=== PATIENT | female | born 2000 | race Caucasian/White ===

== ENCOUNTER 2021-07-02 09:37 | Emergency (ER) | payer SELFPAY ==
[2021-07-02] MEDS ORDERED: DIPHENHYDRAMINE 50 MG/ML VIAL ONE (10:10)
[2021-07-02] MEDS ORDERED: METHYLPREDNISOLONE 125 MG INJ ONE (10:10)
[2021-07-02] MEDS ORDERED: FAMOTIDINE 20 MG/2 ML VIAL IV ONE (10:10)
[2021-07-02] MEDS ORDERED: FOLIC ACID 5 MG/ML VIAL ONE (10:11)
[2021-07-02] MEDS ORDERED: NA CHLORIDE 0.9% 1,000 ML ONE (10:11)
[2021-07-02 10:12] LABS: Absolute Lymphocytes (CBC) 1.3 K/uL (0.7-4.9); Basophils % 0.6 % (0-1.3); Hematocrit 39.5 % (36.0-45.0); Lymphocytes % 31.2 % (15.3-44.8); MPV 8.9 fL (7.6-11.3); RBC Red Blood Cell Count 4.63 M/uL (3.86-4.86)
[2021-07-02 10:17] LABS: Protime INR 1.08
[2021-07-02 10:30] LABS: ALT/SGPT 16 U/L (12-78); AST/SGOT 14 U/L (15-37); Albumin 3.8 g/dL (3.4-5.0); Alkaline Phosphatase 57 U/L (45-117); BUN Blood Urea Nitrogen 6 mg/dL (7-18); Bicarbonate 24 mmol/L (21-32); Bilirubin Direct 0.2 mg/dL (0-0.2); Bilirubin Total 0.6 mg/dL (0.2-1.0); Glucose Level 93 mg/dL (74-106); Magnesium 2.4 mg/dL (1.8-2.4); NT PRO-BNP 55 pg/mL (<125); Potassium 3.5 mmol/L (3.5-5.1); Protein, Total 6.9 g/dL (6.4-8.2); Sodium Level 141 mmol/L (136-145); Troponin (Emerg Dept Use Only) < 0.02 ng/mL (0.0-0.045)
[2021-07-02 10:31] LABS: Urine Blood Negative (Negative); Urine Glucose Negative (Negative); Urine Protein Negative (Negative); Urine pH 6.5 (5.0-7.0)
[2021-07-02 10:32] LABS: C-Reactive Protein < 2.90 mg/L (<3.00)
[2021-07-02 10:47] LABS: Barbiturates NEGATIVE (NEGATIVE); Benzodiazepines NEGATIVE (NEGATIVE); Cocaine NEGATIVE (NEGATIVE); METHAMPHETAM NEGATIVE (NEGATIVE); Methadone NEGATIVE (NEGATIVE); Opiates NEGATIVE (NEGATIVE); Phencyclidine NEGATIVE (NEGATIVE); THC Cannibis NEGATIVE (NEGATIVE)
--- NOTE | 2021-07-02 10:50 | RAD REPORT ---
EXAM DESCRIPTION: CT - Head angio - 07/02/2021 10:42 am CLINICAL HISTORY: Numbness;Visual disturbances TECHNIQUE: During dynamic enhancement using nonionic IV contrast, axial 1 millimeter thick images of the head were obtained. Sagittal and axial reconstruction images were generated using MIP technique and reviewed. All CT scans are performed using dose optimization technique as appropriate and may include automated exposure control or mA/KV adjustment according to patient size. FINDINGS: No aneurysm or vascular malformation identified. Major venous sinuses are patent. No stenosis, named branch occlusion, vasculitis or other significant vascular finding identifiable. IMPRESSION: Negative CT angio head examination.
--- NOTE | 2021-07-02 10:51 | RAD REPORT ---
EXAM DESCRIPTION: CT - Ct Stroke Brain Wo Cont - 07/02/2021 10:43 am CLINICAL HISTORY: Headache;Visual disturbances;Weakness;Numbness COMPARISON: No comparisons TECHNIQUE: Axial 5 millimeter thick images of the head were obtained without IV contrast. All CT scans are performed using dose optimization technique as appropriate and may include automated exposure control or mA/KV adjustment according to patient size. FINDINGS: No intracranial hemorrhage, mass, or cerebral edema. No acute infarction identifiable. No extra-axial fluid collections. Snell matter-white matter differentiation is preserved.No globe or orb ital content abnormality seen. No abnormality of the sella suspected. Visualized portions of the mastoid air cells, paranasal sinuses, and orbits are unremarkable. Findings telephoned to Dr Garntet at 10:47 a.m.. IMPRESSION: No CT evidence of acute intracranial process.
[2021-07-02] MEDS ORDERED: ASPIRIN 81 MG CHEWABLE TABLET ONE (10:52)
--- NOTE | 2021-07-02 10:53 | RAD REPORT ---
EXAM DESCRIPTION: CT - Neck Angio - 07/02/2021 10:43 am CLINICAL HISTORY: HEADACHE TECHNIQUE: During dynamic enhancement using nonionic IV contrast, axial 2 mm thick images of the nec k were obtained. Sagittal and axial reconstruction images were generated using MIP technique and revi ewed. All CT scans are performed using dose optimization technique as appropriate and may include automated exposure control or mA/KV adjustment according to patient size. COMPARISON: CT head same date, CT angio head same date FINDINGS: No aneurysm or vascular malformation identified. No carotid or vertebral dissection. Aortic arch was not fully visualized. Patient appears to be typical 3 vessel origin arch. Vertebral a rtery origins unremarkable. No stenosis, vasculitis or other significant carotid artery finding. No f ocal abnormality of either vertebral artery. Basilar artery is normal. IMPRESSION: Negative CT angio neck examination.
--- NOTE | 2021-07-02 10:56 | ER ---
Nurse's Notes [facility] Name: Aleyda Mac Age: 21 yrs Sex: Female : 2000 Arrival Date: 07/02/2021 Time: 09:39 Bed 18 Private MD: Diagnosis: Other visual disturbances;Weakness Presentation: 07/02 09:46 Chief complaint: Patient states: Vision loss in L eye with L side of body going numb ll1 off/on for 1.5 months. After the symptoms resolve, she has pain to entire L side of body. Coronavirus screen: Vaccine status: Patient reports being unvaccinated. Client denies travel out of the [place] in the last 14 days. At this time, the client does not indicate any symptoms associated with coronavirus-19. Ebola Screen: Patient denies travel to an Ebola-affected area in the 21 days before illness onset. Initial Sepsis Screen: Does the patient meet any 2 criteria? No. Patient's initial sepsis screen is negative. Does the patient have a suspected source of infection? No. Patient's initial sepsis screen is negative. Risk Assessment: Do you want to hurt yourself or someone else? Patient reports no desire to harm self or others. Onset of symptoms was May 20, 2021. 09:46 Method Of Arrival: Ambulatory ll1 09:46 Acuity: GERONIMO 3 ll1 Triage Assessment: 09:48 General: Appears in no apparent distress. Behavior is calm, cooperative, appropriate ll1 for age. Pain: Complains of pain in L side of body Pain currently is 7 out of 10 on a pain scale. Quality of pain is described as aching, Pain began 1 hour ago. Neuro: Level of Consciousness is awake, alert, obeys commands, Oriented to person, place, time, situation, Appropriate for age Moves all extremities. Full function Speech is normal, Facial symmetry appears normal, Reports blurred vision numbness paresthesias. Cardiovascular: No deficits noted. Respiratory: No deficits noted. 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 Flu vaccine is not up to date. - Social history:: Smoking status: Patient denies any tobacco usage or history of. - Family history:: not pertinent. Screenin:48 Abuse screen: Denies threats or abuse. Abuse screen: Denies threats or abuse. ll1 Nutritional screening: No deficits noted. Tuberculosis screening: No symptoms or risk factors identified. 11:39 Fall Risk IV access (20 points). Total Abad Fall Scale indicates No Risk (0-24 pts). ll1 Assessment: 10:45 Reassessment: No changes from previously documented assessment. Patient and/or family ll1 updated on plan of care and expected duration. Pain level reassessed. Patient is alert, oriented x 3, equal unlabored respirations, skin warm/dry/pink. 11:38 Reassessment: No changes from previously documented assessment. Patient and/or family ll1 updated on plan of care and expected duration. Pain level reassessed. Patient is alert, oriented x 3, equal unlabored respirations, skin warm/dry/pink. Patient states feeling better. Vital Signs: 09:46 BP 137 / 80; Pulse 82; Resp 16; Temp 98.5; Pulse Ox 100% ; Weight 54.43 kg; Height 5 ll1 ft. 3 in. (160.02 cm); Pain 7/10; 10:57 BP 143 / 73; Pulse 60; Resp 15; Pulse Ox 100% on R/A; ll1 11:38 BP 121 / 60; Pulse 60; Resp 15; Pulse Ox 100% ; Pain 0/10; ll1 09:46 Body Mass Index 21.26 (54.43 kg, 160.02 cm) 1 ED Course: 09:39 Patient arrived in ED. as 09:41 Jhonny Garnett MD is Attending Physician. sukhwinder 09:42 Khalif Mallory, DERRELL is Primary Nurse. ll1 09:43 Arm band placed on Patient placed in an exam room, on a stretcher. ll1 09:48 Triage completed. ll1 09:48 Patient has correct armband on for positive identification. Bed in low position. Call 1 light in reach. Side rails up X 1. Pulse ox on. NIBP on. 10:00 EKG done, by ED staff, reviewed by Jhonny Garnett MD. 3 10:42 CT Head Angio In Process Unspecified. EDMS 10:43 CT Neck Angio In Process Unspecified. EDMS 10:43 CT Stroke Brain w/o Contrast In Process Unspecified. EDMS 10:54 Daniel Bo MD is Referral Physician. [facility] 11:04 XRAY Chest (1 view) In Process Unspecified. EDMS 11:38 No provider procedures requiring assistance completed. IV discontinued, intact, ll1 bleeding controlled, No redness/swelling at site. Pressure dressing applied. Administered Medications: 02:50 Drug: Pepcid (famotidine) 20 mg Route: IVP; Site: left antecubital; ll1 10:56 Follow up: Response: No adverse reaction ll1 10:25 Drug: NS 0.9% 1000 ml Route: IV; Rate: 1 bolus; Site: left antecubital; ll1 11:30 Follow up: Response: No adverse reaction; IV Status: Completed infusion; IV Intake: ll1 1000ml 10:25 Drug: foLIC Acid 1 mg Route: IVPB; Site: left antecubital; ll1 10:57 Follow up: Response: No adverse reaction; IV Status: Completed infusion; IV Intake: ll1 0.2ml 10:25 Drug: Benadryl (diphenhydrAMINE) 25 mg Route: IVP; Site: left antecubital; ll1 10:56 Follow up: Response: No adverse reaction ll1 10:25 Drug: SOLU-Medrol (methylPrednisoLONE) 125 mg Route: IVP; Site: left antecubital; ll1 10:56 Follow up: Response: No adverse reaction ll1 10:57 Drug: Aspirin Chewable Tablet 324 mg Route: PO; ll1 11:39 Follow up: Response: No adverse reaction ll1 Intake: 10:57 IV: 0ml; Total: 0ml. ll1 11:30 IV: 1000ml; Total: 1000ml. ll1 Outcome: 10:56 Discharge ordered by . sukhwinder 11:38 Discharged to home ambulatory. ll1 11:38 Condition: stable 11:38 Discharge instructions given to patient, family, Instructed on discharge instructions, follow up and referral plans. medication usage, Demonstrated understanding of instructions, follow-up care, medications, Prescriptions given X 1. 11:39 Patient left the ED. ll1 Signatures: Dispatcher [employer] Jhonny Barboza MD MD cha Martinez, Amelia as Herrera Jacqui dh3 Khalif Mallory, RN RN ll1
--- NOTE | 2021-07-02 10:57 | EDPHYS ---
Physician Documentation [facility] Name: Aleyda Mac Age: 21 yrs Sex: Female : 2000 Arrival Date: 07/02/2021 Time: 09:39 Bed 18 Private MD: MAXIMINO Physician Jhonny Garnett HPI: 07/02 09:55 This 21 yrs old Female presents to ER via Ambulatory with complaints of Loss sukhwinder Of Vision, Numbness. 09:55 The patient's problem is reported as paresthesias, in left upper extremity, in left sukhwinder lower extremity, in left side of face, an apparent seizure, with the patient having visual difficulty, blurred vision, scotomata. Onset: The symptoms/episode began/occurred just prior to arrival. Duration: The episodes are intermittent, lasting a few minutes. Context: the episode(s) was witnessed, by a significant other, boyfriend. The symptoms are alleviated by nothing. The symptoms are aggravated by nothing. Associated signs and symptoms: The patient has no apparent associated signs or symptoms. Severity of symptoms: At their worst the symptoms were moderate in the emergency department the symptoms have improved markedly. The patient has not experienced similar symptoms in the past. 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 Flu vaccine is not up to date. - Social history:: Smoking status: Patient denies any tobacco usage or history of. - Family history:: not pertinent. ROS: 09:55 Constitutional: Negative for fever, chills, and weight loss, ENT: Negative for injury, sukhwinder pain, and discharge, Neck: Negative for injury, pain, and swelling, Cardiovascular: Negative for chest pain, palpitations, and edema, Respiratory: Negative for shortness of breath, cough, wheezing, and pleuritic chest pain, Abdomen/GI: Negative for abdominal pain, nausea, vomiting, diarrhea, and constipation, Back: Negative for injury and pain, : Negative for injury, bleeding, discharge, and swelling, MS/Extremity: Negative for injury and deformity, Skin: Negative for injury, rash, and discoloration, Psych: Negative for depression, anxiety, suicide ideation, homicidal ideation, and hallucinations, Allergy/Immunology: Negative for hives, rash, and allergies, Endocrine: Negative for neck swelling, polydipsia, polyuria, polyphagia, and marked weight changes, Hematologic/Lymphatic: Negative for swollen nodes, abnormal bleeding, and unusual bruising. 09:55 Eyes: Positive for blurry vision, visual disturbance, of the iris of left eye. Exam: 09:55 Constitutional: This is a well developed, well nourished patient who is awake, alert, sukhwinder and in no acute distress. Head/Face: Normocephalic, atraumatic. Eyes: Pupils equal round and reactive to light, extra-ocular motions intact. Lids and lashes normal. Conjunctiva and sclera are non-icteric and not injected. Cornea within normal limits. Periorbital areas with no swelling, redness, or edema. ENT: Nares patent. No nasal discharge, no septal abnormalities noted. Tympanic membranes are normal and external auditory canals are clear. Oropharynx with no redness, swelling, or masses, exudates, or evidence of obstruction, uvula midline. Mucous membranes moist. Neck: Trachea midline, no thyromegaly or masses palpated, and no cervical lymphadenopathy. Supple, full range of motion without nuchal rigidity, or vertebral point tenderness. No Meningismus. Chest/axilla: Normal chest wall appearance and motion. Nontender with no deformity. No lesions are appreciated. Cardiovascular: Regular rate and rhythm with a normal S1 and S2. No gallops, murmurs, or rubs. Normal PMI, no JVD. No pulse deficits. Respiratory: Lungs have equal breath sounds bilaterally, clear to auscultation and percussion. No rales, rhonchi or wheezes noted. No increased work of breathing, no retractions or nasal flaring. Abdomen/GI: Soft, non-tender, with normal bowel sounds. No distension or tympany. No guarding or rebound. No evidence of tenderness throughout. Back: No spinal tenderness. No costovertebral tenderness. Full range of motion. Pelvic Exam: Normal external genitalia. Speculum exam with closed cervical os, no discharge or bleeding noted. Bimanual exam with normal adnexa, no adnexal or cervical motion tenderness. Normal uterus. Skin: Warm, dry with normal turgor. Normal color with no rashes, no lesions, and no evidence of cellulitis. MS/ Extremity: Pulses equal, no cyanosis. Neurovascular intact. Full, normal range of motion. Neuro: Awake and alert, GCS 15, oriented to person, place, time, and situation. Cranial nerves II-XII grossly intact. Motor strength 5/5 in all extremities. Sensory grossly intact. Cerebellar exam normal. Normal gait. Psych: Awake, alert, with orientation to person, place and time. Behavior, mood, and affect are within normal limits. 10:30 ECG was reviewed by the Attending Physician. sukhwinder 10:52 Radiologist reports: negative, cta head and neck neg sukhwinder Vital Signs: 09:46 BP 137 / 80; Pulse 82; Resp 16; Temp 98.5; Pulse Ox 100% ; Weight 54.43 kg; Height 5 ll1 ft. 3 in. (160.02 cm); Pain 7/10; 10:57 BP 143 / 73; Pulse 60; Resp 15; Pulse Ox 100% on R/A; ll1 11:38 BP 121 / 60; Pulse 60; Resp 15; Pulse Ox 100% ; Pain 0/10; ll1 09:46 Body Mass Index 21.26 (54.43 kg, 160.02 cm) ll1 MDM: 09:[address] [facility] 10:01 Differential diagnosis: CVA, TIA, paralysis, metabolic disorder, drug effects. Data sukhwinder reviewed: vital signs, nurses notes, lab test result(s), EKG, radiologic studies, CT scan, plain films. 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 Test interpretation: by ED physician or midlevel provider: ECG, plain radiologic studies. Counseling: I had a detailed discussion with the patient and/or guardian regarding: the historical points, exam findings, and any diagnostic results supporting the discharge/admit diagnosis, lab results, radiology results. 07/02 09:55 Order name: Basic Metabolic Panel [facility] 07/02 09:55 Order name: CBC with Diff [facility] 07/02 09:55 Order name: LFT's; Complete Time: 10:50 [facility] 07/02 09:55 Order name: Magnesium; Complete Time: 10:50 [facility] 07/02 09:55 Order name: NT PRO-BNP; Complete Time: 10:50 [facility] 07/02 09:55 Order name: PT-INR; Complete Time: 10:50 [facility] 07/02 09:55 Order name: Troponin (emerg Dept Use Only); Complete Time: 10:50 [facility] 07/02 09:55 Order name: CRP; Complete Time: 10:50 [facility] 07/02 09:55 Order name: Sed Rate; Complete Time: 10:50 [facility] 07/02 09:55 Order name: UDS; Complete Time: 10:50 [facility] 07/02 09:55 Order name: Basic Metabolic Panel; Complete Time: 10:50 [facility] 07/02 09:55 Order name: CBC with Automated Diff; Complete Time: 10:50 [facility] 07/02 10:31 Order name: Urine Dipstick-Ancillary [facility] 07/02 10:34 Order name: Urine --Ancillary (enter results) 07/02 09:55 Order name: XRAY Chest (1 view) [facility] 07/02 09:55 Order name: EKG; Complete Time: 09:56 [facility] 07/02 09:55 Order name: Cardiac monitoring; Complete Time: 10:06 [facility] 07/02 09:55 Order name: EKG - Nurse/Tech; Complete Time: 10:06 [facility] 07/02 09:55 Order name: IV Saline Lock; Complete Time: 09:56 [facility] 07/02 09:55 Order name: Labs collected and sent; Complete Time: 09:56 [facility] 07/02 09:55 Order name: O2 Per Protocol; Complete Time: 09:56 [facility] 07/02 09:55 Order name: CT Head Angio [facility] 07/02 09:55 Order name: CT Neck Angio [facility] 07/02 09:55 Order name: CT Stroke Brain w/o Contrast [facility] 07/02 09:55 Order name: O2 Sat Monitoring; Complete Time: 09:56 [facility] 07/02 09:55 Order name: Urine Dipstick-Ancillary (obtain specimen); Complete Time: 10:56 [facility] 07/02 09:55 Order name: Urine Test (obtain specimen); Complete Time: 10:56 [facility] EC:30 Rate is 82 beats/min. Rhythm is regular. QRS [place] is Normal. NV interval is normal. QRS sukhwinder interval is normal. QT interval is normal. No Q waves. T waves are Normal. No ST changes noted. Clinical impression: Normal ECG and No evidence of ischemia. Interpreted by me. Reviewed by me. Administered Medications: 02:50 Drug: Pepcid (famotidine) 20 mg Route: IVP; Site: left antecubital; ll1 10:56 Follow up: Response: No adverse reaction ll1 10:25 Drug: NS 0.9% 1000 ml Route: IV; Rate: 1 bolus; Site: left antecubital; ll1 11:30 Follow up: Response: No adverse reaction; IV Status: Completed infusion; IV Intake: ll1 1000ml 10:25 Drug: foLIC Acid 1 mg Route: IVPB; Site: left antecubital; ll1 10:57 Follow up: Response: No adverse reaction; IV Status: Completed infusion; IV Intake: ll1 0.2ml 10:25 Drug: Benadryl (diphenhydrAMINE) 25 mg Route: IVP; Site: left antecubital; ll1 10:56 Follow up: Response: No adverse reaction ll1 10:25 Drug: SOLU-Medrol (methylPrednisoLONE) 125 mg Route: IVP; Site: left antecubital; ll1 10:56 Follow up: Response: No adverse reaction ll1 10:57 Drug: Aspirin Chewable Tablet 324 mg Route: PO; ll1 11:39 Follow up: Response: No adverse reaction ll1 Disposition Summary: 07/02/21 10:56 Discharge Ordered Location: Home sukhwinder Problem: new sukhwinder Symptoms: have improved sukhwinder Condition: Stable sukhwinder Diagnosis - Other visual disturbances sukhwinder - Weakness sukhwinder Followup: sukhwinder - With: Private Physician - When: 2 - 3 days - Reason: Recheck today's complaints, Continuance of care, Re-evaluation by your physician Followup: sukhwinder - With: Daniel Bo MD - When: 2 - 3 days - Reason: Recheck today's complaints, Continuance of care, Re-evaluation by your physician Discharge Instructions: - Discharge Summary Sheet sukhwinder - Blurred Vision, Adult sukhwinder - Weakness sukhwinder - Weakness, [id number]-en-[id number] sukhwinder - Aspirin and Your Heart sukhwinder Forms: - Medication Reconciliation Form sukhwinder - Thank You Letter sukhwinder - Antibiotic Education sukhwinder - Prescription Opioid Use sukhwinder - Work release form eb Prescriptions: - Folic Acid 1 mg Oral Tablet - take 1 tablet by ORAL route once daily; 30 tablet; Refills: 0, Product sukhwinder Selection Permitted Signatures: Dispatcher [employer] Jhonny Barboza MD MD cha Lewis, Lynsay, RN RN ll1
--- NOTE | 2021-07-02 11:32 | RAD REPORT ---
EXAM DESCRIPTION: RAD - Chest Single View - 07/02/2021 11:04 am CLINICAL HISTORY: COUGH, Stroke protocol chest film COMPARISON: None TECHNIQUE: AP portable chest image was obtained 07/02/2021 11:04 am . FINDINGS: Lungs are clear. Heart and vasculature are normal. No measurable pleural effusion and no p neumothorax. No acute bony abnormality seen. No acute aortic findings suspected. IMPRESSION: No acute cardiopulmonary process.
[2021-07-02 11:45] VITALS: TEMP 98.5; O2SAT 100
[2021-07-02 11:48] VITALS: BP 121/60
--- OUTSIDE RECORDS SUMMARY | 2021-07-02 23:31 | XMS REPORT | Continuity of Care Document ---
:2000 Author Organization [facility] t Address [address] [place] [address] Dr. Gonzalez. [address] [place] [address] Care Team Providers Name Role Phone Ashlyn MICHEL Primary Care Physician Ting KENNEYP, C Attending Clinician Naren ACOSTA Attending Clinician Unavailable Stefano MENDOZA Attending Clinician Unavailable TYREE Attending Clinician Unavailable Carmen DUNAWAY Attending Clinician Unavailable VANE Attending Clinician Unavailable ASHLYN Attending Clinician Unavailable UNKNOWN Attending Clinician Unavailable Malcolm CERON Attending Clinician Unavailable ERIC Attending Clinician Unavailable LIBERTY Attending Clinician Unavailable CHIARA JIM Attending Clinician Unavailable Poli SNYDER Attending Clinician Unavailable Nurse, Urgent Attending Clinician Unavailable Baldo MAYA Y Attending Clinician Malcolm CERON Admitting Clinician Unavailable ERIC Admitting Clinician Unavailable CHIARA JIM Admitting Clinician Unavailable Payers Payer Name Policy Type Policy Number Effective Date Expiration Date S becky SANCHEZ PRIMARY [id number] 2019 CARE 00:00:00 BROOK [id number] 9004-04-17 00:00:00 [place]. I H [id number] 2019 C 00:00:00 [facility] [id number] 2019 2019 00:00:00 00:00:00 Problems Condition Condition Condition Status Onset Resolution Last Treating Co mments Source Name Details Category Date Date Treatment Clinician Date Encounter Encounter Disease Active Uni vers for for 6-30 ity of surve[place] ce of 00 Medical contracept contracept Br anch gonzales pills gonzales pills Initiation Initiation Disease Active U nivers of OCP of OCP 6-30 ity of (BCP) (BCP) 00:00: [place] 00 Medical Branch History of History of Disease Active U nivers pulmonary pulmonary 6-30 ity of embolism embolism 00:00: [place] 00 Medical Branch Chest pain Chest pain Disease Active 2018-08 U nivers 0-29 ity of 00:00: [place] 00 Medical Branch Syncope Syncope Disease Active 2018-08 Univers 0-27 ity of 00:00: [place] 00 Medical Branch Pulmonary Pulmonary Disease Active 2018-08 Uni vers embolism embolism 0-27 ity of 00:00: [place] 00 Medical Branch Non-intrac Non-intrac Disease Active U nivers table table 5-06 ity of vomiting vomiting 00:00: [place] with with 00 Medical nausea, nausea, Branch unspecifie unspecifie d vomiting d vomiting type type Epistaxis Epistaxis Disease Active Uni vers 5-06 ity of 00:00: [place] 00 Medical Branch Seasonal Seasonal Disease Active Unive rs allergic allergic 5-06 ity of rhinitis rhinitis 00:00: [place] due to due to 00 Medical pollen pollen Branch Allergies, Adverse Reactions, Alerts Allergy Allergy Status Severity Reaction(s) Onset Inactive Treating Comm ents Source Name Type Date Date Clinician Animal Drug Active Other - See 2018-08 Allergic Uni vers Dander Allergy comments 0-27 from cats ity of 00:00: and [place] 00 dogs-stuf Medical fy nose Branch Shellfis Drug Active Rash 2018-08 Univers h Allergy 0-27 ity of Derived 00:00: [place] 00 [facility] Branch ANIMAL DRUG Active Other-Cmnt 2018-08 Univer s DANDER INGREDI 0-27 ity of 00:00: [place] [facility] SHELLFIS DRUG Active Rash 2018-08 Univers H INGREDI 0-27 ity of DERIVED 00:00: [place] [facility] No Known DA Active U [facility] Allergie 7-08 Clear s 00:00: [place] 00 [facility] No Known DA Active U 2014-08 [facility] Allergie 1-17 Clear s 00:00: [place] 00 [facility] Social History Social Habit Start Date Stop Date Quantity Comments Source Exposure to Not sure [place] of SARS-CoV-2 [place] [facility] (event) Branch History SDOH University o f Alcohol Frequency [place] [facility] ed[facility] History SDOH University o f Alcohol Std [place] [facility] Drinks Branch History SDOH University o f Alcohol Binge [place] [facility] Alcohol intake 2021-05-18 2021-05-18 Current drinker Unive rsity of 00:00:00 00:00:00 of alcohol [place] [facility] (finding) Branch Alcohol Comment 2021-02-16 2021-02-16 socially Universit y of 00:00:00 00:00:00 [facility] Tobacco use and 2019-12-10 2019-12-10 Never used Universit y of exposure 00:00:00 00:00:00 [facility] Tobacco Comment 2019-12-10 2019-12-10 vape before Universi ty of 00:00:00 00:00:00 04/2019 [facility] Sex Assigned At 2000 2000 Universit y of 00:00:00 00:00:00 [facility] Smoking Status Start Date Stop Date Source Never smoker [facility] Medications Ordered Filled Start Stop Current Ordering Indication Dosage Frequency Signature Comments Components Source Medication Medication Date Date Medication? Clinician (SIG) Name Name lauraro Yes [id number] 1{tbl} Take 1 Univers ne 0.35 mg 9-29 tablet by ity of tablet 00:00: mouth 00 daily. Medical Branch norethindro Yes [id number] 1{tbl} Take 1 Univers ne 0.35 mg 9-29 tablet by ity of tablet 00:00: mouth 00 daily. Medical Branch norethindro 2020- No [id number] 1{tbl} Take 1 Univers ne 0.35 mg 6-30 05-18 tablet by ity of tablet 00:00: 00:00 mouth [place] 00 :00 daily. Medical Branch norethindro 2020- No [id number] 1{tbl} Take 1 Univers ne 0.35 mg 6-30 05-18 tablet by ity of tablet 00:00: 00:00 mouth [place] 00 :00 daily. Medical Branch MONTELUKAST Yes [id number] TAKE 1 Univers 10 mg 7-31 TABLET BY ity of tablet 00:00: MOUTH [place] 00 EVERY DAY Medical Branch MONTELUKAST Yes [id number] TAKE 1 Univers 10 mg 7-31 TABLET BY ity of tablet 00:00: MOUTH [place] 00 EVERY DAY Medical [place] Immunizations Ordered Filled Immunization Date Status Comments Sour e Immunization Name Name Influenza Virus 2019-06-23 Completed Universit y of Vaccine Quad .5 mL 00:00:00 [place] [facility] IM 6+ MO Branch Influenza Virus 2019-06-23 Completed Universit y of Vaccine Quad .5 mL 00:00:00 [facility] IM 6+ MO Branch Vital Signs Vital Name Observation Time Observation Value Comments Source Systolic blood 2021-05-18 18:25:00 118 mm[Hg] Univer sity of pressure [facility] Diastolic blood 2021-05-18 18:25:00 81 mm[Hg] Unive rsity of [facility] Heart rate 2021-05-18 18:25:00 78 /min [facility] Body temperature 2021-05-18 18:25:00 36.11 [facility] Respiratory rate 2021-05-18 18:25:00 18 /min [facility] Body height 2021-05-18 18:25:00 160 cm [facility] Body weight 2021-05-18 18:25:00 56.564 kg [facility] BMI 2021-05-18 18:25:00 22.09 kg/m2 [facility] Procedures This patient has no known procedures. 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 [id number] ity [facility] [id number] Eugenio as MATERNAL [id number] [facility] [address] [place] [address] 2021-05-18 2021-05-18 Outpatient R AKINSIPE, [facility] [id number] Univers 13:30:00 13:30:00 SARAH rubioy o [facility] 2021-05-18 2021-05-18 Outpatient R AKINSIPE, [facility] [id number] Univers 09:15:00 09:15:00 SARAH ity o [facility] 2021-05-18 2021-05-18 Outpatient R MENDOZA, [facility] [id number] Univers 09:00:00 09:00:00 HEATH [id number] ity o [facility] 2021-05-18 2021-05-18 Outpatient R MENDOZA, [facility] [id number] Univers 09:00:00 09:00:00 HEATH rubioy o [facility] 2021-05-17 2021-05-17 Outpatient R AKINSIPE, [facility] [id number] Univers 09:15:00 09:15:00 SARAH [id number] ity o [facility] 2021-05-17 2021-05-17 Outpatient R AKINSIPE, [facility] [id number] Univers 09:15:00 09:15:00 SARAH ity o [facility] 2021-02-16 2021-02-16 Outpatient MENDOZA, [facility] [id number] Univers 07:30:00 07:30:00 HEATH [id number] ity o [facility] 2021-02-16 2021-02-16 Outpatient R REJI [facility] [id number] Univers 07:30:00 07:30:00 HEATH ity o f [facility] 2021-02-15 2021-02-15 Outpatient R REJI [facility] [id number] Univers 07:45:00 07:45:00 HEATH [id number] ity o f [facility] 2020-11-11 2020-11-11 Outpatient R TYREE, [facility] [id number] Univers 11:15:00 11:15:00 EWELINA [id number] [facility] 2020-11-11 2020-11-11 Outpatient R ROSEANNAADELINE, [facility] [id number] Univers 11:15:00 11:15:00 EWELINA [facility] 2020-02-26 2020-02-26 Outpatient R DUNAWAY, [facility] [id number] Univers 14:00:00 14:00:00 AVERY [id number] [facility] 2020-02-26 2020-02-26 Outpatient R DUNAWAY, [facility] [id number] Univers 14:00:00 14:00:00 VAERY [facility] 2019-12-10 2019-12-10 Outpatient R VANE [facility] [id number] Univers 14:20:00 14:20:00 SHAREE [id number] [facility] 2019-12-10 2019-12-10 Outpatient R VANE [facility] [id number] Univers 14:20:00 14:20:00 MARISELALAURENT [facility] 2019-12-10 2019-12-10 Outpatient R VANE [facility] [id number] Univers 14:20:00 14:20:00 SHAREE [facility] 2019-11-14 2019-11-14 Outpatient R [facility] [id number] Univers 11:30:00 11:30:00 [id number] [facility] 2019-11-14 2019-11-14 Outpatient R ASHLYN [facility] [id number] Univers 11:30:00 11:30:00 [facility] 2019-11-01 2019-11-01 Outpatient R [facility] [id number] Univers 12:15:00 12:15:00 [id number] [facility] 2019-11-01 2019-11-01 Outpatient R UNKNOWN, [facility] [id number] Univers 12:15:00 12:15:00 ATTENDING [facility] 2019-09-30 2019-10-01 Emergency X OSMANY [facility] ERT [id number] Univers 23:56:38 02:38:00 MOHAMMED ity o f [facility] 2019-09-02 2019-09-02 Outpatient R EWELINA GOLDBERG [facility] [id number] Univers 10:30:00 11:50:00 [facility] 2019-06-17 2019-06-23 Inpatient X ALFRED REYES [facility] DOMINGA [id number] Univers 11:52:53 11:25:00 [facility] 2019-06-15 2019-06-15 Outpatient R LIBERTY, [facility] [id number] Univers 11:30:00 12:17:49 TREVA [facility] 2019-05-24 2019-05-24 Emergency X EVI JIM [facility] ERT [id number] Univers 14:22:08 16:55:00 [facility] 2019-04-19 2019-04-19 Emergency E MHSE MHSE [id number] [facility] 16:35[facility]-04-19 2019-04-19 Outpatient R LILLIAN, [facility] [id number] Univers 16:00:00 16:05:46 VAZQUEZ [facility] 2019-04-19 2019-04-19 Nurse NurseAbi [id number] 15:58:49 16:05:46 Visit Urgent Pediatric [id number] s and [id number] Adult [id number] Primary [facility] 2019-03-18 2019-03-18 Don Cornell [id number] 00:00:00 00:00:00 Y Pediatric [id number] s and [id number] Adult [id number] Primary [facility] Results Test Description Test Time Test Comments Results Result Comments Source DRUGS OF ABUSE SCREEN UR 2019-05-10 01:36:00 Test Item Value Reference Range Interpretation Comme nts URN COCAINE (test code = COCAURN) NEGATIVE NEGATIVE URN CANNABINOIDS (test code = NEGATIVE NEGATIVE CANNABURN) URN AMPHETAMINE (test code = NEGATIVE NEGATIVE AMPHETURN) URN BARBITURATE (test code = NEGATIVE NEGATIVE BARBITURN) URN BENZODIAZEPINE (test code = NEGATIVE NEGATIVE Cut-off value:200 ng/mL BENZOURN) URN OPIATES (test code = NEGATIVE NEGATIVE Cut -off value:2000 ng/mL OPIATURN) URN PHENCYCLIDINE (PCP) (test NEGATIVE NEGATIVE Cutoffs:Barbiturates code = PHENCURN) 200 ng/mLB enzodiazepines 200 ng/mLTHC Cannabinoids 50 ng/mLO piates(Morphine) 2000 ng/m LAmphetamine 1000 ng /mLCocaine 300 ng/mLPCP phencyclidine 25 ng/mL Unconfirmed scr eening results shouldnot be us ed for non-medical pur poses. UR HCG [id number] 01:26:00 Test Item Value Reference Range Interpretation Comments UR HCG QUAL (test code = HCGQLU) NEGATIVE NEGATIVE URINALYSIS [id number] 01:26:00 Test Item Value Reference Range Interpretation Comments UA COLOR (test code = COLU) YELLOW YEL/STRAW UA APPEARANCE (test code = APPU) SL CLOUDY CLEAR UA GLUCOSE DIPSTICK (test code = NEGATIVE NEGATIVE DGLUU) UA BILIRUBIN DIPSTICK (test code NEGATIVE NEGATIVE = BILU) UA KETONE DIPSTICK (test code = 2+ NEGATIVE A KETU) UA SPECIFIC GRAVITY (test code = 1.021 1.005-1.030 N SGU) UA BLOOD DIPSTICK (test code = NEGATIVE NEGATIVE SARAH) UA PH DIPSTICK (test code = JEAN) 5.0 5.0-7.0 N UA PROTEIN DIPSTICK (test code = NEGATIVE NEGATIVE PROU) UA UROBILINIOGEN DIPSTICK (test 0.2 mg/dL 0.2-1.0 code = URO) UA NITRITE DIPSTICK (test code = NEGATIVE NEGATIVE ANDREW) UA LEUKOCYTE ESTERASE DIPSTICK 2+ NEGATIVE A (test code = LEUU) UA RBC (test code = RBCU) 0-3 RBC/HPF 0-3 UA WBC NO REFLEX (test code = 4-9 WBC/HPF 0-3 A WBCUCL) UA BACTERIA (test code = BACU) TRACE /HPF NONE SEEN UA SQUAMOUS CELLS (test code = 11-25 /HPF NONE SEEN A SQU) UA MUCUS (test code = MUCU) 3+ /LPF NONE SEEN A HEPATIC FUNCTION [id number] 00:54:00 Test Item Value Reference Range Interpretation Comments TOTAL PROTEIN (test code = PROT) 7.8 g/dL 6.4-8.2 N ALBUMIN (test code = ALB) 4.70 g/dL 3.4-5.0 N BILIRUBIN TOTAL (test code = BILT) 0.8 MG/DL <1.5 N BILIRUBIN DIRECT (test code = 0.10 MG/DL 0.0-0.30 N BILD) BILIRUBIN INDIRECT (test code = 0.70 MG/DL BILIND) SGOT/AST (test code = AST) 18 IUnit/L 15-37 N SGPT/ALT (test code = ALT) 15 IUnit/L 15-65 N ALKALINE PHOSPHATASE TOTAL (test 70 IUnit/L 60-350 N code = ALKP) [id number] 00:54:00 Test Item Value Reference Range Interpretation Comments ALCOHOL (test code < 0.003 G/dL <0.003 Ethyl Alc ohol = ALC) Interpretation: 0.100 gm/dL - Legally Intoxic ated 0.300-0.40 0 gm/dL - Severely Into xicated >0.400 gm/dL - Potentially LethalResults a re for Medical purpose s only, and not for Leg al orEmployment ev aluation purposes. CBC W/AUTO [id number] 00:35:00 Test Item Value Reference Range Interpretation Comments WHITE BLOOD CELL (test code = 11.70 x10 3/uL 4.5-11.0 H WBC) RED BLOOD CELL (test code = 5.19 x10 6/uL 3.54-5.02 H RBC) HEMOGLOBIN (test code = HGB) 14.6 g/dL 11.0-15.0 N HEMATOCRIT (test code = HCT) 43.8 % 33.0-45.0 N MEAN CELL VOLUME (test code = 84.4 fL 81.0-99.0 N MCV) MEAN CELL HGB (test code = 28.1 pg 27.0-33.0 N MCH) MEAN CELL HGB CONCETRATION 33.3 g/dL 33.0-37.0 N (test code = MCHC) RED CELL DISTRIBUTION WIDTH CV 11.5 % 11.5-14.5 N (test code = RDW) RED CELL DISTRIBUTION WIDTH SD 35.3 fL 37.0-54.0 L (test code = RDW-SD) PLATELET COUNT (test code = 291 x10 3/uL 150-400 N PLT) MEAN PLATELET VOLUME (test 11.2 fL 7.0-9.0 H code = MPV) NEUTROPHIL % (test code = NT%) 73.4 % 56.0-77.0 N IMMATURE GRANULOCYTE % (test 0.5 % 0.0-2.0 N code = IG%) LYMPHOCYTE % (test code = LY%) 17.4 % 14.0-32.0 N MONOCYTE % (test code = MO%) 7.3 % 4.8-9.0 N EOSINOPHIL % (test code = EO%) 1.0 % 0.3-3.7 N BASOPHIL % (test code = BA%) 0.4 % 0.0-2.0 N NUCLEATED RBC % (test code = 0.0 % 0-0 N NRBC%) NEUTROPHIL # (test code = NT#) 8.58 x10 3/uL 2.0-7.6 H IMMATURE GRANULOCYTE # (test 0.06 x10 3/uL 0.00-0.03 H code = IG#) LYMPHOCYTE # (test code = LY#) 2.04 x10 3/uL 1.0-3.8 N MONOCYTE # (test code = MO#) 0.85 x10 3/uL 0.1-0.8 H EOSINOPHIL # (test code = EO#) 0.12 x10 3/uL 0.0-0.2 N BASOPHIL # (test code = BA#) 0.05 x10 3/uL 0.0-0.2 N NUCLEATED RBC # (test code = 0.00 x10 3/uL 0.0-0.1 N NRBC#) MANUAL DIFF REQUIRED (test NO code = MDIFF) - CT ABD PELVIS [id number] 23:38:00 Name: KAMRYN TELLEZ : 2000 Age/S: 18 / F [address] [facility] Unit #: [id number] Loc: [place] [id number] Phys: Jermaine Vora [employer] Acct: [id number] Dis Date: Status: REG ER PHONE #: [phone] Exam Date: 02/24/20192312 FAX #: [phone] Reason: L sidedabd pain EXAMS: CPTCODE: [id number] CT ABD PELVIS W/CONT 21126 CT ABDOMEN AND PELVIS WITH CONTRAST CLINICAL HISTORY: Left-sided abdominal pain. COMPARISON:None. TECHNIQUE: Multiple axial images of the abdomen and pelvis were performed after the administration of IV contrast. This exam was performed according to our departmental dose optimization program which includes automated exposure control, adjustment of the mA and/or kV according to patient size and/or use of iterative reconstruction technique. DLP 211.85 FINDINGS: Lower chest: A 2 mm subpleural nodular density within the left lower lobe likely represents focal subsegmental atelectasis. 12 month follow-up can be obtained if patient is high risk. Liver: The liver is slightly prominent in size. Gallbladder and biliary tree: The gallbladder is partially distended, nonspecific. No associated gallbladder inflammatory changes by CT. No biliary dilatation. Spleen: No significant findings. Adrenal Glands: No significant findings. Pancreas: No significant findings. Kidneys and ureters: The kidneys demonstrate symmetric enhancement without evidence of hydronephrosis. No obstructing urolithiasis. Bowel: No obstructing pattern. No overt bowel wall thickening. A small to moderate fecal load is noted. Appendix: Normal. Bladder: No significant findings. Major vascular structures: No significant findings. Pelvis: No pelvicmass is identified. PAGE 1 Signed Report (CONTINUED)Name: KAMRYN TELLEZ : 2000 Age/S: 18 / F [address] [place] [address] Unit #: [id number] Loc: [place] ELIF [address]58 Phys: VielkaJermaine [employer] WORK[employer] Acct: [id number] Dis Date: Status: REG ER PHONE #: [phone] Exam Date: 02/24/20192312 FAX #: [phone] Reason: L sided abd pain EXAMS: CPT CODE: [id number] CT ABD PELVIS W/CONT 85077 <Continued> Other: No free air or adenopathy.No free fluid in noted. Skeleton: No acute bony abnormality. IMPRESSION: No overt acute abnormality to explain given complain. A small to moderate fecal load is noted, nonspecific. Additional findings as above. at 2338 Reported and signed by: Quang Schreiber M.D. CC: Jermaine Vora [employer] WORK[employer] Technologist:Ev Frausto RT(R) CTDI: DLP: Trnscb Date/Time: 02/24/2019 (5445) [email or web address] Orig Print D/T: S: 02/24/2019 (1482) PAGE 2 Signed ReportBASIC METABOLIC [id number] 22:46:00 Test Item Value Reference Range Interpretation Comments SODIUM (test code = NA) 139 mEq/L 134-147 N POTASSIUM (test code = 3.8 mEq/L 3.4-5.0 N K) CHLORIDE (test code = 106 mEq/L 100-108 N CL) CARBON DIOXIDE (test 24 mEq/L 21-33 N code = CO2) ANION GAP (test code = 13 0-20 N GAP) GLUCOSE (test code = 78 mg/dL 70-110 N GLU) BLOOD UREA NITROGEN 8 mg/dL 7-18 N (test code = BUN) GLOMERULAR FILTRATION 93.4 110-120 L Units of measure = RATE (test code = GFR) ml/mi n/1.73 m2 CREATININE (test code = 0.8 mg/dL 0.6-1.3 N CREAT) CALCIUM (test code = 9.3 mg/dL 8.0-10.5 N CA) HEPATIC FUNCTION [id number] 22:46:00 Test Item Value Reference Range Interpretation Comments TOTAL PROTEIN (test code = PROT) 7.4 g/dL 6.4-8.2 N ALBUMIN (test code = ALB) 3.80 g/dL 3.4-5.0 N BILIRUBIN TOTAL (test code = BILT) 0.50 mg/dL 0.0-1.0 N BILIRUBIN DIRECT (test code = 0.10 MG/DL 0.0-0.30 N BILD) BILIRUBIN INDIRECT (test code = 0.40 MG/DL BILIND) SGOT/AST (test code = AST) 15 IUnit/L 15-37 N SGPT/ALT (test code = ALT) 25 IUnit/L 15-65 N ALKALINE PHOSPHATASE TOTAL (test 81 IUnit/L 60-350 N code = ALKP) [id number] 22:46:00 Test Item Value Reference Range Interpretation Comments LIPASE (test code = LIP) 166 IUnit/L 73-393 N HCG SERUM [id number] 22:46:00 Test Item Value Reference Range Interpretation Comments HCG SERUM QUAL (test code = SERUM NEGATIVE NEGATIVE HCGQL) BASIC METABOLIC [id number] 22:43:00 Test Item Value Reference Range Interpretation Comments SODIUM (test code = NA) 139 mEq/L 134-147 N POTASSIUM (test code = 3.8 mEq/L 3.4-5.0 N K) CHLORIDE (test code = 106 mEq/L 100-108 N CL) CARBON DIOXIDE (test 24 mEq/L 21-33 N code = CO2) ANION GAP (test code = 13 0-20 N GAP) GLUCOSE (test code = 78 mg/dL 70-110 N GLU) BLOOD UREA NITROGEN 8 mg/dL 7-18 N (test code = BUN) GLOMERULAR FILTRATION 93.4 110-120 L Units of measure = RATE (test code = GFR) ml/mi n/1.73 m2 CREATININE (test code = 0.8 mg/dL 0.6-1.3 N CREAT) CALCIUM (test code = 9.3 mg/dL 8.0-10.5 N CA) HEPATIC FUNCTION [id number] 22:43:00 Test Item Value Reference Range Interpretation Comments TOTAL PROTEIN (test code = PROT) g/dL 6.4-8.2 ALBUMIN (test code = ALB) 3.80 g/dL 3.4-5.0 N BILIRUBIN TOTAL (test code = BILT) mg/dL 0.0-1.0 BILIRUBIN DIRECT (test code = 0.10 MG/DL 0.0-0.30 N BILD) SGOT/AST (test code = AST) 15 IUnit/L 15-37 N SGPT/ALT (test code = ALT) 25 IUnit/L 15-65 N ALKALINE PHOSPHATASE TOTAL (test IUnit/L 60-350 code = ALKP) [id number] 22:43:00 Test Item Value Reference Range Interpretation Comments LIPASE (test code = LIP) 166 IUnit/L 73-393 N HCG SERUM [id number] 22:43:00 Test Item Value Reference Range Interpretation Comments HCG SERUM QUAL (test code = SERUM NEGATIVE NEGATIVE HCGQL) BASIC METABOLIC [id number] 22:37:00 Test Item Value Reference Range Interpretation Comments SODIUM (test code = NA) mEq/L 134-147 POTASSIUM (test code = K) mEq/L 3.4-5.0 CHLORIDE (test code = CL) mEq/L 100-108 CARBON DIOXIDE (test code = CO2) mEq/L 21-33 ANION GAP (test code = GAP) 0-20 GLUCOSE (test code = GLU) mg/dL 70-110 BLOOD UREA NITROGEN (test code = BUN) mg/dL 7-18 GLOMERULAR FILTRATION RATE (test code 110-120 = GFR) CREATININE (test code = CREAT) mg/dL 0.6-1.3 CALCIUM (test code = CA) mg/dL 8.0-10.5 HEPATIC FUNCTION [id number] 22:37:00 Test Item Value Reference Range Interpretation Comments TOTAL PROTEIN (test code = PROT) g/dL 6.4-8.2 ALBUMIN (test code = ALB) g/dL 3.4-5.0 BILIRUBIN TOTAL (test code = BILT) mg/dL 0.0-1.0 BILIRUBIN DIRECT (test code = BILD) MG/DL 0.0-0.30 SGOT/AST (test code = AST) IUnit/L 15-37 SGPT/ALT (test code = ALT) IUnit/L 15-65 ALKALINE PHOSPHATASE TOTAL (test IUnit/L 60-350 code = ALKP) [id number] 22:37:00 Test Item Value Reference Range Interpretation Comments LIPASE (test code = LIP) IUnit/L 73-393 HCG SERUM [id number] 22:37:00 Test Item Value Reference Range Interpretation Comments HCG SERUM QUAL (test code = SERUM NEGATIVE NEGATIVE HCGQL) CBC W/AUTO [id number] 22:28:00 Test Item Value Reference Range Interpretation Comments WHITE BLOOD CELL (test code = 6.70 x10 3/uL 4.5-11.0 N WBC) RED BLOOD CELL (test code = 4.88 x10 6/uL 3.54-5.02 N RBC) HEMOGLOBIN (test code = HGB) 13.4 g/dL 11.0-15.0 N HEMATOCRIT (test code = HCT) 41.0 % 33.0-45.0 N MEAN CELL VOLUME (test code = 84.0 fL 81.0-99.0 N MCV) MEAN CELL HGB (test code = MCH) 27.5 pg 27.0-33.0 N MEAN CELL HGB CONCETRATION 32.7 g/dL 33.0-37.0 L (test code = MCHC) RED CELL DISTRIBUTION WIDTH CV 11.9 % 11.5-14.5 N (test code = RDW) RED CELL DISTRIBUTION WIDTH SD 36.5 fL 37.0-54.0 L (test code = RDW-SD) PLATELET COUNT (test code = 252 x10 3/uL 150-400 N PLT) MEAN PLATELET VOLUME (test code 10.4 fL 7.0-9.0 H = MPV) NEUTROPHIL % (test code = NT%) 59.5 % 56.0-77.0 N IMMATURE GRANULOCYTE % (test 0.3 % 0.0-2.0 N code = IG%) LYMPHOCYTE % (test code = LY%) 27.9 % 14.0-32.0 N MONOCYTE % (test code = MO%) 6.9 % 4.8-9.0 N EOSINOPHIL % (test code = EO%) 5.1 % 0.3-3.7 H BASOPHIL % (test code = BA%) 0.3 % 0.0-2.0 N NUCLEATED RBC % (test code = 0.0 % 0-0 N NRBC%) NEUTROPHIL # (test code = NT#) 3.99 x10 3/uL 2.0-7.6 N IMMATURE GRANULOCYTE # (test 0.02 x10 3/uL 0.00-0.03 N code = IG#) LYMPHOCYTE # (test code = LY#) 1.87 x10 3/uL 1.0-3.8 N MONOCYTE # (test code = MO#) 0.46 x10 3/uL 0.1-0.8 N EOSINOPHIL # (test code = EO#) 0.34 x10 3/uL 0.0-0.2 H BASOPHIL # (test code = BA#) 0.02 x10 3/uL 0.0-0.2 N NUCLEATED RBC # (test code = 0.00 x10 3/uL 0.0-0.1 N NRBC#) MANUAL DIFF REQUIRED (test code NO = MDIFF) URINALYSIS [id number] 21:07:00 Test Item Value Reference Range Interpretation Comments UA COLOR (test code = COLU) YELLOW YEL/STRAW UA APPEARANCE (test code = CLEAR CLEAR APPU) UA GLUCOSE DIPSTICK (test code NEGATIVE NEGATIVE = DGLUU) UA BILIRUBIN DIPSTICK (test NEGATIVE NEGATIVE code = BILU) UA KETONE DIPSTICK (test code 1+ NEGATIVE A = KETU) UA SPECIFIC GRAVITY (test code 1.021 1.005-1.030 N = SGU) UA BLOOD DIPSTICK (test code = NEGATIVE NEGATIVE SARAH) UA PH DIPSTICK (test code = 5.0 5.0-7.0 N JEAN) UA PROTEIN DIPSTICK (test code NEGATIVE NEGATIVE = PROU) UA UROBILINIOGEN DIPSTICK 0.2 mg/dL 0.2-1.0 (test code = URO) UA NITRITE DIPSTICK (test code NEGATIVE NEGATIVE = ANDREW) UA LEUKOCYTE ESTERASE DIPSTICK NEGATIVE NEGATIVE (test code = LEUU) UA WBC (test code = WBCU) 4-9 WBC/HPF 0-3 A UA RBC (test code = RBCU) 0-3 RBC/HPF 0-3 UA BACTERIA (test code = BACU) NONE SEEN /HPF NONE SEEN UA SQUAMOUS CELLS (test code = 0-5 /HPF NONE SEEN SQU) UA MUCUS (test code = MUCU) 3+ /LPF NONE SEEN A
== END 2021-07-02 11:39 | disposition home or self-care (01) ==
LOC: ER 09:37
DX: R53.1 Weakness (principal); J30.81 Allergic rhinitis due to animal (cat) (dog) hair and dander; Z91.013 Allergy to seafood
CPT/HCPCS: 36415; 70450; 70496; 70498; 71045; 80048; 80076; 80307; 81003; 81025; 82565; 83735; 83880; 84484; 85025; 85610; 85652; 86140; 93005; 96361; 96365; 96375; 99284; J1200; J2930; J7030; Q9967

== ENCOUNTER 2021-11-24 11:29 | Emergency (ER) | payer OTHER, SELFPAY ==
--- OUTSIDE RECORDS SUMMARY | 2021-11-24 11:33 | XMS REPORT | Continuity of Care Document ---
:2000 Author Organization [facility] t Address [address] [place] [address] Care Team Providers Name Role Phone Stefano Garsia Primary Care Physician Stefano SARMIENTO Attending Clinician Unavailable Stefano Garsia Attending Clinician Ultrasound Attending Clinician Unavailable Alexey Lane MD Attending Clinician ALEXEY LANE Attending Clinician Unavailable CUONG Attending Clinician Unavailable Nurse, Urgent Attending Clinician Unavailable Baldo MAYA, Y Attending Clinician Payers Payer Name Policy Type Policy Number Effective Date Expiration Date [facility] [id number] 2021 CHOICE MEDICAID 00:00:00 Problems Condition Condition Condition Status Onset Resolution Last Treating Co mments Source Name Details Category Date Date Treatment Clinician Date Maternal Maternal Disease Active Overview: Un donnie varicella, varicella, 09-17 Formattin ity of non-immune non-immune 00:00: g of this [place] 00 note Medical might be Branch different from the original. Address in PP Rubella Rubella Disease Active Overview: Univ ers non-immune non-immune 09-17 Formattin ity of status, status, 00:00: g of this [place] antepartum antepartum 00 note Me dical might be Branch different from the original. Address in PP Supervisio Supervisio Disease Active U nivers n of high n of high 09-16 ity of risk risk 00:00: [place] , , 00 Me dical antepartum antepartum Br anch Primigravi Primigravi Disease Active U nivers da in da in 09-16 ity of first first 00:00: [place] trimester trimester 00 [facility] Branch Encounter Encounter Disease Active Uni vers for for 6-30 ity of surveillan [place] ce of 00 Medical contracept contracept Br anch gonzales pills gonzales pills Initiation Initiation Disease Active U nivers of OCP of OCP 6-30 ity of (BCP) (BCP) 00:00: [place] Medical Branch History of History of Disease Active U nivers pulmonary pulmonary 6-30 ity of embolus embolus 00:00: [place] (PE) (PE) 00 Medical Branch Chest pain Chest pain Disease Active 2018-08 U nivers 0-29 ity of 00:00: [place] 00 Medical Branch Syncope Syncope Disease Active 2018-08 Univers 0-27 ity of 00:00: [place] 00 Medical Branch Pulmonary Pulmonary Disease Active 2018-08 Uni vers embolism embolism 0-27 ity of 00:00: [place] 00 Medical Branch Non-intrac Non-intrac Disease Active U nivers table table 5-06 ity of vomiting vomiting 00:00: [place] with with 00 Medical nausea, nausea, Branch unspecifie unspecifie d vomiting d vomiting type type Epistaxis Epistaxis Disease Active Uni vers 5-06 ity of 00:00: [place] 00 Medical Branch Seasonal Seasonal Disease Active [...] h Allergy 0-27 ity of Derived 00:00: [place] 00 Medical Branch ANIMAL DRUG Active Other-Cmnt 2018-08 Univer s DANDER INGREDI 0-27 ity of 00:00: [place] 00 Medical Branch SHELLFIS DRUG Active Rash 2018-08 Univers H INGREDI 0-27 ity of DERIVED 00:00: [place] [address] [facility] [place] No Known DA Active U [facility] Allergie 7-08 Clear s 00:00: [place] 00 [facility] No Known DA Active U 2014-08 [facility] Allergie 1-17 Clear s 00:00: [place] 00 [facility] Social History Social Habit Start Date Stop Date Quantity Comments Source ASSERTION 2021-08-08 University of 00:00:00 [facility] Exposure to Not sure [place] of SARS-CoV-2 [place] Medical (event) Branch History SDOH University o f Alcohol Frequency [facility] edical Branch History SDOH University o f Alcohol Std [place] Medical Drinks Branch History SDOH University o f Alcohol Binge [place] Medic al Branch Alcohol intake 2021-11-11 2021-11-11 Ex-drinker University of 00:00:00 00:00:00 (finding) [facility] Alcohol Comment 2021-02-16 2021-02-16 socially Universit y of 00:00:00 00:00:00 [facility] Tobacco use and 2019-12-10 2019-12-10 Never used Universit y of exposure 00:00:00 00:00:00 [facility] Tobacco Comment 2019-12-10 2019-12-10 vape before Universi ty of 00:00:00 00:00:00 04/2019 [facility] Sex Assigned At 2000 2000 Universit y of 00:00:00 00:00:00 [facility] Smoking Status Start Date Stop Date Source [facility]ations Ordered Filled Start Stop Current Ordering Indication Dosage Frequency Signature Comments Components Source Medication Medication Date Date Medication? Clinician (SIG) Name Name terconazole Yes [id number] 1{appli Insert 1 Univers 0.8 % 3-25 cator} Applicator ity of vaginal 00:00: into [place] cream 00 vagina at Medical bedtime. Branch terconazole Yes [id number] 1{appli Insert 1 Univers 0.8 % 3-25 cator} Applicator ity of vaginal 00:00: into [place] cream 00 vagina at Medical bedtime. Branch Yes [id number] 1{packe Take 1 Univers vit 2-25 t} Packet by ity of 33-iron-fol 00:00: mouth [place] ic-dha 00 daily. Medical ([facility] + DHA) 29 mg iron-1 mg -250 mg combo pack Yes [id number] 1{packe Take 1 Univers vit 2-25 t} Packet by ity of 33-iron-fol 00:00: mouth [place] ic-dha 00 daily. Medical ([facility] + DHA) 29 mg iron-1 mg -250 mg combo pack Yes [id number] 1{packe Take 1 Univers vit 2-25 t} Packet by ity of 33-iron-fol 00:00: mouth [place] ic-dha 00 daily. Medical ([facility] + DHA) 29 mg iron-1 mg -250 mg combo pack Yes [id number] 1{packe Take 1 Univers vit 2-25 t} Packet by ity of 33-iron-fol 00:00: mouth [place] ic-dha 00 daily. Medical ([facility] + DHA) 29 mg iron-1 mg -250 mg combo pack Yes [id number] 1{packe Take 1 Univers vit 2-25 t} Packet by ity of 33-iron-fol 00:00: mouth [place] ic-dha 00 daily. Medical ([facility] + DHA) 29 mg iron-1 mg -250 mg combo pack enoxaparin Yes [id number] 40mg inject 0.4 Univers (LOVENOX) 2-14 mL under ity of 30 mg/0.3 00:00: [place] mL 00 daily. Medical injection Continue Branch until 6 weeks after delivery. enoxaparin 2021-0 Yes [id number] 40mg inject 0.4 Univers (LOVENOX) 2-14 mL under ity of 30 mg/0.3 00:00: [place] mL 00 daily. Medical injection Continue Branch until 6 weeks after delivery. enoxaparin 2021-0 Yes [id number] 40mg inject 0.4 Univers (LOVENOX) 2-14 mL under ity of 30 mg/0.3 00:00: [place] mL 00 daily. Medical injection Continue Branch until 6 weeks after delivery. enoxaparin 2021-0 Yes [id number] 40mg inject 0.4 Univers (LOVENOX) 2-14 mL under ity of 30 mg/0.3 00:00: [place] mL 00 daily. Medical injection Continue Branch until 6 weeks after delivery. enoxaparin 2021-0 Yes [id number] 40mg inject 0.4 Univers (LOVENOX) 2-14 mL under ity of 30 mg/0.3 00:00: [place] mL 00 daily. Medical injection Continue Branch until 6 weeks after delivery. enoxaparin 2021-0 Yes [id number] 40mg inject 0.4 Univers (LOVENOX) 2-14 mL under ity of 30 mg/0.3 00:00: [place] mL 00 daily. Medical injection Continue Branch until 6 weeks after delivery. proMETHazin 2021-0 Yes [id number] 25mg Take 1 Univers e 25 mg 2-09 tablet by ity of tablet 00:00: mouth [place] 00 every 4 Medical (four) Branch hours as needed for Nausea and Vomiting (N/V). proMETHazin 2-0 Yes [id number] 25mg Take 1 Univers e 25 mg 2-09 tablet by ity of tablet 00:00: mouth [place] 00 every 4 Medical (four) Branch hours as needed for Nausea and Vomiting (N/V). proMETHazin 2022-0 Yes [id number] 25mg Take 1 Univers e 25 mg 2-09 tablet by ity of tablet 00:00: mouth [place] 00 every 4 Medical (four) Branch hours as needed for Nausea and Vomiting (N/V). proMETHazin 2-0 Yes [id number] 25mg Take 1 Univers e 25 mg 2-09 tablet by ity of tablet 00:00: mouth [place] 00 every 4 Medical (four) Branch hours as needed for Nausea and Vomiting (N/V). proMETHazin Yes [id number] 25mg Take 1 Univers e 25 mg 2-09 tablet by ity of tablet 00:00: mouth [place] 00 every 4 Medical (four) Branch hours as needed for Nausea and Vomiting (N/V). proMETHazin Yes [id number] 25mg Take 1 Univers e 25 mg 2-09 tablet by ity of tablet 00:00: mouth [place] 00 every 4 Medical (four) Branch hours as needed for Nausea and Vomiting (N/V). Yes Take by Unive rs vit 1-28 mouth. ity of no.124/iron 09:14: [place] /folic 04 Medical ( Branch VITAMIN ORAL) Yes Take by Unive rs vit 1-28 mouth. ity of no.124/iron 09:14: [place] /folic 04 Medical ( Branch VITAMIN ORAL) Yes Take by Unive rs vit 1-28 mouth. ity of no.124/iron 09:14: [place] /folic 04 Medical ( Branch VITAMIN ORAL) Yes Take by Unive rs vit 1-28 mouth. ity of no.124/iron 09:14: [place] /folic 04 Medical ( Branch VITAMIN ORAL) Yes Take by Unive rs vit 1-28 mouth. ity of no.124/iron 09:14: [place] /folic 04 Medical ( Branch VITAMIN ORAL) Yes Take by Unive rs vit 1-28 mouth. ity of no.124/iron 09:14: [place] /folic 04 Medical ( Branch VITAMIN ORAL) [facility] Yes [id number] TAKE 1 Univers 10 mg 7-31 TABLET BY ity of tablet 00:00: MOUTH [place] 00 EVERY DAY Medical Branch MONTELUKAST 2019-0 Yes [id number] TAKE 1 Univers 10 mg 7-31 TABLET BY ity of tablet 00:00: MOUTH [place] 00 EVERY DAY Medical Branch MONTELUKAST 2019-0 Yes [id number] TAKE 1 Univers 10 mg 7-31 TABLET BY ity of tablet 00:00: MOUTH [place] 00 EVERY DAY Medical Branch MONTELUKAST 20190 Yes [id number] TAKE 1 Univers 10 mg 7-31 TABLET BY ity of tablet 00:00: MOUTH 00 EVERY DAY Medical Branch MONTELUKAST 2019-0 Yes [id number] TAKE 1 Univers 10 mg 7-31 TABLET BY ity of tablet 00:00: MOUTH EVERY DAY Medical Branch MONTELUKAST 2019-0 Yes [id number] TAKE 1 Univers 10 mg 7-31 TABLET BY ity of tablet 00:00: MOUTH [place] 00 EVERY DAY Medical Branch Immunizations Ordered Filled Immunization Date Status Comments Sour e Immunization Name Name Influenza Virus 2019-06-23 Completed Universit y of Vaccine Quad .5 mL 00:00:00 [place] Medical IM 6+ MO Branch Influenza Virus 2019-06-23 Completed Universit y of Vaccine Quad .5 mL 00:00:00 [place] Medical IM 6+ MO Branch Influenza Virus 2019-06-23 Completed Universit y of Vaccine Quad .5 mL 00:00:00 [facility] IM 6+ MO Branch Influenza Virus 2019-06-23 Completed Universit y of Vaccine Quad .5 mL 00:00:00 [facility] IM 6+ MO Branch Influenza Virus 2019-06-23 Completed Universit y of Vaccine Quad .5 mL 00:00:00 [facility] IM 6+ MO Branch Influenza Virus 2019-06-23 Completed Universit y of Vaccine Quad .5 mL 00:00:00 [facility] IM 6+ MO Branch Vital Signs Vital Name Observation Time Observation Value Comments Source BMI 2021-11-11 14:11:00 21.47 kg/m2 [facility] Systolic blood 2021-11-11 14:11:00 115 mm[Hg] Univer sity of pressure [facility] Diastolic blood 2021-11-11 14:11:00 75 mm[Hg] Unive rsity of pressure [facility] Heart rate 2021-11-11 14:11:00 100 /min [facility] Body temperature 2021-11-11 14:11:00 36.5 Irasema [facility] Respiratory rate 2021-11-11 14:11:00 16 /min Univ ersity [facility] Body height 2021-11-11 14:11:00 160 cm [facility] Body weight 2021-11-11 14:11:00 54.976 kg [facility] Systolic blood 2021-10-14 17:20:00 136 mm[Hg] Univer sity of pressure [facility] Diastolic blood 2021-10-14 17:20:00 66 mm[Hg] Unive rsity of [facility] Heart rate 2021-10-14 17:20:00 86 /min [facility] Body temperature 2021-10-14 17:20:00 36.22 Irasema [facility] Respiratory rate 2021-10-14 17:20:00 16 /min [facility] Body height 2021-10-14 17:20:00 160 cm [facility] Body weight 2021-10-14 17:20:00 54.386 kg [facility] BMI 2021-10-14 17:20:00 21.24 kg/m2 [facility] Procedures Procedure Date / Time Performed Performing Clinician Sourc e POCT URINALYSIS 2021-11-11 15:15:00 Augie Sarmiento [facility] POCT URINALYSIS 2021-10-14 17:21:00 Augie Sarmiento [facility] Encounters Start End Encounter Admission Attending Care Care Encounter Source Date/Time Date/Time Type Type Clinicians Facility Department ID 2021-12-09 2021-12-09 Outpatient P [facility] [id number] Univers 13:00:00 13:00:00 AUGIE [id number] ity o f [facility] 2021-12-09 2021-12-09 Outpatient P [facility] [id number] Univers 13:00:00 13:00:00 AUGIE ity o f [facility] 2021-12-08 2021-12-08 Outpatient P [facility] [id number] Univers 08:00:00 08:00:[address] [facility] 2021-12-08 2021-12-08 Outpatient P [facility] [id number] Univers 08:00:00 08:00[id number] 2021-11-24 2021-11-24 Telephone RANDY Sarmiento [id number] Univers 00:00:00 00:00:00 Roshunda R [employer] DEVELOPER [id number] ity of REGIONAL 4.2.7.2.686 Eugenio as MATERNAL [id number] [facility] [address] [place] [address] 2021-11-11 2021-11-11 Outpatient R [facility] [id number] Univers 11:00:00 11:00:00 ROSHUNDA ity o f [facility] 2021-11-11 2021-11-11 [facility] [id number] Univers 09:00:00 09:50:28 ROSHUNDA ity o f [facility] 2021-11-11 2021-11-11 Routine [facility] [id number] Univers 09:00:00 09:50:28 Roshunda R [employer]OL SYSTEMS DEVELOPER 350.1.13.10 ity of Visit REGIONAL 4.2.7.2.686 Eugenio as MATERNAL [id number] [facility] ical & CHILD [address] [place] [address] 2021-11-11 2021-11-11 Outpatient R [facility] [id number] Univers 09:00:00 09:00:00 AUGIE [id number] ity o f [facility] 2021-10-31 2021-10-31 [facility], [facility] [id number] Univers 09:00:00 09:30:00 Visit Divina Stephens [employer] DEVELOPER 350.1. 13.10 ity of REGIONAL 4.2.7.2.686 Eugenio as MATERNAL [id number] [facility] [address] [facility] 2021-10-31 2021-10-31 Outpatient R [facility] [id number] Univers 09:00:00 09:00:00 [id number] ity of [facility] 2021-10-31 2021-10-31 Outpatient P BLACKBURN [facility] [id number] Univers 09:00:00 09:00:00 PATRIA rubio y of S, DIVINA [facility] 2021-10-31 2021-10-31 Abstract [facility] [id number] Univers 00:00:00 00:00:00 Roshunda R [employer] SYSTEM[employer] DEVELOPER 350.1.13.10 ity of REGIONAL 4.2.7.2.686 Eugenio as MATERNAL [id number] [facility] & [address] 2021-10-14 2021-10-14 Outpatient R [facility] [id number] Univers 11:00:00 11:43:18 ROSHUNDA ity o f [facility] 2021-10-14 2021-10-14 Routine [facility] [id number] Univers 11:00:00 11:43:18 Roshunda R [employer] SYSTEMS DEVELOPER 350.1.13.10 ity of Visit REGIONAL 4.2.7.2.686 Eugenio as MATERNAL [id number] [facility] & [address] 2021-10-06 2021-10-06 Telephone [facility] [id number] Univers 00:00:00 00:00:00 Raudelnda R [employer] SYSTEMS DEVELOPER 350.1.13.10 ity of REGIONAL 4.2.7.2.686 Eugenio as MATERNAL [id number] [address] 2021-10-03 2021-10-03 Outpatient R CUONG [facility] [id number] Univers 09:30:00 15:01:03 ANDREA ity of [facility] 2019-04-19 2019-04-19 Emergency E MHSE MHSE [id number] 16:35:00 16:35:00 [facility] 2019-04-19 2019-04-19 Nurse NurseAbi [id number] 15:58:49 16:05:46 Visit Urgent Pediatric 350.1.13.10 s and 4.2.7.2.686 Adult [id number] Primary [address] [place] [address] 2019-03-18 2019-03-18 Don Cornell [id number] 00:00:00 00:00:00 Y Pediatric 350.1.13.10 s and 4.2.7.2.686 Adult [id number] Primary [facility] Results Test Description Test Time Test Comments Results Result Comments Source POCT URINALYSIS W SPECIFIC GRAVITY 2021-11-11 15:15:00 Test Item Value Reference Range Interpretation Comme nts POCT U SP GRAV (test code = 3255) . 1.005-1.025 POCT PH U (test code = 3254) . 5-8 POCT U LEUK EST (test code = 3263) . Negative - Negative POCT U NIT (test code = 3262) . Negative - Negative POCT U PROT (test code = 3259) trace Negative - Negative POCT U GLU (test code = 3256) neg Negative - Negative POCT U KETONE (test code = 3258) . Negative - Negative POCT U UROBILI (test code = 3260) . 0.2-1 POCT U BILI (test code = 3261) . Negative - Negative POCT U BLD (test code = 3257) . Negative - Negative POCT U COLOR (test code = 3266) POCT U APPEAR (test code = 3267) [facility] [id number] 17:21:00 Test Item Value Reference Range Interpretation Comments POCT U SP GRAV (test code = 3255) . 1.005-1.025 POCT PH U (test code = 3254) . 5-8 POCT U LEUK EST (test code = 3263) . Negative - Negative POCT U NIT (test code = 3262) . Negative - Negative POCT U PROT (test code = 3259) trace Negative - Negative POCT U GLU (test code = 3256) neg Negative - Negative POCT U KETONE (test code = 3258) . Negative - Negative POCT U UROBILI (test code = 3260) . 0.2-1 POCT U BILI (test code = 3261) . Negative - Negative POCT U BLD (test code = 3257) . Negative - Negative POCT U COLOR (test code = 3266) POCT U APPEAR (test code = 3267) [facility] SCREEN [id number] 01:36:00 Test Item Value Reference Range Interpretation Comments URN COCAINE (test code NEGATIVE NEGATIVE = COCAURN) URN CANNABINOIDS (test NEGATIVE NEGATIVE code = CANNABURN) URN AMPHETAMINE (test NEGATIVE NEGATIVE code = AMPHETURN) URN BARBITURATE (test NEGATIVE NEGATIVE code = BARBITURN) URN BENZODIAZEPINE NEGATIVE NEGATIVE Cut-off v alue:200 (test code = BENZOURN) ng/mL URN OPIATES (test code NEGATIVE NEGATIVE Cut-o ff value:2000 = OPIATURN) ng/mL URN PHENCYCLIDINE (PCP) NEGATIVE NEGATIVE Cuto ffs:Barbiturates (test code = PHENCURN) 200 ng/mLBenzodiaze pines 200 ng/ mLTHC Cannabinoids 50 ng/mLOpiates(Mo rphine) 2000 ng/mLAmphetamin e 1000 ng/mLCocaine 300 ng/ mLPCP phencyclidine 25 ng/mL Unconf irmed screening resul ts shouldnot be us ed for non-medical pur poses. UR HCG [id number] 01:26:00 Test Item Value Reference Range Interpretation Comments UR HCG QUAL (test code = HCGQLU) NEGATIVE NEGATIVE URINALYSIS [id number] 01:26:00 Test Item Value Reference Range Interpretation [...] 3+ /LPF NONE SEEN A HEPATIC FUNCTION [id number] 00:54:00 Test Item Value Reference Range Interpretation [...] 70 IUnit/L 60-350 N code = ALKP) [id number] 00:54:00 Test Item Value Reference Range Interpretation Comments ALCOHOL (test code < 0.003 G/dL <0.003 Ethyl Alc ohol = ALC) Interpretation: 0.100 gm/dL - Legally Intoxic ated 0.300-0.40 0 gm/dL - Severely Into xicated >0.400 gm/dL - Potentially LethalResults a re for Medical purpose s only, and not for Leg al orEmployment ev aluation purposes. CBC W/AUTO [id number] 00:35:00 Test Item Value Reference Range Interpretation [...] code = MDIFF) - CT ABD PELVIS [id number] 23:38:00 Name: KAMRYN TELLEZ [facility] : 2000 Age/S: 18 / F [address] [place] [address] Unit #: [id number] Loc: Fer[place] [id number] Phys: Jermaine Vora PEANUT SHAKER Acct: [id number] Dis Date: Status: REG ER PHONE #: [phone] Exam Date: 02/24/20192312 FAX #: [phone] Reason: L sidedabd pain EXAMS: CPTCODE: [id number] CT ABD PELVIS W/CONT 51683 CT ABDOMEN AND PELVIS WITH CONTRAST CLINICAL [...] PAGE 1 Signed Report (CONTINUED)Name: KAMRYN TELLEZ [facility] : 2000 Age/S: 18 / F [address] [place] [address] Unit #: [id number] Loc: ELIF [place] [address] Phys: VielkaJermaine PEANUT SHAKER Acct: [id number] Dis Date: Status: REG ER PHONE #: [phone] Exam Date: 02/24/20192312 FAX #: [phone] Reason: L sided abd pain EXAMS: CPT CODE: [id number] CT ABD PELVIS W/CONT 37324 <Continued> Other: No free air or adenopathy.No free fluid in noted. Skeleton: No acute bony abnormality. IMPRESSION: No overt acute abnormality to explain given complain. A small to moderate fecal load is noted, nonspecific. Additional findings as above. at 2338 Reported and signed by: Quang Schreiber M.D. CC: Jermaine Vora NP Technologist:RT Roland(R) CTDI: DLP: Trnscb Date/Time: 02/24/2019 (1700) [email or web address] Orig Print D/T: S: 02/24/2019 (1058) PAGE 2 Signed ReportBASIC METABOLIC [id number] 22:46:00 Test Item Value Reference Range Interpretation [...] 9.3 mg/dL 8.0-10.5 N CA) HEPATIC FUNCTION [id number] 22:46:00 Test Item Value Reference Range Interpretation [...] 81 IUnit/L 60-350 N code = ALKP) [id number] 22:46:00 Test Item Value Reference Range Interpretation Comments LIPASE (test code = LIP) 166 IUnit/L 73-393 N HCG SERUM [id number] 22:46:00 Test Item Value Reference Range Interpretation Comments HCG SERUM QUAL (test code = SERUM NEGATIVE NEGATIVE HCGQL) BASIC METABOLIC [id number] 22:43:00 Test Item Value Reference Range Interpretation [...] 9.3 mg/dL 8.0-10.5 N CA) HEPATIC FUNCTION [id number] 22:43:00 Test Item Value Reference Range Interpretation [...] TOTAL (test IUnit/L 60-350 code = ALKP) [id number] 22:43:00 Test Item Value Reference Range Interpretation Comments LIPASE (test code = LIP) 166 IUnit/L 73-393 N HCG SERUM [id number] 22:43:00 Test Item Value Reference Range Interpretation Comments HCG SERUM QUAL (test code = SERUM NEGATIVE NEGATIVE HCGQL) BASIC METABOLIC [id number] 22:37:00 Test Item Value Reference Range Interpretation [...] code = CA) mg/dL 8.0-10.5 HEPATIC FUNCTION [id number] 22:37:00 Test Item Value Reference Range Interpretation Comments TOTAL PROTEIN (test code = PROT) g/dL 6.4-8.2 ALBUMIN (test code = ALB) g/dL 3.4-5.0 BILIRUBIN TOTAL (test code = BILT) mg/dL 0.0-1.0 BILIRUBIN DIRECT (test code = BILD) MG/DL 0.0-0.30 SGOT/AST (test code = AST) IUnit/L 15-37 SGPT/ALT (test code = ALT) IUnit/L 15-65 ALKALINE PHOSPHATASE TOTAL (test IUnit/L 60-350 code = ALKP) [id number] 22:37:00 Test Item Value Reference Range Interpretation Comments LIPASE (test code = LIP) IUnit/L 73-393 HCG SERUM [id number] 22:37:00 Test Item Value Reference Range Interpretation Comments HCG SERUM QUAL (test code = SERUM NEGATIVE NEGATIVE HCGQL) CBC W/AUTO [id number] 22:28:00 Test Item Value Reference Range Interpretation [...] REQUIRED (test code NO = MDIFF) URINALYSIS [id number] 21:07:00 Test Item Value Reference Range Interpretation [...]
[2021-11-24 12:01] LABS: Urine Blood Negative (Negative); Urine Glucose Negative (Negative); Urine Protein Negative (Negative); Urine Specific Gravity 1.025 (1.005-1.030)
[2021-11-24] MEDS ORDERED: ONDANSETRON 4 MG (ODT) TAB ONE (12:39)
[2021-11-24 12:51] LABS: Urine Specific Gravity/Preg 1.025 (1.005-1.030)
[2021-11-24 13:53] LABS: SARS-COV-2 RT PCR NEGATIVE (NEGATIVE)
--- NOTE | 2021-11-24 14:03 | ER ---
Nurse's Notes [facility] Name: Aelyda Mac Age: 21 yrs Sex: Female : 2000 Arrival Date: 11/24/2021 Time: 11:31 Bed 24 Private MD: Zita Sarmiento Diagnosis: Vomiting of , unspecified Presentation: 11/24 11:38 Chief complaint: Patient states: "The last few days I have been dealing with my ab2 allergies. Yesterday, I began vomiting and this morning I started throwing up blood. Im 17 weeks so I wanted to come get checked out." Pt c/o n/v. Coronavirus screen: Vaccine status: Patient reports being unvaccinated. Client denies travel out of the [place] in the last 14 days. At this time, the client does not indicate any symptoms associated with coronavirus-19. Ebola Screen: Patient negative for fever greater than or equal to 101.5 degrees Fahrenheit, and additional compatible Ebola Virus Disease symptoms Patient denies exposure to infectious person. Patient denies travel to an Ebola-affected area in the 21 days before illness onset. No symptoms or risks identified at this time. Initial Sepsis Screen: Does the patient meet any 2 criteria? No. Patient's initial sepsis screen is negative. Does the patient have a suspected source of infection? No. Patient's initial sepsis screen is negative. Risk Assessment: Do you want to hurt yourself or someone else? Patient reports no desire to harm self or others. Onset of symptoms is unknown. 11:38 Method Of Arrival: Ambulatory ab2 11:38 Acuity: GERONIMO 3 ab2 Triage Assessment: 11:41 General: Appears in no apparent distress. uncomfortable, Behavior is calm, cooperative, ab2 appropriate for age. Pain: Complains of pain in throat. Neuro: Level of Consciousness is awake, alert, obeys commands, Oriented to person, place, time, situation, Appropriate for age Master Control Technician are equal bilaterally Moves all extremities. Gait is steady, Speech is normal. Cardiovascular: Denies chest pain, shortness of breath, Heart tones S1 S2 present Patient's skin is warm and dry. Respiratory: No deficits noted. Airway is patent Respiratory effort is even, unlabored, Respiratory pattern is regular, symmetrical. GI: Reports nausea, vomiting. Historical: - Allergies: 11:40 SHELLFISH; ab2 - PMHx: 11:40 blood clot lung; ab2 - PSHx: 11:40 Adenoid excision; Tonsillectomy; ab2 - Immunization history:: Adult Immunizations up to date. - Social history:: Smoking status: Patient denies any tobacco usage or history of. Screenin:53 Abuse screen: Denies threats or abuse. Denies injuries from another. Nutritional ld1 screening: No deficits noted. Tuberculosis screening: No symptoms or risk factors identified. Fall Risk None identified. Assessment: 12:53 General: Appears in no apparent distress. comfortable, Behavior is calm, cooperative, ld1 appropriate for age. Pain: Denies pain. Neuro: Level of Consciousness is awake, alert, obeys commands, Oriented to person, place, time, situation. Cardiovascular: Capillary refill < 3 seconds Patient's skin is warm and dry. Respiratory: Airway is patent Respiratory effort is even, unlabored, Respiratory pattern is regular, symmetrical. GI: Abdomen is flat, non-distended, Reports nausea, vomiting. : No signs and/or symptoms were reported regarding the genitourinary system. EENT: No signs and/or symptoms were reported regarding the EENT system. Derm: No signs and/or symptoms reported regarding the dermatologic system. Musculoskeletal: No signs and/or symptoms reported regarding the musculoskeletal system. 14:00 Reassessment: Patient appears in no apparent distress at this time. Patient and/or ld1 family updated on plan of care and expected duration. Pain level reassessed. Patient is alert, oriented x 3, equal unlabored respirations, skin warm/dry/pink. Vital Signs: 11:38 BP 138 / 82; Pulse 97; Resp 18; Temp 98; Pulse Ox 100% on R/A; Weight 55.79 kg; Height ab2 5 ft. 3 in. (160.02 cm); Pain 0/10; 12:53 BP 115 / 67; Pulse 83; Resp 18; Pulse Ox 100% on R/A; ld1 14:00 BP 110 / 66; Pulse 86; Resp 18; Pulse Ox 100% on R/A; ld1 11:38 Body Mass Index 21.79 (55.79 kg, 160.02 cm) ab2 ED Course: 11:31 Patient arrived in ED. am2 11:31 Zita Sarmiento is Private Physician. am2 11:40 Triage completed. ab2 11:41 Arm band placed on left wrist. ab2 12:01 Camilla Hood, RN is Primary Nurse. ld1 12:16 Jhonny Almeida PA is PHCP. cp 12:16 Abhijit Pritchard MD is Attending Physician. cp 12:41 Strep Sent. ld1 12:41 COVID-19/FLU A+B (Document "Date of Onset" if Symptomatic) Sent. ld1 12:53 Patient has correct armband on for positive identification. Placed in gown. Bed in low ld1 position. Call light in reach. Side rails up X2. group director on. Pulse ox on. NIBP on. Door closed. Noise minimized. Warm blanket given. 12:53 No provider procedures requiring assistance completed. ld1 14:17 Patient did not have IV access during this emergency room visit. ld1 Administered Medications: 12:41 Drug: Zofran (Ondansetron) 4 mg Route: PO; ld1 Outcome: 14:02 Discharge ordered by MD. cp 14:17 Discharged to home ambulatory, with family. ld1 14:17 Condition: stable 14:17 Discharge instructions given to patient, Instructed on discharge instructions, follow up and referral plans. medication usage, Demonstrated understanding of instructions, follow-up care, medications, Prescriptions given X 1. 14:17 Patient left the ED. ld1 Signatures: Jhonny Almeida PA PA cp Marlene Jeffrey am2 Camilla Hood, RN RN ld1 Michael Hernandez ab2
--- NOTE | 2021-11-24 14:03 | EDPHYS ---
Physician Documentation [facility] Name: Aleyda Mac Age: 21 yrs Sex: Female : 2000 Arrival Date: 11/24/2021 Time: 11:31 Bed 24 Private MD: Zita Sarmiento ED Physician Abhijit Pritchard HPI: 11/24 12:25 This 21 yrs old Female presents to ER via Ambulatory with complaints of Vomiting - cp blood, 17 wks preg, Nasal Congestion. 12:25 The patient presents to the emergency department with nausea, that is mild, vomiting, cp that is intermittent, described as bilious, bright red blood. Onset: The symptoms/episode began/occurred this morning. Possible causes: . Associated signs and symptoms: Pertinent positives: sore throat, rhinorrhea. Historical: - Allergies: 11:40 SHELLFISH; ab2 - PMHx: 11:40 blood clot lung; ab2 - PSHx: 11:40 Adenoid excision; Tonsillectomy; ab2 - Immunization history:: Adult Immunizations up to date. - Social history:: Smoking status: Patient denies any tobacco usage or history of. ROS: 12:30 Constitutional: Negative for body aches, chills, fever, poor PO intake. cp 12:30 Eyes: Negative for injury, pain, redness, and discharge. cp 12:30 ENT: Positive for rhinorrhea, sore throat, Negative for drainage from ear(s), ear pain, difficulty swallowing, difficulty handling secretions. 12:30 Cardiovascular: Negative for chest pain. 12:30 Respiratory: Negative for cough, shortness of breath, wheezing. 12:30 Abdomen/GI: Positive for nausea, vomiting, Negative for abdominal pain, diarrhea, constipation. 12:30 : Negative for urinary symptoms, vaginal bleeding, vaginal discharge. 12:30 Neuro: Negative for altered mental status, headache, weakness. Exam: 12:35 Constitutional: The patient appears in no acute distress, alert, awake, comfortable, cp non-toxic, well developed, well nourished. 12:35 Head/Face: Normocephalic, atraumatic. cp 12:35 Eyes: Periorbital structures: appear normal, Conjunctiva: normal, no exudate, no injection, Sclera: no appreciated abnormality, Lids and lashes: appear normal, bilaterally. 12:35 ENT: External ear(s): are unremarkable, Ear canal(s): are normal, clear, TM's: dullness, bilaterally, Nose: is normal, Mouth: Lips: moist, Oral mucosa: pink and intact, moist, Posterior pharynx: Airway: no evidence of obstruction, patent, Tonsils: no enlargement, no erythema, no exudate, erythema, is not appreciated, exudate, is not appreciated. 12:35 Neck: ROM/movement: is normal, is supple, without pain, no range of motions limitations, Lymph nodes: no appreciated lymphadenopathy. 12:35 Chest/axilla: Inspection: normal. 12:35 Cardiovascular: Rate: normal, Rhythm: regular. 12:35 Respiratory: the patient does not display signs of respiratory distress, Respirations: normal, no use of accessory muscles, no retractions, labored breathing, is not present, Breath sounds: are clear throughout, no decreased breath sounds, no stridor, no wheezing. 12:35 Abdomen/GI: Inspection: abdomen appears normal, Bowel sounds: active, all quadrants, Palpation: abdomen is soft and non-tender, in all quadrants. Vital Signs: 11:38 BP 138 / 82; Pulse 97; Resp 18; Temp 98; Pulse Ox 100% on R/A; Weight 55.79 kg; Height ab2 5 ft. 3 in. (160.02 cm); Pain 0/10; 12:53 BP 115 / 67; Pulse 83; Resp 18; Pulse Ox 100% on R/A; ld1 14:00 BP 110 / 66; Pulse 86; Resp 18; Pulse Ox 100% on R/A; ld1 11:38 Body Mass Index 21.79 (55.79 kg, 160.02 cm) ab2 MDM: 12:19 Patient medically screened. cp 13:00 Differential diagnosis: gastritis, cholecystitis, pancreatitis, viral gastroenteritis, cp gastroenteritis. 14:01 Data reviewed: vital signs, nurses notes, lab test result(s). cp 14:01 Counseling: I had a detailed discussion with the patient and/or guardian regarding: the cp historical points, exam findings, and any diagnostic results supporting the discharge/admit diagnosis, lab results, to return to the emergency department if symptoms worsen or persist or if there are any questions or concerns that arise at home. Response to treatment: the patient's symptoms have markedly improved after treatment, VSS. Nausea improved and vomiting resolved. Will discharge to home for continued monitoring. 11/24 12:01 Order name: Urine --Ancillary (enter results); Complete Time: 13:34 em1 11/24 12:01 Order name: Urine Dipstick-Ancillary; Complete Time: 12:19 EDMS 11/24 12:32 Order name: COVID-19/FLU A+B (Document "Date of Onset" if Symptomatic); Complete Time: cp 13:59 11/24 13:59 Interpretation: Reviewed. cp 11/24 12:32 Order name: Strep; Complete Time: 13:34 cp 11/24 13:15 Order name: Throat Culture EDMS 11/24 13:34 Order name: PO challenge; Complete Time: 14:00 cp Administered Medications: 12:41 Drug: Zofran (Ondansetron) 4 mg Route: PO; ld1 Disposition: 17:12 Co-signature as Attending Physician, Abhijit Pritchard MD I agree with the assessment and kdr plan of care. Disposition Summary: 11/24/21 14:02 Discharge Ordered Location: Home cp Problem: new cp Symptoms: have improved cp Condition: Stable cp Diagnosis - Vomiting of , unspecified cp Followup: cp - With: Private Physician - When: 2 - 3 days - Reason: Worsening of condition Discharge Instructions: - Discharge Summary Sheet cp - Nausea and Vomiting, Adult cp Forms: - Medication Reconciliation Form cp - Thank You Letter cp - Antibiotic Education cp - Prescription Opioid Use cp Prescriptions: - Zofran 4 mg Oral Tablet - take 1 tablet by ORAL route every 12 hours As needed; 20 tablet; Refills: 0, cp Product Selection Permitted Signatures: Dispatcher [employer] EDDC Abhijit Pritchard MD MD kdr Jhonny Almeida PA PA cp Camilla Hood, DERRELL RN ld1 Michael Hernandez2 Corrections: (The following items were deleted from the chart) 12:33 12:32 COVID-19/FLU A+B+[email or web address] ordered. EDDC EDMS
[2021-11-24 17:51] VITALS: TEMP 98; O2SAT 100
[2021-11-24 17:54] VITALS: BP 110/66
== END 2021-11-24 14:17 | disposition home or self-care (01) ==
LOC: ER 11:29
DX: O21.9 Vomiting of pregnancy, unspecified (principal); Z3A.17 17 weeks gestation of pregnancy; Z91.013 Allergy to seafood; Z20.822 Contact with and (suspected) exposure to COVID-19
CPT/HCPCS: 87070; 81025; 87081; 81003; 0240U; 99284

== ENCOUNTER 2023-01-29 17:25 | Emergency (ER) | payer BC, OTHER ==
--- OUTSIDE RECORDS SUMMARY | 2023-01-29 17:32 | XMS REPORT | Continuity of Care Document ---
:2000 Author Organization [facility] t Address [address] [place] [address] Care Team Providers Name Role Phone Sarmad Pabon Primary Care Physician [phone] SARMAD MAGUIRE Attending Clinician Unavailable Sarmad Pabon Attending Clinician [phone] Beto DOVE, Emma Fowler Attending Clinician Unavailable VANITA GARCIA Attending Clinician Unavailable Vanita Garcia CNM Attending Clinician Doctor Unassigned, [place] Attending Clinician Unavailable AUGIE MENDOZA Attending Clinician Unavailable Mendoza CASINO CASHIER MANAGER, Roshunda R Attending Clinician Nurse, Declan Rmchp Exp Cprit Obgyn Attending Clinician Unavail able Provider, Ang-Rmchp Temp Attending Clinician Unavailable CALE ORTIZ Attending Clinician Unavailable Alayna MAYA, Cale Attending Clinician Amos MAYA, Josee Attending Clinician Kirby MAYA, Nikko Attending Clinician Brenda Perea RN Attending Clinician Unavailable CHIDI PRESCOTT Attending Clinician Unavailable Darrel MAYA, Chidi Salazar Attending Clinician Amos MAYA, Fabiola Campa Attending Clinician [phone] FABIOLA TRINIDAD Attending Clinician Unavailable Kriss Bone RN Attending Clinician Ultrasound, Ang-Mfm Attending Clinician Unavailable Alexey Lane MD, Divina Attending Clinician [phone] DIVINA SHEIKH Attending Clinician Unavailable Paulie Pinto DO Attending Clinician Rachell DOVE, Priyanka Fowler Attending Clinician Unavailable KARTHIK NARANJO Attending Clinician Unavailable Jose A MAYA, Karthik Roche Attending Clinician Bo DOVE, Jhonny Attending Clinician Unavailable SISSY MCKEON Attending Clinician Unavailable SISSY MCKEON Attending Clinician Unavailable Sonido Geronimo MD Attending Clinician 1, [facility] Room Attending Clinician Unavailable Jhonny Palacios DO Attending Clinician Faculty, Ang Rmchp Mfm Attending Clinician Unavailable Ewelina Clements PA-C Attending Clinician EWELINA CLEMENTS Attending Clinician Unavailable Roberta SOLOMONP, Abhijit T Attending Clinician Trung MAYA, Delroy Medina Attending Clinician AVERY DUNAWAY Attending Clinician Unavailable Sharee Dior MD Attending Clinician [facility] Attending Clinician Unavailable SHAREE DIOR Attending Clinician Unavailable Beto CASINO CASHIER MANAGER, Ewelina Attending Clinician EWELINA GOLDBERG Attending Clinician Unavailable Care, Abi Primary Attending Clinician Unavailable Nurse, Abi Urgent Attending Clinician Unavailable Unknown, Attending Attending Clinician Unavailable Matilde Holm Attending Clinician Gallito CASINO CASHIER MANAGER, Nan Attending Clinician UNKNOWN, ATTENDING Attending Clinician Unavailable Evi Jim MD Attending Clinician EVI JIM Attending Clinician Unavailable CORINA LAU Attending Clinician Unavailable Corina Lau DO T Attending Clinician ALFRED REYES Attending Clinician Unavailable TREVA KOENIG Attending Clinician Unavailable VAZQUEZ VALERO Attending Clinician Unavailable Vazquez Valero MD Attending Clinician Don Bland MD Attending Clinician KARTHIK NARANJO Admitting Clinician Unavailable Cale Ortiz MD Admitting Clinician CHIDI PRECSOTT Admitting Clinician Unavailable Darrel MAYA, Chidi Salazar Admitting Clinician FABIOLA TRINIDAD Admitting Clinician Unavailable Amos MAYA, Fabiola Campa Admitting Clinician [phone] Karthik Naranjo MD Admitting Clinician EVI JIM Admitting Clinician Unavailable CORINA LAU Admitting Clinician Unavailable ALFRED REYES Admitting Clinician Unavailable Payers Payer Name Policy Type Policy Number Effective Date Expiration Date S becky [employer] [id number] 2019 CARE 00:00:00 [place] [id number] 00:00:00 [place] [employer] [place] [id number] 2019 C 00:00:00 FORMERLY [facility] [id number] 2021 JAIMIE ASENCIO STAR 00:00:00 MEDICAID PENDING PENDING 2021 00:00:00 [facility] [id number] 2020 00:00:00 [facility] [id number] 2019 2019 00:00:00 00:00:00 Problems Condition Condition Condition Status Onset Resolution Last Treating Co mments Source Name Details Category Date Date Treatment Clinician Date Other Other Disease Active 2021-08 Univers general general 2-01 ity of counseling [place] and advice and advice 00 Me dical for for Branch contracept contracept gonzales gonzales management management 38 weeks 38 weeks Disease Active Unive rs gestation gestation 9-05 ity of of of 00:00: [place] 00 [facility] BMI BMI Disease Active Univers 30.0-30.9, 30.0-30.9, 8-30 it y of adult adult 00:00: Medical Branch Obesity in Obesity in Disease Active U nivers 8-30 ity of 00:00: [place] 00 Medical Branch Acute Acute Disease Active Univers headache headache 7-23 ity of 00:00: Medical Branch Left arm Left arm Disease Active Unive rs numbness numbness 7-23 ity of 00:00: Medical Branch Numbness Numbness Disease Active Unive rs and and 7-23 ity of tingling tingling 00:00: [place] of left of left 00 Medical side of side of Branch face face Acute Acute Disease Active Univers left-sided left-sided 7-23 it y of weakness weakness 00:00: 00 Medical Branch 31 weeks 31 weeks Disease Active Unive rs gestation gestation 7-20 ity of of of 00:00: [place] 00 [facility] Decreased Decreased Disease Active Uni vers 7-20 [place] of movements movements 00:[place] in third in third 00 Medica l trimester trimester Bran ch BMI BMI Disease Active Univers 29.0-29.9, 29.0-29.9, 6-30 it y of adult adult 00:00: [place] 00 Medical Branch BMI BMI Disease Active 2021-0 Univers 29.0-29.9, 29.0-29.9, 6-30 it y of adult adult 00:00: [place] Medical Branch Screening, Screening, Disease Active U nivers 6-09 ity of for for 00:00: Margie s growth growth 00 Medical retardatio retardatio Br anch n with n with ultrasound ultrasound Maternal Maternal Disease Active Overview: Un donnie varicella, varicella, 09-17 Formattin ity of non-immune non-immune 00:00: g of this [place] 00 note Medical might be Branch different from the original. Address in PP Rubella Rubella Disease Active Overview: Univ ers non-immune non-immune 09-17 Formattin ity of status, status, 00:00: g of this [place] antepartum antepartum 00 note Me dical might be Branch different from the original. Address in PP Supervisio Supervisio Disease Active U nivers n of high n of high 09-16 ity of risk risk 00:00: [place] 00 Medi lissa in third in third Branch trimester trimester Primigravi Primigravi Disease Active U nivers da in da in 09-16 ity of third third 00:00: [place] trimester trimester 00 Medi lissa Branch Encounter Encounter Disease Active Uni vers [...] pulmonary 6-30 ity of embolus embolus 00:00: [place] (PE) (PE) 00 Medical Branch Chest pain Chest pain Disease Active 2018-08 U nivers 0-29 ity of 00:00: [place] 00 Medical Branch Syncope Syncope Disease Active 2018-08 Univers 0-27 ity of 00:00: [place] Medical Branch Pulmonary Pulmonary Disease Active 2018-08 Uni vers embolism embolism 0-27 ity of 00:00: [place] Medical Branch Non-intrac Non-intrac Disease Active U [...] due to 00 Medical pollen pollen Branch Uncomplica Problem Active 2017-01-03 Araceli turk Uncomplica 02:45:39 l asthma, burke Ambrose unspecifie asthma, d asthma unspecifie severity d asthma severity Active Problem 01/03/2017 [facility] Screen for Screen Diagnosis Active 2016-12-11 Memoria STD for STD 02:45:58 l (sexually (sexually Herm nikki transmitte transmitte d disease) d disease) Active Diagnosis 12/11/2016 [facility] Encounter Diagnosis Active 2016-12-11 Memoria for Encounter 02:45:58 l initial for [place] prescripti initial on of prescripti contracept on of gonzales pills contracept gonzales pills Active Diagnosis 12/11/2016 [facility] Allergies, Adverse Reactions, Alerts Allergy Allergy Status Severity Reaction(s) Onset Inactive Treating Comm ents Source Name Type Date Date Clinician ANIMAL DRUG Active Other-Cmnt 2018-08 Univer s DANDER INGREDI 0-27 ity of 00:00: [place] 00 Medical [place] SHELLFIS DRUG Active Rash 2018-08 Univers H INGREDI 0-27 ity of DERIVED 00:00: [address] Animal Drug Active Other - See 2018-08 Allergic Uni vers Dander Allergy comments 0-27 from cats ity of 00:00: and [place] 00 dogs-st Medical fy nose Branch Shellfis Drug Active Rash 2018-08 Univers h Allergy 0-27 ity of Derived 00:00: [place] Medical [place] No Known DA Active U [facility] Allergie 7-08 Clear s 00:00: [place] 00 [facility] N.K.D.A. N.K.D.A. Active Info Not Ethan vira Available 4-19 l 00:00: [place] 00 No Known DA Active U 2014-08 [facility] Allergie 1-17 Clear s 00:00: [place] 00 [facility] Social History Social Habit Start Date Stop Date Quantity Comments Source ASSERTION 2021-08-15 University of 00:00:00 [facility] History of Passive smoker University of tobacco use [place] [facility] [place] History SDOH University o f Alcohol Frequency [place] M edical Branch History SDOH University o f Alcohol Std [place] Medical Drinks Branch History SDOH University o f Alcohol Binge [facility] al Branch Alcohol intake 2023-01-19 2023-01-19 Ex-drinker [facility] 00:00:00 00:00:00 (finding) [facility] Exposure to 2022-08-27 2022-09-06 Not sure [facility] SARS-CoV-2 00:00:00 14:11:00 [facility] (event) [place] Tobacco use and 2022-03-11 2022-03-11 Smokeless tobacco Un iversity of exposure 00:00:00 00:00:00 non-user [facility] Tobacco Comment 2022-03-01 2022-03-01 vape before Universi ty of 00:00:00 00:00:00 04/2019 [facility] Alcohol Comment 2021-02-16 2021-02-16 socially Universit y of 00:00:00 00:00:00 [facility] Sex Assigned At 2000 2000 Universit y of 00:00:00 00:00:00 [facility] Smoking Status Start Date Stop Date Source Never smoked tobacco [facility] Medications Ordered Filled Start Stop Current Ordering Indication Dosage Frequency Signature Comments Components Source Medication Medication Date Date Medication? Clinician (SIG) Name Name diana Yes [id number] 1{tbl} Take 1 Univers ne 0.35 mg 1-18 tablet by ity of tablet 00:00: mouth in [place] the Medical morning. Branch diana Yes [id number] 1{tbl} Take 1 Univers ne 0.35 mg 1-18 tablet by ity of tablet 00:00: mouth in [place] the Medical morning. Branch lauraro Yes [id number] 1{tbl} Take 1 Univers ne 0.35 mg 1-18 tablet by ity of tablet 00:00: mouth in [place] the Medical morning. Branch lauraro Yes [id number] 1{tbl} Take 1 Univers ne 0.35 mg 1-18 tablet by ity of tablet 00:00: mouth in [place] the Medical morning. Branch diana Yes [id number] 1{tbl} Take 1 Univers ne 0.35 mg 1-18 tablet by ity of tablet 00:00: mouth in [place] 00 the Medical morning. Branch norethindro Yes [id number] 1{tbl} Take 1 Univers ne 0.35 mg 1-18 tablet by ity of tablet 00:00: mouth in [place] 00 the Medical morning. Branch norethindro Yes [id number] 1{tbl} Take 1 Univers ne 0.35 mg 1-18 tablet by ity of tablet 00:00: mouth in [place] 00 the Medical morning. Branch norethindro 2022- No [id number] 1{tbl} Take 1 Univers ne 0.35 mg 1-18 01-18 tablet by ity of tablet 00:00: 00:00 mouth in [place] 00 :00 the Medical morning. Branch noremalvinndro 2022- No [id number] 1{tbl} Take 1 Univers ne 0.35 mg 1-18 01-18 tablet by ity of tablet 00:00: 00:00 mouth in [place] 00 :00 the Medical morning. [place] amoxicillin 2021-08- No [id number] 1{tbl} Take 1 Univers -clavulanat 2-01 12-12 tablet by it y of e 00:00: 05:59 mouth in [place] (AUGMENTIN) 00 :00 the Medical 875-125 mg morning Branch per tablet and 1 tablet in the evening. Do all this for 10 days. amoxicillin 2021-08- No [id number] 1{tbl} Take 1 Univers -clavulanat 2-01 12-12 tablet by it y of e 00:00: 05:59 mouth in [place] (AUGMENTIN) 00 :00 the Medical 875-125 mg morning Branch per tablet and 1 tablet in the evening. Do all this for 10 days. norethindro 2021-08 Yes [id number] 1{tbl} Take 1 Univers ne 0.35 mg 0-18 tablet by ity of tablet 00:00: mouth in [place] 00 the Medical morning. Branch norethindro 2021-08 Yes [id number] 1{tbl} Take 1 Univers ne 0.35 mg 0-18 tablet by ity of tablet 00:00: mouth in [place] 00 the Medical morning. Branch norethindro 2021-08 Yes [id number] 1{tbl} Take 1 Univers ne 0.35 mg 0-18 tablet by ity of tablet 00:00: mouth in [place] 00 the Medical morning. Branch norethindro 2021-08 Yes [id number] 1{tbl} Take 1 Univers ne 0.35 mg 0-18 tablet by ity of tablet 00:00: mouth in [place] 00 the Medical morning. Branch norethindro 2021-08 Yes [id number] 1{tbl} Take 1 Univers ne 0.35 mg 0-18 tablet by ity of tablet 00:00: mouth in [place] the Medical morning. Branch norethindro 2021-08 Yes [id number] 1{tbl} Take 1 Univers ne 0.35 mg 0-18 tablet by ity of tablet 00:00: mouth in [place] 00 the Medical morning. Branch norethindro 2021-08 Yes [id number] 1{tbl} Take 1 Univers ne 0.35 mg 0-18 tablet by ity of tablet 00:00: mouth in [place] the Medical morning. Branch norethindro 2021-08 Yes [id number] 1{tbl} Take 1 Univers ne 0.35 mg 0-18 tablet by ity of tablet 00:00: mouth in [place] the Medical morning. Branch norethindro 2021-08 Yes [id number] 1{tbl} Take 1 Univers ne 0.35 mg 0-18 tablet by ity of tablet 00:00: mouth in [place] the Medical morning. Branch norethindro 2021-08 Yes [id number] 1{tbl} Take 1 Univers ne 0.35 mg 0-18 tablet by ity of tablet 00:00: mouth in [place] 00 the Medical morning. Branch norethindro 2021-08 Yes [id number] 1{tbl} Take 1 Univers ne 0.35 mg 0-18 tablet by ity of tablet 00:00: mouth in [place] 00 the Medical morning. Branch norethindro 2021-08 Yes [id number] 1{tbl} Take 1 Univers ne 0.35 mg 0-18 tablet by ity of tablet 00:00: mouth in [place] 00 the Medical morning. Branch norethindro 2021-08 Yes [id number] 1{tbl} Take 1 Univers ne 0.35 mg 0-18 tablet by ity of tablet 00:00: mouth in [place] 00 the Medical morning. Branch norethindro 2021-08 Yes [id number] 1{tbl} Take 1 Univers ne 0.35 mg 0-18 tablet by ity of tablet 00:00: mouth in [place] 00 the Medical morning. Branch norethindro 2021-08 Yes [id number] 1{tbl} Take 1 Univers ne 0.35 mg 0-18 tablet by ity of tablet 00:00: mouth in [place] 00 the Medical morning. Branch cephALEXin 2021-08- No [id number] 500mg Take 1 Univers (KEFLEX) 0-18 10-29 capsule by ity of 500 mg 00:00: 04:59 mouth 4 [place] capsule 00 :00 (four) Medical times [place] daily for 10 days. cephALEXin 2021-08- No [id number] 500mg Take 1 Univers (KEFLEX) 0-18 10-29 capsule by ity of 500 mg 00:00: 04:59 mouth 4 [place] capsule 00 :00 (four) Medical times [place] daily for 10 days. cephALEXin 2021-08- No [id number] 500mg Take 1 Univers (KEFLEX) 0-18 10-29 capsule by ity of 500 mg 00:00: 04:59 mouth 4 [place] capsule 00 :00 (four) Medical times [place] daily for 10 days. cephALEXin 2021-08- No [id number] 500mg Take 1 Univers (KEFLEX) 0-18 10-29 capsule by ity of 500 mg 00:00: 04:59 mouth 4 [place] capsule 00 :00 (four) Medical times [place] daily for 10 days. terconazole Yes [id number] 1{appli Insert 1 Univers 0.8 % 9-22 cator} Applicator ity of vaginal 00:00: into [place] cream 00 vagina at Medical bedtime. Branch terconazole Yes [id number] 1{appli Insert 1 Univers 0.8 % 9-22 cator} Applicator ity of vaginal 00:00: into [place] cream 00 vagina at Medical bedtime. Branch terconazole Yes [id number] 1{appli Insert 1 Univers 0.8 % 9-22 cator} Applicator ity of vaginal 00:00: into [place] cream 00 vagina at Medical bedtime. Branch terconazole Yes [id number] 1{appli Insert 1 Univers 0.8 % 9-22 cator} Applicator ity of vaginal 00:00: into [place] cream 00 vagina at Medical bedtime. Branch terconazole Yes [id number] 1{appli Insert 1 Univers 0.8 % 9-22 cator} Applicator ity of vaginal 00:00: into [place] cream 00 vagina at Medical bedtime. Branch terconazole Yes [id number] 1{appli Insert 1 Univers 0.8 % 9-22 cator} Applicator ity of vaginal 00:00: into [place] cream 00 vagina at Medical bedtime. Branch terconazole Yes [id number] 1{appli Insert 1 Univers 0.8 % 9-22 cator} Applicator ity of vaginal 00:00: into [place] cream 00 vagina at Medical bedtime. [place] terconazole Yes [id number] 1{appli Insert 1 Univers 0.8 % 9-22 cator} Applicator ity of vaginal 00:00: into [place] cream 00 vagina at Medical bedtime. [place] terconazole Yes [id number] 1{appli Insert 1 Univers 0.8 % 9-22 cator} Applicator ity of vaginal 00:00: into [place] cream 00 vagina at Medical bedtime. [place] terconazole Yes [id number] 1{appli Insert 1 Univers 0.8 % 9-22 cator} Applicator ity of vaginal 00:00: into [place] cream 00 vagina at Medical bedtime. [place] terconazole Yes [id number] 1{appli Insert 1 Univers 0.8 % 9-22 cator} Applicator ity of vaginal 00:00: into [place] cream 00 vagina at Medical bedtime. Branch terconazole Yes [id number] 1{appli Insert 1 Univers 0.8 % 9-22 cator} Applicator ity of vaginal 00:00: into [place] cream 00 vagina at Medical bedtime. Branch terconazole Yes [id number] 1{appli Insert 1 Univers 0.8 % 9-22 cator} Applicator ity of vaginal 00:00: into [place] cream 00 vagina at Medical bedtime. Branch terconazole Yes [id number] 1{appli Insert 1 Univers 0.8 % 05-11 cator} Applicator ity of vaginal 00:00: into [place] cream 00 vagina at Medical bedtime. Branch terconazole 2022- No [id number] 1{appli Insert 1 Univers 0.8 % 05-11 cator} Applicator ity o f vaginal 00:00: 00:00 into [place] cream 00 :00 vagina at Medical bedtime. Branch terconazole 2022- No [id number] 1{appli Insert 1 Univers 0.8 % 05-11 cator} Applicator ity o f vaginal 00:00: 00:00 into [place] cream 00 :00 vagina at Medical bedtime. [place] enoxaparin Yes 40mg 40 mg, Unive rs (LOVENOX) 04-26 Subcutaneo ity of injection 14:00: [place], [place]ILY, [place] 40 mg 00 First dose Medical on Sun04/26/22 at 0900, Until Discontinu ed, Routine 2021- No Take by Unive rs vit 04-26 mouth. ity of no.124/iron 06:48: 00:00 [place] /folic 45 :00 Medical ( Branch VITAMIN ORAL) rho(D) Yes 300ug 300 mcg, Univer s immune 04-26 Intramuscu ity of globulin 00:23: lar, ONCE, [place] as (RHOGAM) 54 For 1 Medical syringe 300 dose, Branch mcg Conditiona l, Routine ibuprofen Yes 600mg 600 mg, Univ ers (IBU) 04-26 Oral, ity of tablet 600 00:23: Q6HPRN, [place] mg 50 Starting Medical on Sun [place] 04/25/22 at 1923, Until Discontinu ed, Routine, Pain (scale 4-6) acetaminoph Yes 650mg 650 mg, Un donnie en 04-26 Oral, ity of (TYLENOL) 00:23: Q6HPRN, [place] tablet 650 50 Starting Medic al mg on Sun [place] 04/25/22 at 1923, Until Discontinu ed, Routine, Pain (scale 1-3) diphenhydrA Yes 25mg 25 mg, Univ ers MINE 04-26 Oral, ity of (BENADRYL) 00:23: Q6HPRN, [place] tablet 25 50 Starting Medica l mg on [facility] Branch 04/25/22 at 1923, Until Discontinu ed, Routine, Sleep, Itching ondansetron Yes 4mg 4 mg, Slow Univers (ZOFRAN 04-26 IV Push, ity of (PF)) 00:23: Q8HPRN, [place] injection 4 50 Starting Medi lissa mg on [facility] Branch 04/25/22 at 1923, Until Discontinu ed, Routine, Nausea and Vomiting (N/V) simethicone Yes 160mg 160 mg, Un donnie (GAS RELIEF 04-26 Oral, ity of (SIMETHICON 00:23: PC+HSPRN, [place] E)) 50 Starting Medical chewable on [facility] tablet 160 04/25/22 at mg 3, Until Discontinu ed, Routine, Gas docusate Yes 200mg 200 mg, Unive rs (COLACE) 04-26 Oral, ity of capsule 200 00:23: QDAILYPRN, [place] mg 50 Starting Medical on [facility] Branch 04/25/22 at 1923, Until Discontinu ed, Routine, Constipati on magnesium Yes 30mL 30 mL, Univer s hydroxide 04-26 Oral, ity of (MILK OF 00:23: QDAILYPRN, [place] as MAGNESIA) 50 Starting Medica l 400 mg/5 mL on [facility] suspension 04/25/22 at 30 mL 1922, Until Discontinu ed, Routine, Constipati on benzocaine- Yes Topical, Un donnie menthol 04-26 PRN, ity of (DERMOPLAST 00:23: Starting [place] ) 20-0.5 % 50 on [facility] Medical topical 04/25/22 at Branch spray 1922, Until Discontinu ed, Routine, Perineum discomfort Yes [id number] 1{tbl} Take 1 Univers vitamin 04-26 tablet by ity of w/FA tablet 00:00: mouth in [place] 00 the Medical morning. Branch docusate Yes [id number] 200mg Take 2 U nivers 100 mg 9-07 capsules ity of capsule 00:00: by mouth [place] 00 once daily Medical as needed Branch for Constipati on. ferrous 2021-0 Yes [id number] 325mg Take 1 Un donnie sulfate 325 9-07 tablet by ity of mg (65 mg 00:00: [place] iron) 00 the Medical tablet morning Branch and 1 tablet in the evening. ibuprofen 2021-0 Yes [id number] 600mg Take 1 Univers 600 mg 9-07 tablet by ity of tablet 00:00: mouth [place] 00 every 6 Medical (six) Branch hours as needed (Pain). Take with food or milk. 2021-0 Yes [id number] 1{tbl} Take 1 Univers vitamin 9-07 tablet by ity of w/FA tablet 00:00: mouth in [place] 00 the Medical morning. Branch docusate 2021-0 Yes [id number] 200mg Take 2 U nivers 100 mg 9-07 capsules ity of capsule 00:00: by mouth [place] 00 once daily Medical as needed Branch for Constipati on. ferrous 2021-0 Yes [id number] 325mg Take 1 Un donnie sulfate 325 9-07 tablet by ity of mg (65 mg 00:00: mouth in [place] iron) 00 the Medical tablet morning Branch and 1 tablet in the evening. ibuprofen 2021-0 Yes [id number] 600mg Take 1 Univers 600 mg 9-07 tablet by ity of tablet 00:00: mouth [place] 00 every 6 Medical (six) Branch hours as needed (Pain). Take with food or milk. 2021-0 Yes [id number] 1{tbl} Take 1 Univers vitamin 9-07 tablet by ity of w/FA tablet 00:00: mouth in [place] 00 the Medical morning. Branch docusate 2021-0 Yes [id number] 200mg Take 2 U nivers 100 mg 9-07 capsules ity of capsule 00:00: by mouth [place] 00 once daily Medical as needed Branch for Constipati on. ferrous 2021-0 Yes [id number] 325mg Take 1 Un donnie sulfate 325 9-07 tablet by ity of mg (65 mg 00:00: [place] iron) 00 the Medical tablet morning Branch and 1 tablet in the evening. ibuprofen 2021-0 Yes [id number] 600mg Take 1 Univers 600 mg 9-07 tablet by ity of tablet 00:00: mouth [place] 00 every 6 Medical (six) Branch hours as needed (Pain). Take with food or milk. 2021-0 Yes [id number] 1{tbl} Take 1 Univers vitamin 9-07 tablet by ity of w/FA tablet 00:00: mouth in [place] 00 the Medical morning. Branch docusate 0 Yes [id number] 200mg Take 2 U nivers 100 mg 9-07 capsules ity of capsule 00:00: by mouth [place] 00 once daily Medical as needed Branch for Constipati on. ferrous 2021-0 Yes [id number] 325mg Take 1 Un donnie sulfate 325 9-07 tablet by ity of mg (65 mg 00:00: [place] iron) 00 the Medical tablet morning Branch and 1 tablet in the evening. ibuprofen 2021-0 Yes [id number] 600mg Take 1 Univers 600 mg 9-07 tablet by ity of tablet 00:00: mouth [place] 00 every 6 Medical (six) Branch hours as needed (Pain). Take with food or milk. 2021-0 Yes [id number] 1{tbl} Take 1 Univers vitamin 9-07 tablet by ity of w/FA tablet 00:00: mouth in [place] 00 the Medical morning. Branch docusate 0 Yes [id number] 200mg Take 2 U nivers 100 mg 9-07 capsules ity of capsule 00:00: by mouth [place] 00 once daily Medical as needed Branch for Constipati on. ferrous 2021-0 Yes [id number] 325mg Take 1 Un donnie sulfate 325 9-07 tablet by ity of mg (65 mg 00:00: [place] iron) 00 the Medical tablet morning Branch and 1 tablet in the evening. ibuprofen 2021-0 Yes [id number] 600mg Take 1 Univers 600 mg 9-07 tablet by ity of tablet 00:00: mouth [place] 00 every 6 Medical (six) Branch hours as needed (Pain). Take with food or milk. 2021-0 Yes [id number] 1{tbl} Take 1 Univers vitamin 9-07 tablet by ity of w/FA tablet 00:00: mouth in [place] 00 the Medical morning. Branch docusate 0 Yes [id number] 200mg Take 2 U nivers 100 mg 9-07 capsules ity of capsule 00:00: by mouth [place] 00 once daily Medical as needed Branch for Constipati on. ferrous 2021-0 Yes [id number] 325mg Take 1 Un donnie sulfate 325 9-07 tablet by ity of mg (65 mg 00:00: [place] iron) 00 the Medical tablet morning Branch and 1 tablet in the evening. ibuprofen 2021-0 Yes [id number] 600mg Take 1 Univers 600 mg 9-07 tablet by ity of tablet 00:00: mouth [place] 00 every 6 Medical (six) Branch hours as needed (Pain). Take with food or milk. 2021-0 Yes [id number] 1{tbl} Take 1 [facility] vitamin 9-07 tablet by ity of w/FA tablet 00:00: mouth in [place] 00 the Medical morning. Branch docusate 2021-0 Yes [id number] 200mg Take 2 [facility] 100 mg 9-07 capsules ity of capsule 00:00: by mouth [place] 00 once daily Medical as needed Branch for Constipati on. ferrous 2021-0 Yes [id number] 325mg Take 1 [facility] sulfate 325 9-07 tablet by ity of mg (65 mg 00:00: [place] iron[place] 00 the Medical tablet morning Branch and 1 tablet in the evening. ibuprofen 2021-0 Yes [id number] 600mg Take 1 [facility] 600 mg 9-07 tablet by ity of tablet 00:00: mouth [place] 00 every 6 Medical (six) Branch hours as needed (Pain). Take with food or milk. 2021-0 Yes [id number] 1{tbl} Take 1 [facility] vitamin 9-07 tablet by ity of w/FA tablet 00:00: mouth in [place] 00 the Medical morning. Branch docusate 2021-0 Yes [id number] 200mg Take 2 [facility] 100 mg 9-07 capsules ity of capsule 00:00: by mouth [place] 00 once daily Medical as needed Branch for Constipati on. ferrous 2021-0 Yes [id number] 325mg Take 1 [facility] sulfate 325 9-07 tablet by ity of mg (65 mg 00:00: [place] iron[place] 00 the Medical tablet morning Branch and 1 tablet in the evening. ibuprofen 2022-0 Yes [id number] 600mg Take 1 [facility] 600 mg 9-07 tablet by ity of tablet 00:00: mouth [place] 00 every 6 Medical (six) Branch hours as needed (Pain). Take with food or milk. 2021-0 Yes [id number] 1{tbl} Take 1 [facility] vitamin 9-07 tablet by ity of w/FA tablet 00:00: mouth in [place] 00 the Medical morning. Branch docusate 2021-0 Yes [id number] 200mg Take 2 [facility] 100 mg 9-07 capsules ity of capsule 00:00: by mouth [place] 00 once daily Medical as needed Branch for Constipati on. ferrous 2021-0 Yes [id number] 325mg Take 1 [facility] sulfate 325 9-07 tablet by ity of mg (65 mg 00:00: [place] iron[place] 00 the Medical tablet morning Branch and 1 tablet in the evening. ibuprofen 2021-0 Yes [id number] 600mg Take 1 [facility] 600 mg 9-07 tablet by ity of tablet 00:00: mouth [place] 00 every 6 Medical (six) Branch hours as needed (Pain). Take with food or milk. 2021-0 Yes [id number] 1{tbl} Take 1 [facility] vitamin 9-07 tablet by ity of w/FA tablet 00:00: mouth in [place] 00 the Medical morning. Branch docusate 0 Yes [id number] 200mg Take 2 [facility] 100 mg 9-07 capsules ity of capsule 00:00: by mouth [place] 00 once daily Medical as needed Branch for Constipati on. ferrous 2021-0 Yes [id number] 325mg Take 1 [facility] sulfate 325 9-07 tablet by ity of mg (65 mg 00:00: [place] iron[place] 00 the Medical tablet morning Branch and 1 tablet in the evening. ibuprofen 2021-0 Yes [id number] 600mg Take 1 [facility] 600 mg 9-07 tablet by ity of tablet 00:00: mouth [place] 00 every 6 Medical (six) Branch hours as needed (Pain). Take with food or milk. 2021-0 Yes [id number] 1{tbl} Take 1 [facility] vitamin 9-07 tablet by ity of w/FA tablet 00:00: mouth in [place] 00 the Medical morning. Branch docusate 2021-0 Yes [id number] 200mg Take 2 [facility] 100 mg 9-07 capsules ity of capsule 00:00: by mouth [place] 00 once daily Medical as needed Branch for Constipati on. ferrous 2021-0 Yes [id number] 325mg Take 1 [facility] sulfate 325 9-07 tablet by ity of mg (65 mg 00:00: [place] iron[place] 00 the Medical tablet morning Branch and 1 tablet in the evening. ibuprofen 2021-0 Yes [id number] 600mg Take 1 [facility] 600 mg 9-07 tablet by ity of tablet 00:00: mouth [place] 00 every 6 Medical (six) Branch hours as needed (Pain). Take with food or milk. 2021-0 Yes [id number] 1{tbl} Take 1 [facility] vitamin 9-07 tablet by ity of w/FA tablet 00:00: mouth in [place] 00 the Medical morning. Branch docusate 0 Yes [id number] 200mg Take 2 [facility] 100 mg 9-07 capsules ity of capsule 00:00: by mouth [place] 00 once daily Medical as needed Branch for Constipati on. ferrous 2021-0 Yes [id number] 325mg Take 1 [facility] sulfate 325 9-07 tablet by ity of mg (65 mg 00:00: [place] iron[place] 00 the Medical tablet morning Branch and 1 tablet in the evening. ibuprofen 2021-0 Yes [id number] 600mg Take 1 [facility] 600 mg 9-07 tablet by ity of tablet 00:00: mouth [place] 00 every 6 Medical (six) Branch hours as needed (Pain). Take with food or milk. 2021-0 Yes [id number] 1{tbl} Take 1 [facility] vitamin 9-07 tablet by ity of w/FA tablet 00:00: mouth in [place] 00 the Medical morning. Branch docusate 0 Yes [id number] 200mg Take 2 [facility] 100 mg 9-07 capsules ity of capsule 00:00: by mouth [place] 00 once daily Medical as needed Branch for Constipati on. ferrous 2021-0 Yes [id number] 325mg Take 1 [facility] sulfate 325 9-07 tablet by ity of mg (65 mg 00:00: [place] iron[place] 00 the Medical tablet morning Branch and 1 tablet in the evening. ibuprofen 2021-0 Yes [id number] 600mg Take 1 [facility] 600 mg 9-07 tablet by ity of tablet 00:00: mouth [place] 00 every 6 Medical (six) Branch hours as needed (Pain). Take with food or milk. 2021-0 Yes [id number] 1{tbl} Take 1 [facility] vitamin 9-07 tablet by ity of w/FA tablet 00:00: mouth in [place] 00 the Medical morning. Branch docusate 0 Yes [id number] 200mg Take 2 [facility] 100 mg 9-07 capsules ity of capsule 00:00: by mouth [place] 00 once daily Medical as needed Branch for Constipati on. ferrous 2021-0 Yes [id number] 325mg Take 1 [facility] sulfate 325 9-07 tablet by ity of mg (65 mg 00:00: [place] iron[place] 00 the Medical tablet morning Branch and 1 tablet in the evening. ibuprofen 2021-0 Yes [id number] 600mg Take 1 [facility] 600 mg 9-07 tablet by ity of tablet 00:00: mouth [place] 00 every 6 Medical (six) Branch hours as needed (Pain). Take with food or milk. 2021-0 Yes [id number] 1{tbl} Take 1 [facility] vitamin 9-07 tablet by ity of w/FA tablet 00:00: mouth in [place] 00 the Medical morning. Branch docusate 0 Yes [id number] 200mg Take 2 [facility] 100 mg 9-07 capsules ity of capsule 00:00: by mouth [place] 00 once daily Medical as needed Branch for Constipati on. ferrous 2021-0 Yes [id number] 325mg Take 1 [facility] sulfate 325 9-07 tablet by ity of mg (65 mg 00:00: [place] iron[place] 00 the Medical tablet morning Branch and 1 tablet in the evening. ibuprofen 2021-0 Yes [id number] 600mg Take 1 [facility] 600 mg 9-07 tablet by ity of tablet 00:00: mouth [place] 00 every 6 Medical (six) Branch hours as needed (Pain). Take with food or milk. 2021-0 Yes [id number] 1{tbl} Take 1 [facility] vitamin 9-07 tablet by ity of w/FA tablet 00:00: mouth in [place] 00 the Medical morning. Branch docusate 0 Yes [id number] 200mg Take 2 [facility] 100 mg 9-07 capsules ity of capsule 00:00: by mouth [place] 00 once daily Medical as needed Branch for Constipati on. ferrous 2021-0 Yes [id number] 325mg Take 1 [facility] sulfate 325 9-07 tablet by ity of mg (65 mg 00:00: [place] iron[place] 00 the Medical tablet morning Branch and 1 tablet in the evening. ibuprofen Yes [id number] 600mg Take 1 [facility] 600 mg 9-07 tablet by ity of tablet 00:00: mouth [place] 00 every 6 Medical (six) Branch hours as needed (Pain). Take with food or milk. 2022- No [id number] 1{tbl} Take 1 [facility] vitamin 04-26-02 tablet by ity of w/FA tablet 00:00: 00:00 mouth in [place] 00 :00 the Medical morning. Branch docusate 2022- No [id number] 200mg Take 2 [facility] 100 mg 04-26- capsules ity of capsule 00:00: 00:00 by mouth [place] 00 :00 once daily Medical as needed Branch for Constipati on. ferrous 2022- No [id number] 325mg Take 1 [facility] n[facility] sulfate 325 04-26- tablet by it y of mg (65 mg 00:00: 00:00 mouth in [place] iron) 00 :00 the Medical tablet morning Branch and 1 tablet in the evening. ibuprofen 2022- No [id number] 600mg Take 1 [facility] 600 mg 04-26- tablet by ity of tablet 00:00: 00:00 mouth [place] 00 :00 every 6 Medical (six) Branch hours as needed (Pain). Take with food or milk. 2022- No [id number] 1{tbl} Take 1 [facility] vitamin 04-26- tablet by ity of w/FA tablet 00:00: 00:00 mouth in [place] 00 :00 the Medical morning. Branch docusate 2022- No [id number] 200mg Take 2 [facility] 100 mg 04-26- capsules ity of capsule 00:00: 00:00 by mouth [place] 00 :00 once daily Medical as needed Branch for Constipati on. ferrous 2022- No [id number] 325mg Take 1 [facility] sulfate 325 04-26- tablet by it y of mg (65 mg 00:00: 00:00 mouth in [place] iron) 00 :00 the Medical tablet morning Branch and 1 tablet in the evening. ibuprofen 2022- No [id number] 600mg Take 1 [facility] 600 mg 04-26 tablet by ity of tablet 00:00: 00:00 mouth [place] 00 :00 every 6 Medical (six) Branch hours as needed (Pain). Take with food or milk. enoxaparin 2021- No [id number] 40mg inject 0.4 [facility] 40 mg/0.4 -06-11 mL under ity o f mL 00:00: 04:59 the skin [place] injection 00 :00 in the Medical morning Branch for 45 days. norethindro 2021- No [id number] .35mg Take 1 [facility] ne 0.35 mg 04-26 tablet by ity of tablet 00:00: 04:59 mouth in [place] 00 :00 the Medical morning Branch for 45 days. enoxaparin 2021- No [id number] 40mg inject 0.4 [facility] 40 mg/0.4 04-26 mL under ity o f mL 00:00: 04:59 the skin [place] injection 00 :00 in the Medical morning Branch for 45 days. norethindro 2021- No [id number] .35mg Take 1 [facility] ne 0.35 mg 04-26 tablet by ity of tablet 00:00: 04:59 mouth in [place] 00 :00 the Medical morning Branch for 45 days. enoxaparin 2021- No [id number] 40mg inject 0.4 [facility] 40 mg/0.4 04-26 mL under ity o f mL 00:00: 04:59 the skin [place] injection 00 :00 in the Medical [facility] Branch for 45 days. norethindro 2021- No [id number] .35mg Take 1 [facility] ne 0.35 mg 04-26 tablet by ity of tablet 00:00: 04:59 mouth in [place] 00 :00 the Medical morning Branch for 45 days. enoxaparin 2021- No [id number] 40mg inject 0.4 [facility] 40 mg/0.4 -02 26-23 mL under ity o f mL 00:00: 04:59 the skin [place] injection 00 :00 in the Medical morning Branch for 45 days. norethindro 2021-0 2021- No [id number] .35mg Take 1 [facility] ne 0.35 mg 9- 10-23 tablet by ity of tablet 00:00: 04:59 mouth in [place] 00 :00 the [facility] for 45 days. enoxaparin 2021- No [id number] 40mg inject 0.4 [facility] 40 mg/0.4 9- 10-23 mL under ity o f mL 00:00: 04:59 the skin [place] injection 00 :00 in the [facility] for 45 days. norethindro 2021-2021- No [id number] .35mg Take 1 [facility] ne 0.35 mg 9-02 26-23 tablet by ity of tablet 00:00: 04:59 mouth in [place] 00 :00 the [facility] for 45 days. enoxaparin 2021-2021- No [id number] 40mg inject 0.4 [facility] 40 mg/0.4 9- 10-23 mL under ity o f mL 00:00: 04:59 the skin [place] injection 00 :00 in the [facility] for 45 days. enoxaparin 2021-2021- No [id number] 40mg inject 0.4 [facility] 40 mg/0.4 - 10-23 mL under ity o f mL 00:00: 04:59 the skin [place] injection 00 :00 in the [facility] for 45 days. enoxaparin 2021- No [id number] 40mg inject 0.4 [facility] 40 mg/0.4 9- 10-23 mL under ity o f mL 00:00: 04:59 the skin [place] injection 00 :00 in the [facility] for 45 days. enoxaparin 2021-2021- No [id number] 40mg inject 0.4 [facility] 40 mg/0.4 9- 10-23 mL under ity o f mL 00:00: 04:59 the skin [place] injection 00 :00 in the [facility] for 45 days. norethindro 2021-2021- No [id number] .35mg Take 1 [facility] ne 0.35 mg 9- 10-18 tablet by ity of tablet 00:00: 00:00 mouth in [place] 00 :00 the [facility] for 45 days. norethindro 2021- No [id number] .35mg Take 1 [facility] ne 0.35 mg 04-2618 tablet by ity of tablet 00:00: 00:00 mouth in [place] 00 :00 the [facility] for 45 days. norethindro 2021- No [id number] .35mg Take 1 [facility] ne 0.35 mg -02 26-18 tablet by ity of tablet 00:00: 00:00 mouth in [place] 00 :00 the [facility] for 45 days. oxytocin 2021- No 2mU/min at 2-40 [facility] (PITOCIN) 04-25 mL/hr, IV ity of 30 units in 11:31: 00:23 Infusion, [place] NS 500 mL 52 :52 TITRATE, Medica l IV infusion Starting Bran ch on Sun04/25/22 at 0631, Until Sun04/25/22 at 1923, [facility] ondansetron 2021- No 4mg 4 mg, Slow [facility] (ZOFRAN 04-25 IV Push, ity of (PF)) 10:31: 10:47 ONCE, On [place] injection 4 00 :00 Sun04/25/22 Me dical mg at 0545, Branch For 1 dose
Do ses of ondansetro n 16 mg and above need to be administer ed via IV piggyback. For Dose >=24mg ECG monitoring is advisable.
ondansetron 2021- No 4mg 4 mg, Slow [facility] (ZOFRAN 04-25 IV Push, ity of (PF)) 05:06: 05:42 ONCE, On [place] injection 4 00 :00 Sun04/25/22 Me dical mg at 0015, Branch For 1 dose
Do ses of ondansetro n 16 mg and above need to be administer ed via IV piggyback. For Dose >=24mg ECG monitoring is advisable.
lactated 2021- No 500mL at 999 Unive rs ringers IV 04-25 mL/hr, 500 it y of infusion 04:30: 03:56 mL, IV [place] 500 mL 00 :00 Infusion, Medical ONCE, 1 Branch dose, On Sun04/24/22 at 2330, Routine ropivacaine No Epidural, Univers 0.2 % 04-25 CONTINUOUS ity of (NAROPIN 04:10: 16:56 PRN, [place] (PF)) 00 :24 Starting Medical epidural on Sun Branch infusion 04/24/22 at 2310, Until 04/25/22 at 1156, Routine, Intra-op lidocaine-e No Epidural, Univers pinephrine 04-25 ONCE INTRA it y of (XYLOCAINE 04:10: 16:56 PROCEDURE, [place] W/EPINEPHRI 00 :24 Starting Medi lissa NE) 1.5 on Sun Branch %-1:200,000 04/24/22 at injection 2310, Until 04/25/22 at 1156, Routine, Intra-op sodium 2021- No 30mL 30 mL, Univers citrate-cit 04-25 Oral, ity of olivia acid 03:40: 03:55 PRE-PROCED [place] (BICITRA) 05 :00 URE ONCE, Medic al 500-334 1 dose, Branch mg/5 mL Starting solution 30 on Sun mL 04/24/22 at 2240, Until Sun04/24/22 at 2255, Routine, Surgery/Pr ocedure acetaminoph 2021- No 1000mg 1,000 mg, Univers en 04-25 Oral, ity of (TYLENOL) 02:52: 03:07 ONCE, 1 [place] tablet 00 :00 dose, On Medical 1,000 mg 04/24/22 Branc h at 2200, [place] proMETHazin 2021- No 25mg 25 mg, IV Univers e 04-25 Piggyback, ity of (PHENERGAN) 00:15: 00:30 at 200 [place] as 25 mg in [place] 00 :00 mL/hr Medical 50 mL IV Administer Branc h piggyback over 15 (CNR) Minutes, ONCE, 1 dose, On 04/24/22 at 1915, Routine butorphanol 2021- No 1mg 1 mg, IV U nivers (STADOL) 04-25 Push, ity of injection 1 00:15: 23:22 ONCE, 1 [place] mg 00 :00 dose, On Medical Sun04/24/22 Branch at 1915, Routine lactated 2021- No 500mL at 999 Unive rs ringers IV 04-24 mL/hr, 500 it y of infusion 21:29: 00:23 mL, IV [place] 500 mL 31 :52 Infusion, Medical PRN - SEE Branch INSTRUCTIO NS, Starting on Sun04/24/22 at 1629, Until Sun04/25/22 at 1923, Routine D5W-LR IV 2021- No 1000mL at 1-125 U nivers infusion 04-24 mL/hr, IV ity o f 1,000 mL 21:29: 00:23 Infusion, [place] as 30 :52 TITRATE, Medical Starting Branch on Sun04/24/22 at 1629, Until Sun04/25/22 at 1923, Routine Yes Take by [employer] [facility] vit 9-05 mouth. ity of no.124/iron 16:31: [place] /folic 21 Medical ( Branch VITAMIN ORAL) Yes Take by [facility] vit 8-28 mouth. ity of no.124/iron 02:18: [place] /folic 09 Medical ( Branch VITAMIN ORAL) Yes Take by [facility] vit 8-28 mouth. ity of no.124/iron 02:18: [place] /folic 09 Medical ( Branch VITAMIN ORAL) Yes Take by [employer] vit 8-28 mouth. ity of no.124/iron 02:18: [place] /folic 09 Medical ( Branch VITAMIN ORAL) Yes Take by [employer] vit 8-28 mouth. ity of no.124/iron 02:18: [place] /folic 09 Medical ( Branch VITAMIN ORAL) Yes Take by [facility] vit 7-24 mouth. ity of no.124/iron 18:29: [place] /folic 56 Medical ( Branch VITAMIN ORAL) Yes Take by [employer] [facility] vit 7-24 mouth. ity of no.124/iron 18:29: [place] /folic 56 Medical ( Branch VITAMIN ORAL) Yes Take by [facility] vit 7-24 mouth. ity of no.124/iron 18:29: [place] /folic 56 Medical ( Branch VITAMIN ORAL) Yes Take by [facility] vit 7-24 mouth. ity of no.124/iron 18:29: [place] /folic 56 Medical ( Branch VITAMIN ORAL) Yes Take by [facility] vit 7-24 mouth. ity of no.124/iron 18:29: [place] /folic 56 Medical ( Branch VITAMIN ORAL) Yes Take by [facility] vit 7-24 mouth. ity of no.124/iron 18:29: [place] /folic 56 Medical ( Branch VITAMIN ORAL) Yes Take by [facility] vit 7-24 mouth. ity of no.124/iron 18:29: [place] /folic 56 Medical ( Branch VITAMIN ORAL) Yes Take by [facility] vit 7-24 mouth. ity of no.124/iron 18:29: [place] /folic 56 Medical ( Branch VITAMIN ORAL) Yes Take by [facility] vit 7-24 mouth. ity of no.124/iron 18:29: [place] /folic 56 Medical ( Branch VITAMIN ORAL) aspirin 2021- No 81mg 81 mg, Univers chewable 03-12 Oral, ity of tablet 81 14:00: 23:51 DAILY, [place] mg 00 :31 First dose Medical on Count Includes [facility] 03/12/22 at 0900, Until Discontinu ed, Routine acetaminoph Yes 650mg 650 mg, [facility] en 03-12 Oral, ity of (TYLENOL) 00:30: Q6HPRN, [place] tablet 650 28 Starting Medic al mg on [facility] 03/11/22 at 1930, Until Discontinu ed, Routine, Pain (scale 1-3), Pain (scale 4-6) enoxaparin Yes 40mg 40 mg, Unive rs (LOVENOX) 03-12 Subcutaneo ity of injection 00:15: us, DAILY, [place] 40 mg 00 First dose Medical (after Branch last modificati on) on [facility] 03/11/22 at 1915, Until Discontinu ed, Routine proMETHazin Yes 25mg 25 mg, Univ ers e 03-11 Oral, ity of (PHENERGAN) 23:38: Q4HPRN, [place] as tablet 25 16 Starting Medica l mg on Sat Branch 03/11/22 at 1838, Until Discontinu ed, Routine, Nausea and Vomiting (N/V) NaCl 0.9% Yes 5mL 5 mL, Slow [facility] (NS) 03-11 IV Push, ity of injection 5 18:00: PRN - SEE [place] mL 43 INSTRUCTIO Medical NS, Branch Starting on 03/11/22 at 1300, Until Discontinu ed, 10 mL Yes Take by [facility] vit 7-20 mouth. ity of no.124/iron 17:24: [place] /folic 23 Medical ( Branch VITAMIN ORAL) Yes Take by [employer] [facility] vit 7-20 mouth. ity of no.124/iron 17:24: [place] /folic 23 Medical ( Branch VITAMIN ORAL) Yes Take by [employer] [facility] vit 7-20 mouth. ity of no.124/iron 14:22: [place] /folic 15 Medical ( Branch VITAMIN ORAL) enoxaparin Yes [id number] 40mg inject 0.4 [facility] (LOVENOX) 7-14 mL under ity of 30 mg/0.3 00:00: the [place] mL 00 in the Medical injection morning. Branch Continue until 6 weeks after delivery. enoxaparin Yes [id number] 40mg inject 0.4 [facility] (LOVENOX) 7-14 mL under ity of 30 mg/0.3 00:00: the [place] mL 00 in the Medical injection morning. Branch Continue until 6 weeks after delivery. enoxaparin 0 Yes [id number] 40mg inject 0.4 [facility] (LOVENOX) 7-14 mL under ity of 30 mg/0.3 00:00: the [place] mL 00 in the Medical injection morning. Branch Continue until 6 weeks after delivery. enoxaparin Yes [id number] 40mg inject 0.4 [facility] (LOVENOX) 7-14 mL under ity of 30 mg/0.3 00:00: the [place] mL 00 in the Medical injection morning. Branch Continue until 6 weeks after delivery. enoxaparin 2021-0 Yes [id number] 40mg inject 0.4 [facility] (LOVENOX) 7-14 mL under ity of 30 mg/0.3 00:00: the [place] mL 00 in the Medical injection morning. Branch Continue until 6 weeks after delivery. enoxaparin 2021-0 Yes [id number] 40mg inject 0.4 [facility] (LOVENOX) 7-14 mL under ity of 30 mg/0.3 00:00: the [place] mL 00 in the Medical injection morning. Branch Continue until 6 weeks after delivery. enoxaparin 2021-0 Yes [id number] 40mg inject 0.4 [facility] (LOVENOX) 7-14 mL under ity of 30 mg/0.3 00:00: the [place] mL 00 in the Medical injection morning. Branch Continue until 6 weeks after delivery. enoxaparin 2021-0 Yes [id number] 40mg inject 0.4 [facility] (LOVENOX) 7-14 mL under ity of 30 mg/0.3 00:00: the [place] mL 00 in the Medical injection morning. Branch Continue until 6 weeks after delivery. enoxaparin 2021-0 Yes [id number] 40mg inject 0.4 [facility] (LOVENOX) 7-14 mL under ity of 30 mg/0.3 00:00: the [place] mL 00 in the Medical injection morning. Branch Continue until 6 weeks after delivery. enoxaparin 2021-0 Yes [id number] 40mg inject 0.4 [facility] (LOVENOX) 7-14 mL under ity of 30 mg/0.3 00:00: the [place] mL 00 in the Medical injection morning. Branch Continue until 6 weeks after delivery. enoxaparin 2021-0 Yes [id number] 40mg inject 0.4 [facility] (LOVENOX) 7-14 mL under ity of 30 mg/0.3 00:00: the [place] mL 00 in the Medical injection morning. Branch Continue until 6 weeks after delivery. enoxaparin 2021-0 Yes [id number] 40mg inject 0.4 [facility] (LOVENOX) 7-14 mL under ity of 30 mg/0.3 00:00: the [place] mL 00 in the Medical injection morning. Branch Continue until 6 weeks after delivery. enoxaparin Yes [id number] 40mg inject 0.4 [facility] (LOVENOX) 7-14 mL under ity of 30 mg/0.3 00:00: the [place] mL 00 in the Medical injection morning. Branch Continue until 6 weeks after delivery. enoxaparin Yes [id number] 40mg inject 0.4 [facility] (LOVENOX) 7-14 mL under ity of 30 mg/0.3 00:00: the [place] mL 00 in the Medical injection morning. Branch Continue until 6 weeks after delivery. enoxaparin Yes [id number] 40mg inject 0.4 [facility] (LOVENOX) 7-14 mL under ity of 30 mg/0.3 00:00: the [place] mL 00 in the Medical injection morning. Branch Continue until 6 weeks after delivery. enoxaparin Yes [id number] 40mg inject 0.4 [facility] (LOVENOX) 7-14 mL under ity of 30 mg/0.3 00:00: the [place] mL 00 in the Medical injection morning. Branch Continue until 6 weeks after delivery. enoxaparin Yes [id number] 40mg inject 0.4 [facility] (LOVENOX) 7-14 mL under ity of 30 mg/0.3 00:00: the [place] mL 00 in the Medical injection morning. Branch Continue until 6 weeks after delivery. enoxaparin 2021- No [id number] 40mg inject 0.4 [facility] (LOVENOX) 7-14 09-07 mL under ity o f 30 mg/0.3 00:00: 00:00 the skin [place] mL 00 :00 in the Medical injection morning. Branch Continue until 6 weeks after delivery. terconazole Yes [id number] 1{appli Insert 1 Univers 0.8 % 3-25 cator} Applicator ity of vaginal 00:00: into [place] cream 00 vagina at Medical bedtime. Branch terconazole Yes [id number] 1{appli Insert 1 [facility] 0.8 % 3-25 cator} Applicator ity of vaginal 00:00: into [place] cream 00 vagina at Medical bedtime. Branch terconazole Yes [id number] 1{appli Insert 1 [facility] 0.8 % 3-25 cator} Applicator ity of vaginal 00:00: into [place] cream 00 vagina at Medical bedtime. Branch terconazole Yes [id number] 1{appli Insert 1 Univers 0.8 % 3-25 cator} Applicator ity of vaginal 00:00: into [place] cream 00 vagina at Medical bedtime. Branch terconazole Yes [id number] 1{appli Insert 1 Univers 0.8 % 3-25 cator} Applicator ity of vaginal 00:00: into [place] cream 00 vagina at Medical bedtime. Branch terconazole Yes [id number] 1{appli Insert 1 Univers 0.8 % 3-25 cator} Applicator ity of vaginal 00:00: into [place] cream 00 vagina at Medical bedtime. [place] terconazole Yes [id number] 1{appli Insert 1 Univers 0.8 % 3-25 cator} Applicator ity of vaginal 00:00: into [place] cream 00 vagina at Medical bedtime. [place] terconazole Yes [id number] 1{appli Insert 1 Univers 0.8 % 3-25 cator} Applicator ity of vaginal 00:00: into [place] cream 00 vagina at Medical bedtime. [place] terconazole Yes [id number] 1{appli Insert 1 Univers 0.8 % 3-25 cator} Applicator ity of vaginal 00:00: into [place] cream 00 vagina at Medical bedtime. [place] terconazole Yes [id number] 1{appli Insert 1 Univers 0.8 % 3-25 cator} Applicator ity of vaginal 00:00: into [place] cream 00 vagina at Medical bedtime. Branch terconazole Yes [id number] 1{appli Insert 1 Univers 0.8 % 3-25 cator} Applicator ity of vaginal 00:00: into [place] cream 00 vagina at Medical bedtime. Branch terconazole Yes [id number] 1{appli Insert 1 Univers 0.8 % 3-25 cator} Applicator ity of vaginal 00:00: into [place] cream 00 vagina at Medical bedtime. Branch terconazole Yes [id number] 1{appli Insert 1 Univers 0.8 % 3-25 cator} Applicator ity of vaginal 00:00: into [place] cream 00 vagina at Medical bedtime. Branch terconazole Yes [id number] 1{appli Insert 1 Univers 0.8 % 3-25 cator} Applicator ity of vaginal 00:00: into [place] cream 00 vagina at Medical bedtime. Branch terconazole Yes [id number] 1{appli Insert 1 Univers 0.8 % 3-25 cator} Applicator ity of vaginal 00:00: into [place] cream 00 vagina at Medical bedtime. Branch terconazole Yes [id number] 1{appli Insert 1 Univers 0.8 % 3-25 cator} Applicator ity of vaginal 00:00: into [place] cream 00 vagina at Medical bedtime. Branch terconazole Yes [id number] 1{appli Insert 1 Univers 0.8 % 3-25 cator} Applicator ity of vaginal 00:00: into [place] cream 00 vagina at Medical bedtime. Branch terconazole 2021- No [id number] 1{appli Insert 1 Univers 0.8 % 3-25 09-07 cator} Applicator ity o f vaginal 00:00: 00:00 into [place] cream 00 :00 vagina at Medical bedtime. Branch Yes [id number] 1{packe Take 1 [facility] vit 2-25 t} Packet by ity of 33-iron-fol 00:00: mouth [place] ic-dha 00 daily. Medical (SELECT-OB Branch + DHA) 29 mg iron-1 mg -250 mg combo pack Yes [id number] 1{packe Take 1 [facility] vit 2-25 t} Packet by ity of 33-iron-fol 00:00: mouth [place] ic-dha 00 daily. [facility] ([facility] + DHA) 29 mg iron-1 mg -250 mg combo pack Yes [id number] 1{packe Take 1 [facility] vit 2-25 t} Packet by [facility]y of 33-iron-fol 00:00: mouth [place] ic-dha 00 daily. [facility] ([facility] + DHA) 29 mg iron-1 mg -250 mg combo pack Yes [id number] 1{packe Take 1 [facility] vit 2-25 t} Packet by [facility] of 33-iron-fol 00:00: mouth [place] ic-dha 00 daily. [facility] ([facility] + DHA) 29 mg iron-1 mg -250 mg combo pack Yes [id number] 1{packe Take 1 [facility] vit 2-25 t} Packet by [facility]y of 33-iron-fol 00:00: mouth [place] ic-dha 00 daily. [facility] ([facility] + DHA) 29 mg iron-1 mg -250 mg combo pack Yes [id number] 1{packe Take 1 [facility] vit 2-25 t} Packet by [facility]y of 33-iron-fol 00:00: mouth [place] ic-dha 00 daily. [facility] ([facility] + D[facility]) 29 mg iron-1 mg -250 mg combo pack Yes [id number] 1{packe Take 1 [facility] vit 2-25 t} Packet by [facility] of 33-iron-fol 00:00: mouth [place] ic-dha 00 daily. [facility] ([facility] + D[facility]) 29 mg iron-1 mg -250 mg combo pack Yes [id number] 1{packe Take 1 [facility] vit 2-25 t} Packet by [facility] of 33-iron-fol 00:00: mouth [place] ic-dha 00 daily. [facility] ([facility] + DHA) 29 mg iron-1 mg -250 mg combo pack Yes [id number] 1{packe Take 1 [facility] vit 2-25 t} Packet by [facility] of 33-iron-fol 00:00: mouth [place] ic-dha 00 daily. [facility] ([facility] + DHA) 29 mg iron-1 mg -250 mg combo pack Yes [id number] 1{packe Take 1 [facility] vit 2-25 t} Packet by [facility] 33-iron-fol 00:00: mouth [place] ic-dha 00 daily. [facility] ([facility] + D[facility]) 29 mg iron-1 mg -250 mg combo pack Yes [id number] 1{packe Take 1 [facility] vit 2-25 t} Packet by [facility] of 33-iron-fol 00:00: mouth [place] ic-dha 00 daily. [facility] ([facility] + D[facility]) 29 mg iron-1 mg -250 mg combo pack Yes [id number] 1{packe Take 1 [facility] vit 2-25 t} Packet by [facility] of 33-iron-fol 00:00: mouth [place] ic-dha 00 daily. [facility] ([facility] + D[facility]) 29 mg iron-1 mg -250 mg combo pack Yes [id number] 1{packe Take 1 [facility] vit 2-25 t} Packet by [facility] of 33-iron-fol 00:00: mouth [place] ic-dha 00 daily. [facility] ([facility] + D[facility]) 29 mg iron-1 mg -250 mg combo pack Yes [id number] 1{packe Take 1 [facility] vit 2-25 t} Packet by [facility] 33-iron-fol 00:00: mouth [place] ic-dha 00 daily. [facility] ([facility] + D[facility]) 29 mg iron-1 mg -250 mg combo pack Yes [id number] 1{packe Take 1 [facility] vit 2-25 t} Packet by [facility] 33-iron-fol 00:00: mouth [place] ic-dha 00 daily. Medical ([facility] + DHA) 29 mg iron-1 mg -250 mg combo pack Yes [id number] 1{packe Take 1 [facility] vit 2-25 t} Packet by [facility] of 33-iron-fol 00:00: mouth [place] ic-dha 00 daily. Medical ([facility] + DHA) 29 mg iron-1 mg -250 mg combo pack Yes [id number] 1{packe Take 1 [facility] vit 2-25 t} Packet by [facility] of 33-iron-fol 00:00: mouth [place] ic-dha 00 daily. Medical ([facility] + DHA) 29 mg iron-1 mg -250 mg combo pack 2021- No [id number] 1{packe Take 1 [facility] vit 2-25 09-07 t} Packet by [facility] 00:[facility] [facility] [place] :00 daily. [facility] ([facility] + DHA) 29 mg iron-1 mg -250 mg combo pack proMETHazin 2021-0 Yes [id number] 25mg Take 1 Univers e 25 mg 2-09 tablet by ity of tablet 00:00: mouth [place] 00 every 4 Medical (four) Branch hours as needed for Nausea and Vomiting (N/V). proMETHazin 2021-0 Yes [id number] 25mg Take 1 [facility] e 25 mg 2-09 tablet by ity of tablet 00:00: mouth [place] 00 every 4 Medical (four) Branch hours as needed for Nausea and Vomiting (N/V). proMETHazin 2021-0 Yes [id number] 25mg Take 1 [facility] e 25 mg 2-09 tablet by ity of tablet 00:00: mouth [place] 00 every 4 Medical (four) Branch hours as needed for Nausea and Vomiting (N/V). proMETHazin 2021-0 Yes [id number] 25mg Take 1 [facility] e 25 mg 2-09 tablet by ity of tablet 00:00: mouth [place] 00 every 4 Medical (four) Branch hours as needed for Nausea and Vomiting (N/V). proMETHazin 2021-0 Yes [id number] 25mg Take 1 Univers e 25 mg 2-09 tablet by ity of tablet 00:00: mouth [place] 00 every 4 Medical (four) Branch hours as needed for Nausea and Vomiting (N/V). proMETHazin 2-0 Yes [id number] 25mg Take 1 [facility] e 25 mg 2-09 tablet by ity of tablet 00:00: mouth [place] 00 every 4 Medical (four) Branch hours as needed for Nausea and Vomiting (N/V). proMETHazin 2021-0 Yes [id number] 25mg Take 1 [facility] e 25 mg 2-09 tablet by ity of tablet 00:00: mouth [place] 00 every 4 Medical (four) Branch hours as needed for Nausea and Vomiting (N/V). proMETHazin 2022-0 Yes [id number] 25mg Take 1 Univers e 25 mg 2-09 tablet by ity of tablet 00:00: mouth [place] 00 every 4 Medical (four) Branch hours as needed for Nausea and Vomiting (N/V). proMETHazin 2022-0 Yes [id number] 25mg Take 1 Univers e 25 mg 2-09 tablet by ity of tablet 00:00: mouth [place] 00 every 4 Medical (four) Branch hours as needed for Nausea and Vomiting (N/V). proMETHazin 2-0 Yes [id number] 25mg Take 1 Univers e 25 mg 2-09 tablet by ity of tablet 00:00: mouth [place] 00 every 4 Medical (four) Branch hours as needed for Nausea and Vomiting (N/V). proMETHazin 2021-0 Yes [id number] 25mg Take 1 Univers e 25 mg 2-09 tablet by ity of tablet 00:00: mouth [place] 00 every 4 Medical (four) Branch hours as needed for Nausea and Vomiting (N/V). proMETHazin 2021-0 Yes [id number] 25mg Take 1 Univers e 25 mg 2-09 tablet by ity of tablet 00:00: mouth [place] 00 every 4 Medical (four) Branch hours as needed for Nausea and Vomiting (N/V). proMETHazin 2021-0 Yes [id number] 25mg Take 1 Univers e 25 mg 2-09 tablet by ity of tablet 00:00: mouth [place] 00 every 4 Medical (four) Branch hours as needed for Nausea and Vomiting (N/V). proMETHazin 2021-0 Yes [id number] 25mg Take 1 Univers e 25 mg 2-09 tablet by ity of tablet 00:00: mouth [place] 00 every 4 Medical (four) Branch hours as needed for Nausea and Vomiting (N/V). proMETHazin 2021-0 Yes [id number] 25mg Take 1 Univers e 25 mg 2-09 tablet by ity of tablet 00:00: mouth [place] 00 every 4 Medical (four) Branch hours as needed for Nausea and Vomiting (N/V). proMETHazin 2-0 Yes [id number] 25mg Take 1 Univers e 25 mg 2-09 tablet by ity of tablet 00:00: mouth [place] 00 every 4 Medical (four) Branch hours as needed for Nausea and Vomiting (N/V). proMETHazin 2022-0 Yes [id number] 25mg Take 1 Univers e 25 mg 2-09 tablet by ity of tablet 00:00: mouth [place] 00 every 4 Medical (four) Branch hours as needed for Nausea and Vomiting (N/V). proMETHazin 2022-0 2022- No [id number] 25mg Take 1 Univers e 25 mg 2-09 09-07 tablet by ity of tablet 00:00: 00:00 mouth [place] 00 :00 every 4 Medical (four) Branch hours as needed for Nausea and Vomiting (N/V). Nasonex 2017-0 Yes [place] 2 sprays Mem oria 4-24 [place] in each l 02:45: nostril [place] 58 Albuterol 2016-0 Yes [place] 1 puff as Memoria Sulfate 4-24 [place] needed l 02:45: [place] 58 ZyrTEC 2016-0 Yes [place] 1 tablet Ethan vira 4-24 [place] l 02:45: [place] 58 Qvar 2016-0 Yes [place] 1 puff Memoria 4-24 [place] l 02:45: [place] 58 Ortho Evra 2016-0 Yes [place] 1 patch to Memoria 4-19 [place] skin l 00:00: [place] 00 Immunizations Ordered Filled Immunization Date Status Comments Sour e Immunization Name Name HPV9 2022-06-26 Completed University of 00:00:00 [facility] 2022-06-26 Completed University of 00:00:00 [facility] HPV9 2022-06-26 Completed University of 00:00:00 [facility] HPV9 2022-06-26 Completed University of 00:00:00 [facility] HPV9 2022-06-26 Completed University of 00:00:00 [facility] HPV9 2022-06-26 Completed University of 00:00:00 [facility] HPV9 2022-06-26 Completed University of 00:00:00 [facility] 2022-06-26 Completed University of 00:00:00 [facility] HPV9 2022-06-26 Completed University of 00:00:00 [facility] HPV9 2022-06-26 Completed University of 00:00:00 [facility] HPV9 2022-06-26 Completed University of 00:00:00 [facility] HPV9 2022-04-26 Completed University of 00:00:00 [facility] HPV9 2022-04-26 Completed University of 00:00:00 [facility] 2022-04-26 Completed University of 00:00:00 [facility] 2022-04-26 Completed University of 00:00:00 [facility] HPV9 2022-04-26 Completed University of 00:00:00 [facility] HPV9 2022-04-26 Completed University of 00:00:00 [facility] HPV9 2022-04-26 Completed University of 00:00:00 [facility] HPV9 2022-04-26 Completed University of 00:00:00 [facility] HPV9 2022-04-26 Completed University of 00:00:00 [facility] HPV9 2022-04-26 Completed University of 00:00:00 [facility] HPV9 2022-04-26 Completed University of 00:00:00 [facility] HPV9 2022-04-26 Completed University of 00:00:00 [facility] HPV9 2022-04-26 Completed University of 00:00:00 [facility] HPV9 2022-04-26 Completed University of 00:00:00 [facility] HPV9 2022-04-26 Completed University of 00:00:00 [facility] HPV9 2022-04-26 Completed University of 00:00:00 [facility]9 2022-04-26 Completed University of 00:00:00 [facility] 2022-04-26 Completed University of 00:00:00 [facility] HPV9 2022-04-26 Completed University of 00:00:00 [facility] TDAP 2022-02-16 Completed University of 00:00:00 [facility] TDAP 2022-02-16 Completed University of 00:00:00 [facility] TDAP 2022-02-16 Completed University of 00:00:00 [facility] TDAP 2022-02-16 Completed University of 00:00:00 [facility] TDAP 2022-02-16 Completed University of 00:00:00 [facility] TDAP 2022-02-16 Completed University of 00:00:00 [facility] TDAP 2022-02-16 Completed University of 00:00:00 [facility] TDAP 2022-02-16 Completed University of 00:00:00 [facility] TDAP 2022-02-16 Completed University of 00:00:00 [facility] TDAP 2022-02-16 Completed University of 00:00:00 [facility] TDAP 2022-02-16 Completed University of 00:00:00 [facility] TDAP 2022-02-16 Completed University of 00:00:00 [facility] TDAP 2022-02-16 Completed University of 00:00:00 [facility] 2022-02-16 Completed University of 00:00:00 [facility] 2022-02-16 Completed University of 00:00:00 [facility] 2022-02-16 Completed University of 00:00:00 [facility] 2022-02-16 Completed University of 00:00:00 [facility] 2022-02-16 Completed University of 00:00:00 [facility] 2022-02-16 Completed University of 00:00:00 [facility] 2022-02-16 Completed University of 00:00:00 [facility] 2022-02-16 Completed University of 00:00:00 [facility] 2022-02-16 Completed University of 00:00:00 [facility] 2022-02-16 Completed University of 00:00:00 [facility] 2022-02-16 Completed University of 00:00:00 [facility] 2022-02-16 Completed University of 00:00:00 [facility] 2022-02-16 Completed University of 00:00:00 [facility] 2022-02-16 Completed University of 00:00:00 [facility] 2022-02-16 Completed University of 00:00:00 [facility] 2022-02-16 Completed University of 00:00:00 [facility] 2022-02-16 Completed University of 00:00:00 [facility] 2022-02-16 Completed University of 00:00:00 [facility] 2022-02-16 Completed University of 00:00:00 [facility] 2022-02-16 Completed University of 00:00:00 [facility] 2022-02-16 Completed University of 00:00:00 [facility] 2022-02-16 Completed University of 00:00:00 [facility] 2022-02-16 Completed University of 00:00:00 [facility] 2022-02-16 Completed University of 00:00:00 [facility] Influenza Virus 2019-06-23 Completed Universit y of [facility] .5 mL 00:00:00 [facility] [place] [facility]+ [facility] Influenza Virus 2019-06-23 Completed Universit y of [facility] .5 mL 00:00:00 [place] [facility] 6+ [facility] Influenza Virus 2019-06-23 Completed Universit y of [facility] .5 mL 00:00:00 [place] [facility] IM 6+ [facility] Influenza Virus 2019-06-23 Completed Universit y of [facility] .5 mL 00:00:00 [place] [facility] IM 6+ MO [facility] Influenza Virus 2019-06-23 Completed Universit y of [facility] .5 mL 00:00:00 [place] [facility] IM 6+ MO [facility] Influenza Virus 2019-06-23 Completed Universit y of [facility] .5 mL 00:00:00 [place] [facility] IM 6+ MO [facility] Influenza Virus 2019-06-23 Completed Universit y of [facility] .5 mL 00:00:00 [place] [facility] IM 6+ MO [facility] Influenza Virus 2019-06-23 Completed Universit y of [facility] .5 mL 00:00:00 [place] [facility] IM 6+ [facility] Influenza Virus 2019-06-23 Completed Universit y of [facility] .5 mL 00:00:00 [place] [facility] IM 6+ [facility] Influenza Virus 2019-06-23 Completed Universit y of [facility] .5 mL 00:00:00 [place] [facility] IM 6+ MO [facility] Influenza Virus 2019-06-23 Completed Universit y of [facility] .5 mL 00:00:00 [place] [facility] 6+ [facility] Influenza Virus 2019-06-23 Completed Universit y of [facility] .5 mL 00:00:00 [place] [facility] IM 6+ [facility] Influenza Virus 2019-06-23 Completed Universit y of [facility] .5 mL 00:00:00 [place] [facility] IM 6+ MO [facility] Influenza Virus 2019-06-23 Completed Universit y of [facility] .5 mL 00:00:00 [place] [facility] IM 6+ MO [facility] Influenza Virus 2019-06-23 Completed Universit y of [facility] .5 mL 00:00:00 [place] [facility] IM 6+ MO [facility] Influenza Virus 2019-06-23 Completed Universit y of [facility] .5 mL 00:00:00 [place] [facility] IM 6+ MO [facility] Influenza Virus 2019-06-23 Completed Universit y of [facility] .5 mL 00:00:00 [place] [facility] IM 6+ MO [facility] Influenza Virus 2019-06-23 Completed Universit y of [facility] .5 mL 00:00:00 [place] [facility] IM 6+ MO [facility] Influenza Virus 2019-06-23 Completed Universit y of [facility] .5 mL 00:00:00 [place] [facility] IM 6+ MO [facility] Influenza Virus 2019-06-23 Completed Universit y of [facility] .5 mL 00:00:00 [place] [facility] IM 6+ MO [facility] Influenza Virus 2019-06-23 Completed Universit y of [facility] .5 mL 00:00:00 [place] [facility] IM 6+ MO [facility] Influenza Virus 2019-06-23 Completed Universit y of [facility] .5 mL 00:00:00 [place] [facility] IM 6+ MO [facility] Influenza Virus 2019-06-23 Completed Universit y of [facility] .5 mL 00:00:00 [place] [facility] IM 6+ MO [facility] Influenza Virus 2019-06-23 Completed Universit y of [facility] .5 mL 00:00:00 [place] [facility] IM 6+ MO [facility] Influenza Virus 2019-06-23 Completed Universit y of [facility] .5 mL 00:00:00 [place] [facility] IM 6+ MO [facility] Influenza Virus 2019-06-23 Completed Universit y of [facility] .5 mL 00:00:00 [place] [facility] IM 6+ MO [facility] Influenza Virus 2019-06-23 Completed [facility]it y of [facility] .5 mL 00:00:00 [place] [facility] IM 6+ MO [facility] Influenza Virus 2019-06-23 Completed Universit y of [facility] .5 mL 00:00:00 [place] [facility] IM 6+ MO [facility] Influenza Virus 2019-06-23 Completed [facility]it y of [facility] .5 mL 00:00:00 [place] [facility] IM 6+ MO [facility] Influenza Virus 2019-06-23 Completed Universit y of [facility] .5 mL 00:00:00 [place] [facility] IM 6+ MO [facility] Influenza Virus 2019-06-23 Completed [facility]it y of [facility] .5 mL 00:00:00 [place] [facility] IM 6+ MO [facility] Influenza Virus 2019-06-23 Completed [facility]it y of [facility] .5 mL 00:00:00 [place] [facility] IM 6+ MO [facility] Influenza Virus 2019-06-23 Completed Universit y of [facility] .5 mL 00:00:00 [place] [facility] IM 6+ MO [facility] Influenza Virus 2019-06-23 Completed Universit y of [facility] .5 mL 00:00:00 [place] [facility] IM 6+ MO [facility] Influenza Virus 2019-06-23 Completed Universit y of [facility] .5 mL 00:00:00 [place] [facility] IM 6+ MO [facility] Influenza Virus 2019-06-23 Completed Universit y of [facility] .5 mL 00:00:00 [place] [facility] IM 6+ MO [facility] Influenza Virus 2019-06-23 Completed Universit y of [facility] .5 mL 00:00:00 [facility] IM 6+ MO Branch Vital Signs Vital Name Observation Time Observation Value Comments Source Systolic blood 2023-01-19 18:45:00 127 mm[Hg] Univer sity of pressure [place] [facility] Diastolic blood 2023-01-19 18:45:00 73 mm[Hg] Unive rsity of pressure [place] [facility] [place] Heart rate 2023-01-19 18:45:00 87 /min [facility]i ty of [place] [facility] [place] Body temperature 2023-01-19 18:45:00 36.33 [place] Univ ersity of [place] [facility] Respiratory rate 2023-01-19 18:45:00 18 /min Univ ersity of [place] [facility] Body height 2023-01-19 18:45:00 160 cm [facility] [place] [facility] [place] Body weight 2023-01-19 18:45:00 62.143 kg [facility] [place] [facility] BMI 2023-01-19 18:45:00 24.27 kg/m2 [facility] [place] [facility] Systolic blood 2022-09-06 20:11:00 116 mm[Hg] Univer sity of pressure [place] [facility] Diastolic blood 2022-09-06 20:11:00 68 mm[Hg] Unive rsity of pressure [facility] Heart rate 2022-09-06 20:11:00 81 /min [facility] [place] [facility] Body temperature 2022-09-06 20:11:00 36.44 [place] [facility] [place] [facility] [place] Respiratory rate 2022-09-06 20:11:00 18 /min Univ ersity of [place] [facility] Body height 2022-09-06 20:11:00 160 cm [facility] [place] [facility] Body weight 2022-09-06 20:11:00 60.045 kg [facility] [place] [facility] BMI 2022-09-06 20:11:00 23.45 kg/m2 [facility] [place] [facility] Systolic blood 2022-07-20 19:23:00 116 mm[Hg] Univer sity of pressure [facility] Diastolic blood 2022-07-20 19:23:00 72 mm[Hg] Unive rsity of pressure [facility] Heart rate 2022-07-20 19:23:00 76 /min [facility] [place] [facility] Body temperature 2022-07-20 19:23:00 36.33 [place] [facility] [place] [facility] Respiratory rate 2022-07-20 19:23:00 18 /min [facility] [place] [facility] Body height 2022-07-20 19:23:00 160 cm [facility] [place] [facility] Body weight 2022-07-20 19:23:00 63.107 kg [facility] [place] [facility] BMI 2022-07-20 19:23:00 24.64 kg/m2 [facility] [place] [facility] Systolic blood 2022-06-26 16:59:00 106 mm[Hg] Univer sity of pressure [facility] Diastolic blood 2022-06-26 16:59:00 65 mm[Hg] Unive rsity of pressure [facility] Heart rate 2022-06-26 16:59:00 75 /min [facility] [place] [facility] Body temperature 2022-06-26 16:59:00 37.06 [place] [facility] [place] [facility] Respiratory rate 2022-06-26 16:59:00 20 /min [facility] [place] [facility] Body height 2022-06-26 16:59:00 160 cm [facility] [place] [facility] Body weight 2022-06-26 16:59:00 63.73 kg [facility] [place] [facility] BMI 2022-06-26 16:59:00 24.89 kg/m2 [facility] [place] [facility] Systolic blood 2022-06-06 18:12:00 106 mm[Hg] Univer sity of pressure [facility] Diastolic blood 2022-06-06 18:12:00 67 mm[Hg] Unive rsity of pressure [facility] Heart rate 2022-06-06 18:12:00 99 /min [facility] [place] [facility] Body temperature 2022-06-06 18:12:00 37.11 [place] [facility] [place] [facility] Respiratory rate 2022-06-06 18:12:00 18 /min [facility] [place] [facility] Body weight 2022-06-06 18:12:00 65.545 kg [facility] BMI 2022-06-06 18:12:00 25.60 kg/m2 [facility] Systolic blood 2022-05-16 15:27:00 107 mm[Hg] Univer sity of pressure [place] [facility] Diastolic blood 2022-05-16 15:27:00 66 mm[Hg] Unive rsity of pressure [place] [facility] Heart rate 2022-05-16 15:27:00 86 /min [facility] Body temperature 2022-05-16 15:27:00 37.11 [place] [facility] [place] [facility] Respiratory rate 2022-05-16 15:27:00 18 /min Univ ers[facility] [place] [facility] Body height 2022-05-16 15:27:00 160 cm [facility] [place] [facility] Body weight 2022-05-16 15:27:00 68.181 kg [facility] [place] [facility] BMI 2022-05-16 15:27:00 26.63 kg/m2 [facility] Systolic blood 2022-05-11 15:31:00 116 mm[Hg] Univer sity of pressure [place] [facility] Diastolic blood 2022-05-11 15:31:00 78 mm[Hg] Unive rsity of pressure [place] [facility] Heart rate 2022-05-11 15:31:00 115 /min [facility] [place] [facility] Body temperature 2022-05-11 15:31:00 36.33 [place] [facility] [place] [facility] Respiratory rate 2022-05-11 15:31:00 18 /min [facility] Body weight 2022-05-11 15:31:00 68.085 kg [facility] [place] [facility] BMI 2022-05-11 15:31:00 26.59 kg/m2 [facility] [place] [facility] Systolic blood 2022-04-26 13:18:00 122 mm[Hg] Univer sity of pressure [place] [facility] Diastolic blood 2022-04-26 13:18:00 76 mm[Hg] Unive rsity of pressure [place] [facility] Heart rate 2022-04-26 13:18:00 74 /min [facility] Body temperature 2022-04-26 13:18:00 36.28 [place] [facility] [place] [facility] Respiratory rate 2022-04-26 13:18:00 18 /min [facility] Oxygen saturation in 2022-04-26 13:18:00 98 /min University of Arterial blood by [facility] Pulse oximetry Branch Body height 2022-04-24 20:40:00 160 cm [facility] [place] [facility] Body weight 2022-04-24 20:40:00 78.2 kg [facility] [place] [facility] BMI 2022-04-24 20:40:00 30.54 kg/m2 [facility] [place] [facility] Systolic blood 2022-04-18 15:59:00 122 mm[Hg] Univer sity of pressure [facility] Diastolic blood 2022-04-18 15:59:00 71 mm[Hg] Unive rsity of pressure [facility] Heart rate 2022-04-18 15:59:00 86 /min [facility] [place] [facility] Body temperature 2022-04-18 15:59:00 36.89 [place] [facility] [place] [facility] Respiratory rate 2022-04-18 15:59:00 18 /min [facility] [place] [facility] Body weight 2022-04-18 15:59:00 76.885 kg [facility] [place] [facility] BMI 2022-04-18 15:59:00 30.03 kg/m2 [facility] Heart rate 2022-04-16 07:00:00 94 /min [facility] [place] [facility] Oxygen saturation in 2022-04-16 07:00:00 99 /min University of Arterial blood by [facility] Pulse oximetry Branch Systolic blood 2022-04-16 06:15:00 122 mm[Hg] Univer sity of pressure [facility] Diastolic blood 2022-04-16 06:15:00 73 mm[Hg] Unive rsity of pressure [facility] Body temperature 2022-04-16 06:15:00 36.61 [place] [facility] [place] [facility] Respiratory rate 2022-04-16 06:15:00 16 /min [facility] [place] [facility] Systolic blood 2022-04-12 16:07:00 124 mm[Hg] Univer sity of pressure [facility] Diastolic blood 2022-04-12 16:07:00 72 mm[Hg] Unive rsity of pressure [facility] Heart rate 2022-04-12 16:07:00 85 /min [facility] Body temperature 2022-04-12 16:07:00 36.28 [place] [facility] [place] [facility] Respiratory rate 2022-04-12 16:07:00 18 /min [facility] [place] [facility] Body weight 2022-04-12 16:07:00 75.705 kg [facility] [place] [facility] BMI 2022-04-12 16:07:00 29.57 kg/m2 [facility] Systolic blood 2022-03-29 14:01:00 120 mm[Hg] Univer sity of pressure [facility] Diastolic blood 2022-03-29 14:01:00 69 mm[Hg] Unive rsity of pressure [facility] Heart rate 2022-03-29 14:01:00 87 /min [facility] Body temperature 2022-03-29 14:01:00 36.44 Irasema [facility] Respiratory rate 2022-03-29 14:01:00 16 /min [facility] Body height 2022-03-29 14:01:00 160 cm [facility] Body weight 2022-03-29 14:01:00 73.982 kg [facility] BMI 2022-03-29 14:01:00 28.89 kg/m2 [facility] Systolic blood 2022-03-15 13:02:00 109 mm[Hg] [facility] Diastolic blood 2022-03-15 13:02:00 68 mm[Hg] [facility] Heart rate 2022-03-15 13:02:00 86 /min [facility] Body temperature 2022-03-15 13:02:00 36.61 Irasema [facility] Respiratory rate 2022-03-15 13:02:00 20 /min [facility] Body height 2022-03-15 13:02:00 160 cm [facility] Body weight 2022-03-15 13:02:00 71.442 kg [facility] BMI 2022-03-15 13:02:00 27.90 kg/m2 [facility] Systolic blood 2022-03-12 21:00:00 121 mm[Hg] [facility] Diastolic blood 2022-03-12 21:00:00 54 mm[Hg] [facility] Heart rate 2022-03-12 21:00:00 79 /min [facility] Body temperature 2022-03-12 21:00:00 36.5 Irasema [facility] Respiratory rate 2022-03-12 21:00:00 18 /min [facility] Oxygen saturation in 2022-03-12 21:00:00 100 /min [facility] Arterial blood by [employer] Pulse oximetry Branch Body height 2022-03-11 22:38:00 160 cm [facility] Body weight 2022-03-11 17:56:00 70.761 kg [facility] BMI 2022-03-11 17:56:00 27.63 kg/m2 [facility] Systolic blood 2022-03-08 19:49:00 126 mm[Hg] [facility] Diastolic blood 2022-03-08 19:49:00 65 mm[Hg] [facility] Heart rate 2022-03-08 19:49:00 98 /min [facility] Body temperature 2022-03-08 19:49:00 36.56 Irasema [facility] Respiratory rate 2022-03-08 19:49:00 18 /min [facility] Body height 2022-03-08 19:49:00 160 cm [facility] Body weight 2022-03-08 19:49:00 70.897 kg [facility] BMI 2022-03-08 19:49:00 27.69 kg/m2 [facility] Oxygen saturation in 2022-03-08 19:49:00 100 /min [facility] Arterial blood by tok tok tok lissa Pulse oxim[facility] Branch Weight 2016-12-06 18:30:00 [facility] Height 2016-12-06 18:30:00 [facility] Temperature Oral (F) 2016-12-06 18:30:00 98.6 F [facility] Heart Rate 2016-12-06 18:30:00 [facility] Diastolic (mm Hg) 2016-12-06 18:30:00 [facility] [place] Systolic (mm Hg) 2016-12-06 18:30:00 Ethan eleni [facility] Procedures Procedure Date / Time Performing Clinician Source Performed [facility] PATIENT FINANCIAL 2023-01-19 18:03:22 Doctor Unassigned, Un [facility] POLICY [facility] [facility] POCT TEST 2023-01-19 00:00:00 Vanita [facility] GARDASIL 9 (HPV 9V) 2022-06-26 17:28:16 Sarmad Maguire [facility] VACCINE [facility] CBC WITH DIFF 2022-06-06 20:11:00 Sissy Mckeon [facility] DISCLOSURE AND CONSENT, 2022-06-06 05:01:00 Doctor Unassigned, U [facility] MEDICAL AND SURGICAL [place] [facility] PROCEDURES POCT TEST 2022-06-06 00:00:00 Sissy Mckeon [facility] CBC WITH DIFF 2022-04-26 06:01:00 Milind Daley [facility] VENOUS CORD GAS 2022-04-25 14:53:00 Milind Daley [facility] CENTRAL NEURAXIAL BLOCK 2022-04-25 04:26:46 Josee Trinidad [facility] CBC WITH DIFF 2022-04-24 23:07:00 Milind Daley [facility] RUBELLA SCREEN IGG 2022-04-24 23:07:00 Milind Daley [facility] HEPATITIS B SURFACE 2022-04-24 23:07:00 Milind Daley [facility] ANTIGEN [facility] HIV 1/2 AG-AB WITH REFLEX 2022-04-24 23:07:00 Milind Daley in [facility] GALV ONLY - SYPHILIS 2022-04-24 23:07:00 Milind Daley [facility] IGG/IGM [facility] HB ABO GROUPING 2022-04-24 22:11:00 Milind Daley [facility] RHO (D) IMMUNE GLOBULIN 2022-04-24 22:11:00 Milind Daley [facility] COVID-19 (ID NOW RAPID 2022-04-24 20:32:00 Cale Ortiz [facility] TESTING) Medical Branch LAB ONLY COVID 2022-04-24 20:32:00 Cale Ortiz [place] [facility] [place] INTERPRETATION [facility] HOSPITAL ADMISSION 2022-04-24 05:01:00 Doctor Unasssai, [facility] [place] [facility] [place] POCT URINALYSIS 2022-04-18 15:59:00 Augei Mendoza [facility] ASSIGNMENT OF BENEFITS 2022-04-16 06:21:04 Doctor Unassigned, [facility] Name [facility] CONSENT/REFUSAL FOR 2022-04-16 06:12:35 Doctor Ricardo, [facility] DIAGNOSIS AND TREATMENT [place] [facility] POCT URINALYSIS 2022-04-12 16:10:00 Augie Mendoza [facility] POCT URINALYSIS 2022-03-29 14:02:00 Augie Mendoza [facility] POCT URINALYSIS 2022-03-15 00:00:00 Augie Mendoza [facility] POCT TEST 2022-03-11 18:56:00 Paulie Pinto [facility] COVID-19 (ID NOW RAPID 2022-03-11 18:42:00 Anna Antony [facility] TESTING) Medical [place] CT STROKE ANGIOGRAM HEAD 2022-03-11 18:41:45 Paulie Pinto [facility] CT STROKE ANGIOGRAM NECK 2022-03-11 18:41:45 Paulie Pinto [facility] URINALYSIS 2022-03-11 18:38:00 Paulie Pinto [place] [facility] URINE DRUG (IMMUNOASSAY) 2022-03-11 18:38:00 Paulie Pinto [facility] Medical [facility] SCREEN W/O REFLEX CT STROKE HEAD WO 2022-03-11 18:15:30 [facility] TROPONIN I 2022-03-11 18:05:00 Blair [facility] o f [facility] THYROID STIMULATING 2022-03-11 18:05:00 Yusef Dixon [facility] HORMONE Medical Branch BASIC METABOLIC PANEL 2022-03-11 18:05:00 Paulie Pinto [facility] (NA, K, CL, CO2, GLUCOSE, Medica l Branch BUN, CREATININE, CA) LIPID PANEL ([id number])(TOTAL 2022-03-11 18:05:00 [facility] Branch TRIGLYCERIDES, HDL) CBC WITHOUT DIFF 2022-03-11 18:05:00 [facility] GLYCOS[facility] HEMOGLOBIN 2022-03-11 18:05:00 Yusef Dixon [facility] (A1C) Medical Branch PROTHROMBIN TIME / INR 2022-03-11 18:05:00 [facility] ACT[facility] PARTIAL 2022-03-11 18:05:[address] [facility] THRMPLAS JOSE [facility] Branch HB ECG ROUTINE & RHYTHM 2022-03-11 18:03:28 Blair [facility] STRIP Medical Branch NOTICE OF PRIVACY 2022-03-11 17:49:31 Doctor Ricardo, [facility] PRACTICES [place] [facility] CONSENT/REFUSAL FOR 2022-03-11 17:48:43 Doctor Ricardo [facility] DIAGNOSIS AND TREATMENT [place] [facility] COVID-19 (ID NOW RAPID 2022-03-08 19:55:00 Jose A [facility] TESTING) Medical Branch LAB ONLY COVID 2022-03-08 19:55:00 Jose A Karthik [facility] INTERPRETATION [facility] CONSENT/REFUSAL FOR 2022-03-08 05:01:00 Doctor Ricardo [facility] DIAGNOSIS AND TREATMENT [place] [facility] [place] Encounters Start End Encounter Admission Attending Care Care Encounter Source Date/Time Date/Time Type Type Clinicians Facility Department ID 2023-01-29 Outpatient [id number] Memoria 17:28:08 [id number] [facility] [id number] 2021-06-18 Emergency [facility] [id number] Univers 07:59:01 ity [facility] 2021-06-16 Emergency [facility] [id number] Univers 14:22:54 itUT [facility] 2023-01-31 2023-01-31 Outpatient R TING [facility] [id number] Univers 13:45:00 13:45:00 SARMAD brown o f [facility] 2023-01-29 2023-01-29 Telephone [facility] 1.2.840.114 [id number] Univers 00:00:00 00:00:00 Sarmad Sneed COLD STRIP ROLLER 350.1.13.10 ity [facility] 4.2.7.2.686 Eugenio as MATERNAL [id number] [facility] & CHILD [address] [place] [address] 2023-01-29 2023-01-29 Nurse TREVA Goldberg 1.2.840.114 [id number] Univers 00:00:00 00:00:00 Triage Emma [facility]ORRES [facility].13.10 [facility] 42.7.2.686 Eugenio as [id number] [address] 2023-01-19 2023-01-19 Outpatient R RADHA [facility] [id number] Univers 13:45:00 14:16:42 VANITA [facility] 2023-01-19 2023-01-19 Office [facility] 1.2.840.114 [id number] Univers 13:45:00 14:16:42 Visit Vanita Hilario COLD STRIP ROLLER 350.1.13.10 i ty [facility] 42.7.2.686 Eugenio as MATERNAL [id number] [facility] & [address] 2023-01-19 2023-01-19 Ad TILLEY 1.2.840.114 [id number] Univers 00:00:00 00:00:00 Only Unassigned, BRIAN 350.1.13.10 ity of [facility] 4.2.7.2.686 Eugenio as [id number] [address] 2022-11-03 2022-11-03 Outpatient R GALESIELVIS, [facility] [id number] Univers 07:45:00 07:45:00 SARMAD brown o tim [facility] 2022-09-06 2022-09-06 Office [facility] 1.2.126.909 [id number] Univers 13:45:00 14:00:00 Visit [facility] C COLD STRIP ROLLER 350.1.13.10 ity of [facility] 4.2.7.2.686 Eugenio as MATERNAL [id number] [facility] & CHILD [address] [place] [address] 2022-09-06 2022-09-06 Outpatient R TING, [facility] [id number] Univers 13:45:00 13:45:00 SARMADDENA brown o [facility] 2022-09-06 2022-09-06 Outpatient R AKINSIPE, [facility] [id number] Univers 13:00:00 13:00:00 SARMAD brown o [facility] 2022-07-20 2022-07-20 Outpatient R AKINSIPE, [facility] [id number] Univers 09:30:00 13:45:39 SARMAD brown o [facility] 2022-07-20 2022-07-20 Office [facility] [id number] Univers 09:30:00 13:45:39 Visit [facility] Naren COLD STRIP ROLLER 350.1.13.10 ity of [place] [address].2.7.2.686 Eugenio as MATERNAL [id number] [facility] & CHILD [address] [place] [address] 2022-07-20 2022-07-20 [facility] 1.2.292.339 [id number] Univers 00:00:00 00:00:00 Augie R COLD STRIP ROLLER 350.1.13.10 ity of [facility] 4.2.7.2.686 Eugenio as MATERNAL [id number] [facility] & CHILD [address] [place] [address] 2022-06-26 2022-06-26 Nurse Nurse, Declan Bolivarsamreen Exp Cprit Obgyn [facility] 1.2.840.114 [id number] Univers 09:45:00 10:00:00 Visit Sarmad Maguire COLD STRIP ROLLER 350.1.13. 10 ity of [facility] 4.2.7.2.686 Eugenio as MATERNAL [id number] [facility] & CHILD [address] [place] [address] 2022-06-26 2022-06-26 Outpatient R [facility] [id number] Univers 09:45:00 09:45:00 SARMAD schuler [facility] 2022-06-06 2022-06-06 Outpatient R [facility] [id number] Univers 13:15:00 14:46:51 AUGIE schuler [facility] 2022-06-06 2022-06-06 Office Provider, [facility] 1 .2.840.114 [id number] Univers 13:15:00 14:46:51 Visit Augie Mendoza COLD STRIP ROLLER 350.1.13.10 ity of [facility] 4.2.7.2.686 Eugenio as MATERNAL [id number] [address] 2022-06-06 2022-06-06 Orders Doctor TREVA 1.2.840.114 [id number] Univers 00:00:00 00:00:00 Only Unassigned, BRIAN 350.1.13.10 ity of [facility] 4.2.7.2.686 Eugenio as [id number] [address] 2022-05-16 2022-05-16 Outpatient R [facility] [id number] Univers 10:30:00 10:38:00 AUGIE schuler [facility] 2022-05-16 2022-05-16 Routine [facility] 1.2.840.114 [id number] Univers 10:30:00 10:38:00 Rosdaniela Agarwal COLD STRIP ROLLER 350.1.13.10 ity of Visit [facility] 4.2.7.2.686 Eugenio as MATERNAL [id number] Med ical & CHILD [address] [place] [address] 2022-05-11 2022-05-11 Outpatient R [facility] [id number] Univers 10:15:00 10:34:43 AUGIE brown o f [facility] 2022-05-11 2022-05-11 Routine [facility] 1.2.840.114 [id number] Univers 10:15:00 10:34:43 Cordella R COLD STRIP ROLLER 350.1.13.10 ity of Visit [facility] 4.2.7.2.686 Eugenio as MATERNAL [id number] Med ical & CHILD [address] [place] [address] 2022-04-27 2022-04-27 Outpatient R [facility] [id number] Univers 11:00:00 11:00:00 AUGIE brown o f [facility] 2022-04-24 2022-04-26 Inpatient P ORTIZ, [facility] SANGEETA [id number] Univers 15:10:00 16:51:00 CALE brown of [facility] 2022-04-24 2022-04-26 Hospital TREVA Ortiz 1.2.840.114 [id number] Univers 15:10:00 16:51:00 Encounter Cale TORRES 350.1.13.10 ity [facility] 4.2.7.2.686 Eugenio as [id number] [facility] [address] [place] 2022-04-24 2022-04-25 Anesthesia Josee Trinidad 1.2.840.11 [id number] Univers 23:01:00 11:56:00 Event Alejandrovannesa Nikko BRIAN 350.1.13.10 [facility] 4.2.7.2.686 Eugenio as [id number] [facility] [address] 2022-04-24 2022-04-24 Nurse TREVA Perea 1.2.840.114 [id number] Univers 00:00:00 00:00:00 Triage Brenda BRIAN 350.1.13.10 it y of [facility] 4.2.7.2.686 Eugenio as [id number] [facility] [address] 2022-04-24 2022-04-24 Orders Doctor TREVA 1.2.840.114 [id number] Univers 00:00:00 00:00:00 Only Unassigned, BRIAN 350.1.13.10 ity of [facility] 4.2.7.2.686 Eugenio as [id number] [facility] [address] [place] 2022-04-20 2022-04-20 Telephone Reji [facility] 1.2.578.287 [id number] Univers 00:00:00 00:00:00 Roshunda R COLD STRIP ROLLER 350.1.13.10 ity of [facility] 4.2.7.2.686 Eugenio as MATERNAL [id number] Med ical & CHILD [address] [place] [address] 2022-04-18 2022-04-18 Outpatient R REJI [facility] [id number] Univers 10:45:00 11:14:38 ROSHUNDA ity o [facility] 2022-04-18 2022-04-18 Routine [facility] 1.2.840.114 [id number] Univers 10:45:00 11:14:38 Roshunda R COLD STRIP ROLLER 350.1.13.10 ity of Visit [facility] 4.2.7.2.686 Eugenio as MATERNAL [id number] [facility] ica & CHILD [address] [place] [address] 2022-04-16 2022-04-16 Outpatient P CHIDI PRESCOTT [facility] SANGEETA [id number] Univers 01:17:00 02:14:00 ity of [facility] 2022-04-16 2022-04-16 [facility] Chidi Prescott [facility] 1.2.840.114 [id number] Univers 01:17:00 02:14:00 Encounter Martin PINEDA 350.1.13.10 ity of [place] 4.2.7.2.686 [facility] [id number] [facility] [address] [place] 2022-04-12 2022-04-12 Outpatient R REJI [facility] [id number] Univers 11:00:00 11:21:10 ROSHUNDA ity o f [facility] 2022-04-12 2022-04-12 Routine [facility] 1.2.840.114 [id number] Univers 11:00:00 11:21:10 Roshunda R COLD STRIP ROLLER 350.1.13.10 ity of Visit [facility] 4.2.7.2.686 Eugenio as MATERNAL [id number] [facility] & CHILD [address] [place] [address] 2022-03-29 2022-03-[address] [facility] 1.2.840.114 [id number] Univers 08:45:00 09:00:00 Roshunda R COLD STRIP ROLLER 350.1.13.10 ity of Visit [facility] 4.2.7.2.686 Eugenio as MATERNAL [id number] [facility] CHILD [address] [place] [address] 2022-03-29 2022-03-29 Outpatient Stefano [facility] [id number] Univers 08:45:00 08:45:00 ROSHUNDA ity o f [facility] 2022-03-17 2022-03-17 [facility] 1.2.840.114 [id number] Univers 14:47:05 23:59:00 Encounter Fabiola EDWIN 350.1.13.[address] [facility] 4.2.7.2.686 [facility] [id number] [address] 2022-03-17 2022-03-17 Outpatient R AMOS [facility] [id number] Univers 00:00:00 23:59:00 FABIOLA ity [facility] 2022-03-17 2022-03-17 [facility] 1.2.840.114 [id number] Univers 14:45:15 14:46:00 Encounter [facility] 350.1.13.10 ity [facility] 4.2.7.2.686 [facility] [id number] [address] 2022-03-17 2022-03-17 Outpatient [facility] [id number] Univers 00:00:00 00:00:00 FABIOLA ity [facility] 2022-03-15 2022-03-15 Outpatient Stefano [facility] [id number] Univers 07:45:00 08:19:47 ROSHUNDA ity o f [facility] 2022-03-15 2022-03-15 Routine [facility] 1.2.840.114 [id number] Univers 07:45:00 08:19:47 Rosreshmanda R COLD STRIP ROLLER 350.1.13.10 ity of Visit REGIONAL 4.2.7.2.686 Eugenio as MATERNAL [id number] [facility] CHILD [address] [place] [address] 2022-03-15 2022-03-15 Outpatient R REJI [facility] [id number] Univers 07:45:00 07:45:00 ROSHUNDA ity o f [facility] 2022-03-14 2022-03-14 Abstract [facility] 1.2.840.114 [id number] Univers 00:00:00 00:00:00 Augie R COLD STRIP ROLLER 350.1.13.10 ity of REGIONAL 4.2.7.2.686 Eugenio as MATERNAL [id number] [facility] & CHILD [address] [place] [address] 2022-03-14 2022-03-14 Transition VIVIAN Bone 1.2.840.114 [id number] Univers 00:00:00 00:00:00 of Care Kriss DAY 350.1.13.10 i ty of [place]2.7.2.[place] [id number] [address] 2022-03-13 2022-03-13 [employer], [facility] 1.2 .840.114 [id number] Univers 14:00:00 14:30:00 Visit Divina Sheikh COLD STRIP ROLLER 350.1. 13.10 ity of REGIONAL 4.2.7.2.686 Eugenio as MATERNAL [id number] [facility] & CHILD [address] [facility] 2022-03-13 2022-03-13 Outpatient P [facility] [id number] Univers 14:00:00 14:00:00 ity of [facility] 2022-03-13 2022-03-13 Outpatient P BLACKBURN [facility] [id number] Univers 14:00:00 14:00:00 PATRIA it y of SDIVINA [facility] 2022-03-11 2022-03-12 Outpatient X AMOS [facility] SARY [id number] Univers 12:59:00 18:29:00 FABIOLA [facility] 2022-03-11 2022-03-12 [facility] Paulie Pinto 1.2.840.1 [id number] Univers 12:59:00 18:29:00 Encounter Fabiola Trinidad 35 0.1.13.10 ity of [place] [address]..2.686 Eugenio as [id number] [facility] [address] 2022-03-11 2022-03-11 Nurse TREVA Lovett 1.2.840.114 [id number] Univers 00:00:00 00:00:00 Triage Priyanka Fowler BRIAN 350.1.13.10 it y of [place] [address]..7.2.686 Eugenio as [id number] [facility] [address] [place] 2022-03-08 2022-03-08 Outpatient P [facility] S[facility] [id number] Univers 14:22:00 17:24:00 KARTHIK brown [facility] 2022-03-08 2022-03-08 Hospital TREVA Naranjo 1.2.840.114 [id number] Univers 14:22:00 17:24:00 Encounter Karthik THACKERY 350.1.13.10 ity [place] [address]..2.686 Eugenio as [id number] [facility] [address] [place] 2022-03-08 2022-03-08 Outpatient P [facility] [id number] Univers 14:22:00 14:22:00 KARTHIK naresh [facility] 2022-03-08 2022-03-08 Nurse TREVA Soriano 1.2.392.567 [id number] Univers 00:00:00 00:00:00 Triage Jhonny THACKERY 350.1.13.10 it y [place] [address].2.686 Eugenio as [id number] [facility] [address] [place] 2022-03-02 2022-03-02 Refill [facility], [facility] 1.2.600.569 [id number] Univers 00:00:00 00:00:00 Ang-Rmchp COLD STRIP ROLLER 350.1.13.10 ity of Temp [facility]AL 4.2.7.2.686 Eugenio as MATERNAL [id number] [facility] CHILD [address] [place] [address] 2022-03-01 2022-03-01 Outpatient R JALYNARIANADidier SISSY [facility] [id number] Univers 09:15:00 09:54:47 SISSY MCKEON itnaresh [facility] 2022-03-01 2022-03-01 Routine Provider, [facility] 1 .2.840.114 [id number] Univers 09:15:00 09:54:47 Sissy Mckeon COLD STRIP ROLLER 350.1.13.10 ity of Visit REGIONAL 4.2.7.2.686 Eugenio as MATERNAL [id number] [facility] & [address] 2022-03-01 2022-03-01 Caridad [facility] 1.2.840.[id number] [place] [address] 00:00:00 00:00:00 Sonido COLD STRIP ROLLER 350.1.13.10 i ty of REGIONAL 4.2.7.2.686 Eugenio as MATERNAL [id number] [facility] & CHILD [address] [place] [address] 2022-02-16 2022-02-16 Outpatient Stefano MENDOZA [facility] [id number] Univers 07:45:00 08:38:04 ROSHUNDA itnaresh o f [facility] 2022-02-16 2022-02-16 Routine [facility] 1.2.840.114 [id number] Univers 07:45:00 08:38:04 Roshunda R COLD STRIP ROLLER 350.1.13.10 ity of Visit REGIONAL 4.2.7.2.686 Eugenio as MATERNAL [id number] [facility] & CHILD [address] [place] [address] 2022-02-16 2022-02-16 Outpatient Stefano MENDOZA [facility] [id number] Univers 07:45:00 07:45:00 ROSHUNDA ity o f [facility] 2022-01-26 2022-01-26 [facility] 1.2.840.114 [id number] Univers 10:30:00 11:10:10 Roshunda R COLD STRIP ROLLER 350.1.13.10 ity of Visit REGIONAL 4.2.7.2.686 Eugenio as MATERNAL [id number] [facility] CHILD [address] [place] [address] 2022-01-26 2022-01-26 Outpatient R [facility] [id number] Univers 10:30:00 11:10:10 ROSHUNDA ity o f [facility] 2022-01-26 2022-01-26 Outpatient R REJI [facility] [id number] Univers 10:30:00 11:10:10 ROSHUNDA ity o f [facility] 2022-01-20 2022-01-20 Outpatient P [facility] [id number] Univers 14:15:00 14:15:00 ity [facility] 2022-01-10 2022-01-10 [facility] [id number] Univers 00:00:00 00:00:00 Cordella R COLD STRIP ROLLER [id number] ity of REGIONAL [id number] Eugenio as MATERNAL [phone] [facility] & CHILD [address] [place] [address] 2022-01-09 2022-01-09 [employer] 1.2. [id number] Univers 13:30:00 14:45:11 Visit Divina Sheikh COLD STRIP ROLLER 350.1. 13.10 ity of REGIONAL 4.2.7.2.686 Eugenio as MATERNAL [phone] [facility] ical & CHILD [address] [place] [address] 2022-01-09 2022-01-09 Outpatient [facility] [facility] [id number] Univers 13:30:00 13:30:00 PATRIA it y of Carol MURCIA [facility] 2022-01-09 2022-01-09 Outpatient P [facility] [id number] Univers 13:30:00 13:30:00 ity [facility] 2022-01-06 2022-01-06 Outpatient R [facility] [id number] Univers 10:45:00 11:15:07 ROSHUNDA ity o f [facility] 2022-01-06 2022-01-06 [facility]ine [facility] 1.2.840.114 [id number] Univers 10:45:00 11:15:07 Roshunda R COLD STRIP ROLLER 350.1.13.10 ity of Visit REGIONAL 4.2.7.2.686 Eugenio as MATERNAL [id number] [facility] & CHILD [address] [place] [address] 2022-01-06 2022-01-06 Outpatient R REJI [facility] [id number] Univers 10:45:00 10:45:00 ROSHUNDA ity o f [facility] 2021-12-12 2021-12-12 Abstract Reji [facility] 1.2.840.114 [id number] Univers 00:00:00 00:00:00 Roshunda R COLD STRIP ROLLER 350.1.13.10 ity of REGIONAL 4.2.7.2.686 Eugenio as MATERNAL [phone] [facility] & CHILD [address] [place] [address] 2021-12-09 2021-12-09 Manager Wholesale 1, [facility] Room [facility] 1.2. 840.114 [id number] Univers 13:00:00 14:16:28 Visit Jhonny Palacios COLD STRIP ROLLER 350.1.13.10 ity of REGIONAL 4.2.7.2.686 Eugenio as MATERNAL [id number] [facility] ical & CHILD [address] [place] [address] 2021-12-09 2021-12-09 Outpatient P CUONG [facility] [id number] Univers 13:00:00 13:00:00 JHONNY ity of [facility] 2021-12-09 2021-12-09 Routine [facility] 1.2.840.114 [id number] Univers 09:00:00 09:37:37 Roshunda R COLD STRIP ROLLER 350.1.13.10 ity of Visit REGIONAL 4.2.7.2.686 Eugenio as MATERNAL [phone] [facility] & CHILD [address] [place] [address] 2021-12-09 2021-12-09 Outpatient R RJEI [facility] [id number] Univers 09:00:00 09:37:37 ROSRESHMANDA ity o f [facility] 2021-12-08 2021-12-08 Outpatient P [facility] [id number] Univers 08:00:00 08:00:00 ity of [facility] 2021-11-24 2021-11-24 Telephone [facility] 1.2.762.280 [id number] Univers 00:00:00 00:00:00 Rosreshmanda R COLD STRIP ROLLER 350.1.13.10 ity of REGIONAL 4.2.7.2.686 Eugenio as MATERNAL [id number] Med ical & CHILD [address] [place] [address] 2021-11-11 2021-11-11 Outpatient Stefano MENDOZA [facility] [id number] Univers 11:00:00 11:00:00 MICHELLENDA kevin o f [facility] 2021-11-11 2021-11-11 Outpatient R REJI [facility] [id number] Univers 09:00:00 09:50:28 ROSHUNDA ity o f [facility] 2021-11-11 2021-11-11 Routine [facility] 1.2.840.114 [id number] Univers 09:00:00 09:50:28 Cordella R COLD STRIP ROLLER 350.1.13.10 ity of Visit REGIONAL 4.2.7.2.686 Eugenio as MATERNAL [id number] Med ical & CHILD [address] [place] [address] 2021-10-31 2021-10-31 Manager Wholesale [facility]tras[facility] 1.2 .840.114 [id number] Univers 09:00:00 09:30:00 Visit Divina Sheikh COLD STRIP ROLLER 350.1. 13.10 ity of REGIONAL 4.2.7.2.686 Eugenio as MATERNAL [phone] Med ical & CHILD [address] [facility] 2021-10-31 2021-10-31 Outpatient P BLACKBURN [facility] [id number] Univers 09:00:00 09:00:00 PATRIA it y of SDIVINA [facility] 2021-10-31 2021-10-31 Abstract [facility] 1.2.840.114 [id number] Univers 00:00:00 00:00:00 Roshunda R COLD STRIP ROLLER 350.1.13.10 ity of REGIONAL 4.2.7.2.686 Eugenio as MATERNAL [id number] [facility] & CHILD [address] [place] [address] 2021-10-14 2021-10-14 Outpatient R TING [facility] [id number] Univers 12:45:00 12:45:00 SARMAD ity o [facility] 2021-10-14 2021-10-14 Outpatient R REJI [facility] [id number] Univers 11:00:00 11:43:18 ROSRESHMANDA joanney o [facility] 2021-10-14 2021-10-14 Outpatient R REJI [facility] [id number] Univers 11:00:00 11:43:18 MICHELLENDA joanney o [facility] 2021-10-14 2021-10-14 Routine [facility] 1.2.840.114 [id number] Univers 11:00:00 11:43:18 Roshunda R COLD STRIP ROLLER 350.1.13.10 ity of Visit REGIONAL 4.2.7.2.686 Eugenio as MATERNAL [id number] [facility] & [address] 2021-10-14 2021-10-14 Outpatient R REJI [facility] [id number] Univers 11:00:00 11:00:00 ROSRESHMANDA ity o f [facility] 2021-10-14 2021-10-14 Outpatient R [facility] [id number] Univers 11:00:00 11:00:00 ROSHUNDA ity o [facility] 2021-10-06 2021-10-06 Telephone [facility] 1.2.558.138 [id number] Univers 00:00:00 00:00:00 Roshunda R COLD STRIP ROLLER 350.1.13.10 ity of REGIONAL 4.2.7.2.686 Eugenio as MATERNAL [id number] [facility] & CHILD [address] [place] [address] 2021-10-03 2021-10-03 Outpatient R CUONG [facility] [id number] Univers 09:30:00 15:01:03 JHONNY ity [facility] 2021-10-03 2021-10-03 Telemedici Faculty, [facility] 1.2.840.114 [id number] Univers 09:30:00 10:00:00 ne Visit Cuong, Jhonny COLD STRIP ROLLER 350.1.13.10 ity of REGIONAL 4.2.7.2.686 Eugenio as MATERNAL [id number] [facility] & CHILD [address] [place] [address] 2021-10-03 2021-10-03 Outpatient R [facility] [id number] Univers 09:30:00 09:30:00 ity [facility] 2021-10-03 2021-10-03 Outpatient R CUONG [facility] [id number] Univers 09:30:00 09:30:00 JHONNY ity [facility] 2021-09-28 2021-09-28 Telephone Reji [facility] 1.2.329.528 [id number] Univers 00:00:00 00:00:00 Roshunda R COLD STRIP ROLLER 350.1.13.10 ity of REGIONAL 4.2.7.2.686 Eugenio as MATERNAL [phone] [address] 2021-09-26 2021-09-26 Outpatient R [facility] [id number] Univers 10:45:00 10:45:00 ity [facility] 2021-09-16 2021-09-16 Outpatient R REJI [facility] [id number] Univers 08:45:00 10:14:08 ROSHUNDA ity o f [facility] 2021-09-16 2021-09-16 Initial Reji [facility] 1.2.840.114 [id number] Univers 08:45:00 10:14:08 Roshunda R COLD STRIP ROLLER 350.1.13.10 ity of Visit REGIONAL 4.2.7.2.686 Eugenio as MATERNAL [phone] [facility] & CHILD [address] [place] [address] 2021-09-16 2021-09-16 Outpatient R MENDOZA, [facility] [id number] Univers 08:45:00 10:14:08 AUGIE roche [facility] 2021-09-16 2021-09-16 Outpatient R REJI [facility] [id number] Univers 08:15:00 09:47:22 AUGIE roche [facility] 2021-09-16 2021-09-16 Outpatient Stefano MENDOZA [facility] [id number] Univers 08:45:00 08:45:00 AUGIE joannenaresh roche [facility] 2021-09-16 2021-09-16 Outpatient Stefano MENDOZA [facility] [id number] Univers 08:15:00 08:15:00 AUGIE kevin schuler [facility] 2021-09-16 2021-09-16 Orders Doctor TREVA 1.2.840.114 [id number] Univers 00:00:00 00:00:00 Only Unassigned, BRIAN 350.1.13.10 [facility] 4.2.7.2.686 Eugenio as [id number] [address] 2021-05-18 2021-05-18 Office [facility] 1.2.319.400 [id number] Univers 13:16:34 13:52:20 Visit Sarmad Sneed COLD STRIP ROLLER 350.1.13.10 ity [facility] 4.2.7.2.686 Eugenio as MATERNAL [id number] Med ical & CHILD [address] [place] [address] 2021-05-18 2021-05-18 Outpatient R TING [facility] [id number] Univers 13:30:00 13:30:00 SARMAD schuler [facility] 2021-05-18 2021-05-18 Outpatient Stefano MAGUIRE [facility] [id number] Univers 09:15:00 09:15:00 SARMAD schuler [facility] 2021-05-18 2021-05-18 Outpatient Stefano MENDOZA [facility] [id number] Univers 09:00:00 09:00:00 AUGIE schuler [facility] 2021-05-17 2021-05-17 Outpatient R TING [facility] [id number] Univers 09:15:00 09:15:00 SARMAD schuler tim [facility] 2021-02-16 2021-02-16 Office [facility] 1.2.840.114 [id number] Univers 07:34:28 08:30:41 Visit Augie Agarwal COLD STRIP ROLLER 350.1.13.10 ity of [facility] 4.2.7.2.686 Eugenio as MATERNAL [id number] Med ical & CHILD [address] [place] [address] 2021-02-16 2021-02-16 Outpatient R REJI [facility] [id number] Univers 07:30:00 07:30:00 AUGIE kevin schuler tim [facility] 2021-02-16 2021-02-16 Orders Doctor TREVA 1.2.840.114 [id number] Univers 00:00:00 00:00:00 Only Unassigned, BRIAN 350.1.13.10 ity of [facility] 4.2.7.2.686 Eugenio as [phone] [address] 2021-02-07 2021-02-07 Refill [facility] 1.2.524.051 [id number] Univers 00:00:00 00:00:00 Ewelina Pineda 350.1.13.10 i [place] [phone] Dc dical nal [address] [place] [address] 2020-11-22 2020-11-22 Case [facility] 1.2.306.128 [id number] Univers 00:00:00 00:00:00 Management Ewelina Pnieda 350.1.13.10 it[place] [phone] Dc dical nal [address] [place] [address] 2020-11-22 2020-11-22 Telephone [facility] 1.2.840.114 [id number] Univers 00:00:00 00:00:00 Ewelina Pineda 350.1.13.10 i [place] [phone] Dc dical nal [address] [facility] 2020-11-11 2020-11-11 Office Tyree IDMONTSE 1.2.993.713 [id number] Univers 11:08:09 12:09:26 Visit Ewelina Pineda 350.1.13.10 i ty [place]2.[place] [id number] Dc dical nal [address] [facility] 2020-11-11 2020-11-11 Outpatient R TYREE [facility] [id number] Univers 11:15:00 11:15:00 EWELINA brown [facility] 2020-11-11 2020-11-11 Telephone Tyree [facility] 1.2.840.114 [id number] Univers 00:00:00 00:00:00 Ewelina Pineda 350.1.13.10 i [place] [phone] [address] 2020-11-11 2020-11-11 Orders Doctor TREVA 1.2.840.114 [id number] Univers 00:00:00 00:00:00 Only Unassigned, BRIAN 350.1.13.10 ity of [facility] 4.2.7.2.686 Eugenio as [phone] [facility] [address] 2020-07-17 2020-07-17 Emergency Abhijit Granados [facility] 1.2.840.11 [id number] Univers 01:40:00 03:58:00 Delroy Nino 350.1.13.10 it[place] [phone] [facility] [address] 2020-02-26 2020-02-26 Outpatient R EMELYN [facility] [id number] Univers 14:00:00 14:00:00 AVERY brown [facility] 2020-01-05 2020-01-05 Telephone BEAN Dior 1.2.840.114 [id number] Univers 00:00:00 00:00:00 Sharee Rinaldi 350.1.13.10 it y of BUILDING 4.2.7.2.686 Eugenio as [id number] [place] [address] [place] 2019-12-10 2019-12-15 Manager Wholesale [facility] 1.2.840.114 [id number] Univers 15:20:47 14:20:59 Visit EsaalexiSharee cotter [facility] 350.1.13.10 ity of CL[place]ICS [place].2.[place] [id number] [facility] [address] [place] 2019-12-10 2019-12-10 Office BEAN Dior 1.2.840.114 [id number] Univers 13:55:58 15:17:35 Visit Tejo H 350.1.13.10 it y of BUILDING 4.2.7.2.686 Eugenio as [id number] [address] 2019-12-10 2019-12-10 Outpatient [facility] [id number] Univers 14:20:00 14:20:00 TEJO ity [facility] 2019-12-10 2019-12-10 Outpatient R [facility] [id number] Univers 14:20:00 14:20:00 TEJO ity [facility] 2019-12-10 2019-12-10 Orders Doctor TREVA 1.2.840.114 [id number] Univers 00:00:00 00:00:00 Only Unassigned, BRIAN 350.1.13.10 ity of [place] [facility] 4.2.7.2.686 Eugenio as [id number] [facility] [address] [place] 2019-11-27 2019-11-27 Telephone Ewelina Goldberg 1.2.840.114 [id number] Univers 00:00:00 00:00:00 [facility] 350.1.13.10 it y [place] [id number] [facility] 2019-11-26 2019-11-26 Orders Doctor TREVA 1.2.840.114 [id number] Univers 00:00:00 00:00:00 Only Unassigned, BRIAN 350.1.13.10 ity of [place] [facility] 4.2.7.2.686 Eugenio as [id number] [address] 2019-11-25 2019-11-25 Telephone Ewelina Goldberg 1.2.840.114 [id number] Univers 00:00:00 00:00:00 [facility] 350.1.13.10 it y [place] [id number] [address] 2019-11-14 2019-11-14 Outpatient R EWELINA GOLDBERG [facility] [id number] Univers 11:30:00 11:30:00 ity of [facility] 2019-11-14 2019-11-14 Telemedici Care, Abi Primary LAURA 1.2. 840.114 [id number] Univers 08:31:12 08:46:12 ne Visit Ewelina Goldberg [facility] 350.1.13.10 ity [place] [id number] [address] 2019-11-10 2019-11-10 Telephone Ewelina Goldberg 1.2.840.114 [id number] Univers 00:00:00 00:00:00 [facility] 350.1.13.10 it y of HE[place].2.[place] UNIT [id number] [address] 2019-11-01 2019-11-01 Nurse Nurse, Abi Urgent Ronit 1.2.840. 114 [id number] Univers 12:39:51 15:12:49 Visit Unknown, Attending Pediatric 350.1.13. 10 ity of [place], Matilde s and 4.2.7.2.686 [place] Adult [phone] [place] [address] [facility] 2019-11-01 2019-11-01 Emergency [facility] 1.2.976.101 [id number] Univers 13:43:09 15:10:00 [facility] 350.1.13.10 it y of [place] [phone] [address] (CLC) 2019-11-01 2019-11-01 Outpatient R UNKNOWN, [facility] [id number] Univers 12:15:00 12:15:00 ATTENDING ity of [facility] 2019-10-30 2019-10-30 Emergency Jim, Evi [facility] 1.2.840.114 [id number] Univers 00:24:30 03:26:00 [facility] 350.1.13.10 it y of [place] [phone] [place] [address] [address] ([facility]) 2019-10-30 2019-10-30 Emergency X EVI JIM [facility] ERT [id number] Univers 00:24:30 03:26:00 ity of [facility] 2019-09-30 2019-10-01 Emergency X JUDI [facility] ERT [id number] Univers 23:56:38 02:38:00 MOHAMMED ity o f [facility] 2019-09-30 2019-10-01 Emergency [facility] 1.2.015.344 [id number] Univers 23:56:38 02:38:00 [facility] 350.1.13.10 ity of [place] [phone] [address] ([facility]) 2019-09-02 2019-09-02 Office Care, Abi [facility] 1.2.840 .114 [id number] Univers 11:24:45 12:23:49 Visit Ewelina Goldberg [facility] 350.1.13.10 ity of [place].2.[place] [id number] [place] [address] [address] RONIT 2019-09-02 2019-09-02 Outpatient R MARCO A GOLDBERGCY [facility] [id number] Univers 10:30:00 11:50:00 ity of [facility] 2019-09-02 2019-09-02 Orders Doctor TREVA 1.2.840.114 [id number] Univers 00:00:00 00:00:00 Only Unassigned, BRIAN 350.1.13.10 ity of [place] [facility] 4.2.7.2.686 Eugenio as [phone] [place] [address] [address] 2019-06-17 2019-06-23 Inpatient X PERLACORINE ALFRED [facility] DOMINGA [id number] Univers 11:52:53 11:25:00 ity of [facility] 2019-06-15 2019-06-15 Outpatient R LIBERTY [facility] [id number] Univers 11:30:00 12:17:49 TREVA ity [facility] 2019-05-24 2019-05-24 Emergency X EVI JIM [facility] ERT [id number] Univers 14:22:08 16:55:00 ity [facility] 2019-04-19 2019-04-19 Emergency E MHSE MHSE 7500 MH 16:35:00 16:35:[address] [facility] 2019-04-19 2019-04-19 Outpatient R LILLIAN [facility] [id number] Univers 16:00:00 16:05:46 VAZQUEZ ity [facility] 2019-04-19 2019-04-19 Nurse Nurse, Abi Alves 1.2.840. 114 [id number] Univers 15:58:49 16:05:46 Visit Unknown, Attending Pediatric 350.1.13. 10 ity of [place] E s and 4.2.7.2.686 [place] Adult [id number] [facility] [address] Care [facility] 2019-04-19 2019-04-19 Nurse Nurse, Abi Alves 1.2.840.114 [id number] 15:58:49 16:05:46 Visit Urgent Pediatric 350.1.13.10 s and 4.2.7.2.686 Adult [id number] [place] [address] Care Clinic 2019-03-18 2019-03-18 Don Cornell 1.2.840.114 [id number] Univers 00:00:00 00:00:00 Y Pediatric 350.1.13.10 ity of s and [place]2.[place] [id number] [facility] [address] Care [facility] 2019-03-18 2019-03-18 Don Cornell 1.2.840.114 [id number] 00:00:00 00:00:00 Y Pediatric 350.1.13.10 s and 4.2.7.2.686 Adult [id number] Primary [facility] 2017-01-02 2017-01-02 Outpatient [facility] [id number] eClinic 16:39:00 16:39:00 MEDICAL MEDICAL alWork s GROUP PA GROUP PA 2016-12-06 2016-12-06 Outpatient [facility] [id number] eClinic 13:30:00 13:30:00 MEDICAL MEDICAL alWork s GROUP PA GROUP PA Results Test Description Test Time Test Comments Results Result Comments Source POCT TEST 2023-01-19 18:45:00 Test Item Value Reference Range Interpretation Comme nts POCT PREG (test code = 1605) Negative On board controls acceptable with C Line (test code = 3574) Yes POCT PREG LOT # (test code = 3575) POCT PREG TEST DATE (test code = 3576) [id number] 18:45:00 Test Item Value Reference Range Interpretation Comments POCT PREG (test code = 1605) Negative On board controls acceptable with C Yes Line (test code = 3574) POCT PREG LOT # (test code = 3575) POCT PREG TEST DATE (test code = 3576) [facility] [id number] 04:37:37 Test Item Value Reference Range Interpretation Comments WBC (test code = See_Comment [Automated 90-2) message] The sy stem which generated this result transmitted reference range : 4.30 - 11.10 10*3/?L. The reference range was not used to interpret this result as normal/abnormal . RBC (test code = See_Comment [Automated 389-8) message] The sy stem which generated this result transmitted reference range : 3.93 - 5.25 10*6/?L. The reference range was not used to interpret this result as normal/abnormal . HGB (test code = 13.2 g/dL 11.6-15 718-7) HCT (test code = 41.9 % 35.7-45.2 4544-3) MCV (test code = 83.8 fL 80.6-95.5 787-2) MCH (test code = 26.4 pg 25.9-32.8 785-6) MCHC (test code = 31.5 g/dL 31.6-35.1 L 786-4) RDW-SD (test code = 41.5 fL 39-49.9 68739-1) RDW-CV (test code = 13.5 % 12-15.5 788-0) PLT (test code = See_Comment [Automated 177-3) message] The sy stem which generated this result transmitted reference range : 166 - 358 10*3/ ?L. The reference r romain was not used to interpret this result as normal/abnormal . MPV (test code = 10.8 fL 9.5-12.9 31077-6) NRBC/100 WBC (test See_Comment [Automat ed code = 4150130926) message] The system which generated this result transmitted reference range : 0.0 - 10.0 /100 WBCs. The refer ence range was not u sed to interpret th is result as normal/abnormal . NRBC x10^3 (test code See_Comment [Auto mated = 0280786161) message] The s ystem which generated this result transmitted reference range : 10*3/?L. The reference range was not used to interpret this result as normal/abnormal . GRAN MAT (NEUT) % 48.1 % (test code = 770-8) IMM GRAN % (test code 0.30 % = 1834634958) LYMPH % (test code = 23.4 % 736-9) MONO % (test code = 5.9 % 5905-5) EOS % (test code = 21.7 % 713-8) BASO % (test code = 0.6 % 706-2) GRAN MAT x10^3(ANC) 3.41 10*3/uL 1.88-7.09 (test code = 8065053483) IMM GRAN x10^3 (test 0-0.06 code = 7187463421) LYMPH x10^3 (test code 1.66 10*3/uL 1.32-3.29 = 731-0) MONO x10^3 (test code 0.42 10*3/uL 0.33-0.92 = 742-7) EOS x10^3 (test code = 1.54 10*3/uL 0.03-0.39 H 711-2) BASO x10^3 (test code 0.04 10*3/uL 0.01-0.07 = 704-7) Lab Interpretation Abnormal (test code = 05430-9) [facility] [id number] 18:26:00 Test Item Value Reference Range Interpretation Comments POCT PREG (test code = 1605) Negative On board controls acceptable with C Yes Line (test code = 3574) POCT PREG LOT # (test code = 3575) POCT PREG TEST DATE (test code = 3576) [facility] [id number] 18:26:00 Test Item Value Reference Range Interpretation Comments POCT PREG (test code = 1605) Negative On board controls acceptable with C Yes Line (test code = 3574) POCT PREG LOT # (test code = 3575) POCT PREG TEST DATE (test code = 3576) [facility] [id number] 18:26:00 Test Item Value Reference Range Interpretation Comments POCT PREG (test code = 1605) Negative On board controls acceptable with C Yes Line (test code = 3574) POCT PREG LOT # (test code = 3575) POCT PREG TEST DATE (test code = 3576) [facility]D) IMMUNE [id number] 00:40:15 Test Item Value Reference Range Interpretation Comments RHIG CANDIDATE? No- see comment Patient i s not a (test code = candidate for R hIg- 5055) Patient is Rh Positive.Perfor med at [facility] Laboratory Services - [facility] Blood [address] [place], [place] [address]Toll Free: [phone] A No. [id number] [facility]ORD [id number] 15:17:22 Test Item Value Reference Range Interpretation Comments VENOUS BASE EXCESS, mEq/L CORD (test code = 3584254581) VENOUS PH, CORD (test 7.25-7.45 code = 7744504280) VENOUS PC02, CORD See_Comment [Automate d message] The (test code = system which ge nerated [id number]) this result tra nsmitted reference range : 27 - 49 mmHg. The refer ence range was not used to interpret this result as normal/abnormal . VENOUS PO2, CORD (test See_Comment [Aut omated message] The code = [id number]) system [facility] generated this result tra nsmitted reference range : 17 - 41 mmHg. The refer ence range was not used to interpret this result as normal/abnormal . VENOUS BICARBONATE, See_Comment QUES [Au tomated message] CORD (test code = The system which generated [id number]) this result tra nsmitted reference range : 12 - 29 mEq/L. The refe rence range was not used to interpret this result as normal/abnormal . [facility] ([facility]) [id number] 13:53:33 Test Item Value Reference Range Interpretation Comments Rubella screen IgG Negative Negative (test code = 5889702469) MEMO (test code = MEMO) Positive - Indicates the patient was exposed to Rubella through infection or vaccination.Negative - Indicates the patient could be susceptible to Rubella infection.Equivocal - A second specimen should be sent. [facility] - SYPHILIS [id number] 13:48:13 Test Item Value Reference Range Interpretation Comments Syphilis IgG/IgM (test Non-reactive Non-reactive code = 06423-9) MEMO (test code = MEMO) Non-reactive - No serologic evidence of T. pallidum infection. Cannot exclude incubating or early syphilis. Submit a second specimen in 2-4 weeks if syphilis is clinically suspected. Equivocal - Further testing to follow. Reactive - Further testing to follow. Lab Interpretation (test Normal code = 09659-5) [facility] WITH [id number] 01:27:34 Test Item Value Reference Range Interpretation Comments HIV Negative Negative Semi-quantitative (test code = 73064-0) MEMO (test code = Non-reactive for HIV-1 MEMO) antigen and HIV-1/HIV-2 antibodies. ?No laboratory evidence of HIV infection. ?Repeat in 2-4 weeks if acute HIV infection is suspected. [facility] Surface [id number] 00:33:30 Test Item Value Reference Range Interpretation Comments HBsAg Semi-Quantitative (test code = Negative Negative 5195-3) [facility] Screen - ONCE [id number] 23:45:23 Test Item Value Reference Range Interpretation Comments ABO & RH (test code O POSITIVE Performe d at [facility] = 20) Laboratory Serv [facility] [place] [address]Uhcy Free: [phone] A No. [id number] IAT (test code = Negative Performed a t [facility] 1185) Laboratory Serv [facility] [place], [place] [address]ro [facility] [address]Ltnr Free: [phone] A No. [id number] [facility] with [id number] 23:44:26 Test Item Value Reference Range Interpretation Comments WBC (test code = See_Comment [Automated 6690-2) message] The sy stem which generated this result transmitted reference range : 4.30 - 11.10 10*3/?L. The reference range was not used to interpret this result as normal/abnormal . RBC (test code = See_Comment [Automated 789-8) message] The sy stem which generated this result transmitted reference range : 3.93 - 5.25 10*6/?L. The reference range was not used to interpret this result as normal/abnormal . HGB (test code = 11.4 g/dL 11.6-15 L 718-7) HCT (test code = 35.4 % 35.7-45.2 L 4544-3) MCV (test code = 82.7 fL 80.6-95.5 787-2) MCH (test code = 26.6 pg 25.9-32.8 785-6) MCHC (test code = 32.2 g/dL 31.6-35.1 786-4) RDW-SD (test code = 38.5 fL 39-49.9 L 90896-4) RDW-CV (test code = 12.9 % 12-15.5 788-0) PLT (test code = See_Comment [Automated 777-3) message] The sy stem which generated this result transmitted reference range : 166 - 358 10*3/ ?L. The reference r romain was not used to interpret this result as normal/abnormal . MPV (test code = 11.8 fL 9.5-12.9 79275-7) NRBC/100 WBC (test See_Comment [Automat ed code = [id number]) message] The system which generated this result transmitted reference range : 0.0 - 10.0 /100 WBCs. The refer ence range was not u sed to interpret th is result as normal/abnormal . NRBC x10^3 (test code See_Comment [Auto mated = [id number]) message] The s ystem which generated this result transmitted reference range : 10*3/?L. The reference range was not used to interpret this result as normal/abnormal . GRAN MAT (NEUT) % 70.7 % (test code = 770-8) IMM GRAN % (test code 2.80 % = 3559046400) LYMPH % (test code = 14.2 % 736-9) MONO % (test code = 7.5 % 5905-5) EOS % (test code = 4.3 % 713-8) BASO % (test code = 0.5 % 706-2) GRAN MAT x10^3(ANC) 6.74 10*3/uL 1.88-7.09 (test code = 6690406990) IMM GRAN x10^3 (test 0.27 10*3/uL 0-0.06 H code = 8616024921) LYMPH x10^3 (test code 1.35 10*3/uL 1.32-3.29 = 731-0) MONO x10^3 (test code 0.72 10*3/uL 0.33-0.92 = 742-7) EOS x10^3 (test code = 0.41 10*3/uL 0.03-0.39 H 711-2) BASO x10^3 (test code 0.05 10*3/uL 0.01-0.07 = 704-7) Lab Interpretation Abnormal (test code = 53355-9) [facility] URINALYSIS W SPECIFIC [id number] 16:00:00 Test Item Value Reference Range Interpretation Comments POCT U SP GRAV (test code = * 1.005-1.025 3255) POCT PH U (test code = 3254) * 5-8 POCT U LEUK EST (test code = * Negative - Negative 3263) POCT U NIT (test code = 3262) * Negative - Negative POCT U PROT (test code = 3259) trace Negative - Negative POCT U GLU (test code = 3256) negative Negative - Negative POCT U KETONE (test code = 3258) * Negative - Negative POCT U UROBILI (test code = * 0.2-1 3260) POCT U BILI (test code = 3261) * Negative - Negative POCT U BLD (test code = 3257) * Negative - Negative POCT U COLOR (test code = 3266) POCT U APPEAR (test code = 3267) [facility] URINALYSIS W SPECIFIC [id number] 16:10:00 Test Item Value Reference Range Interpretation Comments POCT U SP GRAV (test code = * 1.005-1.025 3255) POCT PH U (test code = 3254) * 5-8 POCT U LEUK EST (test code = * Negative - Negative 3263) POCT U NIT (test code = 3262) * Negative - Negative POCT U PROT (test code = 3259) trace Negative - Negative POCT U GLU (test code = 3256) negative Negative - Negative POCT U KETONE (test code = 3258) * Negative - Negative POCT U UROBILI (test code = * 0.2-1 3260) POCT U BILI (test code = 3261) * Negative - Negative POCT U BLD (test code = 3257) * Negative - Negative POCT U COLOR (test code = 3266) POCT U APPEAR (test code = 3267) [facility] URINALYSIS W SPECIFIC [id number] 14:02:00 Test Item Value Reference Range Interpretation Comments [...] POCT U APPEAR (test code = 3267) [facility] URINALYSIS W SPECIFIC [id number] 13:07:00 Test Item Value Reference Range Interpretation Comments POCT U SP GRAV (test code = . 1.005-1.025 3255) POCT PH U (test code = 3254) . 5-8 POCT U LEUK EST (test code = . Negative - Negative 3263) POCT U NIT (test code = 3262) . Negative - Negative POCT U PROT (test code = 3259) trace Negative - Negative POCT U GLU (test code = 3256) negative Negative - Negative POCT U KETONE (test code = 3258) . Negative - Negative POCT U UROBILI (test code = . 0.2-1 3260) POCT U BILI (test code = 3261) . Negative - Negative POCT U BLD (test code = 3257) . Negative - Negative POCT U COLOR (test code = 3266) . POCT U APPEAR (test code = 3267) . [facility] HospitalPOCT [id number] 18:56:00 Test Item Value Reference Range Interpretation Comments On board controls acceptable with present C Line (test code = 3574) POCT PREG LOT # (test code = 3575) [id number] POCT PREG TEST DATE (test 06/19/2023 code = 3576) POCT PREG (test code = 1605) positive Lab Interpretation (test code = Normal 76161-6) [facility] HospitalDRUGS [facility] ABUSE SCREEN [id number] 01:36:00 Test Item Value Reference Range Interpretation [...] code = PHENCURN) 200 ng/mLBenzodiaze pines 200 ng/mLTHC Cannabinoids 50 ng/mLOpiates(Mo rphine) 2000 ng/mLAmphe tamine 1000 ng/mLCocai ne 300 ng/mLPCP phency clidine 25 ng/mL Unconf irmed screening resul ts shouldnot be us ed for non-medical pur poses. UR HCG [id number] 01:26:00 Test Item Value Reference Range Interpretation Comments UR HCG QUAL (test code = HCGQLU) NEGATIVE NEGATIVE URINALYSIS [id number] 01:26:00 Test Item Value Reference Range Interpretation [...] 3+ /LPF NONE SEEN A HEPATIC FUNCTION [id number] 00:54:00 Test Item Value Reference Range Interpretation [...] 70 IUnit/L 60-350 N code = ALKP) [id number] 00:54:00 Test Item Value Reference Range Interpretation Comments ALCOHOL (test code < 0.003 G/dL <0.003 Ethyl Alc ohol = ALC) Interpretation: 0.100 gm/dL - Legally Intoxicated 0.3 00-0.400 gm/dL - Severel y Intoxicated >0. 400 gm/dL - Potenti ally LethalResults a re for Medical purpose s only, and not for Leg al orEmployment ev aluation purposes. CBC W/AUTO [id number] 00:35:00 Test Item Value Reference Range Interpretation [...] code = MDIFF) - CT ABD PELVIS [id number] 23:38:00 Name: KAMRYN TELLEZ [facility] : 2000 Age/S: 18 / F [address] [place] [address] Unit #: [id number] Loc: [place] [address] Phys: Jermaine Baugh NP Acct: [id number] Dis Date: Status: REG ER PHONE #: [phone] Exam Date: 02/24/2019 2313 FAX #: [phone] Reason: L sided abd pain EXAMS: CPTCODE: [id number] CT ABD PELVIS W/CONT 29009 CT ABDOMEN AND PELVIS WITH CONTRAST CLINICAL [...] pattern. No overt bowel wall thickening. A smallto moderate fecal load is noted. Appendix: Normal. Bladder: No significant findings. Major vascular structures: No significant findings. Pelvis: No pelvic mass is identified. PAGE 1 Signed Report (CONTINUED) Name: KAMRYN TELLEZ [facility] : 2000 Age/S: 18 / F [address] [place] [address] Unit #: [id number] Loc: [place] [address] Phys: Jermaine Baugh NP Acct: [id number] Dis Date: Status: REG ER PHONE #: [phone] Exam Date: 02/24/2019 2313 FAX #: [phone] Reason: L sided abd pain EXAMS: CPT CODE: [id number] CT ABD PELVIS W/CONT 98909 (Continued) Other: No free air or adenopathy.No freefluid in noted. Skeleton: No acute bony abnormality. IMPRESSION: No overt acute abnormality to explain given complain. A small to moderate fecal load is noted, nonspecific. Additional findings as above. at 2338 Reported and signed by: Markos Roque CC: Jermaine Baugh NP Technologist:RT Roland(R) CTDI: DLP: Trnscb Date/Time:02/24/2019 (233) [email or web address] Orig Print D/T: S: 02/24/2019 (8778) PAGE 2 Signed [id number] 22:46:00 Test Item Value Reference Range Interpretation Comments LIPASE (test code = LIP) 166 IUnit/L 73-393 N HCG SERUM [id number] 22:46:00 Test Item Value Reference Range Interpretation Comments HCG SERUM QUAL (test code = SERUM NEGATIVE NEGATIVE HCGQL) BASIC METABOLIC [id number] 22:46:00 Test Item Value Reference Range Interpretation [...] 9.3 mg/dL 8.0-10.5 N CA) HEPATIC FUNCTION [id number] 22:46:00 Test Item Value Reference Range Interpretation [...] 81 IUnit/L 60-350 N code = ALKP) BASIC METABOLIC [id number] 22:43:00 Test Item Value Reference Range Interpretation [...] 9.3 mg/dL 8.0-10.5 N CA) HEPATIC FUNCTION [id number] 22:43:00 Test Item Value Reference Range Interpretation [...] TOTAL (test IUnit/L 60-350 code = ALKP) [id number] 22:43:00 Test Item Value Reference Range Interpretation Comments LIPASE (test code = LIP) 166 IUnit/L 73-393 N HCG SERUM [id number] 22:43:00 Test Item Value Reference Range Interpretation Comments HCG SERUM QUAL (test code = SERUM NEGATIVE NEGATIVE HCGQL) BASIC METABOLIC [id number] 22:37:00 Test Item Value Reference Range Interpretation [...] code = CA) mg/dL 8.0-10.5 HEPATIC FUNCTION [id number] 22:37:00 Test Item Value Reference Range Interpretation Comments TOTAL PROTEIN (test code = PROT) g/dL 6.4-8.2 ALBUMIN (test code = ALB) g/dL 3.4-5.0 BILIRUBIN TOTAL (test code = BILT) mg/dL 0.0-1.0 BILIRUBIN DIRECT (test code = BILD) MG/DL 0.0-0.30 SGOT/AST (test code = AST) IUnit/L 15-37 SGPT/ALT (test code = ALT) IUnit/L 15-65 ALKALINE PHOSPHATASE TOTAL (test IUnit/L 60-350 code = ALKP) [id number] 22:37:00 Test Item Value Reference Range Interpretation Comments LIPASE (test code = LIP) IUnit/L 73-393 HCG SERUM [id number] 22:37:00 Test Item Value Reference Range Interpretation Comments HCG SERUM QUAL (test code = SERUM NEGATIVE NEGATIVE HCGQL) CBC W/AUTO [id number] 22:28:00 Test Item Value Reference Range Interpretation [...] REQUIRED (test code NO = MDIFF) URINALYSIS [id number] 21:07:00 Test Item Value Reference Range Interpretation [...] = MUCU) 3+ /LPF NONE SEEN A Notes Date/Time Note Provider Source 2019-02-24 19:47:00-00:00 [facility] ([facility]) EMERGENCY PROVIDER REPORT REPORT#:[id number] REPORT STATUS: Signed DATE:02/24/19 TIME: 1946 PATIENT: KAMRYN TELLEZ UNIT #: [id number] ROOM/BED: AGE: 18 SEX: F PCP PHYS: No Primary or Family Ph ysician SERVICE AUTHOR: Jermaine Baugh FREIGHT BROKER * ALL edits or amendments must be made on the Chibwe/Anergis document * HPI-Abd Pain F Under 40 General Confirmed Patient Yes Initial Greet Date/Time 02/24/191936 PCP PCP - none Presentation Chief Complaint Abdominal pain Hx Obtained From Patient Onset Occurred Today Symptom Duration Since onset Free Text HPI Notes Free Text HPI Notes 18 y/o F presents to the ED w/ c/o L abd pain onset today. Pt reports N/V, but denies dysuria, flank pain, diarrhea, or any other assoc sxs. Last BM yesterday was NL and nonpainful. Pt took x2 motrin w/o imp rovement. Portions of this section were scribed by Kala Sandoval on 02/25/19 at 0659 Risk-Abd Pain F Under 40 )( Ectopic Risk factors reviewed Portions of this section were scribed by Kala Sandoval on 02/24/19 at 1947 Review of Systems ROS Statements All systems rev neg except as marked. Focused Review of Systems GI Reports: Abdominal pain, Nausea, Vomiting. Denie s: Diarrhea. Female Denies: Dysuria, Flank pain. Portions of this section were scribed by Kala Sandoval on 02/24/19 at 1947 Past Medical History - Adult Stated Complaint ABDOMINAL PAIN Allergies Coded Allergies: No Known Allergies (02/24/19) Home Medications Reported Medications ALBUTEROL (VENTOLIN HFA 90 MCG/ACT) 1 PUFF INH R TQ4H PRN PRN SOB LORATADINE (CLARITIN) 10 MG PO DAILY Past Medical History: Reports: Depression/mood disorder. Denies: Diabe kaz mellitus, Hypertension, Kidney disease/stones. Past Surgical History: Reports: Tonsillectomy. Other Social History Local resident Portions of this section were scribed by Kala Sandoval on 02/24/19 at 2035 Physical Exam Vital Signs Vital Signs First Documented: Result Date Time Pulse Ox 98 02/24 1945 B/P 115/84 02/24 1945 B/P Mean 94 02/24 1945 O2 Delivery Room air 02/24 1945 Temp 36.9 02/24 1945 Pulse 84 02/24 1945 Resp 18 02/24 1945 Last Documented: Result Date Time Pulse Ox 99 / 0044 B/P 109/54 / 0044 B/P Mean 72 / 0044 O2 Delivery Room air / 0044 Temp 36.7 07/ 0044 Pulse 80 07/09 0044 Resp 16 07/ 0044 Review of Vital Signs Reviewed Focused PE General/Const General/Const Awake, Alert, No acute di stress, Well appearing, Well developed , Well hydrated, Well nourished, Cooperative MS Head Head Atraumatic, Normocephalic Eyes Eyes PERRL, EOMI, Conjunctiva NL Ears/Nose/Throat Ears/Nose/Throat Airway patent, Mucous membrane s moist, Pharynx NL Resp/Chest Respiratory/Chest Breath sounds NL, No respirat ory distress, No rales, No rhonchi, No wheezing Cardiovascular Cardiovascular Heart rate NL, Regular rhythm, H eart sounds NL Abdomen/GI Abdomen/GI Soft, No guarding, No rebound, No di stention Tenderness/Guarding/Rebound Tender LUQ, Tender LLQ. MS Back Back Inspection NL, No CVA tenderness Skin Skin Warm, Dry, Intact Neurologic Neurologic Oriented X3, Speech NL Additional PE MS Neck Neck Supple, Full range of motion MS Upper Extrem Upper Extremity/MS Full range of motion MS Lower Extrem Lower Ext/Pelvis/MS Full range of motion Psychiatric Psychiatric Affect NL, Mood NL Portions of this section were scribed by Kala Sandoval on 02/25/19 at 0659 Interpretation Diagnostics Lab Results Interpretation Results Laboratory Tests 02/24/192219: [Embedded Image Not Available] Laboratory Tests: 02/24 Chemistry Sodium (134 - 147 mEq/L) 139 Potassium (3.4 - 5.0 mEq/L) 3.8 Chloride (100 - 108 mEq/L) 106 Carbon Dioxide (21 - 33 mEq/L) 24 Anion Gap (0 - 20) 13 BUN (7 - 18 mg/dL) 8 Creatinine (0.6 - 1.3 mg/dL) 0.8 Glomerular Filtr Rate (110 - 120) 93.4 L Glucose (70 - 110 mg/dL) 78 Calcium (8.0 - 10.5 mg/dL) 9.3 Total Bilirubin (0.0 - 1.0 mg/dL) 0.50 Direct Bilirubin (0.0 - 0.30 MG/DL) 0.10 Indirect Bilirubin (MG/DL) 0.40 AST (15 - 37 IUnit/L) 15 ALT (15 - 65 IUnit/L) 25 Total Alk Phosphatase (60 - 350 IUnit/L) 81 Total Protein (6.4 - 8.2 g/dL) 7.4 Albumin (3.4 - 5.0 g/dL) 3.80 Lipase (73 - 393 IUnit/L) 166 Serum , Qual (NEGATIVE) SERUM NEGATIVE Hematology WBC (4.5 - 11.0 x10 3/uL) 6.70 RBC (3.54 - 5.02 x10 6/uL) 4.88 Hgb (11.0 - 15.0 g/dL) 13.4 Hct (33.0 - 45.0 %) 41.0 MCV (81.0 - 99.0 fL) 84.0 MCH (27.0 - 33.0 pg) 27.5 MCHC (33.0 - 37.0 g/dL) 32.7 L RDW (11.5 - 14.5 %) 11.9 Plt Count (150 - 400 x10 3/uL) 252 MPV (7.0 - 9.0 fL) 10.4 H Neut % (Auto) (56.0 - 77.0 %) 59.5 Lymph % (Auto) (14.0 - 32.0 %) 27.9 [place] % (Auto) (4.8 - 9.0 %) 6.9 Eos % (Auto) (0.3 - 3.7 %) 5.1 H Baso % (Auto) (0.0 - 2.0 %) 0.3 Neut # (Auto) (2.0 - 7.6 x10 3/uL) 3.99 Lymph # (Auto) (1.0 - 3.8 x10 3/uL) 1.87 [place] # (Auto) (0.1 - 0.8 x10 3/uL) 0.46 Eos # (Auto) (0.0 - 0.2 x10 3/uL) 0.34 H Baso # (Auto) (0.0 - 0.2 x10 3/uL) 0.02 Abs Immat Gran (auto) (0.00 - 0.03 x10 3/uL) 0. 02 Add Manual Diff NO Immature Gran % (0.0 - 2.0 %) 0.3 Nucleated RBC % (0 - 0 %) 0.0 Nucleated RBCs # (Man) (0.0 - 0.1 x10 3/uL) 0.0 0 Urines Urine Color (YEL/STRAW) YELLOW Urine Appearance (CLEAR) CLEAR Urine pH (5.0 - 7.0) 5.0 Ur Specific [place] (1.005 - 1.030) 1.021 Urine Protein (NEGATIVE) NEGATIVE Urine Glucose (UA) (NEGATIVE) NEGATIVE Urine Ketones (NEGATIVE) 1+ H Urine Blood (NEGATIVE) NEGATIVE Urine Nitrite (NEGATIVE) NEGATIVE Urine Bilirubin (NEGATIVE) NEGATIVE Urine Urobilinogen (0.2 - 1.0 mg/dL) 0.2 Ur Leukocyte Esterase (NEGATIVE) NEGATIVE Urine RBC (0 - 3 RBC/HPF) 0-3 Urine WBC (0 - 3 WBC/HPF) 4-9 H Ur Squamous Epith Cells (NONE SEEN /HPF) 0-5 Urine Bacteria (NONE SEEN /HPF) NONE SEEN Urine Mucus (NONE SEEN /LPF) 3+ H Recent Impressions: CAT SCAN - CT ABD PELVIS W/CONT 02/24 2793 Report Impression - Status: SIGNED Entered: 02/24/2019 2341 IMPRESSION: No overt acute abnormality to explain given comp carline. A small to moderate fecal load is noted, nonspec ific. Additional findings as above. Impression By: Maxx Schreiber M.D. Lab Imaging Statement Laboratory radiographic studies reviewed and con sidered in the medical decision-making. Point of Care Testing Pulse Oximetry Pulse Ox % 98 On: Room air Interpretation Interpreted by me, Pulse oximetr y normal Time [address] Abdomen/Pelvis Text/Dict Note CAT SCAN - CT ABD PELVIS W/CONT 02/243 Report Impression - Status: SIGNED Entered: 02/24/20192340 IMPRESSION: No overt acute abnormality to explain given comp carline. A small to moderate fecal load is noted, nonspec ific. Additional findings as above. Interpretation/Wet Read by Interpret - Radiolog ist Reviewed by ED FREIGHT BROKER Portions of this section were scribed by Kala Sandoval on 02/25/19 at 0659 Re-Evaluation MDM )( Re-Evaluation/Progress #1 Text/Dict Note Pt is NAD w/ AAOx3. Discussed results, plan to d /c home, and need for f/u w/ PCP. Provided ED return precautions. Pt agrees t o plan. Time of Re-Eval 0010 )( Re-Eval Status Improved ED Course Medication(s) Ordered Medication(s) Ordered: Central Nervous System Agents Sig/Michelle Start time Last Medication Dose Route Stop Time Status Admin Ketorolac 15 MG X1ED STA 02/24 1947 DC 02/24 Tromethamine IV 02/24 Morphine Sulfate 4 MG X1ED STA 02/24 1946 DC IV 02/24 1947 221 Diagnostic Agents Sig/Michelle Start time Last Medication Dose Route Stop Time Status Admin Diatrizoate Meglum/ 10 ML .STK-MED ONE 02/24 DC 02/24 Diatrizoate Sod PO 02/24 Iopamidol 100 ML .STK-MED ONE 02/25 2308 DC IV 02/24 Electrolytic, Caloric, And Merry Sig/Michelle Start time Last Medication Dose Route Stop Time Status Admin Sodium Chloride 1,000 ML X1ED STA 02/24 1947 DC 02/24 IV 02/24 Gastrointestinal Drugs Sig/Michelle Start time Last Medication Dose Route Stop Time Status Admin Ondansetron HCl 8 MG X1ED STA 02/24 1947 DC IV 02/24 Portions of this section were scribed by Kala Sandoval on 02/25/19 at 0009 Patient Discharge Departure Vital Signs/Condition Vital Signs First Documented: Result Date Time Pulse Ox 98 02/24 1945 B/P 115/84 02/24 1945 B/P Mean 94 02/24 1945 O2 Delivery Room air 02/24 1945 Temp 36.9 02/24 1945 Pulse 84 02/24 1945 Resp 18 02/24 1945 Last Documented: Result Date Time Pulse Ox 99 / 0044 B/P 109/54 / 0044 B/P Mean 72 /4 O2 Delivery Room air 02/254 Temp 36.7 07/ 0044 Pulse 80 07/ 0044 Resp 16 / 0044 All vital signs available at the time of this en try have been reviewed. Condition Stable Clinical Impression Clinical Impression Primary Impression: Abdominal pain Secondary Impressions: Constipation Disposition Decision Discharge )( Discharged to Home Yes )( Time 0012 )( Date 02/25/19 Discharge/Care Plan Counseled Regarding Diagnosi s, Lab results, Imaging studies, Prescriptions, Need for follow-up, When to return to ED Prescriptions Zofran and bentyl Prescriptions Reviewed Risks, Benefits, Alternat gonzales treatment Quality Measures Preg Test for Women w/Abd Pa in Female age 14-50, Complaint of abdominal pn, Any preg test ordered Supervising Physician Note Scribe Statement Kala Sandoval, 02/24/191951 , scribing for and in the presence of Jermaine Baugh NP. Signed By: Kala Sandoval, 02/24/191951 Provider Scribed Statement I personally performed the s ervices described in this documentation and reviewed the documentation that was dictated to the scrib e(s) in my presence, and it accurately records my words and actions. Jermaine Baugh, 02/25/19 Portions of this section were scribed by Kala Sandoval on 02/25/19 at 0659 Electronically Signed by Jermaine Baugh FREIGHT BROKER on 05/08 at 1915 RPT #:[id number] END OF REPORT 2019-02-24 19:47:00-00:00 [facility] ([facility] EMERGENCY PROVIDER REPORT REPORT#:[id number] REPORT STATUS: Signed DATE:02/24/19 TIME: 1946 PATIENT: KAMRYN TELLEZ UNIT #: [id number] ROOM/BED: AGE: 18 SEX: F PCP PHYS: No Primary or Family Ph ysician SERVICE AUTHOR: Jermaine Baugh FREIGHT BROKER * ALL edits or amendments must be made on the Chibwe/computer document * Jermaine Baugh 02/24/191946: HPI-Abd Pain F Under 40 General Confirmed Patient Yes PCP PCP - none Presentation Chief Complaint Abdominal pain Hx Obtained From Patient Onset Occurred Today Symptom Duration Since onset Free Text HPI Notes Free Text HPI Notes 18 y/o F presents to the ED w/ c/o L abd pain onset today. Pt reports N/V, but denies dysuria, flank pain, diarrhea, or any other assoc sxs. Last BM yesterday was NL and nonpainful. Pt took x2 motrin w/o imp rovement. Portions of this section were scribed by Kala Sandoval on 02/25/19 at 0659 Risk-Abd Pain F Under 40 )( Ectopic Risk factors reviewed Portions of this section were scribed by Kala Sandoval on 02/24/19 at 1947 Review of Systems ROS Statements All systems rev neg except as marked. Focused Review of Systems GI Reports: Abdominal pain, Nausea, Vomiting. Denie s: Diarrhea. Female Denies: Dysuria, Flank pain. Portions of this section were scribed by Kala Sandoval on 02/24/19 at 1947 Past Medical History - Adult Stated Complaint ABDOMINAL PAIN Allergies Coded Allergies: No Known Allergies (02/24/19) Home Medications Reported Medications ALBUTEROL (VENTOLIN HFA 90 MCG/ACT) 1 PUFF INH R TQ4H PRN PRN SOB LORATADINE (CLARITIN) 10 MG PO DAILY Past Medical History: Reports: Depression/mood disorder. Denies: Diabe kaz mellitus, Hypertension, Kidney disease/stones. Past Surgical History: Reports: Tonsillectomy. Other Social History Local resident Portions of this section were scribed by Kala Sandoval on 02/24/19 at 2035 Physical Exam Vital Signs Vital Signs First Documented: Result Date Time Pulse Ox 98 02/24 1945 B/P 115/84 02/24 1945 B/P Mean 94 02/24 1945 O2 Delivery Room air 02/24 1945 Temp 36.9 02/24 1945 Pulse 84 02/24 1945 Resp 18 02/24 1945 Last Documented: Result Date Time Pulse Ox 99 02/26 44 B/P 109/54 02/26 44 B/P Mean 72 02/26 44 O2 Delivery Room air 02/26 44 Temp 36.7 02/26 44 Pulse 80 02/26 44 Resp 16 02/26 44 Review of Vital Signs Reviewed Focused PE General/Const General/Const Awake, Alert, No acute di stress, Well appearing, Well developed , Well hydrated, Well nourished, Cooperative MS Head Head Atraumatic, Normocephalic Eyes Eyes PERRL, EOMI, Conjunctiva NL Ears/Nose/Throat Ears/Nose/Throat Airway patent, Mucous membrane s moist, Pharynx NL Resp/Chest Respiratory/Chest Breath sounds NL, No respirat ory distress, No rales, No rhonchi, No wheezing Cardiovascular Cardiovascular Heart rate NL, Regular rhythm, H eart sounds NL Abdomen/GI Abdomen/GI Soft, No guarding, No rebound, No di stention Tenderness/Guarding/Rebound Tender LUQ, Tender LLQ. MS Back Back Inspection NL, No CVA tenderness Skin Skin Warm, Dry, Intact Neurologic Neurologic Oriented X3, Speech NL Additional PE MS Neck Neck Supple, Full range of motion MS Upper Extrem Upper Extremity/MS Full range of motion MS Lower Extrem Lower Ext/Pelvis/MS Full range of motion Psychiatric Psychiatric Affect NL, Mood NL Portions of this section were scribed by Kala Sandoval on 02/25/19 at 0659 Interpretation Diagnostics Lab Results Interpretation Results Laboratory Tests 02/24/192219: [Embedded Image Not Available] Laboratory Tests: 02/24 Chemistry Sodium (134 - 147 mEq/L) 139 Potassium (3.4 - 5.0 mEq/L) 3.8 Chloride (100 - 108 mEq/L) 106 Carbon Dioxide (21 - 33 mEq/L) 24 Anion Gap (0 - 20) 13 BUN (7 - 18 mg/dL) 8 Creatinine (0.6 - 1.3 mg/dL) 0.8 Glomerular Filtr Rate (110 - 120) 93.4 L Glucose (70 - 110 mg/dL) 78 Calcium (8.0 - 10.5 mg/dL) 9.3 Total Bilirubin (0.0 - 1.0 mg/dL) 0.50 Direct Bilirubin (0.0 - 0.30 MG/DL) 0.10 Indirect Bilirubin (MG/DL) 0.40 AST (15 - 37 IUnit/L) 15 ALT (15 - 65 IUnit/L) 25 Total Alk Phosphatase (60 - 350 IUnit/L) 81 Total Protein (6.4 - 8.2 g/dL) 7.4 Albumin (3.4 - 5.0 g/dL) 3.80 Lipase (73 - 393 IUnit/L) 166 Serum , Qual (NEGATIVE) SERUM NEGATIVE Hematology WBC (4.5 - 11.0 x10 3/uL) 6.70 RBC (3.54 - 5.02 x10 6/uL) 4.88 Hgb (11.0 - 15.0 g/dL) 13.4 Hct (33.0 - 45.0 %) 41.0 MCV (81.0 - 99.0 fL) 84.0 MCH (27.0 - 33.0 pg) 27.5 MCHC (33.0 - 37.0 g/dL) 32.7 L RDW (11.5 - 14.5 %) 11.9 Plt Count (150 - 400 x10 3/uL) 252 MPV (7.0 - 9.0 fL) 10.4 H Neut % (Auto) (56.0 - 77.0 %) 59.5 Lymph % (Auto) (14.0 - 32.0 %) 27.9 [place] % (Auto) (4.8 - 9.0 %) 6.9 Eos % (Auto) (0.3 - 3.7 %) 5.1 H Baso % (Auto) (0.0 - 2.0 %) 0.3 Neut # (Auto) (2.0 - 7.6 x10 3/uL) 3.99 Lymph # (Auto) (1.0 - 3.8 x10 3/uL) 1.87 [place] # (Auto) (0.1 - 0.8 x10 3/uL) 0.46 Eos # (Auto) (0.0 - 0.2 x10 3/uL) 0.34 H Baso # (Auto) (0.0 - 0.2 x10 3/uL) 0.02 Abs Immat Gran (auto) (0.00 - 0.03 x10 3/uL) 0. 02 Add Manual Diff NO Immature Gran % (0.0 - 2.0 %) 0.3 Nucleated RBC % (0 - 0 %) 0.0 Nucleated RBCs # (Man) (0.0 - 0.1 x10 3/uL) 0.0 0 Urines Urine Color (YEL/STRAW) YELLOW Urine Appearance (CLEAR) CLEAR Urine pH (5.0 - 7.0) 5.0 Ur Specific [place] (1.005 - 1.030) 1.021 Urine Protein (NEGATIVE) NEGATIVE Urine Glucose (UA) (NEGATIVE) NEGATIVE Urine Ketones (NEGATIVE) 1+ H Urine Blood (NEGATIVE) NEGATIVE Urine Nitrite (NEGATIVE) NEGATIVE Urine Bilirubin (NEGATIVE) NEGATIVE Urine Urobilinogen (0.2 - 1.0 mg/dL) 0.2 Ur Leukocyte Esterase (NEGATIVE) NEGATIVE Urine RBC (0 - 3 RBC/HPF) 0-3 Urine WBC (0 - 3 WBC/HPF) 4-9 H Ur Squamous Epith Cells (NONE SEEN /HPF) 0-5 Urine Bacteria (NONE SEEN /HPF) NONE SEEN Urine Mucus (NONE SEEN /LPF) 3+ H Recent Impressions: CAT SCAN - CT ABD PELVIS W/CONT 02/24 2313 Report Impression - Status: SIGNED Entered: 02/24/2019 2341 IMPRESSION: No overt acute abnormality to explain given comp carline. A small to moderate fecal load is noted, nonspec ific. Additional findings as above. Impression By: Maxx - Quang Schrebier M.D. Lab Imaging Statement Laboratory radiographic studies reviewed and con sidered in the medical decision-making. Point of Care Testing Pulse Oximetry Pulse Ox % 98 On: Room air Interpretation Interpreted by me, Pulse oximetr y normal Time [address] Abdomen/Pelvis Text/Dict Note CAT SCAN - CT ABD PELVIS W/CONT 07/08 2313 Report Impression - Status: SIGNED Entered: 02/24/2019 2341 IMPRESSION: No overt acute abnormality to explain given comp carline. A small to moderate fecal load is noted, nonspec ific. Additional findings as above. Interpretation/Wet Read by Interpret - Radiolog ist Reviewed by ED FREIGHT BROKER Portions of this section were scribed by Kala Sandoval on 02/25/19 at 0659 Re-Evaluation MDM )( Re-Evaluation/Progress #1 Text/Dict Note Pt is NAD w/ AAOx3. Discussed results, plan to d /c home, and need for f/u w/ PCP. Provided ED return precautions. Pt agrees t o plan. Time of Re-Eval 0010 )( Re-Eval Status Improved ED Course Medication(s) Ordered Medication(s) Ordered: Diagnostic Agents Sig/Michelle Start time Last Medication Dose Route Stop Time Status Admin Diatrizoate Meglum/ 10 ML .STK-MED ONE 02/24 23 09 DC 02/24 Diatrizoate Sod PO 02/24 2310 2309 Iopamidol 100 ML .STK-MED ONE 02/24 2308 DC IV 02/24 2309 2308 Portions of this section were scribed by Kala Sandoval on 02/25/19 at 0009 Patient Discharge Departure Vital Signs/Condition Vital Signs First Documented: Result Date Time Pulse Ox 98 02/24 1945 B/P 115/84 02/24 1945 B/P Mean 94 02/24 1945 O2 Delivery Room air 02/24 1945 Temp 36.9 02/24 1945 Pulse 84 02/24 1945 Resp 18 02/24 1945 Last Documented: Result Date Time Pulse Ox 99 02/25 0044 B/P 109/54 / 0044 B/P Mean 72 02/254 O2 Delivery Room air 02/254 Temp 36.7 / 0044 Pulse 80 07/ 0044 Resp 16 02/25 0044 All vital signs available at the time of this en try have been reviewed. Condition Stable Clinical Impression Clinical Impression Primary Impression: Abdominal pain Secondary Impressions: Constipation Disposition Decision Discharge )( Discharged to Home Yes )( Time 0012 )( Date 02/25/19 Discharge/Care Plan Counseled Regarding Diagnosi s, Lab results, Imaging studies, Prescriptions, Need for follow-up, When to return to ED Prescriptions Zofran and bentyl Prescriptions Reviewed Risks, Benefits, Alternat gonzales treatment Quality Measures Preg Test for Women w/Abd Pa in Female age 14-50, Complaint of abdominal pn, Any preg test ordered Supervising Physician Note Scribe Statement Kala Sandoval, 02/24/191951 , scribing for and in the presence of Jermaine Baugh NP. Signed By: Kala Sandoval, 02/24/191951 Provider Scribed Statement I personally performed the s ervices described in this documentation and reviewed the documentation that was dictated to the scrib e(s) in my presence, and it accurately records my words and actions. Jermaine Baugh, 02/25/19 Portions of this section were scribed by Kala Sandoval on 02/25/19 at 0659 Diomedes Villareal 02/25/19 2136: HPI-Abd Pain F Under 40 General Initial Greet Date/Time 02/24/191936 Physical Exam Vital Signs Vital Signs Interpretation Diagnostics Lab Results Interpretation Results Re-Evaluation MDM ED Course Medication(s) Ordered Patient Discharge Departure Vital Signs/Condition Vital Signs Supervising Physician Note MidLv Saw Pt Alone I have reviewed the PA/FREIGHT BROKER's note and plan of car e. I was available for consultation as needed at al l times during the patient's visit in the emergency department. I agree with the clinical impression , plan and disposition. Authenticated by Diomedes Villareal MD on 02/25/19 at 1915 Electronically Signed by Jermaine Baugh NP on 05/08 at 191 RPT #:[id number] END OF REPORT 2019-02-24 19:47:00-00:00 [facility] ([facility]) EMERGENCY PROVIDER REPORT REPORT#:[id number] REPORT STATUS: Signed DATE:02/24/19 TIME: 1946 PATIENT: KAMRYN TELLEZ UNIT #: [id number] ROOM/BED: AGE: 18 SEX: F PCP PHYS: No Primary or Family Ph ysician SERVICE AUTHOR: Jermaine Baugh FREIGHT BROKER * ALL edits or amendments must be made on the el [employer]/computer document * Jermaine Baugh 02/24/191946: HPI-Abd Pain F Under 40 General Confirmed Patient Yes PCP PCP - none Presentation Chief Complaint Abdominal pain Hx Obtained From Patient Onset Occurred Today Symptom Duration Since onset Free Text HPI Notes Free Text HPI Notes 18 y/o F presents to the ED w/ c/o L abd pain onset today. Pt reports N/V, but denies dysuria, flank pain, diarrhea, or any other assoc sxs. Last BM yesterday was NL and nonpainful. Pt took x2 motrin w/o imp rovement. Portions of this section were scribed by Kala Sandoval on 02/25/19 at 0659 Risk-Abd Pain F Under 40 )( Ectopic Risk factors reviewed Portions of this section were scribed by Kala Sandoval on 02/24/19 at 194 Review of Systems ROS Statements All systems rev neg except as marked. Focused Review of Systems GI Reports: Abdominal pain, Nausea, Vomiting. Denie s: Diarrhea. Female Denies: Dysuria, Flank pain. Portions of this section were scribed by Kala Sandoval on 02/24/19 at 1947 Past Medical History - Adult Stated Complaint ABDOMINAL PAIN Allergies Coded Allergies: No Known Allergies (02/24/19) Home Medications Reported Medications ALBUTEROL (VENTOLIN HFA 90 MCG/ACT) 1 PUFF INH R TQ4H PRN PRN SOB LORATADINE (CLARITIN) 10 MG PO DAILY Past Medical History: Reports: Depression/mood disorder. Denies: Diabe kaz mellitus, Hypertension, Kidney disease/stones. Past Surgical History: Reports: Tonsillectomy. Other Social History Local resident Portions of this section were scribed by Kala Sandoval on 02/24/19 at 203 Physical Exam Vital Signs Vital Signs First Documented: Result Date Time Pulse Ox 98 02/24 1945 B/P 115/84 02/24 1945 B/P Mean 94 02/24 1945 O2 Delivery Room air 02/24 1945 Temp 36.9 02/24 1945 Pulse 84 02/24 1945 Resp 18 02/24 1945 Last Documented: Result Date Time Pulse Ox 99 02/26 44 B/P 109/54 02/26 44 B/P Mean 72 02/26 44 O2 Delivery Room air 02/26 44 Temp 36.7 02/26 44 Pulse 80 02/25 004 Resp 16 02/26 44 Review of Vital Signs Reviewed Focused PE General/Const General/Const Awake, Alert, No acute di stress, Well appearing, Well developed , Well hydrated, Well nourished, Cooperative MS Head Head Atraumatic, Normocephalic Eyes Eyes PERRL, EOMI, Conjunctiva NL Ears/Nose/Throat Ears/Nose/Throat Airway patent, Mucous membrane s moist, Pharynx NL Resp/Chest Respiratory/Chest Breath sounds NL, No respirat ory distress, No rales, No rhonchi, No wheezing Cardiovascular Cardiovascular Heart rate NL, Regular rhythm, H eart sounds NL Abdomen/GI Abdomen/GI Soft, No guarding, No rebound, No di stention Tenderness/Guarding/Rebound Tender LUQ, Tender LLQ. MS Back Back Inspection NL, No CVA tenderness Skin Skin Warm, Dry, Intact Neurologic Neurologic Oriented X3, Speech NL Additional PE MS Neck Neck Supple, Full range of motion MS Upper Extrem Upper Extremity/MS Full range of motion MS Lower Extrem Lower Ext/Pelvis/MS Full range of motion Psychiatric Psychiatric Affect NL, Mood NL Portions of this section were scribed by Kala Sandoval on 02/25/19 at 0659 Interpretation Diagnostics Lab Results Interpretation Results Laboratory Tests 02/24/192219: [Embedded Image Not Available] Laboratory Tests: 02/24 Chemistry Sodium (134 - 147 mEq/L) 139 Potassium (3.4 - 5.0 mEq/L) 3.8 Chloride (100 - 108 mEq/L) 106 Carbon Dioxide (21 - 33 mEq/L) 24 Anion Gap (0 - 20) 13 BUN (7 - 18 mg/dL) 8 Creatinine (0.6 - 1.3 mg/dL) 0.8 Glomerular Filtr Rate (110 - 120) 93.4 L Glucose (70 - 110 mg/dL) 78 Calcium (8.0 - 10.5 mg/dL) 9.3 Total Bilirubin (0.0 - 1.0 mg/dL) 0.50 Direct Bilirubin (0.0 - 0.30 MG/DL) 0.10 Indirect Bilirubin (MG/DL) 0.40 AST (15 - 37 IUnit/L) 15 ALT (15 - 65 IUnit/L) 25 Total Alk Phosphatase (60 - 350 IUnit/L) 81 Total Protein (6.4 - 8.2 g/dL) 7.4 Albumin (3.4 - 5.0 g/dL) 3.80 Lipase (73 - 393 IUnit/L) 166 Serum , Qual (NEGATIVE) SERUM NEGATIVE Hematology WBC (4.5 - 11.0 x10 3/uL) 6.70 RBC (3.54 - 5.02 x10 6/uL) 4.88 Hgb (11.0 - 15.0 g/dL) 13.4 Hct (33.0 - 45.0 %) 41.0 MCV (81.0 - 99.0 fL) 84.0 MCH (27.0 - 33.0 pg) 27.5 MCHC (33.0 - 37.0 g/dL) 32.7 L RDW (11.5 - 14.5 %) 11.9 Plt Count (150 - 400 x10 3/uL) 252 MPV (7.0 - 9.0 fL) 10.4 H Neut % (Auto) (56.0 - 77.0 %) 59.5 Lymph % (Auto) (14.0 - 32.0 %) 27.9 [place] % (Auto) (4.8 - 9.0 %) 6.9 Eos % (Auto) (0.3 - 3.7 %) 5.1 H Baso % (Auto) (0.0 - 2.0 %) 0.3 Neut # (Auto) (2.0 - 7.6 x10 3/uL) 3.99 Lymph # (Auto) (1.0 - 3.8 x10 3/uL) 1.87 [place] # (Auto) (0.1 - 0.8 x10 3/uL) 0.46 Eos # (Auto) (0.0 - 0.2 x10 3/uL) 0.34 H Baso # (Auto) (0.0 - 0.2 x10 3/uL) 0.02 Abs Immat Gran (auto) (0.00 - 0.03 x10 3/uL) 0. 02 Add Manual Diff NO Immature Gran % (0.0 - 2.0 %) 0.3 Nucleated RBC % (0 - 0 %) 0.0 Nucleated RBCs # (Man) (0.0 - 0.1 x10 3/uL) 0.0 0 Urines Urine Color (YEL/STRAW) YELLOW Urine Appearance (CLEAR) CLEAR Urine pH (5.0 - 7.0) 5.0 Ur Specific [place] (1.005 - 1.030) 1.021 Urine Protein (NEGATIVE) NEGATIVE Urine Glucose (UA) (NEGATIVE) NEGATIVE Urine Ketones (NEGATIVE) 1+ H Urine Blood (NEGATIVE) NEGATIVE Urine Nitrite (NEGATIVE) NEGATIVE Urine Bilirubin (NEGATIVE) NEGATIVE Urine Urobilinogen (0.2 - 1.0 mg/dL) 0.2 Ur Leukocyte Esterase (NEGATIVE) NEGATIVE Urine RBC (0 - 3 RBC/HPF) 0-3 Urine WBC (0 - 3 WBC/HPF) 4-9 H Ur Squamous Epith Cells (NONE SEEN /HPF) 0-5 Urine Bacteria (NONE SEEN /HPF) NONE SEEN Urine Mucus (NONE SEEN /LPF) 3+ H Recent Impressions: CAT SCAN - CT ABD PELVIS W/CONT 02/24 2313 Report Impression - Status: SIGNED Entered: 02/24/2019 234 IMPRESSION: No overt acute abnormality to explain given comp carline. A small to moderate fecal load is noted, nonspec ific. Additional findings as above. Impression By: JulienneDuane - Quang Schreiber M.D. Lab Imaging Statement Laboratory radiographic studies reviewed and con sidered in the medical decision-making. Point of Care Testing Pulse Oximetry Pulse Ox % 98 On: Room air Interpretation Interpreted by me, Pulse oximetr y normal Time [address] Abdomen/Pelvis Text/Dict Note CAT SCAN - CT ABD PELVIS W/CONT 02/24 2313 Report Impression - Status: SIGNED Entered: 02/24/20192340 IMPRESSION: No overt acute abnormality to explain given comp carline. A small to moderate fecal load is noted, nonspec ific. Additional findings as above. Interpretation/Wet Read by Interpret - Radiolog ist Reviewed by ED FREIGHT BROKER Portions of this section were scribed by Kala Sandoval on 02/25/19 at 0659 Re-Evaluation MDM )( Re-Evaluation/Progress #1 Text/Dict Note Pt is NAD w/ AAOx3. Discussed results, plan to d /c home, and need for f/u w/ PCP. Provided ED return precautions. Pt agrees t o plan. Time of Re-Eval 0010 )( Re-Eval Status Improved ED Course Medication(s) Ordered Medication(s) Ordered: Diagnostic Agents Sig/Michelle Start time Last Medication Dose Route Stop Time Status Admin Diatrizoate Meglum/ 10 ML .STK-MED ONE 02/24 23 09 DC 02/24 Diatrizoate Sod PO 02/24 2310 2309 Iopamidol 100 ML .STK-MED ONE 02/25 2308 DC / IV 02/24 230 2308 Portions of this section were scribed by Kala Sandoval on 02/25/19 at 0009 Patient Discharge Departure Vital Signs/Condition Vital Signs First Documented: Result Date Time Pulse Ox 98 02/24 1945 B/P 115/84 02/24 194 B/P Mean 94 02/24 1945 O2 Delivery Room air 02/24 1945 Temp 36.9 02/24 194 Pulse 84 /1944 Resp 18 02/24 1945 Last Documented: Result Date Time Pulse Ox 99 07/ 0044 B/P 109/54 07/ 0044 B/P Mean 72 07/09 0044 O2 Delivery Room air 07/ 0044 Temp 36.7 07/09 0044 Pulse 80 07/09 0044 Resp 16 07/ 0044 All vital signs available at the time of this en try have been reviewed. Condition Stable Clinical Impression Clinical Impression Primary Impression: Abdominal pain Secondary Impressions: Constipation Disposition Decision Discharge )( Discharged to Home Yes )( Time 0012 )( Date 02/25/19 Discharge/Care Plan Counseled Regarding Diagnosi s, Lab results, Imaging studies, Prescriptions, Need for follow-up, When to return to ED Prescriptions Zofran and bentyl Prescriptions Reviewed Risks, Benefits, Alternat gonzales treatment Quality Measures Preg Test for Women w/Abd Pa in Female age 14-50, Complaint of abdominal pn, Any preg test ordered Supervising Physician Note Scribe Statement Kala Sandoval, 02/24/191951 , scribing for and in the presence of Jermaine Baugh NP. Signed By: Kala Sandoval, 02/24/191951 Provider Scribed Statement I personally performed the s ervices described in this documentation and reviewed the documentation that was dictated to the scrib e(s) in my presence, and it accurately records my words and actions. Jermaine Baugh 02/25/19 Portions of this section were scribed by Kala Sandoval on 02/25/19 at 0659 Diomedes Villareal 02/25/192135: HPI-Abd Pain F Under 40 General Initial Greet Date/Time 02/24/191936 Physical Exam Vital Signs Vital Signs Interpretation Diagnostics Lab Results Interpretation Results Re-Evaluation MDM ED Course Medication(s) Ordered Patient Discharge Departure Vital Signs/Condition Vital Signs Supervising Physician Note MidLv Saw Pt Alone I have reviewed the PA/FREIGHT BROKER's note and plan of car e. I was available for consultation as needed at al l times during the patient's visit in the emergency department. I agree with the clinical impression , plan and disposition. Authenticated by Diomedes Villareal MD on 02/25/19 at 191 Electronically Signed by Jermaine Baugh NP on 05/08 at 191 RPT #:[id number] END OF REPORT 2019-02-24 19:47:00-00:00 [facility] REPORT#:[id number] REPORT STATUS: Signed DATE:02/24/19 TIME: 1946 PATIENT: KAMRYN TELLEZ UNIT #: [id number] ROOM/BED: AGE: 18 SEX: F PCP PHYS: No Primary or Family Ph ysician SERVICE AUTHOR: Jermaine Baugh FREIGHT BROKER * ALL edits or amendments must be made on the [employer]/computer document * Jermaine Baugh 02/24/191946: HPI-Abd Pain F Under 40 General Confirmed Patient Yes PCP PCP - none Presentation Chief Complaint Abdominal pain Hx Obtained From Patient Onset Occurred Today Symptom Duration Since onset Free Text HPI Notes Free Text HPI Notes 18 y/o F presents to the ED w/ c/o L abd pain onset today. Pt reports N/V, but denies dysuria, flank pain, diarrhea, or any other assoc sxs. Last BM yesterday was NL and nonpainful. Pt took x2 motrin w/o imp rovement. Portions of this section were scribed by Kala Sandoval on 02/25/19 at 0659 Risk-Abd Pain F Under 40 )( Ectopic Risk factors reviewed Portions of this section were scribed by Kala Sandoval on 02/24/19 at 1947 Review of Systems ROS Statements All systems rev neg except as marked. Focused Review of Systems GI Reports: Abdominal pain, Nausea, Vomiting. Denie s: Diarrhea. Female Denies: Dysuria, Flank pain. Portions of this section were scribed by Kala Sandoval on 02/24/19 at 1947 Past Medical History - Adult Stated Complaint ABDOMINAL PAIN Allergies Coded Allergies: No Known Allergies (02/24/19) Home Medications Reported Medications ALBUTEROL (VENTOLIN HFA 90 MCG/ACT) 1 PUFF INH R TQ4H PRN PRN SOB LORATADINE (CLARITIN) 10 MG PO DAILY Past Medical History: Reports: Depression/mood disorder. Denies: Diabe kaz mellitus, Hypertension, Kidney disease/stones. Past Surgical History: Reports: Tonsillectomy. Other Social History Local resident Portions of this section were scribed by Kala Sandoval on 02/24/19 at 2035 Physical Exam Vital Signs Vital Signs First Documented: Result Date Time Pulse Ox 98 02/24 1945 B/P 115/84 02/24 1945 B/P Mean 94 02/24 1945 O2 Delivery Room air 02/24 1945 Temp 36.9 02/24 1945 Pulse 84 02/24 1945 Resp 18 02/24 1945 Last Documented: Result Date Time Pulse Ox 99 02/25 0044 B/P 109/54 02/254 B/P Mean 72 02/254 O2 Delivery Room air 02/26 44 Temp 36.7 02/25 004 Pulse 80 02/25 0044 Resp 16 02/25 0044 Review of Vital Signs Reviewed Focused PE General/Const General/Const Awake, Alert, No acute di stress, Well appearing, Well developed , Well hydrated, Well nourished, Cooperative MS Head Head Atraumatic, Normocephalic Eyes Eyes PERRL, EOMI, Conjunctiva NL Ears/Nose/Throat Ears/Nose/Throat Airway patent, Mucous membrane s moist, Pharynx NL Resp/Chest Respiratory/Chest Breath sounds NL, No respirat ory distress, No rales, No rhonchi, No wheezing Cardiovascular Cardiovascular Heart rate NL, Regular rhythm, H eart sounds NL Abdomen/GI Abdomen/GI Soft, No guarding, No rebound, No di stention Tenderness/Guarding/Rebound Tender LUQ, Tender LLQ. MS Back Back Inspection NL, No CVA tenderness Skin Skin Warm, Dry, Intact Neurologic Neurologic Oriented X3, Speech NL Additional PE MS Neck Neck Supple, Full range of motion MS Upper Extrem Upper Extremity/MS Full range of motion MS Lower Extrem Lower Ext/Pelvis/MS Full range of motion Psychiatric Psychiatric Affect NL, Mood NL Portions of this section were scribed by Kala Sandoval on 02/25/19 at 0659 Interpretation Diagnostics Lab Results Interpretation Results Laboratory Tests 02/24/192219: [Embedded Image Not Available] Laboratory Tests: 02/24 Chemistry Sodium (134 - 147 mEq/L) 139 Potassium (3.4 - 5.0 mEq/L) 3.8 Chloride (100 - 108 mEq/L) 106 Carbon Dioxide (21 - 33 mEq/L) 24 Anion Gap (0 - 20) 13 BUN (7 - 18 mg/dL) 8 Creatinine (0.6 - 1.3 mg/dL) 0.8 Glomerular Filtr Rate (110 - 120) 93.4 L Glucose (70 - 110 mg/dL) 78 Calcium (8.0 - 10.5 mg/dL) 9.3 Total Bilirubin (0.0 - 1.0 mg/dL) 0.50 Direct Bilirubin (0.0 - 0.30 MG/DL) 0.10 Indirect Bilirubin (MG/DL) 0.40 AST (15 - 37 IUnit/L) 15 ALT (15 - 65 IUnit/L) 25 Total Alk Phosphatase (60 - 350 IUnit/L) 81 Total Protein (6.4 - 8.2 g/dL) 7.4 Albumin (3.4 - 5.0 g/dL) 3.80 Lipase (73 - 393 IUnit/L) 166 Serum , Qual (NEGATIVE) SERUM NEGATIVE Hematology WBC (4.5 - 11.0 x10 3/uL) 6.70 RBC (3.54 - 5.02 x10 6/uL) 4.88 Hgb (11.0 - 15.0 g/dL) 13.4 Hct (33.0 - 45.0 %) 41.0 MCV (81.0 - 99.0 fL) 84.0 MCH (27.0 - 33.0 pg) 27.5 MCHC (33.0 - 37.0 g/dL) 32.7 L RDW (11.5 - 14.5 %) 11.9 Plt Count (150 - 400 x10 3/uL) 252 MPV (7.0 - 9.0 fL) 10.4 H Neut % (Auto) (56.0 - 77.0 %) 59.5 Lymph % (Auto) (14.0 - 32.0 %) 27.9 [place] % (Auto) (4.8 - 9.0 %) 6.9 Eos % (Auto) (0.3 - 3.7 %) 5.1 H Baso % (Auto) (0.0 - 2.0 %) 0.3 Neut # (Auto) (2.0 - 7.6 x10 3/uL) 3.99 Lymph # (Auto) (1.0 - 3.8 x10 3/uL) 1.87 [place] # (Auto) (0.1 - 0.8 x10 3/uL) 0.46 Eos # (Auto) (0.0 - 0.2 x10 3/uL) 0.34 H Baso # (Auto) (0.0 - 0.2 x10 3/uL) 0.02 Abs Immat Gran (auto) (0.00 - 0.03 x10 3/uL) 0. 02 Add Manual Diff NO Immature Gran % (0.0 - 2.0 %) 0.3 Nucleated RBC % (0 - 0 %) 0.0 Nucleated RBCs # (Man) (0.0 - 0.1 x10 3/uL) 0.0 0 Urines Urine Color (YEL/STRAW) YELLOW Urine Appearance (CLEAR) CLEAR Urine pH (5.0 - 7.0) 5.0 Ur Specific [place] (1.005 - 1.030) 1.021 Urine Protein (NEGATIVE) NEGATIVE Urine Glucose (UA) (NEGATIVE) NEGATIVE Urine Ketones (NEGATIVE) 1+ H Urine Blood (NEGATIVE) NEGATIVE Urine Nitrite (NEGATIVE) NEGATIVE Urine Bilirubin (NEGATIVE) NEGATIVE Urine Urobilinogen (0.2 - 1.0 mg/dL) 0.2 Ur Leukocyte Esterase (NEGATIVE) NEGATIVE Urine RBC (0 - 3 RBC/HPF) 0-3 Urine WBC (0 - 3 WBC/HPF) 4-9 H Ur Squamous Epith Cells (NONE SEEN /HPF) 0-5 Urine Bacteria (NONE SEEN /HPF) NONE SEEN Urine Mucus (NONE SEEN /LPF) 3+ H Recent Impressions: CAT SCAN - CT ABD PELVIS W/CONT 02/24 2313 Report Impression - Status: SIGNED Entered: 02/24/20192340 IMPRESSION: No overt acute abnormality to explain given comp carline. A small to moderate fecal load is noted, nonspec ific. Additional findings as above. Impression By: JulienneDuane Schreiber M.D. Lab Imaging Statement Laboratory radiographic studies reviewed and con sidered in the medical decision-making. Point of Care Testing Pulse Oximetry Pulse Ox % 98 On: Room air Interpretation Interpreted by me, Pulse oximetr y normal Time [address] Abdomen/Pelvis Text/Dict Note CAT SCAN - CT ABD PELVIS W/CONT 02/24 2313 Report Impression - Status: SIGNED Entered: 02/24/20192340 IMPRESSION: No overt acute abnormality to explain given comp carline. A small to moderate fecal load is noted, nonspec ific. Additional findings as above. Interpretation/Wet Read by Interpret - Radiolog ist Reviewed by ED FREIGHT BROKER Portions of this section were scribed by Kala Sandoval on 02/25/19 at 0659 Re-Evaluation MDM )( Re-Evaluation/Progress #1 Text/Dict Note Pt is NAD w/ AAOx3. Discussed results, plan to d /c home, and need for f/u w/ PCP. Provided ED return precautions. Pt agrees t o plan. Time of Re-Eval 0010 )( Re-Eval Status Improved ED Course Medication(s) Ordered Medication(s) Ordered: Diagnostic Agents Sig/Michelle Start time Last Medication Dose Route Stop Time Status Admin Diatrizoate Meglum/ 10 ML .STK-MED ONE 02/24 23 09 DC 02/24 Diatrizoate Sod PO 02/24 2310 2309 Iopamidol 100 ML .STK-MED ONE 02/248 DC IV 02/24 2309 2308 Portions of this section were scribed by Kala Sandoval on 02/25/19 at 0009 Patient Discharge Departure Vital Signs/Condition Vital Signs First Documented: Result Date Time Pulse Ox 98 02/24 1945 B/P 115/84 02/24 1945 B/P Mean 94 02/24 1945 O2 Delivery Room air 02/24 1945 Temp 36.9 02/24 1945 Pulse 84 02/24 1945 Resp 18 02/24 1945 Last Documented: Result Date Time Pulse Ox 99 02/26 44 B/P 109/54 02/26 44 B/P Mean 72 02/26 44 O2 Delivery Room air 02/26 44 Temp 36.7 02/26 44 Pulse 80 02/26 44 Resp 16 02/26 44 All vital signs available at the time of this en try have been reviewed. Condition Stable Clinical Impression Clinical Impression Primary Impression: Abdominal pain Secondary Impressions: Constipation Disposition Decision Discharge )( Discharged to Home Yes )( Time 0012 )( Date 02/25/19 Discharge/Care Plan Counseled Regarding Diagnosi s, Lab results, Imaging studies, Prescriptions, Need for follow-up, When to return to ED Prescriptions Zofran and bentyl Prescriptions Reviewed Risks, Benefits, Alternat gonzales treatment Quality Measures Preg Test for Women w/Abd Pa in Female age 14-50, Complaint of abdominal pn, Any preg test ordered Supervising Physician Note Scribe Statement Kala Sandoval, [birth year] , scribing for and in the presence of Jermaine Baugh NP. Signed By: Kala Sandoval, [birth year] Provider Scribed Statement I personally performed the s ervices described in this documentation and reviewed the documentation that was dictated to the scrib e(s) in my presence, and it accurately records my words and actions. Jermaine Baugh, 02/25/19 Portions of this section were scribed by Kala Sandoval on 02/25/19 at 0659 Diomedes Villareal 02/25/19 2136: HPI-Abd Pain F Under 40 General Initial Greet Date/Time 02/24/191936 Physical Exam Vital Signs Vital Signs Interpretation Diagnostics Lab Results Interpretation Results Re-Evaluation MDM ED Course Medication(s) Ordered Patient Discharge Departure Vital Signs/Condition Vital Signs Supervising Physician Note MidLv Saw Pt Alone I have reviewed the PA/FREIGHT BROKER's note and plan of car e. I was available for consultation as needed at al l times during the patient's visit in the emergency department. I agree with the clinical impression , plan and disposition. Authenticated by Dimoedes Villareal MD on 02/25/19 at 1915 Electronically Signed by Jermaine Baugh NP on 05/08 at 191 at 2141 RPT #:[id number] END OF REPORT
[2023-01-29 18:05] LABS: Absolute Lymphocytes (CBC) 1.4 K/uL (0.7-4.9); Hematocrit 42.4 % (36.0-45.0); Lymphocytes % 24.2 % (15.3-44.8); MCV 84.4 fL (80-100); MPV 8.7 fL (7.6-11.3); RBC Red Blood Cell Count 5.02 M/uL (3.86-4.86)
[2023-01-29 18:23] LABS: Potassium 3.3 mEq/L (3.5-5.1)
--- NOTE | 2023-01-29 18:51 | RAD REPORT ---
EXAM DESCRIPTION: US - Transvaginal OB - 01/29/2023 6:23 pm CLINICAL HISTORY: with vaginal bleeding COMPARISON: None. FINDINGS: The uterus measures 6 x 4 x 5 centimeters. The endometrial stripe measures 6 millimeters . 3 millimeter fluid collection within endometrium. Ovaries are normal in size and echotexture.. The right and left adnexa unremarkable No significant free fluid IMPRESSION: 3 millimeter fluid collection within endometrium may represent an early gestational sac. The estimated gestational age would then 4 weeks 6 days. Other considerations include an incomplete and even an ectopic can also result in this appearance. This all should be correlated clinically and with serial beta HCG levels. Followup endovaginal sonogram in 1 week recommended
[2023-01-29 19:19] LABS: Specific Gravity 1.007 (1.005-1.030)
[2023-01-29 19:20] LABS: Specific Gravity 1.007 (1.005-1.030); Urine Bacteria <20 /HPF (<20); Urine Bilirubin NEGATIVE (Negative); Urine Blood 3+ (OVER) (Negative); Urine Clarity Turbid (Clear); Urine Color Colorless (Yellow); Urine Glucose NEGATIVE (Negative); Urine Mucus Slight /HPF (None Seen); Urine Protein NEGATIVE (Negative); Urine RBC <5 /HPF (None Seen); Urine Urobilinogen Normal (Normal); Urine pH 5.5 (5.0-7.0)
--- NOTE | 2023-01-29 19:32 | EDPHYS ---
Physician Documentation [facility] Name: Aleyda Mac Age: 22 yrs Sex: Female : 2000 Arrival Date: 01/29/2023 Time: 17:25 Bed 15 Private MD: ED Physician Los Seymour HPI: 01/29 19:28 This 22 yrs old Female presents to ER via Ambulatory with complaints of Vaginal kb Bleeding, + Preg <12wks, Abdominal Cramping. 19:28 The patient presents to the emergency department with abdominal pain, described as kb crampy, vaginal bleeding. course: care: [facility], Leakage of Fluid: none appreciated, Ultrasound: the patient has not had an ultrasound. Previous pregnancies: in previous pregnancies patient has had vaginal delivery. Associated signs and symptoms: Pertinent positives: abdominal pain, vaginal bleeding. The patient has not experienced similar symptoms in the past. The patient has not recently seen a physician. Pt reports lower abd cramping for 2-3 days with spotting yesterday and light bleeding today. States she called her OB and was told to come to the ER for evaluation. Pt reports cramping across entire lower abd. . 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 - Social history:: Smoking status: Reported history of juuling and/or vaping. ROS: 19:28 Constitutional: Negative for fever, chills, and weight loss. kb 19:28 Abdomen/GI: Positive for abdominal cramps. 19:28 : Positive for vaginal bleeding. Exam: 19:28 Constitutional: This is a well developed, well nourished patient who is awake, alert, kb and in no acute distress. Head/Face: Normocephalic, atraumatic. ENT: Moist Mucous membranes Cardiovascular: Regular rate and rhythm with a normal S1 and S2. No gallops, murmurs, or rubs. No pulse deficits. Respiratory: Respirations even and unlabored. No increased work of breathing. Talking in full sentences Abdomen/GI: Soft, non-tender. No distention Skin: Warm, dry with normal turgor. Normal color. MS/ Extremity: Pulses equal, no cyanosis. Neurovascular intact. Full, normal range of motion. Neuro: Awake and alert, GCS 15, oriented to person, place, time, and situation. Moves all extremities. Normal gait. Vital Signs: 17:44 BP 122 / 71; Pulse 102; Resp 17; Temp 98.4; Pulse Ox 100% ; Weight 62.14 kg; Height 5 jl7 ft. 2 in. ; Pain 2/10; 19:50 BP 125 / 77; Pulse 87; Resp 16; Pulse Ox 100% on R/A; ll3 17:44 Body Mass Index 25.06 (62.14 kg, 157.48 cm) jl7 17:44 Pain Scale: Adult jl7 MDM: 17:31 Patient medically screened. kb 19:30 Differential diagnosis: threatened Ab, ectopic . Data reviewed: vital signs, kb nurses notes. Counseling: I had a detailed discussion with the patient and/or guardian regarding: the historical points, exam findings, and any diagnostic results supporting the discharge/admit diagnosis, lab results, radiology results, the need for outpatient follow up, an OB/Gyne specialist, to return to the emergency department if symptoms worsen or persist or if there are any questions or concerns that arise at home. ED course: Pt has appt with OB in 2 days. Given printed diagnostic results and educated to keep appt. Verbal understanding received. . 01/29 17:38 Order name: Abo/rh Typing; Complete Time: 18:42 kb 12 17:38 Order name: Basic Metabolic Panel; Complete Time: 18:29 kb 12 17:38 Order name: CBC with Diff; Complete Time: 18:15 kb 01/29 17:38 Order name: Test, Urine; Complete Time: 19:24 kb 01/29 17:38 Order name: Quantitative Hcg; Complete Time: 18:29 kb 01/29 17:38 Order name: Urinalysis w/ reflexes; Complete Time: 19:24 kb 01/29 17:38 Order name: US Transvaginal Ob; Complete Time: 18:52 kb 06/12 17:38 Order name: IV Saline Lock; Complete Time: 18:03 kb 01/29 17:38 Order name: Labs collected and sent; Complete Time: 18:03 kb 01/29 17:38 Order name: NPO; Complete Time: 18:03 kb Administered Medications: No medications were administered Disposition: 01/30 11:25 Co-signature as Attending Physician, Los Seymour DO I was immediately available on-site ms3 in the Emergency Department for consultation in the care of the patient. Disposition Summary: 01/29/23 19:31 Discharge Ordered Location: Home kb Condition: Stable kb Diagnosis - Threatened kb Followup: kb - With: Emergency Department - When: As needed - Reason: Worsening of condition Followup: kb - With: Private Physician - When: 2 - 3 days - Reason: Recheck today's complaints, Continuance of care, Re-evaluation by your physician Discharge Instructions: - Discharge Summary Sheet kb - Threatened Miscarriage, [id number] kb - Vaginal Bleeding During , First Trimester, [id number] kb Forms: - Medication Reconciliation Form kb - Thank You Letter kb - Antibiotic Education kb - Prescription Opioid Use kb Signatures: Dispatcher [employer] EDElizabeth Parmar, ICE CREAM DISPENSER-C ICE CREAM DISPENSER-Dianne Ace, RN RN jl7 Los Seymour DO DO ms3
--- NOTE | 2023-01-29 19:32 | ER ---
Nurse's Notes [facility] Name: Aleyda Mac Age: 22 yrs Sex: Female : 2000 Arrival Date: 01/29/2023 Time: 17:25 Bed 15 Private MD: Diagnosis: Threatened Presentation: 01/29 17:44 Chief complaint: Patient states: Cramping x 2-3 days, spotting last night, bleeding jl7 today. Coronavirus screen: At this time, the client does not indicate any symptoms associated with coronavirus-19. Ebola Screen: No symptoms or risks identified at this time. Initial Sepsis Screen: Does the patient meet any 2 criteria? No. Patient's initial sepsis screen is negative. Does the patient have a suspected source of infection? No. Patient's initial sepsis screen is negative. Risk Assessment: Do you want to hurt yourself or someone else? Patient reports no desire to harm self or others. Onset of symptoms was January 27, 2023. 17:44 Method Of Arrival: Ambulatory jl7 17:44 Acuity: GERONIMO 3 jl7 Triage Assessment: 17:45 General: Appears in no apparent distress. uncomfortable, Behavior is calm, cooperative, jl7 appropriate for age. Pain: Complains of pain in right lower quadrant and left lower quadrant Pain currently is 2 out of 10 on a pain scale. at worst was 6 out of 10 on a pain scale. : Reports vaginal bleeding that is. 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 - Social history:: Smoking status: Reported history of juuling and/or vaping. Screenin:04 [facility] ED Fall Risk Assessment (Adult) History of falling in the last 3 months, db including since admission No falls in past 3 months (0 pts) Confusion or Disorientation No (0 pts) Intoxicated or Sedated No (0 pts) Impaired Gait No (0 pts) Mobility Assist Device Used No (0 pt) Altered Elimination No (0 pt) Score/Fall Risk Level 0 - 2 = Low Risk Oriented to surroundings, Maintained a safe environment. Abuse screen: Denies threats or abuse. Denies injuries from another. Nutritional screening: No deficits noted. Tuberculosis screening: No symptoms or risk factors identified. Assessment: 18:03 Obstetrical Assessment: General assessment: awake and alert, skin warm and dry, db respirations even and unlabored. Reassessment: Patient appears in no apparent distress at this time. Patient and/or family updated on plan of care and expected duration. Pain level reassessed. Patient is alert, oriented x 3, equal unlabored respirations, skin warm/dry/pink. General: Appears in no apparent distress. comfortable, Behavior is calm, cooperative. 18:05 Reassessment: patient to ultrasound. db Vital Signs: 17:44 BP 122 / 71; Pulse 102; Resp 17; Temp 98.4; Pulse Ox 100% ; Weight 62.14 kg; Height 5 jl7 ft. 2 in. ; Pain 2/10; 19:50 BP 125 / 77; Pulse 87; Resp 16; Pulse Ox 100% on R/A; ll3 17:44 Body Mass Index 25.06 (62.14 kg, 157.48 cm) jl7 17:44 Pain Scale: Adult jl7 ED Course: 17:28 Patient arrived in ED. mr 17:30 Elizabeth [facility]rellana FNP-C [facility] kb 17:30 Los Seymour DO is Attending Physician. kb 17:44 Herminia Herrera, RN is Primary Nurse. db 17:45 Triage completed. jl7 17:45 Arm band placed on right wrist. jl7 17:55 Inserted saline lock: 20 gauge in right antecubital area, using aseptic technique. db Blood collected. 18:24 US Transvaginal Ob In Process Unspecified. EDMS 19:50 No provider procedures requiring assistance completed. IV discontinued, intact, ll3 bleeding controlled, No redness/swelling at site. Pressure dressing applied. 19:51 Patient has correct armband on for positive identification. Bed in low position. Call ll3 light in reach. Side rails up X 1. Administered Medications: No medications were administered Medication: 19:51 VIS not applicable for this client. ll3 Outcome: 19:31 Discharge ordered by . kb 19:50 Discharged to home ambulatory, with significant other. ll3 19:50 Condition: stable 19:50 Discharge instructions given to patient, family, Instructed on discharge instructions, follow up and referral plans. Demonstrated understanding of instructions, follow-up care. 19:54 Patient left the ED. 3 Signatures: Dispatcher [employer] EDKS Elizabeth Orellana, SUDARSHAN BOTTOM BUFFER-Angela Lema mr Dianne Diaz, RN RN jl7 Donnie Magallon RN RN ll3 Herminia Herrera RN RN db
[2023-01-29 20:23] VITALS: TEMP 98.4; O2SAT 100
[2023-01-29 20:24] VITALS: BP 125/77
== END 2023-01-29 19:54 | disposition home or self-care (01) ==
LOC: ER 17:25
DX: O20.0 Threatened abortion (principal); Z91.013 Allergy to seafood
CPT/HCPCS: 36415; 76817; 80048; 81001; 81025; 84702; 85025; 86900; 86901; 99284

== ENCOUNTER 2023-02-13 17:49 | Emergency (ER) | payer BC, OTHER ==
--- OUTSIDE RECORDS SUMMARY | 2023-02-13 17:58 | XMS REPORT | Continuity of Care Document ---
:2000 Author Organization [facility] t Address [address] [facility] [address] [place] [address] Care Team Providers Name Role Phone SARMAD MAGUIRE Primary Care Physician Unavailable LIANET ADAM Attending Clinician Unavailable LIANET ADAM Attending Clinician Unavailable HONORIO NICOLAS Attending Clinician Unavailable Honorio Villa Attending Clinician Ultrasound, [facility] Attending Clinician Unavailable Divina Sheikh MD Attending Clinician [phone] DIVINA SHEIKH Attending Clinician Unavailable Sarmad Pabon Attending Clinician [phone] Lab, [facility] Attending Clinician Unavailable SARMAD MAGUIRE Attending Clinician Unavailable Doctor Unassigned, [place] Attending Clinician Unavailable Ashlyn DOVE, Emma Fowler Attending Clinician Unavailable VANITA GARCIA Attending Clinician Unavailable Radha VERDE, Vanita Hilario Attending Clinician AUGIE MENDOZA Attending Clinician Unavailable Reji DAYCARE PROVIDER, Augie Agarwal Attending Clinician Nurse, [facility] Exp Cprit Obgyn Attending Clinician Unavail able Provider, [facility] Temp Attending Clinician Unavailable CALE ORTIZ Attending Clinician Unavailable Diana MAYA, Cale Attending Clinician Amos MAYA, Josee Attending Clinician Kirby MAYA, Nikko Attending Clinician Brenda Perea RN Attending Clinician Unavailable CHIDI PRESCOTT Attending Clinician Unavailable Darrel MAYA, Chidi Salazar Attending Clinician Amos MAYA, Fabiola Campa Attending Clinician [phone] FABIOLA TRINIDAD Attending Clinician Unavailable Smitha DOVE, Kriss Charles Attending Clinician Paulie Pinto DO Attending Clinician Rachell DOVE, Priyanka T Attending Clinician Unavailable KARTHIK NARANJO Attending Clinician Unavailable Jose A MAYA, Karthik Roche Attending Clinician Bo DOVE, Jhonny Attending Clinician Unavailable SISSY MCKEON Attending Clinician Unavailable SISSY MCKEON Attending Clinician Unavailable Sonido Geronimo MD Attending Clinician 1, [facility] Attending Clinician Unavailable Jhonny Hutchins DO Attending Clinician Bj, [facility] Attending Clinician Unavailable Ewelina Clements PA-C Attending Clinician EWELINA CLEMENTS Attending Clinician Unavailable Roberta MICHEL, Abhijit Fowler Attending Clinician Trung MAYA, Delroy Medina Attending Clinician AVERY DUNAWAY Attending Clinician Unavailable Sharee Dior MD Attending Clinician [facility] Attending Clinician Unavailable SHAREE DIOR Attending Clinician Unavailable Ashlyn SOLOMONP, Ewelina Attending Clinician EWELINA GOLDBERG Attending Clinician Unavailable Care, Abi Primary Attending Clinician Unavailable Nurse, Abi Urgent Attending Clinician Unavailable Unknown, Attending Attending Clinician Unavailable Matilde Holm Attending Clinician Gallito DAYCARE PROVIDERNan Attending Clinician UNKNOWN, ATTENDING Attending Clinician Unavailable Evi Jim MD Attending Clinician EVI JIM Attending Clinician Unavailable CORINA LAU Attending Clinician Unavailable Corina Lau DO Attending Clinician ALFRED REYES Attending Clinician Unavailable TREVA KOENIG Attending Clinician Unavailable VAZQUEZ VALERO Attending Clinician Unavailable Vazquez Valero MD Attending Clinician Don Bland MD Attending Clinician KARTHIK NARANJO Admitting Clinician Unavailable Cale Ortiz MD Admitting Clinician CHIDI PRESCOTT Admitting Clinician Unavailable Chidi Prescott MD Admitting Clinician FABIOLA TRINIDAD Admitting Clinician Unavailable Amos MAYA, Fabiola Campa Admitting Clinician [phone] Karthik Naranjo MD Admitting Clinician EVI JIM Admitting Clinician Unavailable CORINA LAU Admitting Clinician Unavailable ALFRED REYES Admitting Clinician Unavailable Payers Payer Name Policy Type Policy Number Effective Date Expiration Date S becky [employer] [id number] 2019 CARE 00:00:00 BROOK [id number] 00:00:00 [employer] [facility] [id number] 2019 C 00:00:00 [facility] [id number] 2021 CHOICE [place] STAR 00:00:00 MEDICAID PENDING PENDING 2021 00:00:00 [facility] [id number] 2020 00:00:00 [facility] KATY ZIMMERMAN [id number] 2019 2019 00:00:00 00:00:00 Problems Condition Condition Condition Status Onset Resolution Last Treating Co mments Source Name Details Category Date Date Treatment Clinician Date Right Right Disease Active Univers tubal tubal 6-20 [place] without without 00 Medical intrauteri intrauteri Br anch ne ne S/P S/P Disease Active Univers laparoscop laparoscop 6-20 it y of y y 00:00: Medical Branch Rubella Rubella Disease Active Overview: Univ ers non-immune non-immune 6-15 Formattin ity of status, status, 00:00: g of this [place] antepartum antepartum 00 note Me dical might be Branch different from the original. Address pp Susceptibl Susceptibl Disease Active Overview : Univers e to e to 6-15 Formattin ity of varicella varicella 00:00: [place] (non-immun (non-immun 00 note Me dical e), e), might be Branch currently currently different from the original. Address pp Supervisio Supervisio Disease Active U nivers n of n of 6-14 ity of high-risk high-risk 00:[place] 00 [place] Branch Vaginal Vaginal Disease Active Overview: Univ ers bleeding bleeding 6-14 Formattin ity of in in 00:00: g of this [place] 00 note Medi lissa might be Branch different from the original. Pt reports beta as 188 at [facility] on Sunday Hx of Hx of Disease Active Overview: Univer s pulmonary pulmonary 6-14 Formattin i ty of embolus embolus 00:00: g of this 00 note Medical might be Branch different from the original. Reports was on lovenox with last and Postp Multiparit Multiparit Disease Active U nivers y y 6-14 ity of 00:00: Medical Branch Short Short Disease Active Univers interval interval 6-14 ity of between between 00:00: [place] pregnancie pregnancie 00 Me dical s s Branch affecting affecting , , antepartum antepartum Other Other Disease Active 2021-08 Univers general general 2-01 ity of counseling counseling 00:[place] and advice and advice 00 Me dical for for Branch contracept contracept gonzales gonzales management management 38 weeks 38 weeks Disease Active Unive rs gestation gestation 9-05 ity of of of 00:00: [place] 00 [facility] BMI BMI Disease Active Univers 30.0-30.9, 30.0-30.9, 8-30 it y of adult adult 00:00: [place] Medical Branch Obesity in Obesity in Disease Active U nivers 8-30 ity of 00:00: [place] [facility] Acute Acute Disease Active Univers headache headache 7-23 ity of 00:00: [place] [facility] Left arm Left arm Disease Active Unive rs numbness numbness 7-23 ity of 00:00: [place] [facility] Numbness Numbness Disease Active Unive rs and and 7-23 ity of tingling tingling 00:00: [place] of left of left 00 Medical side of side of Branch face face Acute Acute Disease Active Univers left-sided left-sided 7-23 it y of weakness weakness 00:00: [place] 00 Medical Branch 31 weeks 31 weeks Disease Active Unive rs gestation gestation 7-20 ity of of of 00:00: [place] 00 [facility] Decreased Decreased Disease Active Uni vers 7-20 ity of movements movements 00:00[place] in third in third 00 Medica l trimester trimester Bran ch BMI BMI Disease Active Univers 29.0-29.9, 29.0-29.9, 6-30 it y of adult adult 00:00: [place] 00 Medical Branch BMI BMI Disease Active Univers 29.0-29.9, 29.0-29.9, 6-30 it y of adult adult 00:00: [place] [facility] Screening, Screening, Disease Active U nivers 6-09 ity of for for 00:[place] growth growth 00 Medical retardatio retardatio Br anch n with n with ultrasound ultrasound Maternal Maternal Disease Active Overview: Un donnie varicella, varicella, 09-17 Formattin ity of non-immune non-immune 00:00: g of this [place] 00 note Medical might be Branch different from the original. Address in PP Rubella Rubella Disease Active Overview: Univ ers non-immune non-immune 09-17 Formattin ity of status, status, 00:00: g of this [place] antepartum antepartum 00 note Me dical might be Branch different from the original. Address in PP Supervisio Supervisio Disease Active U nivers n of high n of high 09-16 ity of risk risk 00:00: [place] 00 Medi lissa in third in third Branch trimester trimester Primigravi Primigravi Disease Active U nivers da in da in 09-16 ity of third third 00:00: [place] trimester trimester 00 Medi [facility] Branch Encounter Encounter Disease Active Uni vers for for 6-30 ity of surveillan surveillan [place] ce of ce of 00 Medical contracept contracept Br anch gonzales pills gonzales pills Initiation Initiation Disease Active U nivers of OCP of OCP 6-30 ity of (BCP) (BCP) 00:00: [place] [facility] History of History of Disease Active U nivers pulmonary pulmonary 6-30 ity of embolus embolus 00:00: [place] (PE) (PE) 00 Medical Branch Chest pain Chest pain Disease Active 2018-08 U nivers 0-29 ity of 00:00: [place] [facility] Syncope Syncope Disease Active 2018-08 Univers 0-27 ity of 00:00: [place] [facility] Pulmonary Pulmonary Disease Active 2018-08 Uni vers embolism embolism 0-27 ity of 00:00: [place] [facility] Non-intrac Non-intrac Disease Active U nivers table table 506 ity of vomiting vomiting 00:00: [place] with with 00 Medical nausea, nausea, Branch unspecifie unspecifie d vomiting d vomiting type type Epistaxis Epistaxis Disease Active Uni vers 5-06 ity of 00:00: [place] 00 Medical Branch Seasonal Seasonal Disease Active 2019-0 Unive rs allergic allergic 5-06 ity of rhinitis rhinitis 00:00: [place] due to due to 00 Medical pollen pollen Branch Uncomplica Uncomplic Problem Active 2017-01-03 Memoria burke ated 02:45:39 l asthma, asthma, [place] unspecifie unspecifie d asthma d asthma severity severity Active Problem 01/03/2017 [facility] Screen for Screen Diagnosis Active 2016-12-11 Memoria STD for STD 02:45:58 l (sexually (sexually Herm nikki transmitte transmitte d disease) d disease) Active Diagnosis 12/11/2016 [facility] Encounter Encounter Diagnosis Active 2016-12-11 Memoria for for 02:45:58 l initial initial Arnol prescripti prescripti on of on of contracept contracept gonzales pills gonzales pills Active Diagnosis 12/11/2016 [facility] Allergies, Adverse Reactions, Alerts Allergy Allergy Status Severity Reaction(s) Onset Inactive Treating Comm ents Source Name Type Date Date Clinician ANIMAL DRUG Active Other-Cmnt 2018-08 Univer s DANDER INGREDI 0-27 ity of 00:00: [place] 00 [facility] SHELLFIS DRUG Active Rash 2018-08 Univers H INGREDI 0-27 ity of DERIVED 00:00: [place] 00 [facility] Animal Drug Active Other - See 2018-08 Allergic Uni vers Dander Allergy comments 0-27 from cats ity of 00:00: and [place] 00 [facility] fy nose Branch Shellfis Drug Active Rash 2018-08 Univers h Allergy 0-27 ity of Derived 00:00: [place] [facility] No Known DA Active U [facility] Allergie 7-08 Clear s 00:00: [place] 00 [facility] N.K.D.A. N.K.D.A. Active Info Not Ethan vira Available 4-19 l 00:00: [place] 00 No Known DA Active U 2014-08 [facility] Allergie 1-17 Clear s 00:00: [place] 00 [facility] Social History Social Habit Start Date Stop Date Quantity Comments Source ASSERTION 2023-01-09 University of 00:00:00 [facility] History of Passive smoker University of tobacco use [place] [facility] History SDMT University o f Alcohol Frequency [place] M edical Branch History [facility] University o f Alcohol Std [place] Medical Drinks Branch History [facility] University o f Alcohol Binge [place] [facility] al Branch Alcohol intake 2023-02-06 2023-02-06 Ex-drinker [facility] 00:00:00 00:00:00 (finding) [facility] Exposure to 2022-08-27 2022-09-06 Not sure [facility] SARS-CoV-2 00:00:00 14:11:00 [facility] (event) [facility] Tobacco use and 2022-03-11 2022-03-11 Smokeless tobacco Un iversity of exposure 00:00:00 00:00:00 non-user [facility] Tobacco Comment 2022-03-01 2022-03-01 vape before Universi ty of 00:00:00 00:00:00 04/2019 [facility] Alcohol Comment 2021-02-16 2021-02-16 socially Universit y of 00:00:00 00:00:00 [facility] Sex Assigned At 2000 2000 Universit y of 00:00:00 00:00:00 [facility] Smoking Status Start Date Stop Date Source Never smoked tobacco [facility] Medications Ordered Filled Start Stop Current Ordering Indication Dosage Frequency Signature Comments Components Source Medication Medication Date Date Medication? Clinician (SIG) Name Name HYDROcodone Yes 1{tbl} 1 tablet, Univers -acetaminop 6-21 Oral, PRN, it y of hen (NORCO) 01:29: 1 dose, Eugenio as 10-325 mg 10 Starting Medica l tablet 1 on [facility] tablet 02/06/23 at 2028, Until Discontinu ed, Routine, Pain (scale 7-10), DSU Recovery ibuprofen Yes 800mg 800 mg, Univ ers (IBU) -21 Oral, PRN, ity of tablet 800 01:29: 1 dose, [place] mg 10 Starting Medical on [facility] Branch 02/06/23 at 2028, Until Discontinu ed, Routine, Pain (scale 1-3), DSU Recovery HYDROcodone 2022- No 1{tbl} 1 tablet, Univers -acetaminop 6-07 02-21 Oral, PRN, i ty of hen (NORCO 01:29: 02:06 1 dose, Eugenio as 5) 5-325 mg 10 :00 Starting Medi lissa tablet 1 on [facility] tablet 02/06/23 at 2028, Until Sun02/06/23 at 210, Routine, Pain (scale 4-6), DSU Recovery HYDROcodone 2022- No 1{tbl} 1 tablet, Univers -acetaminop 02-07 Oral, PRN, i ty of hen (NORCO) 01:29: 04:36 1 [place] 10-325 mg 10 :43 Starting Medica l tablet 1 on [facility] tablet 02/06/23 at 2028, Until Sun02/06/23 at 233, Routine, Pain (scale 7-10), DSU Recovery HYDROcodone 2022- No 1{tbl} 1 tablet, Univers -acetaminop 02-07 Oral, PRN, i ty of hen (NORCO 01:29: 02:06 1 dose, Eugenio as 5) 5-325 mg 10 :00 Starting Medi lissa tablet 1 on Sun tablet 02/06/23 at 2028, Until Sun02/06/23 at 2105, Routine, Pain (scale 4-6), DSU Recovery ibuprofen 2022- No 800mg 800 mg, Uni vers (IBU) 02-07 Oral, PRN, ity of tablet 800 01:29: 04:36 1 dose, [place] as mg 10 :43 Starting Medical on Sun02/06/23 at 2028, Until Sun02/06/23 at 2335, Routine, Pain (scale 1-3), DSU Recovery morpHINE (4 0 Yes 2mg 2 mg, Slow Univers mg/mL) 02-07 IV Push, ity of injection 2 01:29: Q5MIN PRN, [place] mg 01 5 doses, Medical Starting Branch on Sun02/06/23 at 2028, Until Discontinu ed, Routine, Pain (scale 4-6), PACU ondansetron 0 Yes 4mg 4 mg, Slow Univers (ZOFRAN 02-07 IV Push, ity of (PF)) 01:29: PRN, 1 [place] injection 4 01 dose, Medical mg Starting Branch on Sun02/06/23 at 2028, Until Discontinu ed, Routine, Nausea and Vomiting (N/V), PACU morpHINE (4 2022-2022- No 2mg 2 mg, Slow Univers mg/mL) 02-07 IV Push, ity of injection 2 01:29: 04:36 Q5MIN PRN, [place] mg 01 :43 5 doses, Medical Starting Branch on Sun02/06/23 at 2028, Until Sun02/06/23 at 2335, Routine, Pain (scale 4-6), PACU ondansetron 2022- No 4mg 4 mg, Slow Univers (ZOFRAN 02-07 IV Push, ity of (PF)) 01:29: 04:36 PRN, 1 [place] injection 4 01 :43 dose, Medical mg Starting Branch on Sun02/06/23 at 2028, Until Sun02/06/23 at 2335, Routine, Nausea and Vomiting (N/V), PACU sodium 2022- No PRN, Univers chloride 02-07 Starting ity of 0.9 % 00:48: 02:35 on Sun [place] irrigation 00 :59 02/06/23 at Med ical solution 1948, Branch Until Sun02/06/23 at 213, Intra-op bupivacaine 2022- No [facility] Starting ity of e-pf 12:43: 02:35 on Sun (SENSORCAIN 00 :59 02/06/23 at Fl dical E 0743, Branch W/EPINEPHRI Until Sun) 0.25 02/06/23 at %-1:200,000 2134, injection Routine, Intra-op HYDROcodone Yes [id number] 1{tbl} Take 1 Un donnie -acetaminop 6-20 tablet by ity of hen 5-325 00:00: mouth [place] mg tablet 00 every 6 Medical (six) Branch hours as needed for Pain (scale 4-6) or Pain (scale 7-10). Indication s: acute pain ibuprofen Yes [id number] 800mg Take 1 Univers 800 mg 6-20 tablet by ity of tablet 00:00: mouth [place] 00 every 6 Medical (six) Branch hours as needed for Pain (scale 1-3). HYDROcodone Yes [id number] 1{tbl} Take 1 Un donnie -acetaminop 6-20 tablet by ity of hen 5-325 00:00: mouth [place] mg tablet 00 every 6 Medical (six) Branch hours as needed for Pain (scale 4-6) or Pain (scale 7-10). Indication s: acute pain ibuprofen 0 Yes [id number] 800mg Take 1 Univers 800 mg 6-20 tablet by ity of tablet 00:00: mouth [place] 00 every 6 Medical (six) Branch hours as needed for Pain (scale 1-3). norethindro 0 Yes [id number] 1{tbl} Take 1 Univers ne 0.35 mg 1-18 tablet by ity of tablet 00:00: mouth in [place] 00 the Medical morning. Branch norethindro 2022-0 Yes [id number] 1{tbl} Take 1 Univers ne 0.35 mg 1-18 tablet by ity of tablet 00:00: mouth in [place] the Medical morning. Branch norethindro 0 Yes [id number] 1{tbl} Take 1 Univers ne 0.35 mg 1-18 tablet by ity of tablet 00:00: mouth in [place] the Medical morning. Branch norethindro 0 Yes [id number] 1{tbl} Take 1 Univers ne 0.35 mg 1-18 tablet by ity of tablet 00:00: mouth in [place] the Medical morning. Branch norethindro 0 Yes [id number] 1{tbl} Take 1 Univers ne 0.35 mg 1-18 tablet by ity of tablet 00:00: mouth in [place] the Medical morning. Branch norethindro 0 Yes [id number] 1{tbl} Take 1 Univers ne 0.35 mg 1-18 tablet by ity of tablet 00:00: mouth in [place] the Medical morning. Branch norethindro 2022-0 Yes [id number] 1{tbl} Take 1 Univers ne 0.35 mg 1-18 tablet by ity of tablet 00:00: mouth in [place] 00 the Medical morning. Branch norethindro 0 Yes [id number] 1{tbl} Take 1 Univers ne 0.35 mg 1-18 tablet by ity of tablet 00:00: mouth in [place] 00 the Medical morning. Branch norethindro 0 Yes [id number] 1{tbl} Take 1 Univers ne 0.35 mg 1-18 tablet by ity of tablet 00:00: mouth in [place] 00 the Medical morning. Branch norethindro 2022-0 Yes [id number] 1{tbl} Take 1 Univers ne 0.35 mg 1-18 tablet by ity of tablet 00:00: mouth in [place] 00 the Medical morning. Branch norethindro 2022-0 Yes [id number] 1{tbl} Take 1 Univers ne 0.35 mg 1-18 tablet by ity of tablet 00:00: mouth in [place] 00 the Medical morning. Branch norethindro 2022-0 Yes [id number] 1{tbl} Take 1 Univers ne 0.35 mg 1-18 tablet by ity of tablet 00:00: mouth in [place] 00 the Medical morning. Branch norethindro 2022-0 Yes [id number] 1{tbl} Take 1 Univers ne 0.35 mg 1-18 tablet by ity of tablet 00:00: mouth in [place] 00 the Medical morning. Branch norethindro 2022-0 Yes [id number] 1{tbl} Take 1 Univers ne 0.35 mg 1-18 tablet by ity of tablet 00:00: mouth in [place] 00 the Medical morning. Branch norethindro 2022-0 Yes [id number] 1{tbl} Take 1 Univers ne 0.35 mg 1-18 tablet by ity of tablet 00:00: mouth in [place] 00 the Medical morning. Branch norethindro 2022-0 Yes [id number] 1{tbl} Take 1 Univers ne 0.35 mg 1-18 tablet by ity of tablet 00:00: mouth in [place] 00 the Medical morning. Branch norethindro 2022-0 Yes [id number] 1{tbl} Take 1 Univers ne 0.35 mg 1-18 tablet by ity of tablet 00:00: mouth in [place] 00 the Medical morning. Branch norethindro 2022-0 2022- No [id number] 1{tbl} Take 1 Univers ne 0.35 mg 1-18 06-20 tablet by ity of tablet 00:00: 00:00 mouth in [place] 00 :00 the Medical morning. Branch norethindro 0 2022- No [id number] 1{tbl} Take 1 Univers ne 0.35 mg 1-18 06-20 tablet by ity of tablet 00:00: 00:00 mouth in [place] 00 :00 the Medical morning. Branch norethindro 2022- No [id number] 1{tbl} Take 1 Univers ne 0.35 mg 1-18 01-18 tablet by ity of tablet 00:00: 00:00 mouth in [place] 00 :00 the Medical morning. Branch norethindro 2022- No [id number] 1{tbl} Take 1 Univers ne 0.35 mg 1-18 01-18 tablet by ity of tablet 00:00: 00:00 mouth in [place] 00 :00 the Medical morning. Branch amoxicillin 2021-08- No [id number] 1{tbl} Take 1 Univers -clavulanat 2-01 12-12 tablet by it y of e 00:00: 05:59 mouth in [place] (AUGMENTIN) 00 :00 the Medical 875-125 mg morning Branch per tablet and 1 tablet in the evening. Do all this for 10 days. amoxicillin 2021-08- No [id number] 1{tbl} Take 1 Univers -clavulanat 2-01 12-12 tablet by it y of e 00:00: 05:59 mouth in [place] (AUGMENTIN) 00 :00 the Medical 875-125 mg morning Branch per tablet and 1 tablet in the evening. Do all this for 10 days. norethindro 2021-08 Yes [id number] 1{tbl} Take 1 Univers ne 0.35 mg 0-18 tablet by ity of tablet 00:00: mouth in [place] 00 the Medical morning. Branch norethindro 2021-08 Yes [id number] 1{tbl} Take 1 Univers ne 0.35 mg 0-18 tablet by ity of tablet 00:00: mouth in [place] 00 the Medical morning. Branch norethindro 2021-08 Yes [id number] 1{tbl} Take 1 Univers ne 0.35 mg 0-18 tablet by ity of tablet 00:00: mouth in [place] 00 the Medical morning. Branch norethindro 2021-08 Yes [id number] 1{tbl} Take 1 Univers ne 0.35 mg 0-18 tablet by ity of tablet 00:00: mouth in [place] 00 the Medical morning. Branch timndro 2021-08 Yes [id number] 1{tbl} Take 1 Univers ne 0.35 mg 0-18 tablet by ity of tablet 00:00: mouth in [place] 00 the Medical morning. Branch timndro 2021-08 Yes [id number] 1{tbl} Take 1 Univers ne 0.35 mg 0-18 tablet by ity of tablet 00:00: mouth in [place] 00 the Medical morning. Branch timndro 2021-08 Yes [id number] 1{tbl} Take 1 Univers ne 0.35 mg 0-18 tablet by ity of tablet 00:00: mouth in [place] 00 the Medical morning. Branch timndro 2021-08 Yes [id number] 1{tbl} Take 1 Univers ne 0.35 mg 0-18 tablet by ity of tablet 00:00: mouth in [place] 00 the Medical morning. Branch timndro 2021-08 Yes [id number] 1{tbl} Take 1 Univers ne 0.35 mg 0-18 tablet by ity of tablet 00:00: mouth in [place] 00 the Medical morning. Branch timndro 2021-08 Yes [id number] 1{tbl} Take 1 Univers ne 0.35 mg 0-18 tablet by ity of tablet 00:00: mouth in [place] 00 the Medical morning. Branch timndro 2021-08 Yes [id number] 1{tbl} Take 1 Univers ne 0.35 mg 0-18 tablet by ity of tablet 00:00: mouth in [place] 00 the Medical morning. Branch timndro 2021-08 Yes [id number] 1{tbl} Take 1 Univers ne 0.35 mg 0-18 tablet by ity of tablet 00:00: mouth in [place] 00 the Medical morning. Branch timndro 2021-08 Yes [id number] 1{tbl} Take 1 Univers ne 0.35 mg 0-18 tablet by ity of tablet 00:00: mouth in [place] 00 the Medical morning. Branch timndro 2021-08 Yes [id number] 1{tbl} Take 1 Univers ne 0.35 mg 0-18 tablet by ity of tablet 00:00: mouth in [place] 00 the Medical morning. Branch timndro 2021-08 Yes [id number] 1{tbl} Take 1 Univers ne 0.35 mg 0-18 tablet by ity of tablet 00:00: mouth in [place] 00 the Medical morning. Branch timndro 2021-08 Yes [id number] 1{tbl} Take 1 Univers ne 0.35 mg 0-18 tablet by ity of tablet 00:00: mouth in [place] 00 the Medical morning. Branch norethindro 2021-08 Yes [id number] 1{tbl} Take 1 Univers ne 0.35 mg 0-18 tablet by ity of tablet 00:00: mouth in [place] the Medical morning. Branch norethindro 2021-08 Yes [id number] 1{tbl} Take 1 Univers ne 0.35 mg 0-18 tablet by ity of tablet 00:00: mouth in [place] the Medical morning. Branch noremalvinndro 2021-08 Yes [id number] 1{tbl} Take 1 Univers ne 0.35 mg 0-18 tablet by ity of tablet 00:00: mouth in [place] the Medical morning. Branch noremalvinndro 2021-08 Yes [id number] 1{tbl} Take 1 Univers ne 0.35 mg 0-18 tablet by ity of tablet 00:00: mouth in [place] the Medical morning. Branch noremalvinndro 2021-08 Yes [id number] 1{tbl} Take 1 Univers ne 0.35 mg 0-18 tablet by ity of tablet 00:00: mouth in [place] the Medical morning. Branch norethindro 2021-08 Yes [id number] 1{tbl} Take 1 Univers ne 0.35 mg 0-18 tablet by ity of tablet 00:00: mouth in [place] the Medical morning. Branch norethindro 2021-08 Yes [id number] 1{tbl} Take 1 Univers ne 0.35 mg 0-18 tablet by ity of tablet 00:00: mouth in [place] 00 the Medical morning. Branch norethindro 2021-08 Yes [id number] 1{tbl} Take 1 Univers ne 0.35 mg 0-18 tablet by ity of tablet 00:00: mouth in [place] 00 the Medical morning. Branch norethindro 2021-08 Yes [id number] 1{tbl} Take 1 Univers ne 0.35 mg 0-18 tablet by ity of tablet 00:00: mouth in [place] 00 the Medical morning. Branch norethindro 2021-08- No [id number] 1{tbl} Take 1 [facility] ne 0.35 mg 0-18 06-20 tablet by ity of tablet 00:00: 00:00 mouth in [place] 00 :00 the Medical morning. Branch norethindro 2021-08- No [id number] 1{tbl} Take 1 [facility] ne 0.35 mg 0-18 06-20 tablet by ity of tablet 00:00: 00:00 mouth in [place] 00 :00 the Medical morning. Branch cephALEXin 2021-08- No [id number] 500mg Take 1 [facility] (KEFLEX) 0-18 10-29 capsule by ity of 500 mg 00:00: 04:59 mouth 4 [place] capsule 00 :00 (four) Medical times [facility] daily for 10 days. cephALEXin 2021-08- No [id number] 500mg Take 1 [facility] (KEFLEX) 0-18 10-29 capsule by ity of 500 mg 00:00: 04:59 mouth 4 [place] capsule 00 :00 (four) Medical times Branch daily for 10 days. cephALEXin 2021-08- No [id number] 500mg Take 1 [facility] (KEFLEX) 0-18 10-29 capsule by ity of 500 mg 00:00: 04:59 mouth 4 [place] capsule 00 :00 (four) Medical times [facility] daily for 10 days. cephALEXin 2021-08- No [id number] 500mg Take 1 [facility] (KEFLEX) 0-18 10-29 capsule by ity of 500 mg 00:00: 04:59 mouth 4 [place] capsule 00 :00 (four) Medical times [facility] daily for 10 days. terconazole Yes [id number] 1{appli Insert 1 [facility] 0.8 % 9-22 cator} Applicator ity of vaginal 00:00: into [place] cream 00 vagina at Medical bedtime. Branch terconazole Yes [id number] 1{appli Insert 1 [facility] 0.8 % 9-22 cator} Applicator ity of vaginal 00:00: into [place] cream 00 vagina at Medical bedtime. Branch terconazole Yes [id number] 1{appli Insert 1 [facility] 0.8 % 9-22 cator} Applicator ity of vaginal 00:00: into [place] cream 00 vagina at Medical bedtime. [facility] terconazole Yes [id number] 1{appli Insert 1 [facility] 0.8 % 9-22 cator} Applicator ity of vaginal 00:00: into [place] cream 00 vagina at Medical bedtime. [facility] terconazole Yes [id number] 1{appli Insert 1 [facility] 0.8 % 9-22 cator} Applicator ity of vaginal 00:00: into [place] cream 00 vagina at Medical bedtime. Branch terconazole Yes [id number] 1{appli Insert 1 [facility] 0.8 % 9-22 cator} Applicator ity of vaginal 00:00: into [place] cream 00 vagina at Medical bedtime. Branch terconazole Yes [id number] 1{appli Insert 1 [facility] 0.8 % 9-22 cator} Applicator ity of vaginal 00:00: into [place] cream 00 vagina at Medical bedtime. [facility] terconazole Yes [id number] 1{appli Insert 1 [facility] 0.8 % 9-22 cator} Applicator ity of vaginal 00:00: into [place] cream 00 vagina at Medical bedtime. [facility] terconazole Yes [id number] 1{appli Insert 1 [facility] 0.8 % 9-22 cator} Applicator ity of vaginal 00:00: into [place] cream 00 vagina at Medical bedtime. [facility] terconazole Yes [id number] 1{appli Insert 1 [facility] 0.8 % 9-22 cator} Applicator ity of vaginal 00:00: into [place] cream 00 vagina at Medical bedtime. [facility] terconazole Yes [id number] 1{appli Insert 1 [facility] 0.8 % 9-22 cator} Applicator ity of vaginal 00:00: into [place] cream 00 vagina at Medical bedtime. [facility] terconazole Yes [id number] 1{appli Insert 1 [facility] 0.8 % 9-22 cator} Applicator ity of vaginal 00:00: into [place] cream 00 vagina at Medical bedtime. [facility] terconazole Yes [id number] 1{appli Insert 1 [facility] 0.8 % 9-22 cator} Applicator ity of vaginal 00:00: into [place] cream 00 vagina at Medical bedtime. [facility] terconazole Yes [id number] 1{appli Insert 1 [facility] 0.8 % 05-11 cator} Applicator ity of vaginal 00:00: into [place] cream 00 vagina at Medical bedtime. Branch terconazole 2022- No [id number] 1{appli Insert 1 [facility] 0.8 % 05-11 cator} Applicator ity o f vaginal 00:00: 00:00 into [place] cream 00 :00 vagina at Medical bedtime. Branch terconazole 2022- No [id number] 1{appli Insert 1 [facility] 0.8 % 05-11 cator} Applicator ity o f vaginal 00:00: 00:00 into [place] cream 00 :00 vagina at Medical bedtime. [facility] enoxaparin Yes 40mg 40 mg, Un[facility] rs (LOVENOX) 04-26 Subcutaneo ity of injection 14:00: us, DAILY, [place] 40 mg 00 First dose Medical on Sun04/26/22 at 0900, Until Discontinu ed, [facility] 04-26 mouth. ity of no.124/iron 06:48: 00:00 [place] /folic 45 :00 Medical ( [facility] VITAMIN ORAL) rho(D) Yes 300ug 300 mcg, Univer s immune 04-26 Intramuscu ity of globulin 00:23: lar, ONCE, [place] as (RHOGAM) 54 For 1 Medical syringe 300 dose, Branch mcg Conditiona l, Routine ibuprofen Yes 600mg 600 mg, Univ ers (IBU) 04-26 Oral, ity of tablet 600 00:23: Q6HPRN, [place] mg 50 Starting Medical on Sun [facility] 04/25/22 at 1923, Until Discontinu ed, Routine, Pain (scale 4-6) acetaminoph Yes 650mg 650 mg, [facility] en 04-26 Oral, ity of (TYLENOL) 00:23: Q6HPRN, [place] tablet 650 50 Starting Medic al mg on Sun [facility] 04/25/22 at 1923, Until Discontinu ed, Routine, Pain (scale 1-3) diphenhydrA 2021-0 Yes 25mg 25 mg, Univ ers MINE 04-26 Oral, ity of (BENADRYL) 00:23: Q6HPRN, [place] tablet 25 50 Starting Medica l mg on [facility] 04/25/22 at 1923, Until Discontinu ed, Routine, Sleep, Itching ondansetron 2021-0 Yes 4mg 4 mg, Slow [facility] (ZOFRAN 04-26 IV Push, ity of (PF)) 00:23: Q8HPRN, [place] injection 4 50 Starting Medi lissa mg on [facility] 04/25/22 at 3, Until Discontinu ed, Routine, Nausea and Vomiting (N/V) simethicone 2021-0 Yes 160mg 160 mg, [facility] (GAS RELIEF 04-26 Oral, ity of (SIMETHICON 00:23: PC+HSPRN, [place] E)) 50 Starting Medical chewable on [facility] tablet 160 04/25/22 at mg 1922, Until Discontinu ed, Routine, Gas docusate 0 Yes 200mg 200 mg, Un[facility] rs (COLACE) 04-26 Oral, ity of capsule 200 00:23: QDAILYPRN, [place] mg 50 Starting Medical on [facility] 04/25/22 at 1923, Until Discontinu ed, Routine, Constipati on magnesium 0 Yes 30mL 30 mL, Univer s hydroxide 04-26 Oral, ity of (MILK OF 00:23: QDAILYPRN, [place] MAGNESIA) 50 Starting Medica l 400 mg/5 mL on [facility] suspension 04/25/22 at 30 mL 1922, Until Discontinu ed, Routine, Constipati on benzocaine- 0 Yes Topical, [facility] menthol 04-26 PRN, ity of (DERMOPLAST 00:23: Starting [place] ) 20-0.5 % 50 on [facility] Medical topical 04/25/22 at Branch spray 1922, Until Discontinu ed, Routine, Perineum discomfort 2021-0 Yes [id number] 1{tbl} Take 1 [facility] vitamin 04-26 tablet by ity of w/FA tablet 00:00: mouth in [place] 00 the Medical morning. Branch docusate 2021-0 Yes [id number] 200mg Take 2 U nivers 100 mg 9-07 capsules ity of capsule 00:00: by mouth [place] 00 once daily Medical as needed Branch for Constipati on. ferrous 2021-0 Yes [id number] 325mg Take 1 [facility] sulfate 325 9-07 tablet by ity of mg (65 mg 00:00: [place] iron[place] 00 the Medical tablet morning Branch and 1 tablet in the evening. ibuprofen 2021-0 Yes [id number] 600mg Take 1 [facility] 600 mg 9-07 tablet by ity of tablet 00:00: mouth [place] 00 every 6 Medical (six) Branch hours as needed (Pain). Take with food or milk. 2021-0 Yes [id number] 1{tbl} Take 1 [facility] vitamin 9-07 tablet by ity of w/FA tablet 00:00: mouth in [place] 00 the Medical morning. Branch docusate 2021-0 Yes [id number] 200mg Take 2 U nivers 100 mg 9-07 capsules ity of capsule 00:00: by mouth [place] 00 once daily Medical as needed Branch for Constipati on. ferrous 2021-0 Yes [id number] 325mg Take 1 [facility] sulfate 325 9-07 tablet by ity of mg (65 mg 00:00: mouth [place] iron[place] 00 the Medical tablet morning Branch and 1 tablet in the evening. ibuprofen 2021-0 Yes [id number] 600mg Take 1 [facility] 600 mg 9-07 tablet by ity of tablet 00:00: mouth [place] 00 every 6 Medical (six) Branch hours as needed (Pain). Take with food or milk. 2021-0 Yes [id number] 1{tbl} Take 1 [facility] vitamin 9-07 tablet by ity of w/FA tablet 00:00: mouth in [place] 00 the Medical morning. Branch docusate 2021-0 Yes [id number] 200mg Take 2 U nivers 100 mg 9-07 capsules ity of capsule 00:00: by mouth [place] 00 once daily Medical as needed Branch for Constipati on. ferrous 2021-0 Yes [id number] 325mg Take 1 [facility] sulfate 325 9-07 tablet by ity of mg (65 mg 00:00: mouth [place] iron[place] 00 the Medical tablet morning Branch and 1 tablet in the evening. ibuprofen 2022-0 Yes [id number] 600mg Take 1 [facility] 600 mg 9-07 tablet by ity of tablet 00:00: mouth [place] 00 every 6 Medical (six) Branch hours as needed (Pain). Take with food or milk. 2021-0 Yes [id number] 1{tbl} Take 1 [facility] vitamin 9-07 tablet by ity of w/FA tablet 00:00: mouth in [place] 00 the Medical morning. Branch docusate 2021-0 Yes [id number] 200mg Take 2 U nivers 100 mg 9-07 capsules ity of capsule 00:00: by mouth [place] 00 once daily Medical as needed Branch for Constipati on. ferrous 2021-0 Yes [id number] 325mg Take 1 [facility] sulfate 325 9-07 tablet by ity of mg (65 mg 00:00: mouth [place] iron[place] 00 the Medical tablet morning Branch and 1 tablet in the evening. ibuprofen 2021-0 Yes [id number] 600mg Take 1 [facility] 600 mg 9-07 tablet by ity of tablet 00:00: mouth [place] 00 every 6 Medical (six) Branch hours as needed (Pain). Take with food or milk. 2021-0 Yes [id number] 1{tbl} Take 1 [facility] vitamin 9-07 tablet by ity of w/FA tablet 00:00: mouth in [place] 00 the Medical morning. Branch docusate 2021-0 Yes [id number] 200mg Take 2 U nivers 100 mg 9-07 capsules ity of capsule 00:00: by mouth [place] 00 once daily Medical as needed Branch for Constipati on. ferrous 2021-0 Yes [id number] 325mg Take 1 [facility] sulfate 325 9-07 tablet by ity of mg (65 mg 00:00: [place] iron[place] 00 the Medical tablet morning Branch and 1 tablet in the evening. ibuprofen 2022-0 Yes [id number] 600mg Take 1 [facility] 600 mg 9-07 tablet by ity of tablet 00:00: mouth [place] 00 every 6 Medical (six) Branch hours as needed (Pain). Take with food or milk. 2021-0 Yes [id number] 1{tbl} Take 1 [facility] vitamin 9-07 tablet by ity of w/FA tablet 00:00: mouth in [place] 00 the Medical morning. Branch docusate 0 Yes [id number] 200mg Take 2 U nivers 100 mg 9-07 capsules ity of capsule 00:00: by mouth [place] 00 once daily Medical as needed Branch for Constipati on. ferrous 2021-0 Yes [id number] 325mg Take 1 [facility] sulfate 325 9-07 tablet by ity of mg (65 mg 00:00: mouth [place] iron[place] 00 the Medical tablet morning Branch and 1 tablet in the evening. ibuprofen 2021-0 Yes [id number] 600mg Take 1 [facility] 600 mg 9-07 tablet by ity of tablet 00:00: mouth [place] 00 every 6 Medical (six) Branch hours as needed (Pain). Take with food or milk. 2021-0 Yes [id number] 1{tbl} Take 1 [facility] vitamin 9-07 tablet by ity of w/FA tablet 00:00: mouth in [place] 00 the Medical morning. Branch docusate 0 Yes [id number] 200mg Take 2 U nivers 100 mg 9-07 capsules ity of capsule 00:00: by mouth [place] 00 once daily Medical as needed Branch for Constipati on. ferrous 2021-0 Yes [id number] 325mg Take 1 [facility] sulfate 325 9-07 tablet by ity of mg (65 mg 00:00: mouth [place] iron[place] 00 the Medical tablet morning Branch and 1 tablet in the evening. ibuprofen 2021-0 Yes [id number] 600mg Take 1 [facility] 600 mg 9-07 tablet by ity of tablet 00:00: mouth [place] 00 every 6 Medical (six) Branch hours as needed (Pain). Take with food or milk. 2021-0 Yes [id number] 1{tbl} Take 1 [facility] vitamin 9-07 tablet by ity of w/FA tablet 00:00: mouth in [place] 00 the Medical morning. Branch docusate 0 Yes [id number] 200mg Take 2 U nivers 100 mg 9-07 capsules ity of capsule 00:00: by mouth [place] 00 once daily Medical as needed Branch for Constipati on. ferrous 2021-0 Yes [id number] 325mg Take 1 [facility] sulfate 325 9-07 tablet by ity of mg (65 mg 00:00: mouth [place] iron[place] 00 the Medical tablet morning Branch and 1 tablet in the evening. ibuprofen 2021-0 Yes [id number] 600mg Take 1 [facility] 600 mg 9-07 tablet by ity of tablet 00:00: mouth [place] 00 every 6 Medical (six) Branch hours as needed (Pain). Take with food or milk. 2021-0 Yes [id number] 1{tbl} Take 1 [facility] vitamin 9-07 tablet by ity of w/FA tablet 00:00: mouth in [place] 00 the Medical morning. Branch docusate 2021-0 Yes [id number] 200mg Take 2 U nivers 100 mg 9-07 capsules ity of capsule 00:00: by mouth [place] 00 once daily Medical as needed Branch for Constipati on. ferrous 2021-0 Yes [id number] 325mg Take 1 [facility] sulfate 325 9-07 tablet by ity of mg (65 mg 00:00: mouth [place] iron[place] 00 the Medical tablet morning Branch and 1 tablet in the evening. ibuprofen 2021-0 Yes [id number] 600mg Take 1 [facility] 600 mg 9-07 tablet by ity of tablet 00:00: mouth [place] 00 every 6 Medical (six) Branch hours as needed (Pain). Take with food or milk. 2021-0 Yes [id number] 1{tbl} Take 1 [facility] vitamin 9-07 tablet by ity of w/FA tablet 00:00: mouth in [place] 00 the Medical morning. Branch docusate 2021-0 Yes [id number] 200mg Take 2 U nivers 100 mg 9-07 capsules ity of capsule 00:00: by mouth [place] 00 once daily Medical as needed Branch for Constipati on. ferrous 2021-0 Yes [id number] 325mg Take 1 [facility] sulfate 325 9-07 tablet by ity of mg (65 mg 00:00: mouth [place] iron[place] 00 the Medical tablet morning Branch and 1 tablet in the evening. ibuprofen 2021-0 Yes [id number] 600mg Take 1 [facility] 600 mg 9-07 tablet by ity of tablet 00:00: mouth [place] 00 every 6 Medical (six) Branch hours as needed (Pain). Take with food or milk. 2021-0 Yes [id number] 1{tbl} Take 1 [facility] vitamin 9-07 tablet by ity of w/FA tablet 00:00: mouth in [place] 00 the Medical morning. Branch docusate 2021-0 Yes [id number] 200mg Take 2 U nivers 100 mg 9-07 capsules ity of capsule 00:00: by mouth [place] 00 once daily Medical as needed Branch for Constipati on. ferrous 2021-0 Yes [id number] 325mg Take 1 [facility] sulfate 325 9-07 tablet by ity of mg (65 mg 00:00: mouth [place] iron[place] 00 the Medical tablet morning Branch and 1 tablet in the evening. ibuprofen 2021-0 Yes [id number] 600mg Take 1 [facility] 600 mg 9-07 tablet by ity of tablet 00:00: mouth [place] 00 every 6 Medical (six) Branch hours as needed (Pain). Take with food or milk. 2021-0 Yes [id number] 1{tbl} Take 1 [facility] vitamin 9-07 tablet by ity of w/FA tablet 00:00: mouth in [place] 00 the Medical morning. Branch docusate 2021-0 Yes [id number] 200mg Take 2 U nivers 100 mg 9-07 capsules ity of capsule 00:00: by mouth [place] 00 once daily Medical as needed Branch for Constipati on. ferrous 2021-0 Yes [id number] 325mg Take 1 [facility] sulfate 325 9-07 tablet by ity of mg (65 mg 00:00: mouth [place] iron[place] 00 the Medical tablet morning Branch and 1 tablet in the evening. ibuprofen 2021-0 Yes [id number] 600mg Take 1 [facility] 600 mg 9-07 tablet by ity of tablet 00:00: mouth [place] 00 every 6 Medical (six) Branch hours as needed (Pain). Take with food or milk. 2021-0 Yes [id number] 1{tbl} Take 1 [facility] vitamin 9-07 tablet by ity of w/FA tablet 00:00: mouth in [place] 00 the Medical morning. Branch docusate 2021-0 Yes [id number] 200mg Take 2 U nivers 100 mg 9-07 capsules ity of capsule 00:00: by mouth [place] 00 once daily Medical as needed Branch for Constipati on. ferrous 2021-0 Yes [id number] 325mg Take 1 [facility] [place] sulfate 325 9-07 tablet by ity of mg (65 mg 00:00: mouth [place] iron[place] 00 the Medical tablet morning Branch and 1 tablet in the evening. ibuprofen 2021-0 Yes [id number] 600mg Take 1 [facility] 600 mg 9-07 tablet by ity of tablet 00:00: mouth [place] 00 every 6 Medical (six) Branch hours as needed (Pain). Take with food or milk. 2021-0 Yes [id number] 1{tbl} Take 1 [facility] vitamin 9-07 tablet by ity of w/FA tablet 00:00: mouth in [place] 00 the Medical morning. Branch docusate 2021-0 Yes [id number] 200mg Take 2 U nivers 100 mg 9-07 capsules ity of capsule 00:00: by mouth [place] 00 once daily Medical as needed Branch for Constipati on. ferrous 2021-0 Yes [id number] 325mg Take 1 [facility] [place] sulfate 325 9-07 tablet by ity of mg (65 mg 00:00: mouth [place] iron[place] 00 the Medical tablet morning Branch and 1 tablet in the evening. ibuprofen 2021-0 Yes [id number] 600mg Take 1 [facility] 600 mg 9-07 tablet by ity of tablet 00:00: mouth [place] 00 every 6 Medical (six) Branch hours as needed (Pain). Take with food or milk. 2021-0 Yes [id number] 1{tbl} Take 1 [facility] vitamin 9-07 tablet by ity of w/FA tablet 00:00: mouth in [place] 00 the Medical morning. Branch docusate 0 Yes [id number] 200mg Take 2 U nivers 100 mg 9-07 capsules ity of capsule 00:00: by mouth [place] 00 once daily Medical as needed Branch for Constipati on. ferrous 2021-0 Yes [id number] 325mg Take 1 [facility] sulfate 325 9-07 tablet by ity of mg (65 mg 00:00: mouth [place] iron[place] 00 the Medical tablet morning Branch and 1 tablet in the evening. ibuprofen 2021-0 Yes [id number] 600mg Take 1 [facility] 600 mg 9-07 tablet by ity of tablet 00:00: mouth [place] 00 every 6 Medical (six) Branch hours as needed (Pain). Take with food or milk. 2021-0 Yes [id number] 1{tbl} Take 1 [facility] vitamin 9-07 tablet by ity of w/FA tablet 00:00: mouth in [place] 00 the Medical morning. Branch docusate 2021-0 Yes [id number] 200mg Take 2 U nivers 100 mg 9-07 capsules ity of capsule 00:00: by mouth [place] 00 once daily Medical as needed Branch for Constipati on. ferrous 2021- Yes [id number] 325mg Take 1 [facility] sulfate 325 9-07 tablet by ity of mg (65 mg 00:00: mouth [place] iron[place] 00 the Medical tablet morning Branch and 1 tablet in the evening. ibuprofen 2021- Yes [id number] 600mg Take 1 [facility] 600 mg 9-07 tablet by ity of tablet 00:00: mouth [place] 00 every 6 Medical (six) Branch hours as needed (Pain). Take with food or milk. 2022- No [id number] 1{tbl} Take 1 [facility] vitamin -02 22-02 tablet by ity of w/FA tablet 00:00: 00:00 mouth in [place] 00 :00 the Medical morning. Branch docusate 2022- No [id number] 200mg Take 2 [facility] 100 mg 9-02 22- capsules ity of capsule 00:00: 00:00 by mouth [place] 00 :00 once daily Medical as needed Branch for Constipati on. ferrous 2022- No [id number] 325mg Take 1 U nivers sulfate 325 - 06-02 tablet by it y of mg (65 mg 00:00: 00:00 mouth in [place] iron) 00 :00 the Medical tablet morning Branch and 1 tablet in the evening. ibuprofen 2022- No [id number] 600mg Take 1 [facility] 600 mg 9- 06-02 tablet by ity of tablet 00:00: 00:00 mouth [place] 00 :00 every 6 Medical (six) Branch hours as needed (Pain). Take with food or milk. 2022- No [id number] 1{tbl} Take 1 [facility] vitamin - 06-02 tablet by ity of w/FA tablet 00:00: 00:00 mouth in [place] 00 :00 the Medical morning. Branch docusate 2022- No [id number] 200mg Take 2 [facility] 100 mg 9- 06-02 capsules ity of capsule 00:00: 00:00 by mouth [place] 00 :00 once daily Medical as needed Branch for Constipati on. ferrous 2021-2022- No [id number] 325mg Take 1 U nivers sulfate 325 04-26 tablet by it y of mg (65 mg 00:00: 00:00 mouth in [place] iron) 00 :00 the Medical tablet morning Branch and 1 tablet in the evening. ibuprofen No [id number] 600mg Take 1 [facility] 600 mg 04-26 tablet by ity of tablet 00:00: 00:00 mouth [place] 00 :00 every 6 Medical (six) Branch hours as needed (Pain). Take with food or milk. enoxaparin No [id number] 40mg inject 0.4 [facility] 40 mg/0.4 04-26 mL under ity o f mL 00:00: 04:59 the skin [place] injection 00 :00 in the Medical morning Branch for 45 days. norethindro No [id number] .35mg Take 1 [facility] ne 0.35 mg 04-26 tablet by ity of tablet 00:00: 04:59 mouth in [place] 00 :00 the Medical morning Branch for 45 days. enoxaparin No [id number] 40mg inject 0.4 [facility] 40 mg/0.4 04-26 mL under ity o f mL 00:00: 04:59 the skin [place] injection 00 :00 in the Medical morning Branch for 45 days. norethindro No [id number] .35mg Take 1 [facility] ne 0.35 mg 04-26 tablet by ity of tablet 00:00: 04:59 mouth in [place] 00 :00 the Medical [facility] Branch for 45 days. enoxaparin No [id number] 40mg inject 0.4 [facility] 40 mg/0.4 04-26 mL under ity o f mL 00:00: 04:59 the skin [place] injection 00 :00 in the Medical morning Branch for 45 days. norethindro No [id number] .35mg Take 1 [facility] ne 0.35 mg 04-26 tablet by ity of tablet 00:00: 04:59 mouth in [place] 00 :00 the Medical morning Branch for 45 days. enoxaparin No [id number] 40mg inject 0.4 [facility] 40 mg/0.4 -02 26- mL under ity o f mL 00:00: 04:59 the skin [place] injection 00 :00 in the [facility] for 45 days. norethindro No [id number] .35mg Take 1 [facility] ne 0.35 mg 04-26 tablet by ity of tablet 00:00: 04:59 mouth in [place] 00 :00 the [facility] for 45 days. enoxaparin No [id number] 40mg inject 0.4 [facility] 40 mg/0.4 -06-11 mL under ity o f mL 00:00: 04:59 the skin [place] injection 00 :00 in the [facility] for 45 days. norethindro No [id number] .35mg Take 1 [facility] ne 0.35 mg 04-26 tablet by ity of tablet 00:00: 04:59 mouth in [place] 00 :00 the [facility] for 45 days. enoxaparin No [id number] 40mg inject 0.4 [facility] 40 mg/0.4 -06-11 mL under ity o f mL 00:00: 04:59 the skin [place] injection 00 :00 in the [facility] for 45 days. enoxaparin No [id number] 40mg inject 0.4 Univers 40 mg/0.4 04-26 mL under ity o f mL 00:00: 04:59 the skin [place] injection 00 :00 in the [facility] for 45 days. enoxaparin No [id number] 40mg inject 0.4 [facility] 40 mg/0.4 -02 26- mL under ity o f mL 00:00: 04:59 the skin [place] injection 00 :00 in the [facility] for 45 days. enoxaparin 2021- No [id number] 40mg inject 0.4 [facility] 40 mg/0.4 -02 26- mL under ity o f mL 00:00: 04:59 the skin [place] injection 00 :00 in the [facility] for 45 days. norethindro 2021- No [id number] .35mg Take 1 [facility] ne 0.35 mg 04-26-18 tablet by ity of tablet 00:00: 00:00 mouth in [place] 00 :00 the [facility] for 45 days. norethindro 2021- No [id number] .35mg Take 1 [facility] ne 0.35 mg - 1018 tablet by ity of tablet 00:00: 00:00 mouth in [place] 00 :00 the [facility] for 45 days. norethindro 2021- No [id number] .35mg Take 1 [facility] ne 0.35 mg 04-2618 tablet by ity of tablet 00:00: 00:00 mouth in [place] 00 :00 the [facility] for 45 days. oxytocin 2021- No 2mU/min at 2-40 [place] (PITOCIN) 04-25 mL/hr, IV ity of 30 units in 11:31: 00:23 Infusion, [place] NS 500 mL 52 :52 TITRATE, Medica l IV infusion Starting Bran ch on Sun04/25/22 at 0631, Until Sun04/25/22 at 1923, [place] ondansetron 2021- No 4mg 4 mg, Slow Univers (ZOFRAN 04-25 IV Push, ity of (PF)) 10:31: 10:47 ONCE, On [place] injection 4 00 :00 Sun04/25/22 Me dical mg at 0545, Branch For 1 dose
Do ses of ondansetro n 16 mg and above need to be administer ed via IV piggyback. For Dose >=24mg ECG monitoring is advisable.
ondansetron 2021- No 4mg 4 mg, Slow Univers (ZOFRAN 04-25 IV Push, ity of (PF)) 05:06: 05:42 ONCE, On [place] injection 4 00 :00 Sun04/25/22 Me dical [...] CONTINUOUS ity of (NAROPIN 04:10: 16:56 PRN, [place] ()) 00 :24 Starting Medical epidural on Sun Branch infusion 04/24/22 at 2310, Until Sun04/25/22 at 1156, Routine, Intra-op lidocaine-e No Epidural, Univers pinephrine 04-25 ONCE INTRA it y of (XYLOCAINE 04:10: 16:56 PROCEDURE, [place] W/EPINEPHRI 00 :24 Starting Medi lissa NE) 1.5 on Sun Branch %-1:200,000 04/24/22 at injection 2310, Until 04/25/22 at 1156, Routine, Intra-op sodium No 30mL 30 mL, Univers citrate-cit 04-25 Oral, ity of ol[place] acid 03:40: 03:55 PRE-PROCED [place] (BICITRA) 05 :00 URE ONCE, Medic al 500-334 1 dose, Branch mg/5 mL Starting solution 30 on Sun mL 04/24/22 at 2240, Until Sun04/24/22 at 2255, Routine, Surgery/Pr ocedure acetaminoph No 1000mg 1,000 mg, Univers en 04-25 Oral, ity of (TYLENOL) 02:52: 03:07 ONCE, 1 [place] tablet 00 :00 dose, On Medical 1,000 mg 04/24/22 Branc h at 2200, [place] proMETHazin No 25mg 25 mg, IV Univers e 04-25 Piggyback, ity of (PHENERGAN) 00:15: 00:30 at 200 [place] 25 mg in [place] 00 :00 mL/hr Medical 50 mL IV Administer Branc h piggyback over 15 (CNR) Minutes, ONCE, 1 dose, On Sun04/24/22 at 1915, Routine butorphanol 2021- No 1mg [...] Sun04/25/22 at 1923, Routine Yes Take by [employer] vit 9-05 mouth. ity of no.124/iron 16:31: [place] /folic 21 Medical ( Branch VITAMIN ORAL) Yes Take by [employer] [facility] vit 8-28 mouth. ity of no.124/iron 02:18: [place] /folic 09 Medical ( Branch VITAMIN ORAL) Yes Take by [facility] vit 8-28 mouth. ity of no.124/iron 02:18: [place] /folic 09 Medical ( Branch VITAMIN ORAL) Yes Take by [employer] [facility] vit 8-28 mouth. ity of no.124/iron 02:18: [place] /folic 09 Medical ( Branch VITAMIN ORAL) Yes Take by [employer] vit 8-28 mouth. ity of no.124/iron 02:18: [place] /folic 09 Medical ( Branch VITAMIN ORAL) Yes Take by [facility] vit 7-24 mouth. ity of no.124/iron 18:29: [place] /folic 56 Medical ( Branch VITAMIN ORAL) Yes Take by [employer] vit 7-24 mouth. ity of no.124/iron 18:29: [place] /folic 56 Medical ( Branch VITAMIN ORAL) Yes Take by [employer] vit 7-24 mouth. ity of no.124/iron 18:29: [place] /folic 56 Medical ( Branch VITAMIN ORAL) Yes Take by [employer] vit 7-24 mouth. ity of no.124/iron 18:29: [place] /folic 56 Medical ( Branch VITAMIN ORAL) Yes Take by [employer] vit 7-24 mouth. ity of no.124/iron 18:29: [place] /folic 56 Medical ( Branch VITAMIN ORAL) Yes Take by [employer] vit 7-24 mouth. ity of no.124/iron 18:29: [place] /folic 56 Medical ( Branch VITAMIN ORAL) Yes Take by [employer] vit 7-24 mouth. ity of no.124/iron 18:29: [place] /folic 56 Medical ( Branch VITAMIN ORAL) Yes Take by [employer] vit 7-24 mouth. ity of no.124/iron 18:29: [place] /folic 56 Medical ( Branch VITAMIN ORAL) Yes Take by [employer] vit 7-24 mouth. ity of no.124/iron 18:29: [place] /folic 56 Medical ( Branch VITAMIN ORAL) aspirin No 81mg 81 mg, Univers chewable 03-12 0723 Oral, ity of tablet 81 14:00: 23:51 DAILY, [place] mg 00 :31 First dose Medical on [facility] 03/12/22 at 0900, Until Discontinu ed, Routine acetaminoph Yes 650mg 650 mg, Un donnie en 03-12 Oral, ity of (TYLENOL) 00:30: Q6HPRN, [place] tablet 650 28 Starting Medic al mg on [facility] 03/11/22 at 1930, Until Discontinu ed, Routine, Pain (scale 1-3), Pain (scale 4-6) enoxaparin Yes 40mg 40 mg, Unive rs (LOVENOX) 03-12 Subcutaneo ity of injection 00:15[place] 00 First dose Medical (after Branch last modificati on) on 03/11/22 at 1915, Until Discontinu ed, Routine [...] Discontinu ed, 10 mL Yes Take by [facility] vit 7-20 mouth. ity of no.124/iron 17:24: [place] /folic 23 Medical ( Branch VITAMIN ORAL) Yes Take by [facility] vit 7-20 mouth. ity of no.124/iron 17:24: [place] /folic 23 Medical ( Branch VITAMIN ORAL) Yes Take by [employer] [facility] vit 7-20 mouth. ity of no.124/iron 14:22: [place] /folic 15 Medical ( Branch VITAMIN ORAL) enoxaparin Yes [id number] 40mg inject 0.4 Univers (LOVENOX) 7-14 mL under ity of 30 mg/0.3 00:00: [place] 00 in the Medical injection morning. Branch Continue until 6 weeks after delivery. enoxaparin Yes [id number] 40mg inject 0.4 [facility] (LOVENOX) 7-14 mL under ity of 30 mg/0.3 00:00: [place] mL 00 in the Medical injection morning. Branch Continue until 6 weeks after delivery. enoxaparin 0 Yes [id number] 40mg inject 0.4 [facility] (LOVENOX) 7-14 mL under ity of 30 mg/0.3 00:00: [place] mL 00 in the Medical injection morning. Branch Continue until 6 weeks after delivery. enoxaparin Yes [id number] 40mg inject 0.4 [facility] (LOVENOX) 7-14 mL under ity of 30 mg/0.3 00:00: [place] mL 00 in the Medical injection morning. Branch Continue until 6 weeks after delivery. enoxaparin 2021-0 Yes [id number] 40mg inject 0.4 [facility] (LOVENOX) 7-14 mL under ity of 30 mg/0.3 00:00: [place] mL 00 in the Medical injection morning. Branch Continue until 6 weeks after delivery. enoxaparin 2021-0 Yes [id number] 40mg inject 0.4 [facility] (LOVENOX) 7-14 mL under ity of 30 mg/0.3 00:00: [place] mL 00 in the Medical injection morning. Branch Continue until 6 weeks after delivery. enoxaparin 2021-0 Yes [id number] 40mg inject 0.4 [facility] (LOVENOX) 7-14 mL under ity of 30 mg/0.3 00:00: [place] mL 00 in the Medical injection morning. Branch Continue until 6 weeks after delivery. enoxaparin 2021-0 Yes [id number] 40mg inject 0.4 [facility] (LOVENOX) 7-14 mL under ity of 30 mg/0.3 00:00: [place] mL 00 in the Medical injection morning. Branch Continue until 6 weeks after delivery. enoxaparin 2021-0 Yes [id number] 40mg inject 0.4 [facility] (LOVENOX) 7-14 mL under ity of 30 mg/0.3 00:00: [place] mL 00 in the Medical injection morning. Branch Continue until 6 weeks after delivery. enoxaparin 2021-0 Yes [id number] 40mg inject 0.4 [facility] (LOVENOX) 7-14 mL under ity of 30 mg/0.3 00:00: [place] mL 00 in the Medical injection morning. Branch Continue until 6 weeks after delivery. enoxaparin 2021-0 Yes [id number] 40mg inject 0.4 [facility] (LOVENOX) 7-14 mL under ity of 30 mg/0.3 00:00: [place] mL 00 in the Medical injection morning. Branch Continue until 6 weeks after delivery. enoxaparin Yes [id number] 40mg inject 0.4 Univers (LOVENOX) 7-14 mL under ity of 30 mg/0.3 00:00: [place] mL 00 in the Medical injection morning. Branch Continue until 6 weeks after delivery. enoxaparin Yes [id number] 40mg inject 0.4 [facility] (LOVENOX) 7-14 mL under ity of 30 mg/0.3 00:00: [place] mL 00 in the Medical injection morning. Branch Continue until 6 weeks after delivery. enoxaparin Yes [id number] 40mg inject 0.4 [facility] (LOVENOX) 7-14 mL under ity of 30 mg/0.3 00:00: [place] mL 00 in the Medical injection morning. Branch Continue until 6 weeks after delivery. enoxaparin Yes [id number] 40mg inject 0.4 [facility] (LOVENOX) 7-14 mL under ity of 30 mg/0.3 00:00: [place] mL 00 in the Medical injection morning. Branch Continue until 6 weeks after delivery. enoxaparin Yes [id number] 40mg inject 0.4 [facility] (LOVENOX) 7-14 mL under ity of 30 mg/0.3 00:00: [place] mL 00 in the Medical injection morning. Branch Continue until 6 weeks after delivery. enoxaparin Yes [id number] 40mg inject 0.4 [facility] (LOVENOX) 7-14 mL under ity of 30 mg/0.3 00:00: [place] mL 00 in the Medical injection morning. Branch Continue until 6 weeks after delivery. enoxaparin 2021- No [id number] 40mg inject 0.4 Univers (LOVENOX) 7-14 09-07 mL under ity o f 30 mg/0.3 00:00: 00:00 the skin [place] mL 00 :00 in the Medical injection morning. Branch Continue until 6 weeks after delivery. terconazole Yes [id number] 1{appli Insert 1 Univers 0.8 % 3-25 cator} Applicator ity of vaginal 00:00: into [place] cream 00 vagina at Medical bedtime. Branch terconazole Yes [id number] 1{appli Insert 1 Univers 0.8 % 3-25 cator} Applicator ity of vaginal 00:00: into [place] cream 00 vagina at Medical bedtime. Branch terconazole Yes [id number] 1{appli Insert 1 Univers 0.8 % 3-25 cator} Applicator ity of vaginal 00:00: into [place] cream 00 vagina at Medical bedtime. Branch terconazole Yes [id number] 1{appli Insert 1 Univers 0.8 % 3-25 cator} Applicator ity of vaginal 00:00: into [place] cream 00 vagina at Medical bedtime. Branch terconazole Yes [id number] 1{appli Insert 1 Univers 0.8 % 3-25 cator} Applicator ity of vaginal 00:00: into [place] cream 00 vagina at Medical bedtime. [place] terconazole Yes [id number] 1{appli Insert 1 Univers 0.8 % 3-25 cator} Applicator ity of vaginal 00:00: into [place] cream 00 vagina at Medical bedtime. Branch terconazole Yes [id number] 1{appli Insert 1 Univers 0.8 % 3-25 cator} Applicator ity of vaginal 00:00: into [place] cream 00 vagina at Medical bedtime. [place] terconazole Yes [id number] 1{appli Insert 1 Univers 0.8 % 3-25 cator} Applicator ity of vaginal 00:00: into [place] cream 00 vagina at Medical bedtime. Branch terconazole Yes [id number] 1{appli Insert 1 Univers 0.8 % 3-25 cator} Applicator ity of vaginal 00:00: into [place] cream 00 vagina at Medical bedtime. Branch terconazole Yes [id number] 1{appli Insert 1 Univers 0.8 % 3-25 cator} Applicator ity of vaginal 00:00: into [place] cream 00 vagina at Medical bedtime. Branch terconazole Yes [id number] 1{appli Insert 1 Univers 0.8 % 3-25 cator} Applicator ity of vaginal 00:00: into [place] cream 00 vagina at Medical bedtime. Branch terconazole Yes [id number] 1{appli Insert 1 Univers 0.8 % 3-25 cator} Applicator ity of vaginal 00:00: into [place] cream 00 vagina at Medical bedtime. Branch terconazole Yes [id number] 1{appli Insert 1 Univers 0.8 % 3-25 cator} Applicator ity of vaginal 00:00: into [place] cream 00 vagina at Medical bedtime. Branch terconazole Yes [id number] 1{appli Insert 1 Univers 0.8 % 3-25 cator} Applicator ity of vaginal 00:00: into [place] cream 00 vagina at Medical bedtime. Branch terconazole Yes [id number] 1{appli Insert 1 Univers 0.8 % 3-25 cator} Applicator ity of vaginal 00:00: into [place] cream 00 vagina at Medical bedtime. [place] terconazole Yes [id number] 1{appli Insert 1 [facility] 0.8 % 3-25 cator} Applicator ity of vaginal 00:00: into [place] cream 00 vagina at Medical bedtime. [place] terconazole Yes [id number] 1{appli Insert 1 [facility] 0.8 % 3-25 cator} Applicator ity of vaginal 00:00: into [place] cream 00 vagina at Medical bedtime. [place] terconazole 2021- No [id number] 1{appli Insert 1 Univers 0.8 % 3-25 09-07 cator} Applicator ity o f vaginal 00:00: 00:00 into [place] cream 00 :00 vagina at Medical bedtime. Branch Yes [id number] 1{packe Take 1 [facility] vit 2-25 t} Packet by ity of 33-iron-fol 00:00: mouth [place] ic-dha 00 daily. Medical ([facility] Branch + DHA) 29 mg iron-1 mg -250 mg combo pack Yes [id number] 1{packe Take 1 Univers vit 2-25 t} Packet by ity of 33-iron-fol 00:00: mouth [place] ic-dha 00 daily. Medical ([facility] Branch + DHA) 29 mg iron-1 mg -250 mg combo pack Yes [id number] 1{packe Take 1 Univers vit 2-25 t} Packet by ity of 33-iron-fol 00:00: mouth [place] ic-dha 00 daily. Medical ([facility] Branch + DHA) 29 mg iron-1 mg -250 mg combo pack Yes [id number] 1{packe Take 1 Univers vit 2-25 t} Packet by ity of 33-iron-fol 00:00: mouth [place] ic-dha 00 daily. Medical ([facility] Branch + DHA) 29 mg iron-1 mg -250 mg combo pack Yes [id number] 1{packe Take 1 Univers vit 2-25 t} Packet by ity of 33-iron-fol 00:00: mouth [place] ic-dha 00 daily. Medical ([facility] Branch + DHA) 29 mg iron-1 mg -250 mg combo pack Yes [id number] 1{packe Take 1 Univers vit 2-25 t} Packet by ity of 33-iron-fol 00:00: mouth [place] ic-dha 00 daily. Medical ([facility] Branch + DHA) 29 mg iron-1 mg -250 mg combo pack Yes [id number] 1{packe Take 1 Univers vit 2-25 t} Packet by ity of 33-iron-fol 00:00: mouth [place] ic-dha 00 daily. Medical ([facility] Branch + DHA) 29 mg iron-1 mg -250 mg combo pack Yes [id number] 1{packe Take 1 Univers vit 2-25 t} Packet by ity of 33-iron-fol 00:00: mouth [place] ic-dha 00 daily. Medical ([facility] Branch + DHA) 29 mg iron-1 mg -250 mg combo pack Yes [id number] 1{packe Take 1 Univers vit 2-25 t} Packet by ity of 33-iron-fol 00:00: mouth [place] ic-dha 00 daily. Medical ([facility] Branch + DHA) 29 mg iron-1 mg -250 mg combo pack Yes [id number] 1{packe Take 1 Univers vit 2-25 t} Packet by ity of 33-iron-fol 00:00: mouth [place] ic-dha 00 daily. Medical ([facility] Branch + DHA) 29 mg iron-1 mg -250 mg combo pack 0 Yes [id number] 1{packe Take 1 Univers vit 2-25 t} Packet by ity of 33-iron-fol 00:00: mouth [place] ic-dha 00 daily. Medical ([facility] Branch + DHA) 29 mg iron-1 mg -250 mg combo pack 0 Yes [id number] 1{packe Take 1 Univers vit 2-25 t} Packet by ity of 33-iron-fol 00:00: mouth [place] ic-dha 00 daily. Medical ([facility] Branch + DHA) 29 mg iron-1 mg -250 mg combo pack 0 Yes [id number] 1{packe Take 1 [facility] vit 2-25 t} Packet by ity of 33-iron-fol 00:00: mouth [place] ic-dha 00 daily. Medical ([facility] Branch + DHA) 29 mg iron-1 mg -250 mg combo pack 0 Yes [id number] 1{packe Take 1 Univers vit 2-25 t} Packet by ity of 33-iron-fol 00:00: mouth [place] ic-dha 00 daily. Medical ([facility] Branch + DHA) 29 mg iron-1 mg -250 mg combo pack 0 Yes [id number] 1{packe Take 1 Univers vit 2-25 t} Packet by ity of 33-iron-fol 00:00: mouth [place] ic-dha 00 daily. Medical ([facility] Branch + DHA) 29 mg iron-1 mg -250 mg combo pack 0 Yes [id number] 1{packe Take 1 Univers vit 2-25 t} Packet by ity of 33-iron-fol 00:00: mouth [place] ic-dha 00 daily. Medical ([facility] Branch + DHA) 29 mg iron-1 mg -250 mg combo pack 0 Yes [id number] 1{packe Take 1 Univers vit 2-25 t} Packet by ity of 33-iron-fol 00:00: mouth [place] ic-dha 00 daily. Medical ([facility] Branch + DHA) 29 mg iron-1 mg -250 mg combo pack 0 2022- No [id number] 1{packe Take 1 [facility] vit 2-25 -07 t} Packet by ity of 33-iron-fol 00:00: 00:[place] ic-dha 00 :00 daily. Medical ([facility] Branch + DHA) 29 mg iron-1 mg -250 mg combo pack proMETHazin 2021-0 Yes [id number] 25mg Take 1 Univers e 25 mg 2-09 tablet by ity of tablet 00:00: mouth [place] 00 every 4 Medical (four) Branch hours as needed for Nausea and Vomiting (N/V). proMETHazin 2021-0 Yes [id number] 25mg Take 1 Univers e 25 mg 2-09 tablet by ity of tablet 00:00: mouth [place] 00 every 4 Medical (four) Branch hours as needed for Nausea and Vomiting (N/V). proMETHazin 2021-0 Yes [id number] 25mg Take 1 Univers e 25 mg 2-09 tablet by ity of tablet 00:00: mouth [place] 00 every 4 Medical (four) Branch hours as needed for Nausea and Vomiting (N/V). proMETHazin 2021-0 Yes [id number] 25mg Take 1 Univers e 25 mg 2-09 tablet by ity of tablet 00:00: mouth [place] 00 every 4 Medical (four) Branch hours as needed for Nausea and Vomiting (N/V). proMETHazin 2021-0 Yes [id number] 25mg Take 1 Univers e 25 mg 2-09 tablet by ity of tablet 00:00: mouth [place] 00 every 4 Medical (four) Branch hours as needed for Nausea and Vomiting (N/V). proMETHazin 2021-0 Yes [id number] 25mg Take 1 Univers e 25 mg 2-09 tablet by ity of tablet 00:00: mouth [place] 00 every 4 Medical (four) Branch hours as needed for Nausea and Vomiting (N/V). proMETHazin 2021-0 Yes [id number] 25mg Take 1 Univers e 25 mg 2-09 tablet by ity of tablet 00:00: mouth [place] 00 every 4 Medical (four) Branch hours as needed for Nausea and Vomiting (N/V). proMETHazin 2021-0 Yes [id number] 25mg Take 1 Univers e 25 mg 2-09 tablet by ity of tablet 00:00: mouth [place] 00 every 4 Medical (four) Branch hours as needed for Nausea and Vomiting (N/V). proMETHazin 2022-0 Yes [id number] 25mg Take 1 Univers e 25 mg 2-09 tablet by ity of tablet 00:00: mouth [place] 00 every 4 Medical (four) Branch hours as needed for Nausea and Vomiting (N/V). proMETHazin 2021-0 Yes [id number] 25mg Take 1 Univers e 25 mg 2-09 tablet by ity of tablet 00:00: mouth [place] 00 every 4 Medical (four) Branch hours as needed for Nausea and Vomiting (N/V). proMETHazin 2021-0 Yes [id number] 25mg Take 1 Univers e 25 mg 2-09 tablet by ity of tablet 00:00: mouth [place] 00 every 4 Medical (four) Branch hours as needed for Nausea and Vomiting (N/V). proMETHazin 2021-0 Yes [id number] 25mg Take 1 Univers e 25 mg 2-09 tablet by ity of tablet 00:00: mouth [place] 00 every 4 Medical (four) Branch hours as needed for Nausea and Vomiting (N/V). proMETHazin 2021-0 Yes [id number] 25mg Take 1 Univers e 25 mg 2-09 tablet by ity of tablet 00:00: mouth [place] 00 every 4 Medical (four) Branch hours as needed for Nausea and Vomiting (N/V). proMETHazin 2021-0 Yes [id number] 25mg Take 1 [facility] e 25 mg 2-09 tablet by ity of tablet 00:00: mouth [place] 00 every 4 Medical (four) Branch hours as needed for Nausea and Vomiting (N/V). proMETHazin 2021-0 Yes [id number] 25mg Take 1 [facility] e 25 mg 2-09 tablet by ity of tablet 00:00: mouth [place] 00 every 4 Medical (four) Branch hours as needed for Nausea and Vomiting (N/V). proMETHazin 2-0 Yes [id number] 25mg Take 1 Univers e 25 mg 2-09 tablet by ity of tablet 00:00: mouth [place] 00 every 4 Medical (four) Branch hours as needed for Nausea and Vomiting (N/V). proMETHazin 2-0 Yes [id number] 25mg Take 1 [facility] e 25 mg 2-09 tablet by ity of tablet 00:00: mouth [place] 00 every 4 Medical (four) Branch hours as needed for Nausea and Vomiting (N/V). proMETHazin 202-0 2022- No [id number] 25mg Take 1 Univers e 25 mg 09-28 tablet by ity of tablet 00:00: 00:00 [facility] [place] 00 :00 every 4 Medical (four) Branch hours as needed for Nausea and Vomiting (N/V). Nasonex Yes [place] 2 sprays Mem oria 4-24 [place] in each l 02:45: nostril Arnol 58 Albuterol Yes [place] 1 puff as [facility] Sulfate 4-24 [place] needed l 02:45: Arnol 58 ZyrTEC Yes [place] 1 tablet Ethan vira 4-24 [place] l 02:45: Arnol 58 Qvar Yes [place] 1 puff Memoria 4-24 [place] l 02:45: Arnol 58 Albuterol Yes [place] 1 puff as [facility] Sulfate 4-24 [place] needed l 02:45: Arnol 58 ZyrTEC Yes [place] 1 tablet Ethan vira 4-24 [place] l 02:45: Arnol 58 Qvar Yes [place] 1 puff Memoria 4-24 [place] l 02:45: [place] 58 Nasonex Yes [place] 2 sprays Mem oria 4-24 [place] in each l 02:45: nostril [place] 58 Ortho Evra 0 Yes [place] 1 patch to Memoria 4-19 [place] skin l 00:00: [place] 00 Ortho Evra 2016-0 Yes [place] 1 patch to Memoria 4-19 [place] skin l 00:00: [place] 00 Immunizations Ordered Filled Immunization Date Status Comments [facility] e Immunization Name Name HPV9 2022-06-26 Completed University of 00:00:00 [facility] HPV9 2022-06-26 Completed University of 00:00:00 [facility] HPV9 2022-06-26 Completed University of 00:00:00 [facility] HPV9 2022-06-26 Completed University of 00:00:00 [facility] HPV9 2022-06-26 Completed University of 00:00:00 [facility] HPV9 2022-06-26 Completed University of 00:00:00 [facility] HPV9 2022-06-26 Completed University of 00:00:00 [facility] HPV9 2022-06-26 Completed University of 00:00:00 [place] [facility] HPV9 2022-06-26 Completed University of 00:00:00 [place] [facility] HPV9 2022-06-26 Completed University of 00:00:00 [place] [facility] HPV9 2022-06-26 Completed University of 00:00:00 [place] [facility] HPV9 2022-06-26 Completed University of 00:00:00 [place] [facility] HPV9 2022-06-26 Completed University of 00:00:00 [place] [facility] HPV9 2022-06-26 Completed University of 00:00:00 [place] [facility] HPV9 2022-06-26 Completed University of 00:00:00 [place] [facility] HPV9 2022-06-26 Completed University of 00:00:00 [place] [facility] HPV9 2022-06-26 Completed University of 00:00:00 [place] [facility] HPV9 2022-06-26 Completed University of 00:00:00 [place] [facility] HPV9 2022-06-26 Completed University of 00:00:00 [place] [facility] HPV9 2022-06-26 Completed University of 00:00:00 [place] [facility] HPV9 2022-06-26 Completed University of 00:00:00 [place] [facility] HPV9 2022-06-26 Completed University of 00:00:00 [place] [facility] HPV9 2022-06-26 Completed University of 00:00:00 [place] [facility] HPV9 2022-04-26 Completed University of 00:00:00 [place] [facility] HPV9 2022-04-26 Completed University of 00:00:00 [place] [facility] HPV9 2022-04-26 Completed University of 00:00:00 [place] [facility] HPV9 2022-04-26 Completed University of 00:00:00 [place] [facility] HPV9 2022-04-26 Completed University of 00:00:00 [facility] HPV9 2022-04-26 Completed University of 00:00:00 [place] [facility] HPV9 2022-04-26 Completed University of 00:00:00 [place] [facility] HPV9 2022-04-26 Completed University of 00:00:00 [place] [facility] HPV9 2022-04-26 Completed University of 00:00:00 [place] [facility] HPV9 2022-04-26 Completed University of 00:00:00 [place] [facility] HPV9 2022-04-26 Completed University of 00:00:00 [place] [facility] HPV9 2022-04-26 Completed University of 00:00:00 [place] [facility] HPV9 2022-04-26 Completed University of 00:00:00 [place] [facility] HPV9 2022-04-26 Completed University of 00:00:00 [place] [facility] HPV9 2022-04-26 Completed University of 00:00:00 [place] [facility] HPV9 2022-04-26 Completed University of 00:00:00 [place] [facility] HPV9 2022-04-26 Completed University of 00:00:00 [place] [facility] HPV9 2022-04-26 Completed University of 00:00:00 [place] [facility] HPV9 2022-04-26 Completed University of 00:00:00 [place] [facility] HPV9 2022-04-26 Completed University of 00:00:00 [place] [facility] HPV9 2022-04-26 Completed University of 00:00:00 [place] [facility] HPV9 2022-04-26 Completed University of 00:00:00 [place] [facility] HPV9 2022-04-26 Completed University of 00:00:00 [place] [facility] HPV9 2022-04-26 Completed University of 00:00:00 [place] [facility] HPV9 2022-04-26 Completed University of 00:00:00 [place] [facility] HPV9 2022-04-26 Completed University of 00:00:00 [place] [facility] HPV9 2022-04-26 Completed University of 00:00:00 [facility] HPV9 2022-04-26 Completed University of 00:00:00 [place] [facility] HPV9 2022-04-26 Completed University of 00:00:00 [place] [facility] HPV9 2022-04-26 Completed University of 00:00:00 [place] [facility] HPV9 2022-04-26 Completed University of 00:00:00 [facility] TDAP 2022-02-16 Completed University of 00:00:00 [facility] TDAP 2022-02-16 Completed University of 00:00:00 [facility] TDAP 2022-02-16 Completed University of 00:00:00 [facility] TDAP 2022-02-16 Completed University of 00:00:00 [facility] TDAP 2022-02-16 Completed University of 00:00:00 [facility] TDAP 2022-02-16 Completed University of 00:00:00 [facility] TDAP 2022-02-16 Completed University of 00:00:00 [facility] TDAP 2022-02-16 Completed University of 00:00:00 [facility] TDAP 2022-02-16 Completed University of 00:00:00 [facility] TDAP 2022-02-16 Completed University of 00:00:00 [facility] TDAP 2022-02-16 Completed University of 00:00:00 [facility] TDAP 2022-02-16 Completed University of 00:00:00 [facility] TD 2022-02-16 Completed University of 00:00:00 [facility] TD 2022-02-16 Completed University of 00:00:00 [facility] TD 2022-02-16 Completed University of 00:00:00 [facility] TD 2022-02-16 Completed University of 00:00:00 [facility] TD 2022-02-16 Completed University of 00:00:00 [facility] TD 2022-02-16 Completed University of 00:00:00 [facility] TD 2022-02-16 Completed University of 00:00:00 [facility] TD 2022-02-16 Completed University of 00:00:00 [facility] TD 2022-02-16 Completed University of 00:00:00 [facility] TDAP 2022-02-16 Completed University of 00:00:00 [facility] TDAP 2022-02-16 Completed University of 00:00:00 [facility] TDAP 2022-02-16 Completed University of 00:00:00 [facility] TDAP 2022-02-16 Completed University of 00:00:00 [facility] TDAP 2022-02-16 Completed University of 00:00:00 [facility] TDAP 2022-02-16 Completed University of 00:00:00 [facility] TDAP 2022-02-16 Completed University of 00:00:00 [facility] TDAP 2022-02-16 Completed University of 00:00:00 [facility] TDAP 2022-02-16 Completed University of 00:00:00 [facility] TDAP 2022-02-16 Completed University of 00:00:00 [facility] TDAP 2022-02-16 Completed University of 00:00:00 [facility] TDAP 2022-02-16 Completed University of 00:00:00 [facility] TDAP 2022-02-16 Completed University of 00:00:00 [facility] TDAP 2022-02-16 Completed University of 00:00:00 [facility] TDAP 2022-02-16 Completed University of 00:00:00 [facility] TDAP 2022-02-16 Completed University of 00:00:00 [facility] TDAP 2022-02-16 Completed University of 00:00:00 [facility] TDAP 2022-02-16 Completed University of 00:00:00 [facility] TDAP 2022-02-16 Completed University of 00:00:00 [facility] TDAP 2022-02-16 Completed University of 00:00:00 [facility] TDAP 2022-02-16 Completed University of 00:00:00 [facility] TDAP 2022-02-16 Completed University of 00:00:00 [facility] TDAP 2022-02-16 Completed University of 00:00:00 [facility] TDAP 2022-02-16 Completed University of 00:00:00 [facility] TDAP 2022-02-16 Completed University of 00:00:00 [facility] TDAP 2022-02-16 Completed University of 00:00:00 [facility] TDAP 2022-02-16 Completed University of 00:00:00 [facility] TDAP 2022-02-16 Completed University of 00:00:00 [facility] Influenza Virus 2019-06-23 Completed Universit y of Vaccine Quad .5 mL 00:00:00 [facility]+ [facility] Influenza Virus 2019-06-23 Completed Universit y of [facility] .5 mL 00:00:00 [facility] 6+ [facility] Influenza Virus 2019-06-23 Completed Universit y of [facility] .5 mL 00:00:00 [facility] Influenza Virus 2019-06-23 Completed Universit y of [facility] .5 mL 00:00:00 [facility] 6+ [facility] Influenza Virus 2019-06-23 Completed Universit y of [facility] .5 mL 00:00:00 [facility] 6+ [facility] Influenza Virus 2019-06-23 Completed Universit y of [facility]ine [facility] .5 mL 00:00:00 [facility] 6+ [facility] Influenza Virus [...] y of Vaccine Quad .5 mL 00:00:00 [facility] 6[facility] Influenza Virus 2019-06-23 Completed Universit y of [facility] .5 mL 00:00:00 [facility] 6[facility] Influenza Virus 2019-06-23 Completed Universit y of [facility] .5 mL 00:00:00 [facility] IM 6+ MO Branch Influenza Virus 2019-06-23 Completed Universit y of [facility] Quad .5 mL 00:00:00 [facility] IM 6+ MO Branch Influenza Virus 2019-06-23 Completed Universit y of Vaccine Quad .5 mL 00:00:00 [facility] IM 6+ MO Branch Influenza Virus 2019-06-23 Completed Universit y of Vaccine Quad .5 mL 00:00:00 [facility] IM 6+ MO Branch Influenza Virus 2019-06-23 Completed Universit y of [facility] Quad .5 mL 00:00:00 [facility] 6+ MO Branch Influenza Virus 2019-06-23 Completed Universit y of Vaccine Quad .5 mL 00:00:00 [facility] 6+ MO Branch Influenza Virus 2019-06-23 Completed Universit y of Vaccine Quad .5 mL 00:00:00 [facility] 6+ MO Branch Vital Signs Vital Name Observation Time Observation Value Comments Source Systolic blood 2023-02-07 02:15:00 129 mm[Hg] Univer sity of pressure [facility] Diastolic blood 2023-02-07 02:15:00 62 mm[Hg] Unive rsity of [facility] Heart rate 2023-02-07 02:15:00 77 /min [facility] Oxygen saturation in 2023-02-07 02:15:00 98 /min [facility] Arterial blood by [facility] Pulse oximetry Branch Respiratory rate 2023-02-07 02:10:00 12 /min [facility] Body temperature 2023-02-07 01:17:00 36.11 Irasema [facility] Body weight 2023-02-06 19:14:00 63.05 kg [facility] BMI 2023-02-06 19:14:00 25.42 kg/m2 [facility] Systolic blood 2023-02-07 02:06:00 125 mm[Hg] Univer sity of pressure [facility] Diastolic blood 2023-02-07 02:06:00 72 mm[Hg] Unive rsity of pressure [facility] Heart rate 2023-02-07 02:06:00 77 /min Universi ty of [facility] Respiratory rate 2023-02-07 02:06:00 17 /min Univ ersity of [facility] Oxygen saturation in 2023-02-07 02:06:00 100 /min University of Arterial blood by [facility] Pulse oximetry Branch Body temperature 2023-02-07 01:17:00 36.11 Irasema Univ ersity of [facility] Body weight 2023-02-06 19:14:00 63.05 kg Universi ty of [facility] BMI 2023-02-06 19:14:00 25.42 kg/m2 Universi ty of [facility] Systolic blood 2023-01-31 19:09:00 122 mm[Hg] Univer sity of pressure [facility] Diastolic blood 2023-01-31 19:09:00 74 mm[Hg] Unive rsity of pressure [facility] Heart rate 2023-01-31 19:09:00 82 /min Universi ty of [facility] Body temperature 2023-01-31 19:09:00 37 Irasema Univ ersity of [facility] Respiratory rate 2023-01-31 19:09:00 18 /min Univ ersity of [facility] Body height 2023-01-31 19:09:00 157.5 cm Universi ty [facility] Body weight 2023-01-31 19:09:00 63.078 kg Universi ty [facility] BMI 2023-01-31 19:09:00 25.43 kg/m2 [facility] Systolic blood 2023-01-19 18:45:00 127 mm[Hg] Univer sity of pressure [facility] Diastolic blood 2023-01-19 18:45:00 73 mm[Hg] Unive rsity of pressure [facility] Heart rate 2023-01-19 18:45:00 87 /min Universi ty of [facility] Body temperature 2023-01-19 18:45:00 36.33 Irasema Univ ersity of [facility] Respiratory rate 2023-01-19 18:45:00 18 /min Univ ersity of [facility] Body height 2023-01-19 18:45:00 160 cm Universi [facility] Body weight 2023-01-19 18:45:00 62.143 kg Universi ty of [facility] BMI 2023-01-19 18:45:00 24.27 kg/m2 [facility]i [facility] Systolic blood 2022-09-06 20:11:00 116 mm[Hg] Univer sity of pressure [facility] Diastolic blood 2022-09-06 20:11:00 68 mm[Hg] Unive rsity of pressure [facility] Heart rate 2022-09-06 20:11:00 81 /min Universi ty of [facility] Body temperature 2022-09-06 20:11:00 36.44 Irasema Univ ersity of [facility] Respiratory rate 2022-09-06 20:11:00 18 /min Univ ersity of [facility] Body height 2022-09-06 20:11:00 160 cm Universi ty of [facility] Body weight 2022-09-06 20:11:00 60.045 kg Universi [facility] BMI 2022-09-06 20:11:00 23.45 kg/m2 [facility]i [facility] Systolic blood 2022-07-20 19:23:00 116 mm[Hg] Univer sity of pressure [facility] Diastolic blood 2022-07-20 19:23:00 72 mm[Hg] Unive rsity of pressure [facility] Heart rate 2022-07-20 19:23:00 76 /min Universi ty of [facility] Body temperature 2022-07-20 19:23:00 36.33 Irasema Univ ersity of [facility] Respiratory rate 2022-07-20 19:23:00 18 /min Univ ersity of [facility] Body height 2022-07-20 19:23:00 160 cm Universi [facility] Body weight 2022-07-20 19:23:00 63.107 kg Universi ty of [facility] BMI 2022-07-20 19:23:00 24.64 kg/m2 [facility]i [facility] Systolic blood 2022-06-26 16:59:00 106 mm[Hg] Univer sity of pressure [facility] Diastolic blood 2022-06-26 16:59:00 65 mm[Hg] Unive rsity of pressure [facility] Heart rate 2022-06-26 16:59:00 75 /min Universi ty of [facility] Body temperature 2022-06-26 16:59:00 37.06 Irasema Univ ersity of [facility] Respiratory rate 2022-06-26 16:59:00 20 /min Univ ersity of [facility] Body height 2022-06-26 16:59:00 160 cm Universi ty of [facility] Body weight 2022-06-26 16:59:00 63.73 kg Universi ty of [facility] BMI 2022-06-26 16:59:00 24.89 kg/m2 Universi ty of [facility] Systolic blood 2022-06-06 18:12:00 106 mm[Hg] Univer sity of pressure [facility] Diastolic blood 2022-06-06 18:12:00 67 mm[Hg] Unive rsity of pressure [facility] Heart rate 2022-06-06 18:12:00 99 /min Universi ty of [facility] Body temperature 2022-06-06 18:12:00 37.11 Irasema Univ ersity of [facility] Respiratory rate 2022-06-06 18:12:00 18 /min Univ ersity of [facility] Body weight 2022-06-06 18:12:00 65.545 kg Universi ty of [facility] BMI 2022-06-06 18:12:00 25.60 kg/m2 [facility] Systolic blood 2022-05-16 15:27:00 107 mm[Hg] Univer sity of pressure [facility] Diastolic blood 2022-05-16 15:27:00 66 mm[Hg] Unive rsity of pressure [facility] Heart rate 2022-05-16 15:27:00 86 /min Universi ty [facility] Body temperature 2022-05-16 15:27:00 37.11 Irasema Univ ersity of [facility] Respiratory rate 2022-05-16 15:27:00 18 /min Univ ersity of [facility] Body height 2022-05-16 15:27:00 160 cm Universi ty of [facility] Body weight 2022-05-16 15:27:00 68.181 kg Universi ty of [facility] BMI 2022-05-16 15:27:00 26.63 kg/m2 [facility]i ty [facility] Systolic blood 2022-05-11 15:31:00 116 mm[Hg] Univer sity of pressure [facility] Diastolic blood 2022-05-11 15:31:00 78 mm[Hg] Unive rsity of pressure [facility] Heart rate 2022-05-11 15:31:00 115 /min Universi ty of [facility] Body temperature 2022-05-11 15:31:00 36.33 Irasema Univ ersity of [facility] Respiratory rate 2022-05-11 15:31:00 18 /min Univ ersity of [facility] Body weight 2022-05-11 15:31:00 68.085 kg Universi ty of [facility] BMI 2022-05-11 15:31:00 26.59 kg/m2 Universi ty of [facility] Diastolic blood 2022-04-26 13:18:00 76 mm[Hg] Unive rsity of [facility] Heart rate 2022-04-26 13:18:00 74 /min Universi ty of [facility] Body temperature 2022-04-26 13:18:00 36.28 Irasema Univ ersity of [facility] Branch Respiratory rate 2022-04-26 13:18:00 18 /min Univ ersity of [facility] Oxygen saturation in 2022-04-26 13:18:00 98 /min University of Arterial blood by [facility] Pulse oximetry Branch Systolic blood 2022-04-26 13:18:00 122 mm[Hg] Univer sity of [facility] Body height 2022-04-24 20:40:00 160 cm Universi ty of [facility] Body weight 2022-04-24 20:40:00 78.2 kg Universi ty of [facility] BMI 2022-04-24 20:40:00 30.54 kg/m2 Universi ty of [facility] Systolic blood 2022-04-18 15:59:00 122 mm[Hg] Univer sity of pressure [facility] Diastolic blood 2022-04-18 15:59:00 71 mm[Hg] Unive rsity of pressure [facility] Heart rate 2022-04-18 15:59:00 86 /min Universi ty of [facility] Body temperature 2022-04-18 15:59:00 36.89 Irasema Univ ersity of [facility] Respiratory rate 2022-04-18 15:59:00 18 /min Univ ersity of [facility] Body weight 2022-04-18 15:59:00 76.885 kg Universi ty of [facility] BMI 2022-04-18 15:59:00 30.03 kg/m2 Universi ty of [facility] Heart rate 2022-04-16 07:00:00 94 /min Universi ty of [facility] Oxygen saturation in 2022-04-16 07:00:00 99 /min University of Arterial blood by [facility] Pulse oximetry Branch Systolic blood 2022-04-16 06:15:00 122 mm[Hg] Univer sity of pressure [facility] Diastolic blood 2022-04-16 06:15:00 73 mm[Hg] Unive rsity of pressure [facility] Body temperature 2022-04-16 06:15:00 36.61 Irasema Univ ersity of [facility] Respiratory rate 2022-04-16 06:15:00 16 /min Univ ersity of [facility] Systolic blood 2022-04-12 16:07:00 124 mm[Hg] Univer sity of pressure [facility] Diastolic blood 2022-04-12 16:07:00 72 mm[Hg] Unive rsity of pressure [facility] Heart rate 2022-04-12 16:07:00 85 /min Universi ty of [facility] Body temperature 2022-04-12 16:07:00 36.28 Irasema Univ ersity of [facility] Respiratory rate 2022-04-12 16:07:00 18 /min Univ ersity of [facility] Body weight 2022-04-12 16:07:00 75.705 kg Universi ty of [facility] BMI 2022-04-12 16:07:00 29.57 kg/m2 [facility]i ty [facility] Systolic blood 2022-03-29 14:01:00 120 mm[Hg] Univer sity of pressure [facility] Diastolic blood 2022-03-29 14:01:00 69 mm[Hg] Unive rsity of pressure [facility] Heart rate 2022-03-29 14:01:00 87 /min Universi ty of [facility] Body temperature 2022-03-29 14:01:00 36.44 Irasema Univ ersity of [facility] Respiratory rate 2022-03-29 14:01:00 16 /min Univ ersity of [facility] Body height 2022-03-29 14:01:00 160 cm Universi ty of [facility] Body weight 2022-03-29 14:01:00 73.982 kg Universi ty of [facility] BMI 2022-03-29 14:01:00 28.89 kg/m2 Universi ty of [facility] Systolic blood 2022-03-15 13:02:00 109 mm[Hg] Univer sity of pressure [facility] Diastolic blood 2022-03-15 13:02:00 68 mm[Hg] Unive rsity of pressure [facility] Heart rate 2022-03-15 13:02:00 86 /min Universi ty of [facility] Body temperature 2022-03-15 13:02:00 36.61 Irasema Univ ersity of [facility] Respiratory rate 2022-03-15 13:02:00 20 /min Univ ersity of [facility] Body height 2022-03-15 13:02:00 160 cm Universi ty of [facility] Body weight 2022-03-15 13:02:00 71.442 kg Universi ty of [facility] BMI 2022-03-15 13:02:00 27.90 kg/m2 Universi ty of [facility] Systolic blood 2022-03-12 21:00:00 121 mm[Hg] Univer sity of pressure [facility] Diastolic blood 2022-03-12 21:00:00 54 mm[Hg] Unive rsity of pressure [facility] Heart rate 2022-03-12 21:00:00 79 /min Universi ty of [facility] Body temperature 2022-03-12 21:00:00 36.5 Irasema Univ ersity of [facility] Respiratory rate 2022-03-12 21:00:00 18 /min Univ ersity of [facility] Oxygen saturation in 2022-03-12 21:00:00 100 /min University of Arterial blood by [facility] Pulse oximetry Branch Body height 2022-03-11 22:38:00 160 cm Universi ty of [facility] Body weight 2022-03-11 17:56:00 70.761 kg [facility] BMI 2022-03-11 17:56:00 27.63 [facility] 2022-03-08 19:49:00 126 mm[Hg] Univer sity of pressure [facility] Diastolic blood 2022-03-08 19:49:00 65 mm[Hg] [facility] Heart rate 2022-03-08 19:49:00 98 /min [facility] Body temperature 2022-03-08 19:49:00 36.56 Irasema [facility] 2022-03-08 19:49:00 18 /min [facility] Body height 2022-03-08 19:49:00 160 cm [facility] Body weight 2022-03-08 19:49:00 70.897 kg [facility] BMI 2022-03-08 19:49:00 27.69 kg/m2 [facility] Oxygen saturation in 2022-03-08 19:49:00 100 /min [facility] Arterial blood by [facility] Pulse oximetry Branch Weight 2016-12-06 18:30:00 [facility] Height 2016-12-06 18:30:00 [facility] Temperature Oral (F) 2016-12-06 18:30:00 98.6 F [facility] Heart Rate 2016-12-06 18:30:00 [facility] Diastolic (mm Hg) 2016-12-06 18:30:00 [facility] Arnol Systolic (mm Hg) 2016-12-06 18:30:00 Ethan eleni [facility]rose Procedures Procedure Date / Time Performing Clinician Source Performed LAPAROSCOPIC ECTOPIC 2023-02-06 23:59:00 Lupillo dAam [facility] REMOVAL Lianet [facility] US FIRST 2023-02-06 20:15:47 Honorio Nicolas [facility] TRIMESTER LESS THAN [address] [facility] [address] [place] WEEKS WITH TRANSVAGINAL US FIRST 2023-02-06 20:15:47 Honorio Nicolas [facility] TRIMESTER LESS THAN [address] [facility] [place] WEEKS WITH TRANSVAGINAL COMP. METABOLIC PANEL 2023-02-06 19:28:00 Nicolas, [facility] ([id number]) [facility] TOTAL BETA HCG ASSAY 2023-02-06 19:28:00 Honorio Nicolas [facility] CBC WITH DIFF 2023-02-06 19:28:00 Fidencio [facility] URINALYSIS 2023-02-06 19:28:00 Fidencio [facility] HB ABO GROUPING 2023-02-06 19:28:00 Fidencio [facility] COMP. METABOLIC PANEL 2023-02-06 19:28:00 Honorio Nicolas [facility] ([id number]) [facility] TOTAL BETA HCG ASSAY 2023-02-06 19:28:00 Honorio Nicolas [facility] CBC WITH DIFF 2023-02-06 19:28:00 Fidencio [facility] URINALYSIS 2023-02-06 19:28:00 [facility] 2023-02-06 19:28:00 Fidencio [facility] FIRST TRIMESTER 2023-02-06 18:55:00 Sarmad Maguire [facility] POCT TEST 2023-01-31 19:31:00 Sarmad Maguire [facility] POCT URINALYSIS W/O 2023-01-31 19:31:00 Sarmad Maguire [facility] REPORT OF 2023-01-31 05:01:00 Doctor Unassigned, [facility] PATIENT FINANCIAL 2023-01-19 18:03:22 [facility] POCT TEST 2023-01-19 00:00:00 Vanita Garcia [facility] GARDASIL 9 (HPV 9V) 2022-06-26 17:28:16 Sarmad Maguire [facility] CBC WITH DIFF 2022-06-06 20:11:00 Sissy Mckeon [facility] DISCLOSURE AND CONSENT, 2022-06-06 05:01:00 [facility]ICAL [facility] nc PROCEDURES POCT TEST 2022-06-06 00:00:00 Sissy Mckeon [facility] CBC WITH DIFF 2022-04-26 06:01:00 Milind Daley [facility] VENOUS CORD GAS 2022-04-25 14:53:00 Milind Daley [facility] CENTRAL NEURAXIAL BLOCK 2022-04-25 04:26:46 Josee Trinidad [facility] CBC WITH DIFF 2022-04-24 23:07:00 Milind Daley [facility] RUBELLA SCREEN IGG 2022-04-24 23:07:00 Milind Daley [facility] HEPATITIS B SURFACE 2022-04-24 23:07:00 Milind Daley [facility] HIV 1/2 AG-AB WITH REFLEX 2022-04-24 23:07:00 Milind Daley in [facility] GALV ONLY - SYPHILIS 2022-04-24 23:07:00 Milind Daley [facility] IGG/IGM [facility] HB ABO GROUPING 2022-04-24 22:11:00 Milind Daley [facility] RHO (D) IMMUNE GLOBULIN 2022-04-24 22:11:00 Milind Daley [facility] COVID-19 (ID NOW RAPID 2022-04-24 20:32:00 Cale Ortiz [facility] TESTING) [facility] LAB ONLY COVID 2022-04-24 20:32:00 Cale Ortiz [place] [facility] [place] INTERPRETATION [facility] HOSPITAL ADMISSION 2022-04-24 05:01:00 Doctor Ricardo, [facility] POCT URINALYSIS 2022-04-18 15:59:00 Augie Mendoza [facility] ASSIGNMENT OF BENEFITS 2022-04-16 06:21:04 Doctor Unassigned, [facility] CONSENT/REFUSAL FOR 2022-04-16 06:12:35 Doctor Unassigned, [facility] DIAGNOSIS AND TREATMENT [facility] POCT URINALYSIS 2022-04-12 16:10:00 Augie Mendoza [facility] POCT URINALYSIS 2022-03-29 14:02:00 Augie Mendoza [facility] POCT URINALYSIS 2022-03-15 00:00:00 Augie Mendoza [facility] POCT TEST 2022-03-11 18:56:00 Paulie Pinto [facility] COVID-19 (ID NOW RAPID 2022-03-11 18:42:00 Anna Antony [facility] TESTING) [facility] CT STROKE ANGIOGRAM HEAD 2022-03-11 18:41:45 [facility] STROKE ANGIOGRAM NECK 2022-03-11 18:41:45 Paulie Pinto [facility] URINALYSIS 2022-03-11 18:38:00 Blair [facility] URINE DRUG (IMMUNOASSAY) 2022-03-11 18:38:00 Paulie Pinto [facility] DRUG [facility] SCREEN W/O REFLEX CT STROKE HEAD WO 2022-03-11 18:15:30 Blair [facility] CONTRAST [facility] TROPONIN I 2022-03-11 18:05:00 Paulie Pinto [place] [facility] THYROID STIMULATING 2022-03-11 18:05:00 Yusef Dixon [facility] HORMONE [facility] BASIC METABOLIC PANEL 2022-03-11 18:05:00 Paulie Pinto [facility] (NA, K, CL, CO2, GLUCOSE, Medica l Branch BUN, CREATININE, CA) LIPID PANEL ([id number])(TOTAL 2022-03-11 18:05:00 Yusef Dixon [facility] CHOLESTEROL, [facility] TRIGLYCERIDES, HDL) CBC WITHOUT DIFF 2022-03-11 18:05:00 Blair [facility] GLYCOSYLATED HEMOGLOBIN 2022-03-11 18:05:00 Yusef Dixon [facility] (A1C) Medical Branch PROTHROMBIN TIME / INR 2022-03-11 18:05:00 Paulie Pinto [facility] ACTIVATED PARTIAL 2022-03-11 18:05:00 Paulie Pinto [facility] THRMPLAS JOSE [facility] HB ECG ROUTINE & RHYTHM 2022-03-11 18:03:28 Paulie Pinto [facility] STRIP [facility] NOTICE OF PRIVACY 2022-03-11 17:49:31 Doctor Unasssai, [facility] PRACTICES [facility] CONSENT/REFUSAL FOR 2022-03-11 17:48:43 Doctor Ricardo [facility] DIAGNOSIS AND TREATMENT [facility] COVID-19 (ID NOW RAPID 2022-03-08 19:55:00 Karthik Naranjo [facility] TESTING) Medical Branch LAB ONLY COVID 2022-03-08 19:55:00 Karthik Naranjo [facility] INTERPRETATION [facility] CONSENT/REFUSAL FOR 2022-03-08 05:01:00 Doctor Ricardo [facility] DIAGNOSIS AND TREATMENT [facility] Encounters Start End Encounter Admission Attending Care Care Encounter Source Date/Time Date/Time Type Type Clinicians Facility Department ID 2023-02-13 Outpatient [id number] Memoria 17:51:45 [id number] Arnol [id number] 2023-01-29 Outpatient [id number] Memoria 17:28:08 [id number] Arn[place] [id number] 2021-06-18 Emergency [facility] [id number] Univers 07:59:01 [facility] 2021-06-16 Emergency [facility] [id number] Univers 14:22:54 ity [facility] 2023-02-28 2023-02-28 Outpatient P [facility] [id number] Univers 13:30:00 13:30:00 ity [facility] 2023-02-16 2023-02-16 Outpatient R [facility] [id number] Univers 08:30:00 08:30[facility]23-[facility] 2023-02-06 Outpatient X NICOLAS, [facility] ERT [id number] Univers 14:16:00 21:30:00 HONORIO [facility] 2023-02-06 2023-02-06 [facility] [id number] Univers 14:16:00 21:30:00 [facility] [id number] i ty [id number] [id number] [facility] 071 Branch 2023-02-06 2023-02-06 Surgery Yael-Nkechi [facility] [id number] Univers 19:00:00 21:06:00 s Lianet EDWIN [id number] it[id number] [id number] [facility] 020 Branch 2023-02-06 2023-02-06 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 13.10 ity of [facility] [id number] Eugenio as MATERNAL [id number] [facility] CHILD [address] [place] [address] 2023-02-06 2023-02-06 Outpatient P ALEXEY [facility] [id number] Univers 13:00:00 13:00:00 PATRIA it y of S, MURCIA [facility] 2023-02-06 2023-02-06 Telephone [facility] [id number] Univers 00:00:00 00:00:00 Sarmad C AIR DRILL OPERATOR [id number] ity of REGIONAL [id number] Eugenio as MATERNAL [id number] [facility] CHILD [address] [place] [address] 2023-02-02 2023-02-02 Dry Goods Inspector Lab, Ang-Rmchp [facility] 1.2.840. [id number] Univers 10:30:00 10:46:17 Visit Sarmad Maguire AIR DRILL OPERATOR [id number]. 10 ity of REGIONAL [id number] Eugenio as MATERNAL [id number] [facility] CHILD [address] [place] [address] 2023-02-02 2023-02-02 Outpatient R TING [facility] [id number] Univers 10:30:00 10:30:00 SARMAD schuler [facility] 2023-02-02 2023-02-02 Outpatient R [facility]ING [facility] [id number] Univers 08:30:00 08:30:00 SARMAD schuler [facility] 2023-02-01 2023-02-01 Telephone [facility] 1.2.840.114 [id number] Univers 00:00:00 00:00:00 Sarmad Sneed AIR DRILL OPERATOR 350.1.13.10 ity of [facility] 4.2.7.2.686 Eugenio as MATERNAL [id number] [facility] & [address] 2023-02-01 2023-02-01 Abstract [facility] 1.2.840.114 [id number] Univers 00:00:00 00:00:00 Sarmad C AIR DRILL OPERATOR 350.1.13.10 ity of [facility] 4.2.7.2.686 Eugenio as MATERNAL [id number] [facility] & CHILD [address] [place] [address] 2023-01-31 2023-01-31 Outpatient R TING [facility] [id number] Univers 13:45:00 15:00:11 SARMAD schuler [facility] 2023-01-31 2023-01-31 Initial [facility] 1.2.576.544 [id number] Univers 13:45:00 15:00:11 Sarmad C AIR DRILL OPERATOR 350.1.13.10 ity of Visit REGIONAL 4.2.7.2.686 Eugenio as MATERNAL [id number] [facility] & [address] 2023-01-31 2023-01-31 Orders Doctor TREVA 1.2.840.114 [id number] Univers 00:00:00 00:00:00 Only Unassigned, BRIAN 350.1.13.10 ity of [place] [facility] 4.2.7.2.686 Eugenio as [id number] [address] 2023-01-29 2023-01-29 Telephone [facility] 1.2.840.114 10 [id number] Univers 00:00:00 00:00:00 Sarmad C AIR DRILL OPERATOR 350.1.13.10 ity of [facility] 4.2.7.2.686 Eugenio as MATERNAL [id number] [address] 2023-01-29 2023-01-29 Nurse TREVA Goldberg 1.2.840.114 [id number] Univers 00:00:00 00:00:00 Triage Chessica T BRIAN 350.1.13.10 ity of HOSPITAL 4.2.7.2.686 Eugenio as [id number] [facility] [address] 2023-01-19 2023-01-19 Out[facility] [id number] Univers 13:45:00 14:16:42 VANITA ity of [facility] 2023-01-19 2023-01-19 Office [facility] 1.2.840.114 [id number] Univers 13:45:00 14:16:42 Visit Vanita A AIR DRILL OPERATOR 350.1.13.10 i ty of REGIONAL 4.2.7.2.686 Eugenio as MATERNAL [id number] [address] 2023-01-19 2023-01-19 Orders Doctor TILLEY 1.2.840.114 [id number] Univers 00:00:00 00:00:00 Only Unassigned, BRIAN 350.1.13.10 ity of [place] [facility] 4.2.7.2.686 Eugenio as [phone] [address] 2022-11-03 2022-11-03 Outpatient R AKINSIPE, [facility] [id number] Univers 07:45:00 07:45:00 SARMAD schuler [facility] 2022-09-06 2022-09-06 Office [facility] 1.2.232.664 [id number] Univers 13:45:00 14:00:00 Visit Sarmad C AIR DRILL OPERATOR 350.1.13.10 ity of [facility] 4.2.7.2.686 Eugenio as MATERNAL [id number] [facility] & CHILD [address] [place] [address] 2022-09-06 2022-09-06 Outpatient R AKINSIPE, [facility] [id number] Univers 13:45:00 13:45:00 SARMADDENA schuler [facility] 2022-09-06 2022-09-06 [facility] [id number] Univers 13:00:00 13:00:00 SARMAD schuler [facility] 2022-07-20 2022-07-20 Outpatient R AKINSIPE, [facility] [id number] Univers 09:30:00 13:45:39 SARMADDENA borwn [facility] 2022-07-20 2022-07-20 Office [facility] 1.2.802.621 [id number] Univers 09:30:00 13:45:39 Visit Sarmad Naren AIR DRILL OPERATOR 350.1.13.10 ity of [facility] 4.2.7.2.686 Eugenio as MATERNAL [id number] [facility] & CHILD [address] [place] [address] 2022-07-20 2022-07-20 Telephone [facility] 1.2.527.453 [id number] Univers 00:00:00 00:00:00 Michellenda R AIR DRILL OPERATOR 350.1.13.10 ity of [facility] 4.2.7.2.686 Eugenio as MATERNAL [phone] [facility] & CHILD [address] [place] [address] 2022-06-26 2022-06-26 Nurse Nurse, Declan Rmchp Exp [facility] 1.2.840.114 [id number] Univers 09:45:00 10:00:00 Visit Sarmad Maguire AIR DRILL OPERATOR 350.1.13. 10 ity of [facility] 4.2.7.2.686 Eugenio as MATERNAL [phone] [facility] ical & CHILD [address] [place] [address] 2022-06-26 2022-06-26 Outpatient R [facility] [id number] Univers 09:45:00 09:45:00 SARMAD schuler [facility] 2022-06-06 2022-06-06 Outpatient R REJI [facility] [id number] Univers 13:15:00 14:46:51 AUGIE schuler [facility] 2022-06-06 2022-06-06 Office [facility] 1 .2.840.114 [id number] Univers 13:15:00 14:46:51 Visit Augie Mendoza AIR DRILL OPERATOR 350.1.13.10 ity of [facility] 4.2.7.2.686 Eugenio as MATERNAL [id number] [facility] & CHILD [address] [place] [address] 2022-06-06 2022-06-06 Orders Doctor TREVA 1.2.840.114 [id number] Univers 00:00:00 00:00:00 Only Unassigned, BRIAN 350.1.13.10 ity of [place] [facility] 4.2.7.2.686 Eugenio as [id number] [address] 2022-05-16 2022-05-16 Outpatient R REJI [facility] [id number] Univers 10:30:00 10:38:00 AUGIE schuler [facility] 2022-05-16 2022-05-16 Routine Reji [facility] 1.2.840.114 [id number] Univers 10:30:00 10:38:00 Augie Agarwal AIR DRILL OPERATOR 350.1.13.10 ity of Visit [facility] 4.2.7.2.686 Eugenio as MATERNAL [id number] [facility] CHILD [address] [place] [address] 2022-05-11 2022-05-11 Outpatient R [facility] [id number] Univers 10:15:00 10:34:43 AUGIE brown o tim [facility] 2022-05-11 2022-05-11 Routine [facility] 1.2.840.114 [id number] Univers 10:15:00 10:34:43 Augie R AIR DRILL OPERATOR 350.1.13.10 ity of Visit [facility] 4.2.7.2.686 Eugenio as MATERNAL [id number] Med ical & CHILD [address] [place] [address] 2022-04-27 2022-04-27 Outpatient R [facility] [id number] Univers 11:00:00 11:00:00 AUGIE brown o tim [facility] 2022-04-24 2022-04-26 Inpatient P [facility] SANGEETA [id number] Univers 15:10:00 16:51:00 CALE brown of [facility] 2022-04-24 2022-04-26 Hospital TREVA Ortiz 1.2.840.114 [id number] Univers 15:10:00 16:51:00 Encounter Calekenneth TORRES 350.1.13.10 ity [place] [address].7.2.686 Eugenio as [phone] [facility] [address] 2022-04-24 2022-04-25 Anesthesia Josee Trinidad 1.2.840.11 4 [id number] Univers 23:01:00 11:56:00 Event Nikko Orr 350.1.13.10 ity [place] [address].7.2.686 Eugenio as [id number] [facility] [address] 2022-04-24 2022-04-24 Nurse TREVA Perea 1.2.840.114 [id number] Univers 00:00:00 00:00:00 Triage Brenda TORRES 350.1.13.10 it y of [address]686 Eugenio as [phone] [facility] [address] 2022-04-24 2022-04-24 Orders Doctor TREVA 1.2.840.114 [id number] Univers 00:00:00 00:00:00 Only Unassigned, BRIAN 350.1.13.10 ity of [place] [address]686 Eugenio as [id number] [facility] [address] 2022-04-20 2022-04-20 Telephone Reji [facility] 1.2.527.291 [id number] Univers 00:00:00 00:00:00 Rosnda R AIR DRILL OPERATOR 350.1.13.10 ity of [address]686 Eugenio as MATERNAL [id number] [facility] ical & CHILD [address] [place] [address] 2022-04-18 2022-04-18 Outpatient R [facility] [id number] Univers 10:45:00 11:14:38 ROSHUNDA ity o f [facility] 2022-04-18 2022-04-18 Routine [facility] 1.2.840.114 [id number] Univers 10:45:00 11:14:38 Roshunda R AIR DRILL OPERATOR 350.1.13.10 ity of Visit [facility] 4.2.7.2.686 Eugenio as MATERNAL [id number] [facility] & CHILD [address] [place] [address] 2022-04-16 2022-04-16 Outpatient P CHIDI [facility] SANGEETA [id number] Univers 01:17:00 02:14:00 ity of [facility] 2022-04-16 2022-04-16 [facility] Chidi Prescott [facility] 1.2.840.114 [id number] Univers 01:17:00 02:14:00 Encounter Martin FAXON 350.1.13.10 ity [facility] 4.2.7.2.686 [facility] [id number] [facility] [address] 2022-04-12 2022-04-12 Outpatient R [facility] [id number] Univers 11:00:00 11:21:10 ROSHUNDA ity o f [facility] 2022-04-12 2022-04-12 Routine [facility] 1.2.840.114 [id number] Univers 11:00:00 11:21:10 Roshunda R AIR DRILL OPERATOR 350.1.13.10 ity of Visit [facility] 4.2.7.2.686 Eugenio as MATERNAL [id number] [facility] & CHILD [address] [place] [address] 2022-03-29 2022-03-29 Routine [facility] 1.2.840.114 [id number] Univers 08:45:00 09:00:00 Roshunda R AIR DRILL OPERATOR 350.1.13.10 ity of Visit [facility] 4.2.7.2.686 Eugenio as MATERNAL [id number] [facility] & CHILD [address] [place] [address] 2022-03-29 2022-03-29 Outpatient R [facility] [id number] Univers 08:45:00 08:45:00 ROSRESHMANDA itnaresh o [facility] 2022-03-17 2022-03-17 [facility] 1.2.840.114 [id number] Univers 14:47:05 23:59:00 Encounter Fabiola [facility] 350.1.13.10 ity of [facility] 4.2.7.2.686 [facility] [id number] [address] 2022-03-17 2022-03-17 Outpatient R AMOS [facility] [id number] Univers 00:00:00 23:59:00 FABIOLA ity [facility] 2022-03-17 2022-03-17 [facility] 1.2.840.114 [id number] Univers 14:45:15 14:46:00 Encounter Fabiola [facility] 350.1.13.10 ity of [facility] 4.2.7.2.686 [facility] [id number] [address] 2022-03-17 2022-03-17 Outpatient R [facility] [id number] Univers 00:00:00 00:00:00 FABIOLA ity [facility] 2022-03-15 2022-03-15 Outpatient R [facility] [id number] Univers 07:45:00 08:19:47 ROSRESHMANDA itnaresh o f [facility] 2022-03-15 2022-03-15 Routine [facility] 1.2.840.114 [id number] Univers 07:45:00 08:19:47 Rosreshmanda R AIR DRILL OPERATOR 350.1.13.10 ity of Visit REGIONAL 4.2.7.2.686 Eugenio as MATERNAL [id number] [facility] & [address] 2022-03-15 2022-03-15 Outpatient R [facility] [id number] Univers 07:45:00 07:45:00 ROSRESHMANDA ity o f [facility] 2022-03-14 2022-03-14 Abstract [facility] 1.2.840.114 [id number] Univers 00:00:00 00:00:00 Cordella R AIR DRILL OPERATOR 350.1.13.10 ity of REGIONAL 4.2.7.2.686 Eugenio as MATERNAL [id number] [facility] & [address] 2022-03-14 2022-03-14 Transition VIVIAN Bone 1.2.840.114 [id number] Univers 00:00:00 00:00:00 of Care Kriss DAY 350.1.13.10 i ty of [facility] 4.2.7.2.[id number] [address] 2022-03-13 2022-03-13 Dry Goods Inspector Ultrasound, Declan[facility] 1.2 .840.114 [id number] Univers 14:00:00 14:30:00 Visit Divina Sheikh AIR DRILL OPERATOR 350.1. 13.10 ity of [facility] 4.2.7.2.686 Eugenio as MATERNAL [id number] [facility] & CHILD [address] [place] [address] 2022-03-13 2022-03-13 Outpatient P [facility] [id number] Univers 14:00:00 14:00:00 ity of [facility] 2022-03-13 2022-03-13 Outpatient P BLACKBURN [facility] [id number] Univers 14:00:00 14:00:00 PATRIA it y of [place] [facility] 2022-03-11 2022-03-12 Outpatient X AMOS [facility] SARY [id number] Univers 12:59:00 18:29:00 [facility] 2022-03-11 2022-03-12 [facility] Paulie Pinto 1.2.840.1 14 [id number] Univers 12:59:00 18:29:00 Encounter Fabiola Trinidad 35 0.1.13.10 ity of [facility] 4.2.7.2.686 Eugenio as [id number] [facility] [address] 2022-03-11 2022-03-11 Nurse TREVA Lovett 1.2.840.114 [id number] Univers 00:00:00 00:00:00 Triage Priyanka TORRES 350.1.13.10 it y of [facility] 4.2.7.2.686 Eugenio as [id number] [facility] [address] 2022-03-08 2022-03-08 Outpatient P [facility]SE [facility] [id number] Univers 14:22:00 17:24:00 KARTHIK brown [facility] 2022-03-08 2022-03-08 [facility] TREVA Naranjo 1.2.840.114 [id number] Univers 14:22:00 17:24:00 Encounter Karthik TORRES 350.1.13.10 ity [facility] 4.2.7.2.686 Eugenio as [id number] [facility] [address] 2022-03-08 2022-03-08 Outpatient P JOSE [facility] [id number] Univers 14:22:00 14:22:00 KARTHIK brown [facility] 2022-03-08 2022-03-08 Nurse TREVA Soriano 1.2.321.781 [id number] Univers 00:00:00 00:00:00 Triage Jhonny TORRES 350.1.13.10 it y of [facility] 4.2.7.2.686 Eugenio as [id number] [facility] [address] 2022-03-02 2022-03-02 Refill Provider, [facility] 1.2.032.606 [id number] Univers 00:00:00 00:00:00 Ang-chp AIR DRILL OPERATOR 350.1.13.10 ity [facility] 4.2.7.2.686 Eugenio as MATERNAL [id number] [facility] ical & CHILD [address] [place] [address] 2022-03-01 2022-03-01 Outpatient R LINDA SISSY [facility] [id number] Univers 09:15:00 09:54:47 JALYNKARSONSISSY itnaresh [facility] 2022-03-01 2022-03-01 Routine Provider, Declan-Rmchp [facility] 1 .2.840.114 [id number] Univers 09:15:00 09:54:47 Sissy Mckeon AIR DRILL OPERATOR 350.1.13.10 ity of Visit REGIONAL 4.2.7.2.686 Eugenio as MATERNAL [id number] [facility] & CHILD [address] [place] [address] 2022-03-01 2022-03-01 Caridad [facility] 1.2.840.114 [id number] [facility] 00:00:00 00:00:00 Sonido AIR DRILL OPERATOR 350.1.13.10 i ty of REGIONAL 4.2.7.2.686 Eugenio as MATERNAL [id number] [facility] & CHILD [address] [place] [address] 2022-02-16 2022-02-16 Outpatient Stefano MENDOZA [facility] [id number] Univers 07:45:00 08:38:04 ROSHUNDA ity o f [facility] 2022-02-16 2022-02-16 Routine [facility] 1.2.840.114 [id number] Univers 07:45:00 08:38:04 Roshunda R AIR DRILL OPERATOR 350.1.13.10 ity of Visit [facility] 4.2.7.2.686 Eugenio as MATERNAL [id number] [facility] & CHILD [address] [place] [address] 2022-02-16 2022-02-16 Outpatient Stefano MENDOZA [facility] [id number] Univers 07:45:00 07:45:00 ROSHUNDA ity o f [facility] 2022-01-26 2022-01-26 Routine [facility] 1.2.840.114 [id number] Univers 10:30:00 11:10:10 Roshunda R AIR DRILL OPERATOR 350.1.13.10 ity of Visit REGIONAL 4.2.7.2.686 Eugenio as MATERNAL [id number] [facility] CHILD [address] [place] [address] 2022-01-26 2022-01-26 Outpatient R REJI [facility] [id number] Univers 10:30:00 11:10:10 ROSJOHNA ity o f [facility] 2022-01-26 2022-01-26 Outpatient R REJI [facility] [id number] Univers 10:30:00 11:10:10 ROSRESHMANDA ity o f [facility] 2022-01-20 2022-01-20 Outpatient P [facility] [id number] Univers 14:15:00 14:15:00 ity [facility] 2022-01-10 2022-01-10 Jitendra [facility] 1.2.840.114 [id number] Univers 00:00:00 00:00:00 Augie Agarwal AIR DRILL OPERATOR 350.1.13.10 ity of REGIONAL 4.2.7.2.686 Eugenio as MATERNAL [id number] [facility] ical & CHILD [address] [place] [address] 2022-01-09 2022-01-09 Dry Goods Inspector 1, [facility] Room [facility] 1.2. 840.114 [id number] Univers 13:30:00 14:45:11 Visit Alexey Ariana Divina AIR DRILL OPERATOR 350.1. 13.10 ity of REGIONAL 4.2.7.2.686 Eugenio as MATERNAL [id number] [facility] ical & CHILD [address] [facility] 2022-01-09 2022-01-09 Outpatient P BLACKBURN [facility] [id number] Univers 13:30:00 13:30:00 PATRIA it y of [place] [facility] 2022-01-09 2022-01-09 Outpatient P [facility] [id number] Univers 13:30:00 13:30:00 ity of [facility] 2022-01-06 2022-01-06 Outpatient R [facility] [id number] Univers 10:45:00 11:15:07 ROSHUNDA ity o f [facility] 2022-01-06 2022-01-06 Routine [facility] 1.2.840.114 [id number] Univers 10:45:00 11:15:07 Roshunda R AIR DRILL OPERATOR 350.1.13.10 ity of Visit REGIONAL 4.2.7.2.686 Eugenio as MATERNAL [id number] [facility] CHILD [address] [place] [address] 2022-01-06 2022-01-06 Outpatient R REJI [facility] [id number] Univers 10:45:00 10:45:00 ROSHUNDA ity o f [facility] 2021-12-12 2021-12-12 Abstract [facility] 1.2.840.114 [id number] Univers 00:00:00 00:00:00 Roshunda R AIR DRILL OPERATOR 350.1.13.10 ity of REGIONAL 4.2.7.2.686 Eugenio as MATERNAL [id number] [facility] & CHILD [address] [place] [address] 2021-12-09 2021-12-09 Dry Goods Inspector 1, [facility] Room [facility] 1.2. 840.114 [id number] Univers 13:00:00 14:16:28 Visit Jhonny Hutchins AIR DRILL OPERATOR 350.1.13.10 ity of REGIONAL 4.2.7.2.686 Eugenio as MATERNAL [id number] [facility] ical & CHILD [address] [place] [address] 2021-12-09 2021-12-09 Outpatient Brisa HUTCHINS [facility] [id number] Univers 13:00:00 13:00:00 JHONNY ity of [facility] 2021-12-09 2021-12-09 Routine [facility] 1.2.840.114 [id number] Univers 09:00:00 09:37:37 Roshunda R AIR DRILL OPERATOR 350.1.13.10 ity of Visit REGIONAL 4.2.7.2.686 Eugenio as MATERNAL [id number] [facility] ical & CHILD [address] [place] [address] 2021-12-09 2021-12-09 Outpatient R [facility] [id number] Univers 09:00:00 09:37:37 ROSHUNDA joanney o f [facility] 2021-12-08 2021-12-08 Outpatient P [facility] [id number] Univers 08:00:00 08:00:00 ity of [facility] 2021-11-24 2021-11-24 Telephone Reji LAMONTSE 1.2.937.948 [id number] Univers 00:00:00 00:00:00 Michellezaina R AIR DRILL OPERATOR 350.1.13.10 ity of REGIONAL 4.2.7.2.686 Eugenio as MATERNAL [id number] Med ical & CHILD [address] [place] [address] 2021-11-11 2021-11-11 Outpatient R REJI [facility] [id number] Univers 11:00:00 11:00:00 CORDELLA kevin o f [facility] 2021-11-11 2021-11-11 Outpatient R REJI [facility] [id number] Univers 09:00:00 09:50:28 MICHELLENDA kevin o f [facility] 2021-11-11 2021-11-11 Routine [facility] 1.2.840.114 [id number] Univers 09:00:00 09:50:28 Augie R AIR DRILL OPERATOR 350.1.13.10 ity of Visit REGIONAL 4.2.7.2.686 Eugenio as MATERNAL [id number] [facility] & CHILD [address] [place] [address] 2021-10-31 2021-10-31 Dry Goods Inspector [facility]trasound, [facility] 1.2 .840.114 [id number] Univers 09:00:00 09:30:00 Visit Divina Sheikh AIR DRILL OPERATOR 350.1. 13.10 ity of REG[facility]AL 4.2.7.2.686 Eugenio as MATERNAL [id number] [facility] CHILD [address] [facility] 2021-10-31 2021-10-31 Outpatient P ALEXEY [facility] [id number] Univers 09:00:00 09:00:00 PATRIA it y of [place] [facility] 2021-10-31 2021-10-31 Abstract [facility] 1.2.840.114 [id number] Univers 00:00:00 00:00:00 Roshunda R AIR DRILL OPERATOR 350.1.13.10 ity of REGIONAL 4.2.7.2.686 Eugenio as MATERNAL [id number] [facility] & CHILD [address] [place] [address] 2021-10-14 2021-10-14 Outpatient R [facility] [id number] Univers 12:45:00 12:45:00 SARMAD ity o [facility] 2021-10-14 2021-10-14 Outpatient R [facility] [id number] Univers 11:00:00 11:43:18 ROSHUNDA ity o [facility] 2021-10-14 2021-10-14 Outpatient R [facility] [id number] Univers 11:00:00 11:43:18 ROSHUNDA ity o [facility] 2021-10-14 2021-10-14 Routine [facility] 1.2.840.114 [id number] Univers 11:00:00 11:43:18 Roshunda R AIR DRILL OPERATOR [id number] ity of Visit REGIONAL [id number] Eugenio as MATERNAL [id number] [address] 2021-10-14 2021-10-14 Outpatient R [facility] [id number] Univers 11:00:00 11:00:00 ROSHUNDA ity o f [facility] 2021-10-14 2021-10-14 Outpatient R [facility] [id number] Univers 11:00:00 11:00:00 ROSHUNDA ity o f [facility] 2021-10-06 2021-10-06 Telephone [facility] [id number] Univers 00:00:00 00:00:00 Roshunda R AIR DRILL OPERATOR [id number] ity of REGIONAL [id number] Eugenio as MATERNAL [id number] [facility] & CHILD [address] [place] [address] 2021-10-03 2021-10-03 Outpatient R [facility] [id number] Univers 09:30:00 15:01:03 JHONNY ity [facility] 2021-10-03 2021-10-03 Telemedici Faculty, Declan [facility] [id number] Univers 09:30:00 10:00:00 ne Visit Jhonny Hutchins [employer] D[employer]LL OPERATOR [id number] ity of REGIONAL [id number] Eugenio as MATERNAL [id number] [facility] & [address] 2021-10-03 2021-10-03 Outpatient R [facility] [id number] Univers 09:30:00 09:30:00 ity [facility] 2021-10-03 2021-10-03 Outpatient [facility] [id number] Univers 09:30:00 09:30:00 JHONNY ity [facility] 2021-09-28 2021-09-28 Telephone [facility] [id number] Univers 00:00:00 00:00:00 Rosreshmanda R [employer] DRILL OPERATOR [id number] ity of REGIONAL [id number] Eugenio as MATERNAL [id number] [address] 2021-09-26 2021-09-26 Outpatient R [facility] [id number] Univers 10:45:00 10:45:00 ity [facility] 2021-09-16 2021-09-16 Outpatient R [facility] [id number] Univers 08:45:00 10:14:08 ROSHUNDA ity o f [facility] 2021-09-16 2021-09-16 Initial [facility] 1.2.840.114 [id number] Univers 08:45:00 10:14:08 Roshunda R AIR DRILL OPERATOR 350.1.13.10 ity of Visit REGIONAL 4.2.7.2.686 Eugenio as MATERNAL [phone] [facility] & [address] 2021-09-16 2021-09-16 Outpatient R [facility] [id number] Univers 08:45:00 10:14:08 AUGIE roche [facility] 2021-09-16 2021-09-16 Outpatient Stefano MENDOZA [facility] [id number] Univers 08:15:00 09:47:22 AUGIE roche [facility] 2021-09-16 2021-09-16 Outpatient Stefano MENDOZA [facility] [id number] Univers 08:45:00 08:45:00 AUGIE roche [facility] 2021-09-16 2021-09-16 Outpatient Stefano MENDOZA [facility] [id number] Univers 08:15:00 08:15:00 AUGIE schuler [facility] 2021-09-16 2021-09-16 Orders Doctor TREVA 1.2.840.114 [id number] Univers 00:00:00 00:00:00 Only Unassigned, BRIAN 350.1.13.10 ity of [facility] 4.2.7.2.686 Eugenio as [phone] [address] 2021-05-18 2021-05-18 Office [facility] 1.2.787.251 [id number] Univers 13:16:34 13:52:20 Visit Sarmad Sneed AIR DRILL OPERATOR 350.1.13.10 ity [facility] 4.2.7.2.686 Eugenio as MATERNAL [phone] [facility] ical & CHILD [address] [place] [address] 2021-05-18 2021-05-18 Outpatient R TING [facility] [id number] Univers 13:30:00 13:30:00 SARMAD schuler [facility] 2021-05-18 2021-05-18 Outpatient Stefano MAGUIRE [facility] [id number] Univers 09:15:00 09:15:00 SARMAD schuler [facility] 2021-05-18 2021-05-18 Outpatient Stefano MENDOZA [facility] [id number] Univers 09:00:00 09:00:00 AUGIE schuler [facility] 2021-05-17 2021-05-17 Outpatient R TING [facility] [id number] Univers 09:15:00 09:15:00 SARMAD brown o tim [facility] 2021-02-16 2021-02-16 Office [facility] 1.2.840.114 [id number] Univers 07:34:28 08:30:41 Visit Augie Stefano AIR DRILL OPERATOR 350.1.13.10 ity of [facility] 4.2.7.2.686 Eugenio as MATERNAL [phone] Med ical & CHILD 107 [facility] 2021-02-16 2021-02-16 Outpatient R REJI [facility] [id number] Univers 07:30:00 07:30:00 AUGIE kevin harini roche [facility] 2021-02-16 2021-02-16 Orders Doctor TREVA 1.2.840.114 [id number] Univers 00:00:00 00:00:00 Only Unassigned, BRIAN 350.1.13.10 ity of [place] [facility] 4.2.7.2.686 Eugenio as [phone] [address] 2021-02-07 2021-02-07 [facility] 1.2.248.304 [id number] Univers 00:00:00 00:00:00 Ewelina Ewing 350.1.13.10 i [place] [phone] Fl dical [address] 2020-11-22 2020-11-22 Case [facility] 1.2.010.001 [id number] Univers 00:00:00 00:00:00 Management Ewelina Ewing 350.1.13.10 [place] [phone] Fl dical nal [address] [place] [address] 2020-11-22 2020-11-22 Telephone [facility] 1.2.840.114 [id number] Univers 00:00:00 00:00:00 Ewelina Ewing 350.1.13.10 i ty [place].2.[place] [phone] Fl dical nal [address] [place] [address] 2020-11-11 2020-11-11 Office Tyree [facility] 1.2.592.182 [id number] Univers 11:08:09 12:09:26 Visit Ewelina Ewing 350.1.13.10 i ty [place]2.[place].2.686 [place] [facility] [phone] Fl dical nal [address] [facility] 2020-11-11 2020-11-11 Outpatient R TYREE [facility] [id number] Univers 11:15:00 11:15:00 EWELINA kevin [facility] 2020-11-11 2020-11-11 Telephone [facility] 1.2.840.114 [id number] Univers 00:00:00 00:00:00 Ewelina Ewing 350.1.13.10 i [place] [phone] [facility] [address] [facility] 2020-11-11 2020-11-11 Orders Doctor TREVA 1.2.840.114 [id number] Univers 00:00:00 00:00:00 Only Unassigned, BRIAN 350.1.13.10 ity of [place] [facility] 4.2.7.2.686 Eugenio as [phone] [facility] [address] 2020-07-17 2020-07-17 Emergency Abhijit Granados [facility] 1.2.840.11 [id number] Univers 01:40:00 03:58:00 Delroy Nino S Edwin 350.1.13.10 [place].2.686 [place] [phone] [facility] [address] 2020-02-26 2020-02-26 Outpatient R EMELYN [facility] [id number] Univers 14:00:00 14:00:00 AVERY brown [facility] 2020-01-05 2020-01-05 Telephone BEAN Dior 1.2.840.114 [id number] Univers 00:00:00 00:00:00 Sharee Rinaldi 350.1.13.10 it y of [facility] 4.2.7.2.686 Eugenio as [phone] [address] 2019-12-10 2019-12-15 Dry Goods Inspector [facility] UNIVERSIT 1.2.840.114 [id number] Univers 15:20:47 14:20:59 Visit EsaalexiSharee cotter HEALTH 350.1.13.10 ity of CLINICS [place]2.[place].2.[place] [phone] [address] 2019-12-10 2019-12-10 Office EsaalexiBEAN cotter 1.2.840.114 [id number] Univers 13:55:58 15:17:35 Visit Te H 350.1.13.10 it y of BUILDING 4.2.7.2.686 Eugenio as [phone] [address] 2019-12-10 2019-12-10 Outpatient R VANE [facility] [id number] Univers 14:20:00 14:20:00 TEJO ity [facility] 2019-12-10 2019-12-10 Outpatient R VANE [facility] [id number] Univers 14:20:00 14:20:00 TEJO ity [facility] 2019-12-10 2019-12-10 Orders Doctor TREVA 1.2.840.114 [id number] Univers 00:00:00 00:00:00 Only Unassigned, BRIAN 350.1.13.10 ity of [place] [facility] 4.2.7.2.686 Eugenio as [phone] [address] 2019-11-27 2019-11-27 Telephone Ewelina Goldberg 1.2.840.114 [id number] Univers 00:00:00 00:00:00 [facility] 350.1.13.10 it y of [place].2.[place]IMARY [phone] [facility] 2019-11-26 2019-11-26 Orders Doctor TREVA 1.2.840.114 [id number] Univers 00:00:00 00:00:00 Only Unassigned, BRIAN 350.1.13.10 ity of [place] [facility] 4.2.7.2.686 Eugenio as [phone] [address] 2019-11-25 2019-11-25 Telephone Ewelina Goldberg 1.2.840.114 [id number] Univers 00:00:00 00:00:00 [facility] 350.1.13.10 it y of [place] [phone] [address] 2019-11-14 2019-11-14 Outpatient R EWELINA GOLDBERG [facility] [id number] Univers 11:30:00 11:30:00 ity of [facility] 2019-11-14 2019-11-14 Tele[facility] 1.2. 840.114 [id number] Univers 08:31:12 08:46:12 ne Visit Ewelina Goldberg [facility] 350.1.13.10 ity of [place] [phone] [address] 2019-11-10 2019-11-10 Telephone Ewelina Goldberg 1.2.840.114 [id number] Univers 00:00:00 00:00:00 [facility] 350.1.13.10 it y of HE[place].2.[place] [phone] [address] 2019-11-01 2019-11-01 Nurse Nurse, Abi Alexin 1.2.840. 114 [id number] Univers 12:39:51 15:12:49 Visit Unknown, Attending Pediatric 350.1.13. 10 ity of [place], Matilde s and 4.2.7.2.686 [place] Adult [phone] [place] [address] [facility] 2019-11-01 2019-11-01 Emergency Gallito [facility] 1.2.467.983 [id number] Univers 13:43:09 15:10:00 [facility] 350.1.13.10 it y of [place].2.686 [place] [phone] [address] (CLC) 2019-11-01 2019-11-01 Outpatient R FELIX, [facility] [id number] Univers 12:15:00 12:15:00 ATTENDING ity of [facility] 2019-10-30 2019-10-30 Emergency Evi Jim [facility] 1.2.840.114 [id number] Univers 00:24:30 03:26:00 [facility] 350.1.13.10 it y of [place].2.[place] [phone] [place] [address] [address] ([facility]) 2019-10-30 2019-10-30 Emergency X EVI JIM [facility] ERT [id number] Univers 00:24:30 03:26:00 ity of [facility] 2019-09-30 2019-10-01 Emergency X JUDI [facility] ERT [id number] Univers 23:56:38 02:38:00 [facility] ity o f [facility] 2019-09-30 2019-10-01 Emergency [facility] 1.2.455.528 [id number] Univers 23:56:38 02:38:00 [facility] 350.1.13.10 ity of [place] [phone] [address] ([facility]) 2019-09-02 2019-09-02 Office Care, [facility] Primary [facility] 1.2.840 .114 [id number] Univers 11:24:45 12:23:49 Visit Ewelina Goldberg [facility] 350.1.13.10 ity of [place] [phone] [address] 2019-09-02 2019-09-02 Outpatient R ASHLYNEWELINA [facility] [id number] Univers 10:30:00 11:50:00 ity of [facility] 2019-09-02 2019-09-02 Orders Doctor TREVA 1.2.840.114 [id number] Univers 00:00:00 00:00:00 Only Unassigned, BRIAN 350.1.13.10 ity of [place] [facility] 4.2.7.2.686 Eugenio as [phone] [place] [address] [address] 2019-06-17 2019-06-23 Inpatient X PERLACORINE ALFRED [facility] DOMINGA [id number] Univers 11:52:53 11:25:00 ity of [facility] 2019-06-15 2019-06-15 Outpatient R LIBERTY [facility] [id number] Univers 11:30:00 12:17:49 TREVA [facility] 2019-05-24 2019-05-24 Emergency X EVI JIM [facility] ERT [id number] Univers 14:22:08 16:55:00 ity [facility] 2019-04-19 2019-04-19 Emergency E MHSE MHSE 7500 MH 16:35:00 16:35:00 [facility]beca [facility]io [facility]osp[facility] l 2019-04-19 2019-04-19 Outpatient R LILLIAN [facility] [id number] Univers 16:00:00 16:05:46 [facility] 2019-04-[facility] 2019-04-19 Nurse Nurse, Abi Alves 1.2.840.114 [id number] 15:58:49 16:05:46 Visit Urgent Pediatric 350.1.13.10 s and 4.2.7.2.686 Adult [phone] Primary [facility] 2019-04-19 2019-04-19 Nurse Nurse, Abi Urgent Ronit 1.2.840. 114 [id number] [facility] 15:58:49 16:05:46 Visit Unknown, Attending Pediatric 350.1.13. 10 ity of [place] s and 4.2.7.2.686 [place] Adult [phone] [facility] [address] [facility] 2019-03-18 2019-03-18 Don Cornell 1.2.840.114 [id number] 00:00:00 00:00:00 Y Pediatric 350.1.13.10 s and 4.2.7.2.686 Adult [phone] Primary [facility] 2019-03-18 2019-03-18 Don Cornell 1.2.840.114 [id number] Univers 00:00:00 00:00:00 Y Pediatric 350.1.13.10 ity of s and [place].2.[place] [phone] [facility] [address] [facility] 2017-01-02 2017-01-02 Outpatient [facility] [id number] eClinic 16:39:00 16:39:00 MEDICAL MEDICAL alWork s GROUP JACQUELINE PHILLIPS 2016-12-06 2016-12-06 Outpatient [facility] [id number] eClinic 13:30:00 13:30:00 MEDICAL MEDICAL alWork s GROUP PA GROUP PA Results Test Description Test Time Test Comments Results Result Comments Source TOTAL BETA HCG ASSAY 2023-02-06 21:45:41 Test Item Value Reference Range Interpretation Comme nts BETA HCG (test code = 305.25 See_Comment [Auto mated message] The [id number]) system which ge nerated this result transmit burke reference range : Non- fe male and male patients: <5 mIU/mL. The reference r romain was not used to interpr et this result as nuris l/abnormal. MEMO (test code = MEMO) Gestational Age ?Range (mIU/mL) 1-10 ?Weeks ?93-98037923-07 Weeks ?24213-51820622-05 Weeks ?1903-63767337-46 Weeks ?1531-519795 Biotin has been reported to cause a negative bias, interpret results relative to patient's use of biotin. [facility] [id number] 21:45:41 Test Item Value Reference Range Interpretation Comments BETA HCG (test 305.25 See_Comment [Automated m essage] code = The system [facility] [id number]) generated this result transmit burke reference range : Non- fe male and male patien ts: <5 mIU/mL. The reference range was not used to interpret this result as normal/abnormal . EMMO (test code Gestational Age ? ? = MEMO) ?Range (mIU/mL) 1-10 ?Weeks ?78-52767423-47 Weeks ?50262-71170061-11 Weeks ?1577-16953363-66 Weeks ?1531-865211 Biotin has been reported to cause a negative bias, interpret results relative to patient's use of biotin. [facility]. METABOLIC PANEL ([id number])2023-02-06 21:29:55 Test Item Value Reference Range Interpretation Comments NA (test code = 139 mmol/L 135-145 3291279587) K (test code = 4.0 mmol/L 3.5-5.0 3364265056) CL (test code = 102 mmol/L 98-108 3663674628) CO2 TOTAL (test code 25 mmol/L 23-31 = 7567957387) AGAP (test code = 12 2-16 0680508006) BUN (test code = 7 mg/dL 7-23 8987447478) GLUCOSE (test code = 87 mg/dL 70-110 3295884609) CREATININE (test code 0.76 mg/dL 0.50-1.04 = 3671268192) TOTAL BILI (test code 0.8 mg/dL 0.1-1.1 = 0440860854) CALCIUM (test code = 10.0 mg/dL 8.6-10.6 4692117536) T PROTEIN (test code 7.7 g/dL 6.3-8.2 = 8796506991) ALBUMIN (test code = 5.0 g/dL 3.5-5.0 0173702918) ALK PHOS (test code = 70 U/L 34-122 0645709218) ALTv (test code = 16 U/L 5-35 1742-6) AST(SGOT) (test code 22 U/L 13-40 = 6723667520) eGFR (test code = 95.2 mL/min/1.73m2 2315131918) MEMO (test code = MEMO) Association of Glomerular Filtration Rate (GFR) and Staging of Kidney Disease* + + +- +| GFR (mL/min/1.73 m2) ?| With Kidney Damage ?| ?Without Kidney Damage+ ------+ ----+ ------+| ?>90 ?| ?Stage one ?| ? Normal ?+ -+ + -+| ?60-89 ?| ?Stage two ?| ? Decreased GFR ? + + +- +| ?30-59 ?| ?Stage three ?| ? Stage three ? + + +- +| ?15-29 ?| ?Stage four ? | ? Stage four ?+ -+ + -+| ?<15 (or dialysis) ? ?| ?Stage five ? | ? Stage five ?+ -+ + -+ *Each stage assumes the associated GFR level has been in effect for at least three months. ?Stages 1 to 5, with or without kidney disease, indicate chronic kidney disease. Notes: Determination of stages one and two (with eGFR >59mL/min/1.73 m2) requires estimation of kidney damage for at least three months as defined by structural or functional abnormalities of the kidney, manifested by either:Pathological abnormalities or Markers of kidney damage (including abnormalities in the composition of the blood or urine or abnormalities in imaging tests). [facility]. METABOLIC PANEL ([id number])2023-02-06 21:29:55 Test Item Value Reference Range Interpretation Comments NA (test code = 139 mmol/L 135-145 0549503839) K (test code = 4.0 mmol/L 3.5-5.0 3727751204) CL (test code = 102 mmol/L 98-108 7571888861) CO2 TOTAL (test code 25 mmol/L 23-31 = 0414999802) AGAP (test code = 12 2-16 0435676019) BUN (test code = 7 mg/dL 7-23 3348372061) GLUCOSE (test code = 87 mg/dL 70-110 9892344594) CREATININE (test code 0.76 mg/dL 0.50-1.04 = 7698500412) TOTAL BILI (test code 0.8 mg/dL 0.1-1.1 = 2163251795) CALCIUM (test code = 10.0 mg/dL 8.6-10.6 6934363069) T PROTEIN (test code 7.7 g/dL 6.3-8.2 = 5360849566) ALBUMIN (test code = 5.0 g/dL 3.5-5.0 5402352052) ALK PHOS (test code = 70 U/L 34-122 5261273821) ALTv (test code = 16 U/L 5-35 1742-6) AST(SGOT) (test code 22 U/L 13-40 = 2604551841) eGFR (test code = 95.2 mL/min/1.73m2 1415630411) MEMO (test code = MEMO) Association of Glomerular Filtration Rate (GFR) and Staging of Kidney Disease* + + +- +| GFR (mL/min/1.73 m2) ?| With Kidney Damage ?| ?Without Kidney Damage+ ------+ ----+ ------+| ?>90 ?| ?Stage one ?| ? Normal ?+ -+ + -+| ?60-89 ?| ?Stage two ?| ? Decreased GFR ? + + +- +| ?30-59 ?| ?Stage three ?| ? Stage three ? + + +- +| ?15-29 ?| ?Stage four ? | ? Stage four ?+ -+ + -+| ?<15 (or dialysis) ? ?| ?Stage five ? | ? Stage five ?+ -+ + -+ *Each stage assumes the associated GFR level has been in effect for at least three months. ?Stages 1 to 5, with or without kidney disease, indicate chronic kidney disease. Notes: Determination of stages one and two (with eGFR >59mL/min/1.73 m2) requires estimation of kidney damage for at least three months as defined by structural or functional abnormalities of the kidney, manifested by either:Pathological abnormalities or Markers of kidney damage (including abnormalities in the composition of the blood or urine or abnormalities in imaging tests). [facility] WITH [id number] 21:06:51 Test Item Value Reference Range Interpretation Comments WBC (test code = 6.71 See_Comment [Automated 4186-2) message] The sy stem which generated this result transmitted reference range : 4.30 - 11.10 10*3/?L. The reference range was not used to interpret this result as normal/abnormal . RBC (test code = 5.07 See_Comment [Automated 950-8) message] The sy stem which generated this result transmitted reference range : 3.93 - 5.25 10*6/?L. The reference range was not used to interpret this result as normal/abnormal . HGB (test code = 14.8 g/dL 11.6-15.0 718-7) HCT (test code = 43.0 % 35.7-45.2 4544-3) MCV (test code = 84.8 fL 80.6-95.5 787-2) MCH (test code = 29.2 pg 25.9-32.8 785-6) MCHC (test code = 34.4 g/dL 31.6-35.1 786-4) RDW-SD (test code = 35.7 fL 39.0-49.9 L 86396-0) RDW-CV (test code = 11.8 % 12.0-15.5 L 788-0) PLT (test code = 291 See_Comment [Automated 777-3) message] The sy stem which generated this result transmitted reference range : 166 - 358 10*3/ ?L. The reference r romain was not used to interpret this result as normal/abnormal . MPV (test code = 10.9 fL 9.5-12.9 82347-5) NRBC/100 WBC (test 0.0 See_Comment [Automat ed code = 2724520410) message] The system which generated this result transmitted reference range : 0.0 - 10.0 /100 WBCs. The refer ence range was not u sed to interpret th is result as normal/abnormal . NRBC x10^3 (test code See_Comment [Auto mated = 2525325702) message] The s ystem which generated this result transmitted reference range : 10*3/?L. The reference range was not used to interpret this result as normal/abnormal . GRAN MAT (NEUT) % 55.7 % (test code = 770-8) IMM GRAN % (test code 0.10 % = 9238348469) LYMPH % (test code = 31.0 % 736-9) MONO % (test code = 6.1 % 5905-5) EOS % (test code = 6.4 % 713-8) BASO % (test code = 0.7 % 706-2) GRAN MAT x10^3(ANC) 3.73 10*3/uL 1.88-7.09 (test code = 0776725874) IMM GRAN x10^3 (test 0.00-0.06 code = 2005291804) LYMPH x10^3 (test code 2.08 10*3/uL 1.32-3.29 = 731-0) MONO x10^3 (test code 0.41 10*3/uL 0.33-0.92 = 742-7) EOS x10^3 (test code = 0.43 10*3/uL 0.03-0.39 H 711-2) BASO x10^3 (test code 0.05 10*3/uL 0.01-0.07 = 704-7) Lab Interpretation Abnormal (test code = 21691-5) [facility] WITH [id number] 21:06:51 Test Item Value Reference Range Interpretation Comments WBC (test code = 6.71 See_Comment [Automated 6690-2) message] The sy stem which generated this result transmitted reference range : 4.30 - 11.10 10*3/?L. The reference range was not used to interpret this result as normal/abnormal . RBC (test code = 5.07 See_Comment [Automated 789-8) message] The sy stem which generated this result transmitted reference range : 3.93 - 5.25 10*6/?L. The reference range was not used to interpret this result as normal/abnormal . HGB (test code = 14.8 g/dL 11.6-15.0 718-7) HCT (test code = 43.0 % 35.7-45.2 4544-3) MCV (test code = 84.8 fL 80.6-95.5 787-2) MCH (test code = 29.2 pg 25.9-32.8 785-6) MCHC (test code = 34.4 g/dL 31.6-35.1 786-4) RDW-SD (test code = 35.7 fL 39.0-49.9 L 97462-5) RDW-CV (test code = 11.8 % 12.0-15.5 L 788-0) PLT (test code = 291 See_Comment [Automated 777-3) message] The sy stem which generated this result transmitted reference range : 166 - 358 10*3/ ?L. The reference r romain was not used to interpret this result as normal/abnormal . MPV (test code = 10.9 fL 9.5-12.9 97812-2) NRBC/100 WBC (test 0.0 See_Comment [Automat ed code = 9471046099) message] The system which generated this result transmitted reference range : 0.0 - 10.0 /100 WBCs. The refer ence range was not u sed to interpret th is result as normal/abnormal . NRBC x10^3 (test code See_Comment [Auto mated = 7418511586) message] The s ystem which generated this result transmitted reference range : 10*3/?L. The reference range was not used to interpret this result as normal/abnormal . GRAN MAT (NEUT) % 55.7 % (test code = 770-8) IMM GRAN % (test code 0.10 % = 8231465989) LYMPH % (test code = 31.0 % 736-9) MONO % (test code = 6.1 % 5905-5) EOS % (test code = 6.4 % 713-8) BASO % (test code = 0.7 % 706-2) GRAN MAT x10^3(ANC) 3.73 10*3/uL 1.88-7.09 (test code = 1575205252) IMM GRAN x10^3 (test 0.00-0.06 code = 9928965467) LYMPH x10^3 (test code 2.08 10*3/uL 1.32-3.29 = 731-0) MONO x10^3 (test code 0.41 10*3/uL 0.33-0.92 = 742-7) EOS x10^3 (test code = 0.43 10*3/uL 0.03-0.39 H 711-2) BASO x10^3 (test code 0.05 10*3/uL 0.01-0.07 = 704-7) Lab Interpretation Abnormal (test code = 67650-6) [facility] [id number] 20:59:00 Test Item Value Reference Range Interpretation Comments ABO & RH (test code = 20) O Positive IAT (test code = 1185) Negative [facility] [id number] 20:59:00 Test Item Value Reference Range Interpretation Comments ABO & RH (test code = 20) O Positive IAT (test code = 1185) Negative [facility]/O SPECIFIC [id number] 19:32:00 Test Item Value Reference Range Interpretation Comments POCT PH U (test code = 3254) 7 mg/dl 5-8 POCT U LEUK EST (test code = 1+ Negative - Negative 3263) POCT U NIT (test code = 3262) Neg Negative - Negative POCT U PROT (test code = 3259) 1+ Negative - Negative POCT U GLU (test code = 3256) Neg Negative - Negative POCT U KETONE (test code = 3258) None Negative - Negative POCT U BLD (test code = 3257) Large Negative - Negative [facility] URINALYSIS W/O SPECIFIC [id number] 19:32:00 Test Item Value Reference Range Interpretation Comments POCT PH U (test code = 3254) 7 mg/dl 5-8 POCT U LEUK EST (test code = 1+ Negative - Negative 3263) POCT U NIT (test code = 3262) Neg Negative - Negative POCT U PROT (test code = 3259) 1+ Negative - Negative POCT U GLU (test code = 3256) Neg Negative - Negative POCT U KETONE (test code = 3258) None Negative - Negative POCT U BLD (test code = 3257) Large Negative - Negative [facility] [id number] 19:31:00 Test Item Value Reference Range Interpretation Comments POCT PREG (test code = 1605) Positive On board controls acceptable with C Yes Line (test code = 3574) POCT PREG LOT # (test code = 3575) POCT PREG TEST DATE (test code = 3576) [facility] [id number] 19:31:00 Test Item Value Reference Range Interpretation Comments POCT PREG (test code = 1605) Positive On board controls acceptable with C Yes Line (test code = 3574) POCT PREG LOT # (test code = 3575) POCT PREG TEST DATE (test code = 3576) [facility] [id number] 18:45:00 Test Item Value Reference Range Interpretation Comments POCT PREG (test code = 1605) Negative On board controls acceptable with C Yes Line (test code = 3574) POCT PREG LOT # (test code = 3575) POCT PREG TEST DATE (test code = 3576) [facility] [id number] 18:45:00 Test Item Value Reference Range Interpretation Comments POCT PREG (test code = 1605) Negative On board controls acceptable with C Yes Line (test code = 3574) POCT PREG LOT # (test code = 3575) POCT PREG TEST DATE (test code = 3576) [facility] WITH [id number] 04:37:37 Test Item Value Reference Range Interpretation Comments WBC (test code = See_Comment [Automated 2590-2) message] The sy stem which generated this [...] RDW-SD (test code = 41.5 fL 39-49.9 67772-4) RDW-CV (test code = 13.5 % 12-15.5 788-0) PLT (test code = See_Comment [Automated 777-3) message] The sy stem which generated this result transmitted reference range : 166 - 358 10*3/ ?L. The reference r romain was not used to interpret this result as normal/abnormal . MPV (test code = 10.8 fL 9.5-12.9 41309-8) NRBC/100 WBC (test See_Comment [Automat ed code = 9259690394) message] The system which generated this result transmitted reference range : 0.0 - 10.0 /100 WBCs. The refer ence range was not u sed to interpret th is result as normal/abnormal . NRBC x10^3 (test code See_Comment [Auto mated = 8382816350) message] The s ystem which generated this result transmitted reference range : 10*3/?L. The reference range was not used to interpret this result as normal/abnormal . GRAN MAT (NEUT) % 48.1 % (test code = 770-8) IMM GRAN % (test code 0.30 % = 0865663536) LYMPH % (test code = 23.4 % 736-9) MONO % (test code = 5.9 % 5905-5) EOS % (test code = 21.7 % 713-8) BASO % (test code = 0.6 % 706-2) GRAN MAT x10^3(ANC) 3.41 10*3/uL 1.88-7.09 (test code = 6153797512) IMM GRAN x10^3 (test 0-0.06 code = 4925140489) LYMPH x10^3 (test code 1.66 10*3/uL 1.32-3.29 = 731-0) MONO x10^3 (test code 0.42 10*3/uL 0.33-0.92 = 742-7) EOS x10^3 (test code = 1.54 10*3/uL 0.03-0.39 H 711-2) BASO x10^3 (test code 0.04 10*3/uL 0.01-0.07 = 704-7) Lab Interpretation Abnormal (test code = 09390-6) [facility] [id number] 18:26:00 Test Item Value Reference Range Interpretation Comments POCT PREG (test code = 1605) Negative On board controls acceptable with C Yes Line (test code = 3574) POCT PREG LOT # (test code = 3575) POCT PREG TEST DATE (test code = 3576) [facility] [id number] 18:26:00 Test Item Value Reference Range Interpretation Comments POCT PREG (test code = 1605) Negative On board controls acceptable with C Yes Line (test code = 3574) POCT PREG LOT # (test code = 3575) POCT PREG TEST DATE (test code = 3576) [facility] [id number] 18:26:00 Test Item Value Reference Range Interpretation Comments POCT PREG (test code = 1605) Negative On board controls acceptable with C Yes Line (test code = 3574) POCT PREG LOT # (test code = 3575) POCT PREG TEST DATE (test code = 3576) [facility] I[facility]UNE [id number] 00:40:15 Test Item Value Reference Range Interpretation Comments RHIG CANDIDATE? No- see comment Patient i s not a (test code = candidate for R hIg- 5055) Patient is Rh Positive.Perfor med at [facility] Laboratory Services - [facility] Blood [address] [place] [id number] Free: [phone] A No. [id number] [facility] CORD [id number] 15:17:22 Test Item Value Reference Range Interpretation Comments VENOUS BASE EXCESS, mEq/L CORD (test code = 7886384672) VENOUS PH, CORD (test 7.25-7.45 code = 0641657213) VENOUS PC02, CORD See_Comment [Automate d message] The (test code = system which ge nerated 7805512151) this result tra nsmitted reference range : 27 - 49 mmHg. The refer ence range was not used to interpret this result as normal/abnormal . VENOUS PO2, CORD (test See_Comment [Aut omated message] The code = 5154521757) system [facility] generated this result tra nsmitted reference range : 17 - 41 mmHg. The refer ence range was not used to interpret this result as normal/abnormal . VENOUS BICARBONATE, See_Comment QUES [Au tomated message] CORD (test code = The system which generated 7305022740) this result tra nsmitted reference range : 12 - 29 mEq/L. The refe rence range was not used to interpret this result as normal/abnormal . [facility] Hospital[facility] (TORRIE) [id number] 13:53:33 Test Item Value Reference Range Interpretation Comments Rubella screen IgG Negative Negative (test code = 7443896413) MEMO (test code = MEMO) Positive - Indicates the patient was exposed to Rubella through infection or vaccination.Negative - Indicates the patient could be susceptible to Rubella infection.Equivocal - A second specimen should be sent. [facility] ONLY - SYPHILIS [id number] 13:48:13 Test Item Value Reference Range Interpretation Comments Syphilis IgG/IgM (test Non-reactive Non-reactive code = 49513-6) MEMO (test code = MEMO) Non-reactive - No serologic evidence of T. pallidum infection. Cannot exclude incubating or early syphilis. Submit a second specimen in 2-4 weeks if syphilis is clinically suspected. Equivocal - Further testing to follow. Reactive - Further testing to follow. Lab Interpretation (test Normal code = 59848-7) [facility] WITH [id number] 01:27:34 Test Item Value Reference Range Interpretation Comments HIV Negative Negative Semi-quantitative (test code = 23412-8) MEMO (test code = Non-reactive for HIV-1 MEMO) antigen and HIV-1/HIV-2 antibodies. ?No laboratory evidence of HIV infection. ?Repeat in 2-4 weeks if acute HIV infection is suspected. [facility] HospitalHepatitis B Surface [id number] 00:33:30 Test Item Value Reference Range Interpretation Comments HBsAg Semi-Quantitative (test code = Negative Negative 5195-3) [facility] HospitalType and Screen - ONCE [id number] 23:45:23 Test Item Value Reference Range Interpretation Comments ABO & RH (test code O POSITIVE Performe d at [facility] = 20) Laboratory Serv [facility] Blood Bank3 [address] [facility] s [address]Myqk Free: [phone] A No. [id number] IAT (test code = Negative Performed a t [facility] 1185) Laboratory Serv [facility] Blood Bank3 [address] [facility] s [address]Xcxj Free: [phone] A No. [id number] [facility] HospitalCBC with [id number] 23:44:26 Test Item Value Reference Range Interpretation Comments WBC (test code = See_Comment [Automated 9884-2) message] The sy stem which generated this [...] (test code = 38.5 fL 39-49.9 L 50199-2) RDW-CV (test code = 12.9 % 12-15.5 788-0) PLT (test code = See_Comment [Automated 777-3) message] The sy stem which generated this result transmitted reference range : 166 - 358 10*3/ ?L. The reference r romain was not used to interpret this result as normal/abnormal . MPV (test code = 11.8 fL 9.5-12.9 21402-8) NRBC/100 WBC (test See_Comment [Automat ed code = 6149169947) message] The system which generated this result transmitted reference range : 0.0 - 10.0 /100 WBCs. The refer ence range was not u sed to interpret th is result as normal/abnormal . NRBC x10^3 (test code See_Comment [Auto mated = 7255362491) message] The s ystem which generated this result transmitted reference range : 10*3/?L. The reference range was not used to interpret this result as normal/abnormal . GRAN MAT (NEUT) % 70.7 % (test code = 770-8) IMM GRAN % (test code 2.80 % = 5794487472) LYMPH % (test code = 14.2 % 736-9) MONO % (test code = 7.5 % 5905-5) EOS % (test code = 4.3 % 713-8) BASO % (test code = 0.5 % 706-2) GRAN MAT x10^3(ANC) 6.74 10*3/uL 1.88-7.09 (test code = 6033360062) IMM GRAN x10^3 (test 0.27 10*3/uL 0-0.06 H code = 9120640146) LYMPH x10^3 (test code 1.35 10*3/uL 1.32-3.29 = 731-0) MONO x10^3 (test code 0.72 10*3/uL 0.33-0.92 = 742-7) EOS x10^3 (test code = 0.41 10*3/uL 0.03-0.39 H 711-2) BASO x10^3 (test code 0.05 10*3/uL 0.01-0.07 = 704-7) Lab Interpretation Abnormal (test code = 73585-6) [facility] URINALYSIS W SPECIFIC [id number] 16:00:00 Test Item Value Reference Range Interpretation [...] POCT U APPEAR (test code = 3267) [facility] URINALYSIS W SPECIFIC [id number] 16:10:00 Test Item Value Reference Range Interpretation [...] POCT U APPEAR (test code = 3267) [facility] URINALYSIS W SPECIFIC [id number] 14:02:00 Test Item Value Reference Range Interpretation [...] POCT U APPEAR (test code = 3267) [facility] URINALYSIS W SPECIFIC [id number] 13:07:00 Test Item Value Reference Range Interpretation [...] U APPEAR (test code = 3267) . [facility] HospitalPOCT [id number] 18:56:00 Test Item Value Reference Range Interpretation Comments On board controls acceptable with present C Line (test code = 3574) POCT PREG LOT # (test code = 3575) [id number] POCT PREG TEST DATE (test 06/19/2023 code = 3576) POCT PREG (test code = 1605) positive Lab Interpretation (test code = Normal 99464-1) [facility] HospitalDRUGS OF ABUSE SCREEN [id number] 01:36:00 Test Item Value Reference Range Interpretation [...] ed for non-medical pur poses. UR HCG [id number] 01:26:00 Test Item Value Reference Range Interpretation Comments UR HCG QUAL (test code = HCGQLU) NEGATIVE NEGATIVE URINALYSIS [id number] 01:26:00 Test Item Value Reference Range Interpretation [...] 3+ /LPF NONE SEEN A HEPATIC FUNCTION [id number] 00:54:00 Test Item Value Reference Range Interpretation [...] 70 IUnit/L 60-350 N code = ALKP) [id number] 00:54:00 Test Item Value Reference Range Interpretation Comments ALCOHOL (test code < 0.003 G/dL <0.003 Ethyl Alc ohol = ALC) Interpretation: 0.100 gm/dL - Legally Intoxicated 0.3 00-0.400 gm/dL - Severel y Intoxicated >0 .400 gm/dL - Potenti ally LethalResults a re for Medical purpose s only, and not for Leg al orEmployment ev aluation purposes. 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 Bowel: No obstructing pattern. No overt bowel wall thickening. A small to moderate fecal load is noted. Appendix: Normal. Bladder: No significant findings. Major vascular structures: No significant findings. Pelvis: No pelvic mass is identified. PAGE 1 Signed Report (CONTINUED) Name: [facility] : 2000 Age/S: 18 / F [address] [place] [address] Bl Unit #: [id number] Loc: [place] [address] Phys: Jermaine Baugh [employer]ILINGS MAN Acct: [id number] Dis Date: Status: REG ER PHONE #: [phone] Exam Date: 02/24/2019 2313 FAX #: [phone] Reason: L sided abd pain EXAMS: CPT CODE: [id number] CT ABD PELVIS W/CONT 36853 (Continued) Other: No free air or adenopathy.No free fluid in noted. Skeleton: No acute bony abnormality. IMPRESSION: No overt acute abnormality to explain given complain. A small to moderate fecal load is noted, nonspecific. Additional findings as above. at 2338 Reported and signed by: Quang Schreiber M.D. CC: Jermaine Baugh NP Technologist:RT Roland(R) CTDI: DLP: Trnscb Date/Time: 02/24/2019 (233) [email or web address] Orig Print D/T: S: 02/24/2019 (9840) PAGE 2 Signed ReportBASIC METABOLIC PANEL 2019-02-24 22:46:00 Test Item Value Reference Range Interpretation [...] 9.3 mg/dL 8.0-10.5 N CA) HEPATIC FUNCTION [id number] 22:46:00 Test Item Value Reference Range Interpretation [...] 81 IUnit/L 60-350 N code = ALKP) [id number] 22:46:00 Test Item Value Reference Range Interpretation Comments LIPASE (test code = LIP) 166 IUnit/L 73-393 N HCG SERUM [id number] 22:46:00 Test Item Value Reference Range Interpretation Comments HCG SERUM QUAL (test code = SERUM NEGATIVE NEGATIVE HCGQL) BASIC METABOLIC [id number] 22:43:00 Test Item Value Reference Range Interpretation [...] 9.3 mg/dL 8.0-10.5 N CA) HEPATIC FUNCTION [id number] 22:43:00 Test Item Value Reference Range Interpretation [...] TOTAL (test IUnit/L 60-350 code = ALKP) [id number] 22:43:00 Test Item Value Reference Range Interpretation Comments LIPASE (test code = LIP) 166 IUnit/L 73-393 N HCG SERUM [id number] 22:43:00 Test Item Value Reference Range Interpretation Comments HCG SERUM QUAL (test code = SERUM NEGATIVE NEGATIVE HCGQL) BASIC METABOLIC [id number] 22:37:00 Test Item Value Reference Range Interpretation [...] code = CA) mg/dL 8.0-10.5 HEPATIC FUNCTION [id number] 22:37:00 Test Item Value Reference Range Interpretation Comments TOTAL PROTEIN (test code = PROT) g/dL 6.4-8.2 ALBUMIN (test code = ALB) g/dL 3.4-5.0 BILIRUBIN TOTAL (test code = BILT) mg/dL 0.0-1.0 BILIRUBIN DIRECT (test code = BILD) MG/DL 0.0-0.30 SGOT/AST (test code = AST) IUnit/L 15-37 SGPT/ALT (test code = ALT) IUnit/L 15-65 ALKALINE PHOSPHATASE TOTAL (test IUnit/L 60-350 code = ALKP) [id number] 22:37:00 Test Item Value Reference Range Interpretation Comments LIPASE (test code = LIP) IUnit/L 73-393 HCG SERUM [id number] 22:37:00 Test Item Value Reference Range Interpretation Comments HCG SERUM QUAL (test code = SERUM NEGATIVE NEGATIVE HCGQL) CBC W/AUTO [id number] 22:28:00 Test Item Value Reference Range Interpretation [...] REQUIRED (test code NO = MDIFF) URINALYSIS [id number] 21:07:00 Test Item Value Reference Range Interpretation [...] Note Provider Source 2019-02-24 19:47:00-00:00 [facility] ([facility]) EMERGENCY PROVIDER REPORT REPORT#:[id number] REPORT STATUS: Signed DATE:02/24/19 TIME: 1946 PATIENT: KAMRYN TELLEZ UNIT #: [id number] ROOM/BED: AGE: 18 SEX: F PCP PHYS: No Primary or Family Ph ysician SERVICE AUTHOR: Jermaine Baugh TAILINGS MAN * ALL edits or amendments must be made on the Clutch/computer document * HPI-Abd Pain F Under 40 [...] % (Auto) (14.0 - 32.0 %) 27.9 [place] % (Auto) (4.8 - 9.0 %) 6.9 Eos % (Auto) (0.3 - 3.7 %) 5.1 H Baso % (Auto) (0.0 - 2.0 %) 0.3 Neut # (Auto) (2.0 - 7.6 x10 3/uL) 3.99 Lymph # (Auto) (1.0 - 3.8 x10 3/uL) 1.87 [place] # (Auto) (0.1 - 0.8 x10 3/uL) [...] pH (5.0 - 7.0) 5.0 Ur Specific [place] (1.005 - 1.030) 1.021 Urine Protein (NEGATIVE) [...] Interpret - Radiolog ist Reviewed by ED TAILINGS MAN Portions of this section were scribed by [...] X1ED STA 02/24 1946 DC IV 02/24 194 2216 Diagnostic Agents Sig/Michelle Start time Last Medication Dose Route Stop Time Status Admin Diatrizoate Meglum/ 10 ML .STK-MED ONE 02/24 23 09 DC 02/24 Diatrizoate Sod PO 02/240 2309 Iopamidol 100 ML .STK-MED ONE 02/25 2308 DC IV 02/24 2309 2308 Electrolytic, Caloric, And Merry Sig/Michelle Start time Last Medication Dose Route Stop Time Status Admin Sodium Chloride 1,000 ML X1ED STA 02/24 1947 DC 02/24 IV 02/24 2046 2216 Gastrointestinal Drugs Sig/Michelle Start time Last Medication Dose Route Stop Time Status Admin Ondansetron HCl 8 MG X1ED STA 02/24 1947 DC / IV 02/25 1948 2217 Portions of this section were scribed by [...] at 0659 Electronically Signed by Jermaine Baugh TAILINGS MAN on 05/08 at 1915 RPT #:[id number] END OF REPORT 2019-02-24 19:47:00-00:00 [facility] EMERGENCY PROVIDER REPORT REPORT#:[id number] REPORT STATUS: Signed DATE:02/24/19 TIME: 1946 PATIENT: KAMRYN TELLEZ UNIT #: [id number] ROOM/BED: AGE: 18 SEX: F PCP PHYS: No Primary or Family Ph ysician SERVICE AUTHOR: Jermaine Baugh TAILINGS MAN * ALL edits or amendments must be made on the Clutch/computer document * Jermaien Baugh [birth year]: HPI-Abd Pain F Under 40 [...] Portions of this section were scribed by Kaal Sandoval on 02/24/19 at 1947 Past Medical [...] Pulse Ox 99 02/25 0044 B/P 109/54 02/25 0044 B/P Mean 72 02/26 44 O2 Delivery [...] IUnit/L) 166 Serum , Qual (NEGATIVE) SERUM NEGATIV E Hematology WBC (4.5 - 11.0 x10 3/uL) [...] % (Auto) (14.0 - 32.0 %) 27.9 [place] % (Auto) (4.8 - 9.0 %) 6.9 Eos % (Auto) (0.3 - 3.7 %) 5.1 H Baso % (Auto) (0.0 - 2.0 %) 0.3 Neut # (Auto) (2.0 - 7.6 x10 3/uL) 3.99 Lymph # (Auto) (1.0 - 3.8 x10 3/uL) 1.87 [place] # (Auto) (0.1 - 0.8 x10 3/uL) [...] pH (5.0 - 7.0) 5.0 Ur Specific [place] (1.005 - 1.030) 1.021 Urine Protein (NEGATIVE) [...] Interpret - Radiolog ist Reviewed by ED TAILINGS MAN Portions of this section were scribed by [...] .STK-MED ONE 02/25 2308 DC IV 02/24 230 2308 Portions of this section were scribed by Kala Sandoval on 02/25/19 at 0009 Patient Discharge Departure Vital Signs/Condition Vital Signs First Documented: Result Date Time Pulse Ox 98 02/24 1945 B/P 115/84 02/24 194 B/P Mean 94 02/24 1945 O2 Delivery Room air 02/24 1945 Temp 36.9 02/24 194 Pulse 84 02/24 1945 Resp 18 02/24 [...] Saw Pt Alone I have reviewed the PA/TAILINGS MAN's note and plan of car e. I was available for consultation as needed at al l times during the patient's visit in the emergency department. I agree with the clinical impression , plan and disposition. Authenticated by Diomedes Villareal MD on 02/25/19 at 1915 Electronically Signed by Jermaine Baugh NP on 05/08 at 191 RPT #:[id number] END OF REPORT 2019-02-24 19:47:00-00:00 [facility] REPORT#:[id number] REPORT STATUS: Signed DATE:02/24/19 TIME: 1946 PATIENT: KAMRYN TELLEZ UNIT #: [id number] ROOM/BED: AGE: 18 SEX: F PCP PHYS: No Primary or Family Ph ysician SERVICE AUTHOR: Jermaine Baugh TAILINGS MAN * ALL edits or amendments must be made on the Clutch/computer document * Jermaine Baugh [birth year]: HPI-Abd Pain [...] Documented: Result Date Time Pulse Ox 99 02/254 B/P 109/54 02/26 44 B/P Mean 72 [...] % (Auto) (14.0 - 32.0 %) 27.9 [place] % (Auto) (4.8 - 9.0 %) 6.9 Eos % (Auto) (0.3 - 3.7 %) 5.1 H Baso % (Auto) (0.0 - 2.0 %) 0.3 Neut # (Auto) (2.0 - 7.6 x10 3/uL) 3.99 Lymph # (Auto) (1.0 - 3.8 x10 3/uL) 1.87 [place] # (Auto) (0.1 - 0.8 x10 3/uL) [...] pH (5.0 - 7.0) 5.0 Ur Specific [place] (1.005 - 1.030) 1.021 Urine Protein (NEGATIVE) [...] Interpret - Radiolog ist Reviewed by ED TAILINGS MAN Portions of this section were scribed by [...] 23 09 DC 02/24 Diatrizoate Sod PO 02/240 2309 Iopamidol 100 ML .STK-MED ONE 02/24 [...] Sandoval on 02/25/19 at 0659 Diomedes Villareal 02/25/196: HPI-Abd Pain F Under 40 General Initial Greet Date/Time 02/24/191936 Physical Exam Vital Signs Vital Signs Interpretation Diagnostics Lab Results Interpretation Results Re-Evaluation MDM ED Course Medication(s) Ordered Patient Discharge Departure Vital Signs/Condition Vital Signs Supervising Physician Note MidLv Saw Pt Alone I have reviewed the PA/TAILINGS MAN's note and plan of car e. I was available for consultation as needed at al l times during the patient's visit in the emergency department. I agree with the clinical impression , plan and disposition. Authenticated by Diomedes Villareal MD on 02/25/19 at 1915 Electronically Signed by Jermaine Baugh NP on 05/08 at 1915 RPT #:[id number] END OF REPORT 2019-02-24 19:47:00-00:00 [facility] EMERGENCY PROVIDER REPORT REPORT#:[id number] REPORT STATUS: Signed DATE:02/24/19 TIME: 1946 PATIENT: KAMRYN TELLEZ UNIT #: [id number] ROOM/BED: AGE: 18 SEX: F PCP PHYS: No Primary or Family Ph ysician SERVICE AUTHOR: Jermaine Baugh NP * ALL edits or amendments must be made on the Clutch/computer document * Jermaine Baugh [birth year]: HPI-Abd Pain [...] Documented: Result Date Time Pulse Ox 99 02/254 B/P 109/54 02/26 44 B/P Mean 72 02/26 44 O2 Delivery Room air 02/26 44 Temp 36.7 02/25 004 Pulse 80 / 0044 Resp 16 02/25 0044 Review of [...] % (Auto) (14.0 - 32.0 %) 27.9 [place] % (Auto) (4.8 - 9.0 %) 6.9 Eos % (Auto) (0.3 - 3.7 %) 5.1 H Baso % (Auto) (0.0 - 2.0 %) 0.3 Neut # (Auto) (2.0 - 7.6 x10 3/uL) 3.99 Lymph # (Auto) (1.0 - 3.8 x10 3/uL) 1.87 [place] # (Auto) (0.1 - 0.8 x10 3/uL) [...] pH (5.0 - 7.0) 5.0 Ur Specific [place] (1.005 - 1.030) 1.021 Urine Protein (NEGATIVE) [...] 02/243 Report Impression - Status: SIGNED Entered: 02/24/2019 2341 IMPRESSION: No overt acute abnormality to explain given comp carline. A small to moderate fecal load is noted, nonspec ific. Additional findings as above. Impression By: JulienneUKDuane - Quang Schreiber M.D. Lab Imaging Statement [...] Interpret - Radiolog ist Reviewed by ED TAILINGS MAN Portions of this section were scribed by [...] Saw Pt Alone I have reviewed the PA/TAILINGS MAN's note and plan of car e. I was available for consultation as needed at al l times during the patient's visit in the emergency department. I agree with the clinical impression , plan and disposition. Authenticated by Diomedes Villareal MD on 02/25/19 at 1915 Electronically Signed by Jermaine Baugh NP on 05/08 at 1915 at 4282 RPT #:[id number] END OF REPORT"
--- NOTE | 2023-02-13 18:08 | ER ---
Nurse's Notes [facility] Name: Aleyda Mac Age: 22 yrs Sex: Female : 2000 Arrival Date: 02/13/2023 Time: 17:49 Bed IW2 Private MD: Diagnosis: Acute serous otitis media, right ear Presentation: 02/13 18:04 Chief complaint: Patient states: LIN AND R EAR CONGESTION SINCE Y/D. Coronavirus screen: bp At this time, the client does not indicate any symptoms associated with coronavirus-19. Ebola Screen: No symptoms or risks identified at this time. Initial Sepsis Screen: Does the patient meet any 2 criteria? No. Patient's initial sepsis screen is negative. Does the patient have a suspected source of infection? No. Patient's initial sepsis screen is negative. Risk Assessment: Do you want to hurt yourself or someone else? Patient reports no desire to harm self or others. Onset of symptoms is unknown. 18:04 Method Of Arrival: Ambulatory bp 18:04 Acuity: GERONIMO 4 bp Triage Assessment: 18:05 General: Appears in no apparent distress. Behavior is calm, cooperative, appropriate bp for age. Pain: Complains of pain in right ear. EENT: Reports decreased hearing in right ear. Neuro: No deficits noted. Cardiovascular: No deficits noted. Respiratory: No deficits noted. GI: No signs and/or symptoms were reported involving the gastrointestinal system. : No signs and/or symptoms were reported regarding the genitourinary system. Derm: No deficits noted. Musculoskeletal: No deficits noted. Historical: - Allergies: 18:05 SHELLFISH; bp - PMHx: 18:05 blood clot lung; bp - PSHx: 18:05 Adenoid excision; Tonsillectomy; bp - Immunization history:: Adult Immunizations up to date. - Social history:: Smoking status: Patient denies any tobacco usage or history of. Screenin:53 [facility] ED Fall Risk Assessment (Adult) History of falling in the last 3 months, ld1 including since admission No falls in past 3 months (0 pts) Confusion or Disorientation No (0 pts) Intoxicated or Sedated No (0 pts) Impaired Gait No (0 pts) Mobility Assist Device Used No (0 pt) Altered Elimination No (0 pt) Score/Fall Risk Level 0 - 2 = Low Risk Oriented to surroundings, Maintained a safe environment. Abuse screen: Denies threats or abuse. Denies injuries from another. Nutritional screening: No deficits noted. Tuberculosis screening: No symptoms or risk factors identified. Assessment: 18:52 Reassessment: Patient appears in no apparent distress at this time. No changes from ld1 previously documented assessment. Patient is alert, oriented x 3, equal unlabored respirations, skin warm/dry/pink. Neuro: No deficits noted. Level of Consciousness is awake, alert, Oriented to person, place, time, situation. Respiratory: No deficits noted. Airway is patent Respiratory effort is even, unlabored, Respiratory pattern is regular, symmetrical. Vital Signs: 18:04 BP 122 / 79; Pulse 94; Resp 16; Temp 97.8; Pulse Ox 100% ; Weight 63.5 kg; Height 5 ft. bp 2 in. ; 18:04 Body Mass Index 25.61 (63.50 kg, 157.48 cm) bp ED Course: 17:50 Patient arrived in ED. am2 17:54 [facility] 17:54 Cuate Ng MD is Attending Physician. [facility] 18:05 Triage completed. bp 18:05 Arm band placed on. bp 18:53 Patient has correct armband on for positive identification. ld1 18:53 No provider procedures requiring assistance completed. Patient did not have IV access ld1 during this emergency room visit. Administered Medications: No medications were administered Medication: 18:53 VIS not applicable for this client. ld1 Outcome: 18:08 Discharge ordered by . [facility] 18:53 Discharged to home ambulatory. ld1 18:53 Condition: good 18:53 Discharge instructions given to patient, Instructed on discharge instructions, follow up and referral plans. medication usage, Demonstrated understanding of instructions, follow-up care, medications, Prescriptions given X 1. 18:54 Patient left the ED. ld1 Signatures: Shivam Mina PA PA jmm Moreno, Amanda am2 Brian Ty, DERRELL RN bp Camilla Seymour RN RN ld1
--- NOTE | 2023-02-13 18:08 | EDPHYS ---
Physician Documentation [facility] Name: Aleyda Mac Age: 22 yrs Sex: Female : 2000 Arrival Date: 02/13/2023 Time: 17:49 Bed IW2 Private MD: ED Physician Cuate Ng HPI: 02/13 18:07 This 22 yrs old Female presents to ER via Ambulatory with complaints of Ear Pain, jmm Congestion. 18:07 The patient presents with pain. Onset: The symptoms/episode began/occurred gradually. jmm Modifying factors: The symptoms are alleviated by nothing, the symptoms are aggravated by nothing. Associated signs and symptoms: Pertinent positives: sinus trouble, Pertinent negatives:. It is unknown whether or not the patient has had similar symptoms in the past. Historical: - Allergies: 18:05 SHELLFISH; bp - PMHx: 18:05 blood clot lung; bp - PSHx: 18:05 Adenoid excision; Tonsillectomy; bp - Immunization history:: Adult Immunizations up to date. - Social history:: Smoking status: Patient denies any tobacco usage or history of. ROS: 18:07 Constitutional: Negative for fever, chills, and weight loss, Cardiovascular: Negative jmm for chest pain, palpitations, and edema, Respiratory: Negative for shortness of breath, cough, wheezing, and pleuritic chest pain. 18:07 ENT: Positive for ear pain. 18:07 All other systems are negative. Exam: 18:07 Constitutional: This is a well developed, well nourished patient who is awake, alert, jmm and in no acute distress. Head/Face: atraumatic. Eyes: EOMI, no conjunctival erythema appreciated 18:07 Neck: Trachea midline, Supple Chest/axilla: Normal chest wall appearance and motion. Cardiovascular: Regular rate and rhythm. No edema appreciated Respiratory: Normal respirations, no respiratory distress appreciated Abdomen/GI: Non distended Back: Normal ROM Skin: General appearance color normal MS/ Extremity: Moves all extremities, no obvious deformities appreciated, no edema noted to the lower extremities Neuro: Awake and alert Psych: Behavior is normal, Mood is normal, Patient is cooperative and pleasant 18:07 ENT: TM's: bulging, on the right, erythema, that is mild, Posterior pharynx: is normal. Vital Signs: 18:04 BP 122 / 79; Pulse 94; Resp 16; Temp 97.8; Pulse Ox 100% ; Weight 63.5 kg; Height 5 ft. bp 2 in. ; 18:04 Body Mass Index 25.61 (63.50 kg, 157.48 cm) bp MDM: 18:07 Patient medically screened. [facility] 18:23 Differential diagnosis: otitis media. Data reviewed: vital signs, nurses notes. [facility] Counseling: I had a detailed discussion with the patient and/or guardian regarding: the historical points, exam findings, and any diagnostic results supporting the discharge/admit diagnosis, the need for outpatient follow up, to return to the emergency department if symptoms worsen or persist or if there are any questions or concerns that arise at home. Administered Medications: No medications were administered Disposition: 02/14 13:45 Co-signature as Attending Physician, Cuate Ng MD I reviewed the patient's care rt provided by the Advanced Practice Provider and agree with the diagnosis and treatment plan. Disposition Summary: 02/13/23 18:08 Discharge Ordered Location: Home [facility] Condition: Stable [facility] Diagnosis - Acute serous otitis media, right ear [facility] Followup: [facility] - With: Private Physician - When: 2 - 3 days - Reason: Recheck today's complaints, Continuance of care, Re-evaluation by your physician Discharge Instructions: - Discharge Summary Sheet [facility] - Otitis Media, Pediatric [facility] Forms: - Medication Reconciliation Form [facility] - Thank You Letter [facility] - Antibiotic Education [facility] - Prescription Opioid Use [facility] - [email or web address] [facility] Prescriptions: - Amoxicillin 875 mg Oral Tablet - take 1 tablet by ORAL route every 12 hours for 10 days; 20 tablet; Refills: 0, [facility] Product Selection Permitted Signatures: Shivam Mina PA PA jmm Peltier, Brian, RN RN bp Cuate Ng MD MD rt
[2023-02-13 19:54] VITALS: BP 122/79; TEMP 97.8; O2SAT 100
== END 2023-02-13 18:54 | disposition home or self-care (01) ==
LOC: ER 17:49
DX: H65.01 Acute serous otitis media, right ear (principal); Z91.013 Allergy to seafood